=== PATIENT | male | born 1930 | race Caucasian/White ===

== ENCOUNTER 2016-09-22 12:51 | Observation (INO) | payer OTHER, BC ==
[~2016-09-22] VITALS: Ht 165.1 cm; Wt 66.8 kg
[~2016-09-22 12:51] MED LIST: ALBUAER19 INH; ASMIN/60 INH; BRVIN INH; CLC6 PO; DILT120C99 PO; EPP3/2 INJ; GABA1CAP4 PO; LISI-791 PO; MONT1TAB3 PO; PANT40TA PO; POTA10CA28 PO
[2016-09-22] MEDS ORDERED: SODIUM CHLORIDE 0.9% 500ML 500 ML IV STA (13:40)
[2016-09-22] MEDS ORDERED: LORAZEPAM 2 MG/ML 1 ML VIAL IV STA (13:40)
[2016-09-22] MEDS ORDERED: ALL100 PO (14:23)
[2016-09-22 14:27] LABS: BASO % 0.7 %; BASO ABS # 0.05 K/uL (0-0.2); COMPLETE YES; EOS % 2.7 %; HEMATOCRIT 43.4 % (42-52); IG% 0.3 %; LYMPH % 16.1 %; LYMPH ABS # 1.12 K/uL (1.2-3.4); MEAN CELL VOLUME 88.2 fL (80-100); MEAN CORPUSCULAR HEMOGLOBIN 30.9 pg (25-34); MEAN PLATELET VOLUME 9.1 fL (7.4-10.4); MONO % 7.9 %; NEUT % 72.3 %; PLATELET COUNT 171 K/uL (130-400); RED BLOOD COUNT 4.92 M/uL (4.7-6.1); WHITE BLOOD COUNT 6.94 K/uL (4.8-10.8)
[2016-09-22 14:39] LABS: BUN/CREATININE RATIO 13.3 (10-20); CREATININE 1.1 mg/dl (0.60-1.40); POTASSIUM 3.8 mmol/L (3.5-5.1)
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
[2016-09-22] MEDS ORDERED: ALBUTEROL 0.083% NEBU SOLN 3 ML VIAL INH PRN (17:00)
[2016-09-22] MEDS ORDERED: MoRPHine SULFATE 4 MG/ML 1 ML CARP\\VIAL IV PRN (17:15)
[2016-09-22] MEDS ORDERED: HYDROCODONE/ACETAMOPHEN 5/325MG TAB PO PRN (17:15)
[2016-09-22] MEDS ORDERED: ACETAMINOPHEN 325 MG TAB PO PRN (17:15)
[2016-09-22 17:38] VITALS: O2SAT 97; Ht 165.1 cm; Wt 66.8 kg
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
[2016-09-22 18:41] VITALS: BP 187/88; PULSE 67; TEMP 36.3; O2SAT 94
[2016-09-22 19:18] LABS: HEMATOCRIT 42.1 % (42-52); MEAN CELL VOLUME 88.3 fL (80-100); MEAN CORPUSCULAR HEMOGLOBIN 30.2 pg (25-34); MEAN CORPUSCULAR HGB CONC 34.2 g/dl (32-36); MEAN PLATELET VOLUME 9.1 fL (7.4-10.4); PLATELET COUNT 173 K/uL (130-400); RED BLOOD COUNT 4.77 M/uL (4.7-6.1); WHITE BLOOD COUNT 7.42 K/uL (4.8-10.8)
[2016-09-22 19:32] LABS: PROTHROMBIN TIME (PATIENT) 11.1 SECONDS (9.0-12.0)
[2016-09-22] MEDS: GABAPENTIN 300 MG CAP PO SCH (20:28)
[2016-09-22] MEDS: MOMETASONE FUROATE 14 PUFF/1 INHALER INH SCH (20:28)
[2016-09-22] MEDS: HEPARIN SOD 5000 UNIT/0.5 ML CARP SQ SCH (20:33)
[2016-09-22] MEDS: ARFORMOTEROL TART 15MCG/2ML VIAL INH SCH (20:42)
[2016-09-22 20:43] VITALS: PULSE 76; O2SAT 95
[2016-09-22] MEDS ORDERED: MONTELUKAST SOD 10 MG TAB PO SCH (21:00)
[2016-09-22] MEDS ORDERED: IV FLUIDS COMPLETED PRN (21:00)
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
[2016-09-22 23:57] VITALS: BP 146/86; PULSE 59; TEMP 36.7; O2SAT 96
[2016-09-23] VITALS (7 sets, daily range): BP systolic 157–172; BP diastolic 68–86; PULSE 59–76; TEMP 36.6–37.1; O2SAT 92–95
[2016-09-23] MEDS: ARFORMOTEROL TART 15MCG/2ML VIAL INH SCH (07:12)
[2016-09-23 07:17] LABS: BASO % 0.6 %; BASO ABS # 0.04 K/uL (0-0.2); COMPLETE YES; HEMATOCRIT 39.6 % (42-52); LYMPH % 21.6 %; LYMPH ABS # 1.35 K/uL (1.2-3.4); MEAN CELL VOLUME 87.6 fL (80-100); MEAN CORPUSCULAR HEMOGLOBIN 29.2 pg (25-34); MEAN CORPUSCULAR HGB CONC 33.3 g/dl (32-36); MEAN PLATELET VOLUME 9.4 fL (7.4-10.4); MONO % 9.9 %; NEUT % 63.9 %; PLATELET COUNT 167 K/uL (130-400); RED BLOOD COUNT 4.52 M/uL (4.7-6.1); WHITE BLOOD COUNT 6.26 K/uL (4.8-10.8)
[2016-09-23 07:48] LABS: BUN/CREATININE RATIO 15.1 (10-20); CALCIUM 8.6 mg/dl (8.5-10.1); CREATININE 1.1 mg/dl (0.60-1.40); POTASSIUM 3.6 mmol/L (3.5-5.1)
[2016-09-23] MEDS: GABAPENTIN 300 MG CAP PO SCH (08:30)
[2016-09-23] MEDS: HEPARIN SOD 5000 UNIT/0.5 ML CARP SQ SCH (08:31)
[2016-09-23] MEDS: MOMETASONE FUROATE 14 PUFF/1 INHALER INH SCH (08:32)
[2016-09-23] MEDS ORDERED: PANTOprazole SOD 40 MG TAB PO SCH (09:00)
[2016-09-23] MEDS ORDERED: DILTIAZEM HCL 120 MG CAPCR PO SCH (09:00)
[2016-09-23] MEDS ORDERED: ALLOPURINOL 100 MG TAB PO SCH ×2 (09:00→21:00)
[2016-09-23] MEDS ORDERED: LISINOPRIL 10 MG TAB PO SCH ×2 (09:00→21:00)
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
== END 2016-09-23 13:00 | disposition home or self-care (01) ==
LOC: ENRESERVTM → ENRESERVDT → C.EDB 12:51 → EDBD 12:51 → EDSEX 12:51 → C.MED 17:03
PROVIDERS: ADMIT Hospitalist; ATTEND Hospitalist
DX: R42 Dizziness and giddiness (principal); R07.81 Pleurodynia; V89.2XXA Person injured in unspecified motor-vehicle accident, traffic, initial encounter; I10 Essential (primary) hypertension; J44.9 Chronic obstructive pulmonary disease, unspecified; K21.9 Gastro-esophageal reflux disease without esophagitis; M10.00 Idiopathic gout, unspecified site; M47.812 Spondylosis without myelopathy or radiculopathy, cervical region; M85.80 Other specified disorders of bone density and structure, unspecified site; Z85.46 Personal history of malignant neoplasm of prostate

== ENCOUNTER → 2016-09-26 | Outpatient (CLI) | payer OTHER, BC ==
[~2016-09-26] MED LIST changes: +ALL100 PO; -CLC6 PO; -POTA10CA28 PO
--- NOTE | 2016-09-26 11:02 | DIAGNOSTIC IMAGING REPORT ---
RIBS UNILATERAL WITH PA CHEST CLINICAL HISTORY: RIB PAIN ON RIGHT SIDE pain COMPARISON STUDY: 04/08/2014 FINDINGS: Chronic bibasilar platelike atelectasis. Lungs appear clear. Chronic apical pleural thickening in the right. Negative ribs. IMPRESSION: No acute process. Electronically signed by: Daniel Aragon M.D. 09/26/2016 11:00 AM
== END | disposition home or self-care (01) ==
LOC: C.RADPV 10:37
PROVIDERS: ATTEND Family Medicine
DX: R07.81 Pleurodynia (principal)

== ENCOUNTER → 2016-12-12 | Outpatient (CLI) | payer OTHER, BC ==
[2016-12-12 12:21] LABS: ALT/SGPT 25 U/L (12-78); BLOOD UREA NITROGEN 23 mg/dl (7-18); BUN/CREATININE RATIO 20.6 (10-20); CALCIUM 9.3 mg/dl (8.5-10.1); CARBON DIOXIDE 29 mmol/L (21-32); CHLORIDE 108 mmol/L (98-107); GLUCOSE 124 mg/dl (70-99); MAGNESIUM 2.2 mg/dl (1.8-2.4); POTASSIUM 4.2 mmol/L (3.5-5.1); SODIUM 143 mmol/L (136-145)
[2016-12-12 12:24] LABS: ALKALINE PHOSPHATASE 63 U/L (45-117); AST/SGOT 15 U/L (15-37)
== END | disposition home or self-care (01) ==
LOC: C.LABPVFM 10:01
PROVIDERS: ATTEND Family Medicine
DX: M10.9 Gout, unspecified (principal); J44.9 Chronic obstructive pulmonary disease, unspecified; K21.9 Gastro-esophageal reflux disease without esophagitis

== ENCOUNTER → 2017-03-31 | Outpatient (CLI) | payer OTHER, BC | END | disposition home or self-care (01) | LOC: C.LABPVFM 10:11 | PROVIDERS: ATTEND Urology | DX: C61 Malignant neoplasm of prostate (principal) ==

== ENCOUNTER → 2017-04-17 | Outpatient (CLI) | payer OTHER, BC | END | disposition home or self-care (01) | LOC: C.LABSPEC 10:53 | PROVIDERS: ATTEND Plastic Surgery | DX: L02.01 Cutaneous abscess of face (principal) ==

== ENCOUNTER → 2017-04-17 | Outpatient (CLI) | payer OTHER, BC | END | disposition home or self-care (01) | LOC: C.PATHSPEC 10:20 | PROVIDERS: ATTEND Plastic Surgery | DX: L98.9 Disorder of the skin and subcutaneous tissue, unspecified (principal) ==

== ENCOUNTER → 2017-06-16 | Outpatient (CLI) | payer OTHER, BC ==
[2017-06-16 13:04] LABS: ESTIMATED AVERAGE GLUCOSE 134 mg/dl; HA1C FLAG Normal (Normal)
[2017-06-16 13:12] LABS: ALT/SGPT 21 U/L (12-78); AST/SGOT 18 U/L (15-37); BLOOD UREA NITROGEN 20 mg/dl (7-18); BUN/CREATININE RATIO 16.8 (10-20); CALCIUM 9.4 mg/dl (8.5-10.1); CARBON DIOXIDE 26 mmol/L (21-32); CHLORIDE 109 mmol/L (98-107); GLUCOSE 126 mg/dl (70-99); POTASSIUM 4.2 mmol/L (3.5-5.1); SODIUM 144 mmol/L (136-145)
[2017-06-16 13:18] LABS: ALB/GLOB RATIO 1.1 (0.9-2); ALKALINE PHOSPHATASE 51 U/L (45-117)
== END | disposition home or self-care (01) ==
LOC: C.LABPVFM 09:38
PROVIDERS: ATTEND Family Medicine
DX: I10 Essential (primary) hypertension (principal); R42 Dizziness and giddiness; R73.01 Impaired fasting glucose; M10.9 Gout, unspecified; K21.9 Gastro-esophageal reflux disease without esophagitis

== ENCOUNTER → 2017-12-04 | Outpatient (CLI) | payer OTHER, BC ==
[~2017-12-04] MED LIST changes: +GABA-1219 PO; -GABA1CAP4 PO
[2017-12-04 13:15] LABS: HEMOGLOBIN A1C 6.2 % (4.5-5.6)
[2017-12-04 13:18] LABS: ALBUMIN 4.2 gm/dl (3.4-5.0); ALT/SGPT 18 U/L (12-78); BLOOD UREA NITROGEN 16 mg/dl (7-18); CALCIUM 9.1 mg/dl (8.5-10.1); CARBON DIOXIDE 28 mmol/L (21-32); CREATININE 1.09 mg/dl (0.60-1.40); GLUCOSE 134 mg/dl (70-99); POTASSIUM 3.5 mmol/L (3.5-5.1); SODIUM 142 mmol/L (136-145); URIC ACID 4.9 mg/dl (2.6-7.2)
[2017-12-04 13:21] LABS: ALKALINE PHOSPHATASE 61 U/L (45-117); AST/SGOT 13 U/L (15-37); TOTAL PROTEIN 7.7 gm/dl (6.4-8.2)
== END | disposition home or self-care (01) ==
LOC: C.LABPVFM 09:19
PROVIDERS: ATTEND Family Medicine
DX: J44.9 Chronic obstructive pulmonary disease, unspecified (principal); I10 Essential (primary) hypertension; R73.01 Impaired fasting glucose; K21.9 Gastro-esophageal reflux disease without esophagitis

== ENCOUNTER → 2018-01-06 | Outpatient (CLI) | payer OTHER, BC | END | disposition home or self-care (01) | LOC: C.LABSALHI 09:57 | PROVIDERS: ATTEND Family Medicine | DX: R19.7 Diarrhea, unspecified (principal) ==

== ENCOUNTER → 2018-04-23 | Outpatient (CLI) | payer OTHER, BC | END | disposition home or self-care (01) | LOC: C.LABPVFM 10:12 | PROVIDERS: ATTEND Urology | DX: C61 Malignant neoplasm of prostate (principal) ==

== ENCOUNTER 2018-10-15 08:46 | Inpatient (IN) ==
[2018-10-15] MEDS ORDERED: SODIUM CHLORIDE 0.9% 1000ML 250 ML IV ONE (09:28)
[2018-10-15 09:41] LABS: Basophils # (auto) 0.02 K/uL (0-0.2); Basophils % (auto) 0.1 %; Eosinophils # (auto) 0.01 K/uL (0-0.5); Eosinophils % (auto) 0.1 %; Hematocrit (blood only) 41.1 % (42-52); Hemoglobin 14.4 g/dL (14.0-18.0); Immature Granulocytes # (auto) 0.08 K/uL (0.00-0.02); Immature Granulocytes % (auto) 0.4 %; Lymphocytes # (auto) 0.91 K/uL (1.2-3.4); Lymphocytes % (auto) 4.8 %; Mean Corpuscular Volume 88.4 fL (80-100); Mean Platelet Volume 9.7 fL (7.4-10.4); Monocytes # (auto) 1.94 K/uL (0.11-0.59); Monocytes % (auto) 10.3 %; Neutrophils # (auto) 15.96 K/uL (1.4-6.5); Neutrophils % (auto) 84.3 %; Platelet Count 187 K/uL (130-400); RDW Standard Deviation 45.3 fL (36.4-46.3); Red Blood Count 4.65 M/uL (4.7-6.1); White Blood Count 18.92 K/uL (4.8-10.8)
--- NOTE | 2018-10-15 09:53 | XRay Report ---
XR chest 1V portable CLINICAL HISTORY: Dyspnea COMPARISON STUDY: 09/26/2016 FINDINGS: The heart is borderline enlarged. There are low lung volumes. There is elevation of the rig ht hemidiaphragm. There is no overt failure. There are persistent basilar atelectatic changes.[ IMPRESSION: Mild elevation right hemidiaphragm. Low lung volumes with persistent basilar atelectatic change. No acute findings. Electronically signed by: Vin Saunders M.D. 10/15/2018 9:51 AM
[2018-10-15 09:58] LABS: Alanine Aminotransferase 20 U/L (12-78); Albumin Level 3.4 gm/dl (3.4-5.0); Aspartate Aminotransferase 17 U/L (15-37); BUN Creatinine Ratio 15.5 (10-20); Blood Urea Nitrogen 30 mg/dl (7-18); Calcium 8.9 mg/dl (8.5-10.1); Carbon Dioxide 21 mmol/L (21-32); Chloride 102 mmol/L (98-107); Creatinine Clr Calc Pharmacy 23.1 ml/min; Est GFR (African American) 35.7; Est GFR (Non-African American) 30.8; Glucose 187 mg/dl (70-99); Magnesium 1.8 mg/dl (1.8-2.4); Potassium 3.6 mmol/L (3.5-5.1); Sodium 135 mmol/L (136-145)
[2018-10-15 10:03] LABS: Albumin Globulin Ratio 0.7 (0.9-2); Alkaline Phosphatase 51 U/L (45-117); Bilirubin,Total 1.9 mg/dl (0.2-1); Globulin 4.6 gm/dl (2.5-4.0); Troponin I < 0.015 ng/ml (0-0.045)
[2018-10-15] MEDS: SODIUM CHLORIDE 0.9% 1000ML 1,000 ML IV SCH ×3 (10:18→21:04)
[2018-10-15 10:24] LABS: INR 1.2 (0.9-1.1); Partial Thromboplastin Ratio 1.3; Partial Thromboplastin Time 33.9 Seconds (21.0-31.0); Prothrombin Time 11.8 Seconds (9.0-12.0)
--- NOTE | 2018-10-15 10:55 | CT Scan Report ---
CT OF THE HEAD WITHOUT CONTRAST CLINICAL HISTORY: Altered mental status. COMPARISON STUDY: Head CT September 22, 2016. CT DOSE: 614.27 mGy.cm TECHNIQUE: Helical axial images of the head were obtained without IV contrast. Automated exposure con trol was utilized for the study. A dose lowering technique was utilized adhering to the principles o f ALARA. FINDINGS: No acute intracranial hemorrhage, midline shift or mass effect is present. Ventricular syst em is normal for age. Basilar cisterns are patent. There are no extra-axial collections. Bui-white d ifferentiation is maintained. There are no findings to suggest acute dural sinus thrombosis or acute territorial infarct. Mild white matter hypodensity suggests small vessel disease. There are no signif icant calvarial abnormalities. There is trace fluid within the right mastoid air cells. IMPRESSION: No acute intracranial findings. Electronically signed by: Branden Nova M.D. 10/15/2018 10:54 AM
[2018-10-15 11:57] LABS: Influenza A virus by PCR Neg for Influ A (Neg); Influenza B virus by PCR Neg for Influ B (Neg)
[2018-10-15 12:19] LABS: Appearance Urine Cloudy (Clear); Bacteria Urine Automated Negative (Negative); Bilirubin Urine Negative (Negative); Color Urine Yellow; Epithelial Cell Urine Auto 20-30 /lpf (0-5); Glucose Urine UA Negative (Negative); Ketones Urine Trace (Negative); Leukocyte Esterase Urine Negative (Negative); Nitrite Urine Negative (Negative); Protein Urine 1+ (Negative); Specific Gravity Urine 1.022 (1.000-1.030); Urobilinogen Urine Negative (Negative)
[2018-10-15] MEDS ORDERED: NYSTATIN CR 15 GM TUBE EXT STA (13:17)
[2018-10-15] MEDS ORDERED: cefTRIAXone SODIUM 1,000 MG/50 ML BAG IV STA (13:29)
--- NOTE | 2018-10-15 14:45 | Ultrasound Report ---
US gallbladder CLINICAL HISTORY: 88 years-old Male presenting with poor appetite, dehydration, elevated bili. TECHNIQUE: Real-time grayscale and limited color Doppler ultrasound imaging of the abdomen limited to the right upper quadrant was performed. COMPARISON: 05/08/2016. FINDINGS: Pancreas: Largely obscured due to overlying bowel gas. Pancreatic duct not pathologically dilated. Liver: Hyperechogenic parenchyma with heterogeneous echotexture, likely indicating fibrosis or steato sis. The liver measures 16.4 cm in maximal sagittal dimension. No sonographic evidence of hepatic mas s. Main portal vein patent with normal directional flow. Biliary: No intrahepatic biliary ductal dilatation. Common bile duct measures up to 5 mm in diameter. Gallbladder: Gallbladder wall measures 4 mm in thickness. Echogenic internal contents with posterior shadowing consistent with cholelithiasis. No pathologic distention of the gallbladder. Sonographic Mu rphy's sign negative. Right kidney: Upper pole largely anechoic multilobular cyst measuring 6.5 x 2.9 x 3.5 cm. Foci of hyp erechogenicity at the upper pole with possible septation suggest complexity. The appearance is unchan ged from prior. Ascites: Trace perihepatic ascites.. Other: None. IMPRESSION: 1. Cholelithiasis with nonspecific gallbladder wall thickening. If there is clinical concern for cho lecystitis, HIDA scan could be obtained, although the gallbladder wall thickening may be secondary to hepatic pathology. 2. Heterogeneous hepatic parenchyma likely indicates underlying fibrosis or steatosis. 3. Trace ascites. 4. Complex right renal cyst unchanged since 2016. Electronically signed by: Ronal Travis M.D. 10/15/2018 2:44 PM
--- NOTE | 2018-10-15 15:46 | Emergency Department Note ---
Entered by Radha Bravo acting as a scribe for History of Present Illness General Chief complaint: Weakness Stated complaint: weakness Time Seen by Provider: 10/15/18 08:51 Source: patient Mode of arrival: EMS History of Present Illness Provider complaint: weakness Onset (ago): day(s) (recently) Location: head Pain Consistency: + other (persistent) Quality: + other (weakness) Associated symptoms: + other (Associated symptoms: dehydration, nausea, shortness of breath, lack of appetite, recent falls. Denies: vomiting, fevers, chest pain, other heart symptoms, blood in stool.) The patient is an 88 year old male who presents to the Emergency Room with complaints of persistent weakness beginning recently. He reports he believes he is dehydrated. The patient notes nausea and shortness of breath. He denies vomiting, fevers, chest pain, other heart symptoms, or blood in stool. The patient states he is not eating or drinking due to lack of appetite. He reports he has been urinating. The patient states he has fallen a few times this week, and does not believes he hit his head. He notes he lives alone, and someone comes to check on him and help him up when he falls. Home Medications Home Medications Medication Instructions Recorded Confirmed Type allopurinol 100 mg PO QAM 10/15/18 10/15/18 History arformoterol [Brovana] 2 ml INHALATION BID 10/15/18 10/15/18 History calcium carbonate-vitamin D3 1 tab PO QAM 10/15/18 10/15/18 History [Caltrate 600 + D] diltiazem HCl 120 mg PO HS 10/15/18 10/15/18 History gabapentin 300 mg PO TID 10/15/18 10/15/18 History lisinopril 10 mg PO QAM 10/15/18 10/15/18 History loperamide [Imodium A-D] 1 mg PO QAM 10/15/18 10/15/18 History mometasone [Asmanex Twisthaler] 1 puff INHALATION BID 10/15/18 10/15/18 History montelukast 10 mg PO QAM 10/15/18 10/15/18 History pantoprazole 20 mg PO QAM 10/15/18 10/15/18 History potassium chloride 20 meq PO QAM 10/15/18 10/15/18 History Allergies Allergy/AdvReac Type Severity Reaction Status Date / Time No Known Allergies Allergy Verified 10/15/18 10:53 Past Med/Surg History Medical History HTN (hypertension) Gout (Chronic) Cholelithiasis (Resolved) Surgical History H/O prostatectomy (Resolved) Social History Current Living Situation: Personal Care Facility Other Information That Helps Us Care for You: No Feels Safe at Home: Yes Smoking Status: Never smoker Do You Dip or Chew Tobacco: No Hx Alcohol Use: No Hx Substance Use: No Beliefs That Will Affect Care: None Preferred Language: Irish Communication Ability: Effective Roadway Engineer Required: No Review of Systems See HPI for pertinent positives & negatives. and A total of 10 systems reviewed and were otherwise negative Physical Exam Vital Signs Vital Signs - 24 hr 10/17/18 07:27 10/17/18 08:03 10/17/18 12:03 Temperature 36.6 C 36.6 C Temperature Source Oral Oral Pulse Rate Pulse Rate [Right Finger] 78 71 74 Respiratory Rate 16 18 18 Respiratory Effort / Characteristics Non-Labored Spontaneous Blood Pressure [Left Arm] Blood Pressure [Right Arm] 138/86 130/84 Blood Pressure Mean [Left Arm] Blood Pressure Mean [Right Arm] 103 99 Blood Pressure Position [Left Arm] Pulse Oximetry 93 93 93 Oxygen Delivery Method Room Air 10/17/18 14:49 10/17/18 16:03 10/17/18 19:00 Temperature 36.6 C 37 C Temperature Source Oral Oral Pulse Rate 71 Pulse Rate [Right Finger] 78 65 Respiratory Rate 18 18 Respiratory Effort / Characteristics Blood Pressure [Left Arm] 163/82 H Blood Pressure [Right Arm] 128/68 Blood Pressure Mean [Left Arm] 109 Blood Pressure Mean [Right Arm] 88 Blood Pressure Position [Left Arm] Lying Pulse Oximetry 93 94 Oxygen Delivery Method Room Air 10/17/18 19:17 10/17/18 23:00 10/18/18 01:32 Temperature 37 C Temperature Source Oral Pulse Rate 79 Pulse Rate [Right Finger] 65 82 Respiratory Rate 16 18 Respiratory Effort / Characteristics Non-Labored Spontaneous Blood Pressure [Left Arm] 173/82 H Blood Pressure [Right Arm] Blood Pressure Mean [Left Arm] 112 Blood Pressure Mean [Right Arm] Blood Pressure Position [Left Arm] Lying Pulse Oximetry 92 92 Oxygen Delivery Method Room Air Room Air 10/18/18 04:00 Temperature 36.3 C L Temperature Source Oral Pulse Rate Pulse Rate [Right Finger] 69 Respiratory Rate 20 Respiratory Effort / Characteristics Blood Pressure [Left Arm] 174/78 H Blood Pressure [Right Arm] Blood Pressure Mean [Left Arm] 110 Blood Pressure Mean [Right Arm] Blood Pressure Position [Left Arm] Lying Pulse Oximetry 93 Oxygen Delivery Method Room Air Vital signs reviewed. General: Chronically ill-appearing elderly man, in no significant distress, somewhat disheveled. HEENT: No scleral icterus, PERRLA, neck supple. Atraumatic. Cardiovascular: Tachycardic with occasional irregularity, no extra sounds. Pulmonary: Clear to auscultation bilaterally, normal work of breathing. Abdomen: Soft, nontender, nondistended, positive bowel sounds. Musculoskeletal: Atraumatic, no peripheral edema. Neurologic: Patient awake alert and oriented x 3, equal strength in all 4 extremities. Cranial nerves 2 through 12 grossly intact. Skin: Warm, dry, no rash. : Excoriated perineum through inguinal folds. Circumcised. Erythema with milky appearing discharge involves the scrotum. Course 0924: Past medical records reviewed. The patient was evaluated in room B3B, and a complete history and physical examination were performed. 1104: I reevaluated and updated the patient. 1307: I reevaluated the patient and performed a exam. I discussed test results. He verbalized agreement with the treatment plan. The patient will be admitted for further evaluation. 1332: I reviewed the patient's case with Dr. Hartley, [facility] hospitalist. She will evaluate the patient for further management. Consultations Consultation #1: I reviewed the patient's case with Dr. Hartley, [facility] hospitalist. She will evaluate the patient for further management. Time: 13:32 Administered Medications Allopurinol (Zyloprim) 100 mg PO QAM [facility] Stop: 11/15/18 08:59 Last Admin: 10/17/18 07:32 Dose: 100 mg Admin: 10/16/18 09:13 Dose: 100 mg Arformoterol Tartrate (Brovana Neb) 15 mcg INH BIDR [facility] Stop: 11/14/18 19:59 Last Admin: 10/17/18 19:15 Dose: 15 mcg Admin: 10/17/18 07:27 Dose: 15 mcg Admin: 10/16/18 19:40 Dose: 15 mcg Admin: 10/16/18 07:19 Dose: 15 mcg Admin: 10/15/18 19:47 Dose: 15 mcg Diltiazem HCl (Cardizem Cd) 120 mg PO HS [facility] Stop: 11/14/18 20:59 Last Admin: 10/17/18 20:24 Dose: 120 mg Admin: 10/16/18 20:35 Dose: 120 mg Admin: 10/15/18 21:06 Dose: 120 mg Gabapentin (Neurontin) 300 mg PO TID [facility] Stop: 11/14/18 20:59 Last Admin: 10/17/18 20:25 Dose: 300 mg Admin: 10/17/18 15:12 Dose: 300 mg Admin: 10/17/18 07:32 Dose: 300 mg Admin: 10/16/18 20:35 Dose: 300 mg Admin: 10/16/18 14:20 Dose: 300 mg Admin: 10/16/18 09:13 Dose: 300 mg Admin: 10/15/18 21:05 Dose: 300 mg Heparin Sodium (Porcine) (Heparin Sodium (Porcine)) 5,000 units SQ Q12 [facility] Stop: 11/14/18 20:59 Last Admin: 10/17/18 20:21 Dose: 5,000 units Admin: 10/16/18 09:14 Dose: 5,000 units Admin: 10/15/18 21:05 Dose: 5,000 units Sodium Chloride (Nss 1000ml) 1,000 mls @ 80 mls/hr IV .[id number] [facility] Stop: 11/14/18 18:18 Last Admin: 10/18/18 00:20 Dose: 80 mls/hr Infusion: 10/18/18 00:20 Dose: 80 mls/hr Admin: 10/17/18 17:19 Dose: 80 mls/hr Infusion: 10/17/18 17:19 Dose: 80 mls/hr Infusion: 10/17/18 14:12 Dose: 80 mls/hr Admin: 10/17/18 07:29 Dose: 100 mls/hr Infusion: 10/17/18 07:29 Dose: 100 mls/hr Admin: 10/16/18 23:06 Dose: 100 mls/hr Infusion: 10/16/18 19:22 Dose: 125 mls/hr Admin: 10/16/18 11:22 Dose: 125 mls/hr Infusion: 10/16/18 11:22 Dose: 125 mls/hr Admin: 10/16/18 03:33 Dose: 125 mls/hr Infusion: 10/16/18 03:33 Dose: 125 mls/hr Admin: 10/15/18 21:04 Dose: 125 mls/hr Piperacillin Sod/Tazobactam (Sod 3.375 gm/ Dextrose) 115 mls @ 28.75 mls/hr IV Q8H [facility]; Protocol Stop: 10/26/18 00:00 Last Infusion: 10/18/18 04:25 Dose: 0 mls/hr Admin: 10/18/18 00:19 Dose: 28.8 mls/hr Infusion: 10/17/18 20:26 Dose: 0 mls/hr Admin: 10/17/18 16:26 Dose: 28.8 mls/hr Infusion: 10/17/18 12:02 Dose: 0 mls/hr Admin: 10/17/18 07:39 Dose: 28.8 mls/hr Infusion: 10/17/18 07:19 Dose: 0 mls/hr Admin: 10/17/18 00:24 Dose: 28.8 mls/hr Infusion: 10/16/18 23:09 Dose: 0 mls/hr Admin: 10/16/18 18:12 Dose: 28.8 mls/hr Infusion: 10/16/18 13:45 Dose: 0 mls/hr Admin: 10/16/18 09:21 Dose: 28.8 mls/hr Infusion: 10/16/18 03:33 Dose: 0 mls/hr Admin: 10/15/18 23:33 Dose: 28.8 mls/hr Lisinopril (Zestril) 10 mg PO QAM [facility] Stop: 11/15/18 08:59 Last Admin: 10/16/18 09:11 Dose: 10 mg Loperamide HCl (Imodium A-D Liquid) 1 mg PO QAM [facility] Stop: 11/15/18 08:59 Last Admin: 10/17/18 07:43 Dose: Not Given Admin: 10/16/18 09:14 Dose: 1 mg Mometasone Furoate (Asmanex 220mcg) 1 puffs INH BID [facility] Stop: 11/14/18 20:59 Last Admin: 10/17/18 20:23 Dose: 1 puffs Admin: 10/17/18 07:33 Dose: 1 puffs Admin: 10/16/18 20:34 Dose: 1 puffs Admin: 10/16/18 09:11 Dose: 1 puffs Admin: 10/15/18 21:05 Dose: 1 puffs Montelukast Sodium (Singulair) 10 mg PO [facility] Stop: 11/15/18 08:59 Last Admin: 10/17/18 07:42 Dose: 10 mg Admin: 10/16/18 09:11 Dose: 10 mg Multivitamins/Minerals (Caltrate Plus) 1 tab PO [facility] Stop: 11/15/18 08:59 Last Admin: 10/17/18 07:32 Dose: 1 tab Admin: 10/16/18 09:13 Dose: 1 tab Pantoprazole Sodium (Protonix) 40 mg PO [facility] Stop: 11/15/18 08:59 Last Admin: 10/17/18 07:32 Dose: 40 mg Admin: 10/16/18 09:13 Dose: 40 mg Potassium Chloride (Klor-Con M20) 20 meq PO [facility] Stop: 11/15/18 08:59 Last Admin: 10/17/18 07:30 Dose: 20 meq Admin: 10/16/18 09:13 Dose: 20 meq Discontinued Medications Sodium Chloride (Nss 1000ml) 250 mls @ 999 mls/hr IV .Q16M ONE Stop: 10/15/18 09:43 Last Infusion: 10/15/18 10:34 Dose: 0 mls/hr Admin: 10/15/18 10:18 Dose: 999 mls/hr Sodium Chloride (Nss 1000ml) 1,000 mls @ 125 mls/hr IV .Q8H [facility] Stop: 11/14/18 09:29 Last Admin: 10/15/18 21:04 Dose: Not Given Infusion: 10/15/18 18:35 Dose: 0 mls/hr Admin: 10/15/18 10:18 Dose: 125 mls/hr Ceftriaxone Sodium (Rocephin) 1,000 mg in 50 mls @ 100 mls/hr IV NOW STA Stop: 10/15/18 13:58 Last Infusion: 10/15/18 15:55 Dose: 0 mls/hr Admin: 10/15/18 15:26 Dose: 100 mls/hr Piperacillin Sod/Tazobactam (Sod 3.375 gm/ Dextrose) 115 mls @ 230 mls/hr IV 1930 ONE; Protocol Stop: 10/15/18 19:59 Last Infusion: 10/15/18 21:53 Dose: 0 mls/hr Admin: 10/15/18 21:04 Dose: 230 mls/hr Morphine Sulfate (Morphine Sulfate) Confirm Administered Dose 4 mg .ROUTE .STK- MED ONE Stop: 10/16/18 17:00 Last Admin: 10/16/18 16:40 Dose: 2 mg Nystatin (Nystatin) 1 appln EXT NOW STA Stop: 10/15/18 13:18 Last Admin: 10/15/18 13:53 Dose: 1 appln Potassium Chloride (Klor-Con M20) 40 meq PO NOW ONE Stop: 10/16/18 08:31 Last Admin: 10/16/18 09:11 Dose: 40 meq Medical Decision Making Differential Diagnosis Differential includes acute coronary syndrome, myocardial infarction, CVA, TIA , anemia, infection, pneumonia, UTI, pyelonephritis, poor nutrition, dehydration , electrolyte disturbance,hypoglycemia. Medical Records Attestation: I reviewed the patient's medical records. Home Medications Current Medication List: was personally reviewed by me Laboratory Data Attestation: I reviewed the patient's lab results. Result diagrams: 10/18/18 05:39 10/17/18 08:18 Lab Results 10/15/18 10/15/18 10/15/18 Range/Units 09:53 09:55 09:55 WBC 18.92 H (4.8-10.8) K/uL RBC 4.65 L (4.7-6.1) M/uL Hgb 14.4 (14.0-18.0) g/dL Hct 41.1 L (42-52) % MCV 88.4 (80-100) fL MCH 31.0 (25-34) pg MCHC 35.0 (32-36) g/dL RDW Std Deviation 45.3 (36.4-46.3) fL RDW Coeff of Svetlana 14.0 (11.5-14.5) % Plt Count 187 (130-400) K/uL MPV 9.7 (7.4-10.4) fL Immature Gran % (Auto) 0.4 % Neut % (Auto) 84.3 % Lymph % (Auto) 4.8 % [place] % (Auto) 10.3 % Eos % (Auto) 0.1 % Baso % (Auto) 0.1 % Immature Gran # (Auto) 0.08 H (0.00-0.02) K/uL Neut # (Auto) 15.96 H (1.4-6.5) K/uL Lymph # (Auto) 0.91 L (1.2-3.4) K/uL [place] # (Auto) 1.94 H (0.11-0.59) K/uL Eos # (Auto) 0.01 (0-0.5) K/uL Baso # (Auto) 0.02 (0-0.2) K/uL PT 11.8 Cancelled (9.0-12.0) Seconds INR 1.2 H Cancelled (0.9-1.1) APTT 33.9 H Cancelled (21.0-31.0) Seconds PTT Ratio 1.3 Cancelled Sodium (136-145) mmol/L Potassium (3.5-5.1) mmol/L Chloride (98-107) mmol/L Carbon Dioxide (21-32) mmol/L Anion Gap (3-11) BUN (7-18) mg/dl Creatinine (0.6-1.4) mg/dl Est Cr Clr Drug Dosing ml/min Est GFR ( Amer) Est GFR (Non-Af Amer) BUN/Creatinine Ratio (10-20) Glucose (70-99) mg/dl Lactate (0.4-2.0) mmol/L Calcium (8.5-10.1) mg/dl Magnesium (1.8-2.4) mg/dl Total Bilirubin (0.2-1) mg/dl AST (15-37) U/L ALT (12-78) U/L Alkaline Phosphatase (45-117) U/L Troponin I (0-0.045) ng/ml Total Protein (6.4-8.2) gm/dl Albumin (3.4-5.0) gm/dl Globulin (2.5-4.0) gm/dl Albumin/Globulin Ratio (0.9-2) Urine Color Urine Appearance (Clear) Urine pH (4.5-7.5) Ur Specific [place] (1.000-1.030) Urine Protein (Negative) Urine Glucose (UA) (Negative) Urine Ketones (Negative) Urine Blood (Negative) Urine Nitrite (Negative) Urine Bilirubin (Negative) Urine Urobilinogen (Negative) Ur Leukocyte Esterase (Negative) Urine WBC (Auto) (0-5) /hpf Urine RBC (Auto) (0-4) /hpf U Hyaline Cast (Auto) (0-5) /lpf U Epithel Cells (Auto) (0-5) /lpf Urine Bacteria (Auto) (Negative) Urine Yeast Influenza Type A (PCR) (Neg) Influenza Type B (PCR) (Neg) 10/15/18 10/15/18 10/15/18 Range/Units 09:55 11:09 12:00 WBC (4.8-10.8) K/uL RBC (4.7-6.1) M/uL Hgb (14.0-18.0) g/dL Hct (42-52) % MCV (80-100) fL MCH (25-34) pg MCHC (32-36) g/dL RDW Std Deviation (36.4-46.3) fL RDW Coeff of Svetlana (11.5-14.5) % Plt Count (130-400) K/uL MPV (7.4-10.4) fL Immature Gran % (Auto) % Neut % (Auto) % Lymph % (Auto) % [place] % (Auto) % Eos % (Auto) % Baso % (Auto) % Immature Gran # (Auto) (0.00-0.02) K/uL Neut # (Auto) (1.4-6.5) K/uL Lymph # (Auto) (1.2-3.4) K/uL [place] # (Auto) (0.11-0.59) K/uL Eos # (Auto) (0-0.5) K/uL Baso # (Auto) (0-0.2) K/uL PT (9.0-12.0) Seconds INR (0.9-1.1) APTT (21.0-31.0) Seconds PTT Ratio Sodium 135 L (136-145) mmol/L Potassium 3.6 (3.5-5.1) mmol/L Chloride 102 (98-107) mmol/L Carbon Dioxide 21 (21-32) mmol/L Anion Gap 13.0 H (3-11) BUN 30 H (7-18) mg/dl Creatinine 1.92 H (0.6-1.4) mg/dl Est Cr Clr Drug Dosing 23.1 ml/min Est GFR ( Amer) 35.7 Est GFR (Non-Af Amer) 30.8 BUN/Creatinine Ratio 15.5 (10-20) Glucose 187 H (70-99) mg/dl Lactate (0.4-2.0) mmol/L Calcium 8.9 (8.5-10.1) mg/dl Magnesium 1.8 (1.8-2.4) mg/dl Total Bilirubin 1.9 H (0.2-1) mg/dl AST 17 (15-37) U/L ALT 20 (12-78) U/L Alkaline Phosphatase 51 (45-117) U/L Troponin I < 0.015 (0-0.045) ng/ml Total Protein 8.0 (6.4-8.2) gm/dl Albumin 3.4 (3.4-5.0) gm/dl Globulin 4.6 H (2.5-4.0) gm/dl Albumin/Globulin Ratio 0.7 L (0.9-2) Urine Color Yellow Urine Appearance Cloudy H (Clear) Urine pH 5.0 (4.5-7.5) Ur Specific [place] 1.022 (1.000-1.030) Urine Protein 1+ H (Negative) Urine Glucose (UA) Negative (Negative) Urine Ketones Trace H (Negative) Urine Blood 1+ H (Negative) Urine Nitrite Negative (Negative) Urine Bilirubin Negative (Negative) Urine Urobilinogen Negative (Negative) Ur Leukocyte Esterase Negative (Negative) Urine WBC (Auto) 1-5 (0-5) /hpf Urine RBC (Auto) 0-4 (0-4) /hpf U Hyaline Cast (Auto) 10-30 H (0-5) /lpf U Epithel Cells (Auto) 20-30 H (0-5) /lpf Urine Bacteria (Auto) Negative (Negative) Urine Yeast Not Reportable Influenza Type A (PCR) Neg for Influ A (Neg) Influenza Type B (PCR) Neg for Influ B (Neg) 10/15/18 10/15/1819 Range/Units 16:38 18:54 06:06 WBC 14.20 H (4.8-10.8) K/uL RBC 4.39 L (4.7-6.1) M/uL Hgb 13.0 L (14.0-18.0) g/dL Hct 39.4 L (42-52) % MCV 89.7 (80-100) fL MCH 29.6 (25-34) pg MCHC 33.0 (32-36) g/dL RDW Std Deviation 46.2 (36.4-46.3) fL RDW Coeff of Svetlana 14.0 (11.5-14.5) % Plt Count 174 (130-400) K/uL MPV 9.9 (7.4-10.4) fL Immature Gran % (Auto) 0.4 % Neut % (Auto) 78.5 % Lymph % (Auto) 9.9 % [place] % (Auto) 11.0 % Eos % (Auto) 0.1 % Baso % (Auto) 0.1 % Immature Gran # (Auto) 0.05 H (0.00-0.02) K/uL Neut # (Auto) 11.17 H (1.4-6.5) K/uL Lymph # (Auto) 1.40 (1.2-3.4) K/uL [place] # (Auto) 1.56 H (0.11-0.59) K/uL Eos # (Auto) 0.01 (0-0.5) K/uL Baso # (Auto) 0.01 (0-0.2) K/uL PT (9.0-12.0) Seconds INR (0.9-1.1) APTT (21.0-31.0) Seconds PTT Ratio Sodium (136-145) mmol/L Potassium (3.5-5.1) mmol/L Chloride (98-107) mmol/L Carbon Dioxide (21-32) mmol/L Anion Gap (3-11) BUN (7-18) mg/dl Creatinine (0.6-1.4) mg/dl Est Cr Clr Drug Dosing ml/min Est GFR ( Amer) Est GFR (Non-Af Amer) BUN/Creatinine Ratio (10-20) Glucose (70-99) mg/dl Lactate 2.6 H* (0.4-2.0) mmol/L Calcium (8.5-10.1) mg/dl Magnesium (1.8-2.4) mg/dl Total Bilirubin (0.2-1) mg/dl AST (15-37) U/L ALT (12-78) U/L Alkaline Phosphatase (45-117) U/L Troponin I < 0.015 (0-0.045) ng/ml Total Protein (6.4-8.2) gm/dl Albumin (3.4-5.0) gm/dl Globulin (2.5-4.0) gm/dl Albumin/Globulin Ratio (0.9-2) Urine Color Urine Appearance (Clear) Urine pH (4.5-7.5) Ur Specific [place] (1.000-1.030) Urine Protein (Negative) Urine Glucose (UA) (Negative) Urine Ketones (Negative) Urine Blood (Negative) Urine Nitrite (Negative) Urine Bilirubin (Negative) Urine Urobilinogen (Negative) Ur Leukocyte Esterase (Negative) Urine WBC (Auto) (0-5) /hpf Urine RBC (Auto) (0-4) /hpf U Hyaline Cast (Auto) (0-5) /lpf U Epithel Cells (Auto) (0-5) /lpf Urine Bacteria (Auto) (Negative) Urine Yeast Influenza Type A (PCR) (Neg) Influenza Type B (PCR) (Neg) 10/16/18 10/17/18 10/17/18 Range/Units 06:06 08:18 08:18 WBC 9.27 (4.8-10.8) K/uL RBC 4.04 L (4.7-6.1) M/uL Hgb 11.9 L (14.0-18.0) g/dL Hct 36.7 L (42-52) % MCV 90.8 (80-100) fL MCH 29.5 (25-34) pg MCHC 32.4 (32-36) g/dL RDW Std Deviation 46.7 H (36.4-46.3) fL RDW Coeff of Svetlana 14.0 (11.5-14.5) % Plt Count 161 (130-400) K/uL MPV 9.8 (7.4-10.4) fL Immature Gran % (Auto) 0.3 % Neut % (Auto) 80.9 % Lymph % (Auto) 9.2 % [place] % (Auto) 8.4 % Eos % (Auto) 1.0 % Baso % (Auto) 0.2 % Immature Gran # (Auto) 0.03 H (0.00-0.02) K/uL Neut # (Auto) 7.50 H (1.4-6.5) K/uL Lymph # (Auto) 0.85 L (1.2-3.4) K/uL [place] # (Auto) 0.78 H (0.11-0.59) K/uL Eos # (Auto) 0.09 (0-0.5) K/uL Baso # (Auto) 0.02 (0-0.2) K/uL PT (9.0-12.0) Seconds INR (0.9-1.1) APTT (21.0-31.0) Seconds PTT Ratio Sodium 138 141 (136-145) mmol/L Potassium 3.4 L 3.5 (3.5-5.1) mmol/L Chloride 109 H 111 H (98-107) mmol/L Carbon Dioxide 24 20 L (21-32) mmol/L Anion Gap 5.0 11.0 (3-11) BUN 23 H 19 H (7-18) mg/dl Creatinine 1.49 H D 1.21 (0.6-1.4) mg/dl Est Cr Clr Drug Dosing 29.8 36.7 ml/min Est GFR ( Amer) 48.6 62.5 Est GFR (Non-Af Amer) 41.9 53.9 BUN/Creatinine Ratio 15.5 15.7 (10-20) Glucose 148 H 128 H (70-99) mg/dl Lactate (0.4-2.0) mmol/L Calcium 8.1 L 8.0 L (8.5-10.1) mg/dl Magnesium (1.8-2.4) mg/dl Total Bilirubin 1.1 H (0.2-1) mg/dl AST 26 (15-37) U/L ALT 21 (12-78) U/L Alkaline Phosphatase 51 (45-117) U/L Troponin I (0-0.045) ng/ml Total Protein 6.5 (6.4-8.2) gm/dl Albumin 2.3 L (3.4-5.0) gm/dl Globulin 4.2 H (2.5-4.0) gm/dl Albumin/Globulin Ratio 0.6 L (0.9-2) Urine Color Urine Appearance (Clear) Urine pH (4.5-7.5) Ur Specific [place] (1.000-1.030) Urine Protein (Negative) Urine Glucose (UA) (Negative) Urine Ketones (Negative) Urine Blood (Negative) Urine Nitrite (Negative) Urine Bilirubin (Negative) Urine Urobilinogen (Negative) Ur Leukocyte Esterase (Negative) Urine WBC (Auto) (0-5) /hpf Urine RBC (Auto) (0-4) /hpf U Hyaline Cast (Auto) (0-5) /lpf U Epithel Cells (Auto) (0-5) /lpf Urine Bacteria (Auto) (Negative) Urine Yeast Influenza Type A (PCR) (Neg) Influenza Type B (PCR) (Neg) 10/18/18 Range/Units 05:39 WBC 7.38 (4.8-10.8) K/uL RBC 3.94 L (4.7-6.1) M/uL Hgb 12.2 L (14.0-18.0) g/dL Hct 35.4 L (42-52) % MCV 89.8 (80-100) fL MCH 31.0 (25-34) pg MCHC 34.5 (32-36) g/dL RDW Std Deviation 46.4 H (36.4-46.3) fL RDW Coeff of Svetlana 14.0 (11.5-14.5) % Plt Count 177 (130-400) K/uL MPV 9.5 (7.4-10.4) fL Immature Gran % (Auto) 0.3 % Neut % (Auto) 73.9 % Lymph % (Auto) 12.5 % [place] % (Auto) 10.3 % Eos % (Auto) 2.7 % Baso % (Auto) 0.3 % Immature Gran # (Auto) 0.02 (0.00-0.02) K/uL Neut # (Auto) 5.46 (1.4-6.5) K/uL Lymph # (Auto) 0.92 L (1.2-3.4) K/uL [place] # (Auto) 0.76 H (0.11-0.59) K/uL Eos # (Auto) 0.20 (0-0.5) K/uL Baso # (Auto) 0.02 (0-0.2) K/uL PT (9.0-12.0) Seconds INR (0.9-1.1) APTT (21.0-31.0) Seconds PTT Ratio Sodium (136-145) mmol/L Potassium (3.5-5.1) mmol/L Chloride (98-107) mmol/L Carbon Dioxide (21-32) mmol/L Anion Gap (3-11) BUN (7-18) mg/dl Creatinine (0.6-1.4) mg/dl Est Cr Clr Drug Dosing ml/min Est GFR ( Amer) Est GFR (Non-Af Amer) BUN/Creatinine Ratio (10-20) Glucose (70-99) mg/dl Lactate (0.4-2.0) mmol/L Calcium (8.5-10.1) mg/dl Magnesium (1.8-2.4) mg/dl Total Bilirubin (0.2-1) mg/dl AST (15-37) U/L ALT (12-78) U/L Alkaline Phosphatase (45-117) U/L Troponin I (0-0.045) ng/ml Total Protein (6.4-8.2) gm/dl Albumin (3.4-5.0) gm/dl Globulin (2.5-4.0) gm/dl Albumin/Globulin Ratio (0.9-2) Urine Color Urine Appearance (Clear) Urine pH (4.5-7.5) Ur Specific [place] (1.000-1.030) Urine Protein (Negative) Urine Glucose (UA) (Negative) Urine Ketones (Negative) Urine Blood (Negative) Urine Nitrite (Negative) Urine Bilirubin (Negative) Urine Urobilinogen (Negative) Ur Leukocyte Esterase (Negative) Urine WBC (Auto) (0-5) /hpf Urine RBC (Auto) (0-4) /hpf U Hyaline Cast (Auto) (0-5) /lpf U Epithel Cells (Auto) (0-5) /lpf Urine Bacteria (Auto) (Negative) Urine Yeast Influenza Type A (PCR) (Neg) Influenza Type B (PCR) (Neg) Imaging Data Radiologist's Impression: Radiology results as stated below per my review and the radiologist's interpretation: CT OF THE HEAD WITHOUT CONTRAST CLINICAL HISTORY: Altered mental status. COMPARISON STUDY: Head CT September 22, 2016. CT DOSE: 614.27 mGy.cm TECHNIQUE: Helical axial images of the head were obtained without IV contrast. Automated exposure control was utilized for the study. A dose lowering technique was utilized adhering to the principles of ALARA. FINDINGS: No acute intracranial hemorrhage, midline shift or mass effect is present. Ventricular system is normal for age. Basilar cisterns are patent. There are no extra-axial collections. Bui-white differentiation is maintained. There are no findings to suggest acute dural sinus thrombosis or acute territorial infarct. Mild white matter hypodensity suggests small vessel disease. There are no significant calvarial abnormalities. There is trace fluid within the right mastoid air cells. IMPRESSION: No acute intracranial findings. Electronically signed by: Branden Nova M.D. 10/15/2018 10:54 AM XR chest 1V portable CLINICAL HISTORY: Dyspnea COMPARISON STUDY: 09/26/2016 FINDINGS: The heart is borderline enlarged. There are low lung volumes. There is elevation of the right hemidiaphragm. There is no overt failure. There are persistent basilar atelectatic changes.[ IMPRESSION: Mild elevation right hemidiaphragm. Low lung volumes with persistent basilar atelectatic change. No acute findings. Electronically signed by: Vin Saunders M.D. 10/15/2018 9:51 AM US gallbladder CLINICAL HISTORY: 88 years-old Male presenting with poor appetite, dehydration, elevated bili. TECHNIQUE: Real-time grayscale and limited color Doppler ultrasound imaging of the abdomen limited to the right upper quadrant was performed. COMPARISON: 05/08/2016. FINDINGS: Pancreas: Largely obscured due to overlying bowel gas. Pancreatic duct not pathologically dilated. Liver: Hyperechogenic parenchyma with heterogeneous echotexture, likely indicating fibrosis or steatosis. The liver measures 16.4 cm in maximal sagittal dimension. No sonographic evidence of hepatic mass. Main portal vein patent with normal directional flow. Biliary: No intrahepatic biliary ductal dilatation. Common bile duct measures up to 5 mm in diameter. Gallbladder: Gallbladder wall measures 4 mm in thickness. Echogenic internal contents with posterior shadowing consistent with cholelithiasis. No pathologic distention of the gallbladder. Sonographic Garcia's sign negative. Right kidney: Upper pole largely anechoic multilobular cyst measuring 6.5 x 2.9 x 3.5 cm. Foci of hyperechogenicity at the upper pole with possible septation suggest complexity. The appearance is unchanged from prior. Ascites: Trace perihepatic ascites.. Other: None. IMPRESSION: 1. Cholelithiasis with nonspecific gallbladder wall thickening. If there is clinical concern for cholecystitis, HIDA scan could be obtained, although the gallbladder wall thickening may be secondary to hepatic pathology. 2. Heterogeneous hepatic parenchyma likely indicates underlying fibrosis or steatosis. 3. Trace ascites. 4. Complex right renal cyst unchanged since 2016. Electronically signed by: Ronal Travis M.D. 10/15/2018 2:44 PM ECG Data Attestation: I personally reviewed and interpreted this ECG as follows: Indication: weakness Rate (beats per minute): 115 Rhythm: sinus tachycardia Findings: + nonspecific-ST abn, + Q waves (inferior lead) and + RBBB (incomplete ); no PAC and no PVC Blood Pressure Blood Pressure Findings: Elevated blood pressure Blood Pressure Disposition: further management by hospitalist MDM Narrative This pt was evaluated and appears to be in no distress. IV access was obtained and lab work was drawn. PT was placed on the horse shoer. IVF were initiated. EKG is significant for RBBB with nonspecific ST changes. PT was Found to have a WBC of 18.9, far above his baseline with mildly elevated lactate. Bilirubin is 1.9. No source is identified on UA, CXR. Nursing expressed concerns over excoriated groin, he was evaluated and appears to have yeast dermatitis. Discussed case with Dr Hartley as pt is not safe for d/c, she has recommended US RUQ. This study is significant for cholelithiasis and wall thickening, furhter workup indicated. Pt had no abd tenderness on exam. PT was given IV ceftriaxone for empiric coverage, unclear source. He will be evaluated by medicine for further management. Impression & Plan Dehydration, Weakness, Frequent falls, Acute renal insufficiency, Cholelithiasis Discharge Plan Visit Data *Final* Discharge Date/Time: 10/15/18 17:33 Chief Complaint: Weakness Stated Complaint: weakness ED Provider: Vicki Beard Discharge Problem: Dehydration, Weakness, Frequent falls, Acute renal insufficiency, Cholelithiasis Patient Disposition: Admitted As Inpatient Discharge Instructions Interventions: ED Discharge Assessment Last Done: 10/15/18 17:33 The scribe's documentation has been prepared under my direction and personally reviewed by me in its entirety. I confirm that the note above accurately reflects all work, treatment, procedures, and medical decision making performed by me.
--- NOTE | 2018-10-15 17:00 | History & Physical Report ---
Date of Service October 15, 2018 Assessment & Plan (1) Sepsis: admit med tele Unclear if patient is truly bacteremic or if his symptoms are secondary to dehydration. Lactic acid was 2.6. BC drawn in ED pending. Will start Zosyn for cellulitis of perineum and consult wound care nurse. He does complain of some mild abdominal tenderness with palpation. Will hydrate tonight with NSS @ 125. If he does not have improvement of his symptoms with hydration and continues to have abdominal tenderness, will consider imaging of his abdomen. (2) Dehydration: NSS @ 125 (3) Weakness: PT/OT evals (4) Frequent falls: PT/OT Denied hitting his head CT head was negative (5) Acute renal insufficiency: Creat was 1.92 - secondary to dehydration - NSS @ 125 (6) HTN (hypertension): continue diltiazem, lisinopril (7) Cholelithiasis: Bili was 1.9, other LFTs normal US galbladder revealed: 1. Cholelithiasis with nonspecific gallbladder wall thickening. If there is clinical concern for cholecystitis, HIDA scan could be obtained, although the gallbladder wall thickening may be secondary to hepatic pathology. 2. Heterogeneous hepatic parenchyma likely indicates underlying fibrosis or steatosis. 3. Trace ascites. 4. Complex right renal cyst unchanged since 2016. (8) Abscess or cellulitis of perineum: Zosyn, wound care nurse consult (9) COPD (chronic obstructive pulmonary disease): continue mometasone, arformoterol, montelukast, titrate O2 prn, will order prn duonebs (10) Acute electrocardiogram changes: Prolonged QT, t wave inversions in the inferior leads. Initial trop negative. No chest pain. Will trend trops. Repeat EKG in am. Avoid QT prolonging agents where possible (11) Hyperglycemia: Bsg 187 on admission, A1c 5.9 in July. Will continue to monitor, may need ss while acutely ill (12) DVT prophylaxis: SCDs, heparin subq History of Present Illness Chief Complaint: Falls, sepsis Primary Care Provider: Hamilton Santos MD Mr. Stanley presented to the ED after having a number of falls today. He denies hitting his head. He has no pain. He is from [facility]. He has not been eating or drinking well. He has had nausea but no emesis. He denies cough, sore throat, runny nose but has been sob. 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 Allergies Allergy/AdvReac Type Severity Reaction Status Date / Time No Known Allergies Allergy Verified 10/15/18 10:53 Home Medications Home Medications Medication Instructions Recorded Confirmed Type allopurinol 100 mg PO QAM 10/15/18 10/15/18 History arformoterol [Brovana] 2 ml INHALATION BID 10/15/18 10/15/18 History calcium carbonate-vitamin D3 1 tab PO QAM 10/15/18 10/15/18 History [Caltrate 600 + D] diltiazem HCl 120 mg PO HS 10/15/18 10/15/18 History gabapentin 300 mg PO TID 10/15/18 10/15/18 History lisinopril 10 mg PO QAM 10/15/18 10/15/18 History loperamide [Imodium A-D] 1 mg PO QAM 10/15/18 10/15/18 History mometasone [Asmanex Twisthaler] 1 puff INHALATION BID 10/15/18 10/15/18 History montelukast 10 mg PO QAM 10/15/18 10/15/18 History pantoprazole 20 mg PO QAM 10/15/18 10/15/18 History potassium chloride 20 meq PO QAM 10/15/18 10/15/18 History Past Med/Surg History Medical History HTN (hypertension) Gout (Chronic) Cholelithiasis (Resolved) Surgical History H/O prostatectomy (Resolved) Social History Current Living Situation: Personal Care Facility Other Information That Helps Us Care for You: No Feels Safe at Home: Yes Smoking Status: Never smoker Do You Dip or Chew Tobacco: No Hx Alcohol Use: No Hx Substance Use: No Beliefs That Will Affect Care: None Preferred Language: Jamaican Communication Ability: Effective Transportation Security Officer Required: No Review of Systems All systems reviewed & are unremarkable except as noted in HPI & below Physical Exam 2 Vital Signs (Past 24 Hours): Last Vital Signs Temp 36.9 C 10/15/18 08:50 Pulse 105 H 10/15/18 15:28 Resp 30 H 10/15/18 15:28 BP 152/94 H 10/15/18 15:28 Pulse Ox 94 10/15/18 15:28 Physical Exam: General: no distress Eyes: normal inspection, PERLL Respiratory: chest non tender, clear to auscultation, normal breath sounds, no respiratory distress, no accessory muscle use Cardiac: regular rate and rhythm, no rub or gallop, no murmur, no edema, no jvd GI/: active bowel sounds, mild abdominal tenderness, soft, non distended Extremities: normal range of motion, normal strength, non tender Neuro:oriented x 3, moves all extremities Psych: alert, normal mood and affect Skin: normal color, dry, perineal area erythematous bilaterally, reddened sacrum Results & Data Laboratory Results Abnormal lab results 10/15/18 10/15/18 10/15/18 Range/Units 09:53 09:55 09:55 WBC 18.92 H (4.8-10.8) K/uL RBC 4.65 L (4.7-6.1) M/uL Hct 41.1 L (42-52) % Immature Gran # (Auto) 0.08 H (0.00-0.02) K/uL Neut # (Auto) 15.96 H (1.4-6.5) K/uL Lymph # (Auto) 0.91 L (1.2-3.4) K/uL [place] # (Auto) 1.94 H (0.11-0.59) K/uL INR 1.2 H (0.9-1.1) APTT 33.9 H (21.0-31.0) Seconds Sodium 135 L (136-145) mmol/L Anion Gap 13.0 H (3-11) BUN 30 H (7-18) mg/dl Creatinine 1.92 H (0.6-1.4) mg/dl Glucose 187 H (70-99) mg/dl Total Bilirubin 1.9 H (0.2-1) mg/dl Globulin 4.6 H (2.5-4.0) gm/dl Albumin/Globulin Ratio 0.7 L (0.9-2) Urine Appearance (Clear) Urine Protein (Negative) Urine Ketones (Negative) Urine Blood (Negative) U Hyaline Cast (Auto) (0-5) /lpf U Epithel Cells (Auto) (0-5) /lpf 10/15/18 Range/Units 12:00 WBC (4.8-10.8) K/uL RBC (4.7-6.1) M/uL Hct (42-52) % Immature Gran # (Auto) (0.00-0.02) K/uL Neut # (Auto) (1.4-6.5) K/uL Lymph # (Auto) (1.2-3.4) K/uL [place] # (Auto) (0.11-0.59) K/uL INR (0.9-1.1) APTT (21.0-31.0) Seconds Sodium (136-145) mmol/L Anion Gap (3-11) BUN (7-18) mg/dl Creatinine (0.6-1.4) mg/dl Glucose (70-99) mg/dl Total Bilirubin (0.2-1) mg/dl Globulin (2.5-4.0) gm/dl Albumin/Globulin Ratio (0.9-2) Urine Appearance Cloudy H (Clear) Urine Protein 1+ H (Negative) Urine Ketones Trace H (Negative) Urine Blood 1+ H (Negative) U Hyaline Cast (Auto) 10-30 H (0-5) /lpf U Epithel Cells (Auto) 20-30 H (0-5) /lpf Code Status & VTE Plan Code Status DNR VTE Prophylaxis Plan VTE Prophylaxis will be ordered: Yes Supervising Physician Co-Signing Physician Notes [employer] Physician Supervision Note: I discussed with Jaymie Cisneros [employer] and agree with findings and plan as documented in the note. Any exceptions or clarifications are listed here: None Did in the [facility] seen and examined the patient the ER a personal discussion with him confirming he is a DNR. Patient has vague symptoms he does have a very bad intertrigo to his groin area and only some mild abdominal discomfort near his umbilicus. He has a mild leukocytosis generally is in mild distress looks to be clinically dehydrated Patient will have cultures obtained to be placed on intravenous Zosyn and intravenous hydration will be provided topical skin care will be provided will look for secondary sources of infection. If he does not significantly improve in the morning we may consider doing a CT scan of the abdomen pelvis Documented By: Brian Kramer
[2018-10-15] MEDS ORDERED: POLYETHYLENE (MIRALAX) 17 GM PACK PO PRN (18:19)
[2018-10-15] MEDS ORDERED: ACETAMINOPHEN 325 MG TAB PO PRN (18:19)
[2018-10-15] MEDS ORDERED: ALBUT/IPRATROP 3MG/0.5MG NEB 3 ML VIAL NEB PRN (18:19)
[2018-10-15] MEDS ORDERED: PIPERACILL/TAZOBAC CONSULT ACTIVE PRN (18:19)
[2018-10-15] MEDS ORDERED: PIPERACILLIN/TAZOBACTAM 3.375 GM/115 ML BAG IV STA (18:19)
[2018-10-15] MEDS ORDERED: ONDANSETRON INJ 2 MG/ML 2 ML VIAL IV PRN (18:19)
[2018-10-15] MEDS ORDERED: PIPERACILLIN/TAZOBACTAM 3.375 GM in DEXTROSE 5% 100 ML IV ONE (19:30)
[2018-10-15] MEDS: ARFORMOTEROL TART 15MCG/2ML VIAL INH SCH (19:47)
[2018-10-15] MEDS: MOMETASONE FUROATE 14 PUFF/1 INHALER INH SCH (21:05)
[2018-10-15] MEDS: HEPARIN SOD 5,000 UNIT/0.5 ML VIAL SQ SCH (21:05)
[2018-10-15] MEDS: GABAPENTIN 300 MG CAP PO SCH (21:05)
[2018-10-15] MEDS: dilTIAZem HCL 120 MG CAPCR PO SCH (21:06)
[2018-10-15] MEDS: PIPERACILLIN/TAZOBACTAM 3.375 GM in DEXTROSE 5% 100 ML IV SCH (23:33)
[2018-10-16] MEDS: SODIUM CHLORIDE 0.9% 1000ML 1,000 ML IV SCH ×3 (03:33→23:06)
[2018-10-16 06:26] LABS: Basophils # (auto) 0.01 K/uL (0-0.2); Basophils % (auto) 0.1 %; Eosinophils # (auto) 0.01 K/uL (0-0.5); Eosinophils % (auto) 0.1 %; Hematocrit (blood only) 39.4 % (42-52); Immature Granulocytes # (auto) 0.05 K/uL (0.00-0.02); Immature Granulocytes % (auto) 0.4 %; Lymphocytes % (auto) 9.9 %; Mean Corpuscular Volume 89.7 fL (80-100); Mean Platelet Volume 9.9 fL (7.4-10.4); Monocytes # (auto) 1.56 K/uL (0.11-0.59); Neutrophils # (auto) 11.17 K/uL (1.4-6.5); Neutrophils % (auto) 78.5 %; Platelet Count 174 K/uL (130-400); RDW Standard Deviation 46.2 fL (36.4-46.3); Red Blood Count 4.39 M/uL (4.7-6.1)
[2018-10-16 06:47] LABS: BUN Creatinine Ratio 15.5 (10-20); Calcium 8.1 mg/dl (8.5-10.1); Creatinine Clr Calc Pharmacy 29.8 ml/min; Est GFR (African American) 48.6; Est GFR (Non-African American) 41.9; Potassium 3.4 mmol/L (3.5-5.1)
[2018-10-16] MEDS: ARFORMOTEROL TART 15MCG/2ML VIAL INH SCH ×2 (07:19→19:40)
[2018-10-16] MEDS ORDERED: POTASSIUM CHLORIDE 20 MEQ TABCR PO ONE (08:30)
[2018-10-16] MEDS: MOMETASONE FUROATE 14 PUFF/1 INHALER INH SCH ×2 (09:11→20:34)
[2018-10-16] MEDS: LISINOPRIL 10 MG TAB PO SCH (09:11)
[2018-10-16] MEDS: MONTELUKAST SODIUM 10 MG TABLET PO SCH (09:11)
[2018-10-16] MEDS: GABAPENTIN 300 MG CAP PO SCH ×3 (09:13→20:35)
[2018-10-16] MEDS: POTASSIUM CHLORIDE 20 MEQ TABCR PO SCH (09:13)
[2018-10-16] MEDS: CALCIUM 600MG + VIT D 400 IU TAB PO SCH (09:13)
[2018-10-16] MEDS: ALLOPURINOL 100 MG TAB PO SCH (09:13)
[2018-10-16] MEDS: PANTOprazole 40 MG TAB PO SCH (09:13)
[2018-10-16] MEDS: HEPARIN SOD 5,000 UNIT/0.5 ML VIAL SQ SCH (09:14)
[2018-10-16] MEDS: LOPERAMIDE LIQUID 120 ML BOTTLE PO SCH (09:14)
[2018-10-16] MEDS: PIPERACILLIN/TAZOBACTAM 3.375 GM in DEXTROSE 5% 100 ML IV SCH ×2 (09:21→18:12)
--- NOTE | 2018-10-16 10:19 | Hospitalist Progress Note ---
Date of Service October 16, 2018 Assessment & Plan (1) Sepsis: admit med tele Unclear if patient is truly bacteremic or if his symptoms are secondary to dehydration. - Lactic acid was 2.6. - BC pending. - continue Zosyn for cellulitis of perineum and consult wound care nurse. - Continues to have mild abdominal tenderness - will send for CT abd/pelvis. No contrast d/t renal function - Continue IVF (2) Dehydration: Improving -continue NSS @ 125 (3) Weakness: PT/OT evals (4) Frequent falls: PT/OT Denied hitting his head CT head was negative (5) Acute renal insufficiency: Creat was 1.92 on admission secondary to dehydration and is now improving with IVF - continue NSS @ 125 (6) HTN (hypertension): continue diltiazem, lisinopril (7) Cholelithiasis: Bili was 1.9, other LFTs normal US galbladder revealed: 1. Cholelithiasis with nonspecific gallbladder wall thickening. If there is clinical concern for cholecystitis, HIDA scan could be obtained, although the gallbladder wall thickening may be secondary to hepatic pathology. 2. Heterogeneous hepatic parenchyma likely indicates underlying fibrosis or steatosis. 3. Trace ascites. 4. Complex right renal cyst unchanged since 2016. (8) Abscess or cellulitis of perineum: [place], wound care nurse consult (9) COPD (chronic obstructive pulmonary disease): continue mometasone, arformoterol, montelukast, titrate O2 prn, will order prn duonebs (10) Acute electrocardiogram changes: QTc prolong, t wave inversions in the inferior leads on admission QT improved, troponins negative x2, no chest pain (11) Hyperglycemia: Bsg 187 on admission, A1c 5.9 in July. Will continue to monitor, may need ss while acutely ill (12) DVT prophylaxis: SCDs, heparin subq Subjective Mr. Stanley continues to feel unwell. He is not nauseas but has no appetite. He is sob but reports this has been ongoing for years. Review of Systems All systems reviewed & are unremarkable except as noted in HPI & below Physical Exam 2 Vital Signs (Past 24 Hours): Last Vital Signs Temp 36.8 C 10/16/18 07:17 Pulse 82 10/16/18 07:20 Resp 16 10/16/18 07:20 BP 132/75 10/16/18 07:17 Pulse Ox 98 10/16/18 07:20 Physical Exam: General: no distress Eyes: normal inspection, PERLL Respiratory: chest non tender, clear to auscultation, normal breath sounds, no respiratory distress, no accessory muscle use Cardiac: regular rate and rhythm, no rub or gallop, no murmur, no edema, no jvd GI/: active bowel sounds, no abd pain or tenderness, soft, non distended Extremities: normal range of motion, normal strength, non tender Neuro/Psych: alert and oriented x 3, normal mood and affect Skin: normal color, dry Results & Data Laboratory Results Abnormal lab results 10/15/18 10/15/18 10/15/18 Range/Units 09:53 12:00 16:38 WBC (4.8-10.8) K/uL RBC (4.7-6.1) M/uL Hgb (14.0-18.0) g/dL Hct (42-52) % Immature Gran # (Auto) (0.00-0.02) K/uL Neut # (Auto) (1.4-6.5) K/uL [place] # (Auto) (0.11-0.59) K/uL INR 1.2 H (0.9-1.1) APTT 33.9 H (21.0-31.0) Seconds Potassium (3.5-5.1) mmol/L Chloride (98-107) mmol/L BUN (7-18) mg/dl Creatinine (0.6-1.4) mg/dl Glucose (70-99) mg/dl Lactate 2.6 H* (0.4-2.0) mmol/L Calcium (8.5-10.1) mg/dl Urine Appearance Cloudy H (Clear) Urine Protein 1+ H (Negative) Urine Ketones Trace H (Negative) Urine Blood 1+ H (Negative) U Hyaline Cast (Auto) 10-30 H (0-5) /lpf U Epithel Cells (Auto) 20-30 H (0-5) /lpf 10/16/18 10/16/18 Range/Units 06:06 06:06 WBC 14.20 H (4.8-10.8) K/uL RBC 4.39 L (4.7-6.1) M/uL Hgb 13.0 L (14.0-18.0) g/dL Hct 39.4 L (42-52) % Immature Gran # (Auto) 0.05 H (0.00-0.02) K/uL Neut # (Auto) 11.17 H (1.4-6.5) K/uL [place] # (Auto) 1.56 H (0.11-0.59) K/uL INR (0.9-1.1) APTT (21.0-31.0) Seconds Potassium 3.4 L (3.5-5.1) mmol/L Chloride 109 H (98-107) mmol/L BUN 23 H (7-18) mg/dl Creatinine 1.49 H D (0.6-1.4) mg/dl Glucose 148 H (70-99) mg/dl Lactate (0.4-2.0) mmol/L Calcium 8.1 L (8.5-10.1) mg/dl Urine Appearance (Clear) Urine Protein (Negative) Urine Ketones (Negative) Urine Blood (Negative) U Hyaline Cast (Auto) (0-5) /lpf U Epithel Cells (Auto) (0-5) /lpf
--- NOTE | 2018-10-16 10:58 | CT Scan Report ---
CT SCAN OF THE ABDOMEN AND PELVIS WITHOUT CONTRAST CLINICAL HISTORY: Generalized abdominal pain COMPARISON STUDY: Biliary ultrasound dated 10/15/2018 TECHNIQUE: CT scan of the abdomen and pelvis was performed from the lung bases to the proximal femurs . Images are reviewed in the axial, sagittal, and coronal planes. IV contrast was not administered fo r this examination. A dose lowering technique was utilized adhering to the principles of ALARA. CT DOSE: 350.60 mGy.cm FINDINGS: Lower chest: There is pulmonary emphysema. There are areas of atelectasis/scarring most pronounced wi thin the lingula. Liver: The liver has a nodular serosal surface suspicious for cirrhosis. No focal masses are visualiz ed this noncontrast study Gallbladder: There is gallbladder wall thickening. No calculi are visualized. There is infiltration o f the fat within the right upper quadrant. This may be secondary to acute cholecystitis. Clinical cor relation this regard is advocated. Spleen: Normal in size and attenuation. Pancreas: Unremarkable. Adrenal glands: Unremarkable. Kidneys: No renal calculi are visualized. There are no ureteral or bladder calculi. There are bilater al renal cysts including a septated 38 mm upper pole right renal cyst. Bowel: There are no transition zones indicate bowel obstruction. There is colonic diverticulosis. The re is infiltration of the fat adjacent to the ascending colon at the hepatic margin. This is likely a secondary process. Peritoneum: There is no intraperitoneal free air or abdominal ascites. There is a small fat-containin g umbilical hernia. There are postsurgical changes of a right inguinal hernia repair. Vasculature: There is a 39 mm infrarenal abdominal aortic aneurysm. 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 Adenopathy: None. Pelvic viscera: The patient is status post a prior prostatectomy. Skeletal structures: No destructive osseous lesions are seen. IMPRESSION: 1. Cirrhotic morphology of the liver 2. Right upper quadrant inflammatory process with infiltration the fat surrounding the liver and gall bladder and ascending colon. On a statistical basis this is secondary to acute cholecystitis given th e gallbladder wall thickening. Clinical correlation in this regard is advocated. A nuclear medicine h epatobiliary study could be obtained in follow-up to assess cystic duct patency as deemed clinically appropriate. 3. No evidence of bowel obstruction. No evidence of free air 4. Diverticulosis. No evidence of acute diverticulitis 5. 39 mm fusiform infrarenal abdominal aortic aneurysm. 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 Bilateral renal cysts including a complex septated 3.9 cm upper pole right renal cyst Electronically signed by: Vin Saunders M.D. 10/16/2018 10:56 AM
[2018-10-16] MEDS ORDERED: MoRPHine SULFATE 2 MG/ML CARP IV STA (16:57)
[2018-10-16] MEDS ORDERED: MoRPHine SULFATE 4 MG/ML 1 ML CARP\\VIAL ONE (16:59)
--- NOTE | 2018-10-16 17:47 | Nuclear Medicine Report ---
NM hepatobiliary wo pharm CLINICAL HISTORY: 88 years-old Male presenting with cholecystitis, cholelithiasis, sepsis, ascites. TECHNIQUE: Immediately following the intravenous administration of 5.4 mCi Tc-99m Choletec, dynamic a nterior abdominal imaging was performed. 2 mg of IV morphine was administered at 60 minutes due to no ndistention of the gallbladder with a patent common duct. COMPARISON: Ultrasound from 10/15/[address] from 10/16/2018. FINDINGS: Uniform hepatic tracer accumulation is shown. Prompt intrahepatic biliary excretion is seen. The comm on bile duct and small bowel are all visualized by 6-10 minutes. Expected radiotracer activity within small bowel indicates an unobstructed common duct. However, the gallbladder is not visualized even a fter administration of morphine. IMPRESSION: 1. Findings consistent with acute cholecystitis. Surgical consultation recommended. Unobstructed com mon duct. The report will be called/faxed according to standard departmental protocol. Electronically signed by: Ronal Travis M.D. 10/16/2018 5:46 PM
[2018-10-16] MEDS: dilTIAZem HCL 120 MG CAPCR PO SCH (20:35)
[2018-10-17] MEDS: PIPERACILLIN/TAZOBACTAM 3.375 GM in DEXTROSE 5% 100 ML IV SCH ×3 (00:24→16:26)
[2018-10-17] MEDS: ARFORMOTEROL TART 15MCG/2ML VIAL INH SCH ×2 (07:27→19:15)
[2018-10-17] MEDS: SODIUM CHLORIDE 0.9% 1000ML 1,000 ML IV SCH ×2 (07:29→17:19)
[2018-10-17] MEDS: POTASSIUM CHLORIDE 20 MEQ TABCR PO SCH (07:30)
[2018-10-17] MEDS: ALLOPURINOL 100 MG TAB PO SCH (07:32)
[2018-10-17] MEDS: GABAPENTIN 300 MG CAP PO SCH ×3 (07:32→20:25)
[2018-10-17] MEDS: PANTOprazole 40 MG TAB PO SCH (07:32)
[2018-10-17] MEDS: CALCIUM 600MG + VIT D 400 IU TAB PO SCH (07:32)
[2018-10-17] MEDS: MOMETASONE FUROATE 14 PUFF/1 INHALER INH SCH ×2 (07:33→20:23)
[2018-10-17] MEDS: MONTELUKAST SODIUM 10 MG TABLET PO SCH (07:42)
[2018-10-17] MEDS: LOPERAMIDE LIQUID 120 ML BOTTLE PO SCH (07:43)
[2018-10-17 08:49] LABS: Basophils # (auto) 0.02 K/uL (0-0.2); Basophils % (auto) 0.2 %; Eosinophils # (auto) 0.09 K/uL (0-0.5); Hematocrit (blood only) 36.7 % (42-52); Hemoglobin 11.9 g/dL (14.0-18.0); Immature Granulocytes # (auto) 0.03 K/uL (0.00-0.02); Immature Granulocytes % (auto) 0.3 %; Lymphocytes # (auto) 0.85 K/uL (1.2-3.4); Lymphocytes % (auto) 9.2 %; Mean Corpuscular Hgb Conc 32.4 g/dL (32-36); Mean Corpuscular Volume 90.8 fL (80-100); Mean Platelet Volume 9.8 fL (7.4-10.4); Monocytes # (auto) 0.78 K/uL (0.11-0.59); Monocytes % (auto) 8.4 %; Neutrophils % (auto) 80.9 %; Platelet Count 161 K/uL (130-400); RDW Standard Deviation 46.7 fL (36.4-46.3); Red Blood Count 4.04 M/uL (4.7-6.1); White Blood Count 9.27 K/uL (4.8-10.8)
[2018-10-17 09:14] LABS: Albumin Level 2.3 gm/dl (3.4-5.0); BUN Creatinine Ratio 15.7 (10-20); Creatinine Clr Calc Pharmacy 36.7 ml/min; Est GFR (African American) 62.5; Est GFR (Non-African American) 53.9; Potassium 3.5 mmol/L (3.5-5.1)
[2018-10-17 09:16] LABS: Albumin Globulin Ratio 0.6 (0.9-2); Bilirubin,Total 1.1 mg/dl (0.2-1); Globulin 4.2 gm/dl (2.5-4.0); Total Protein 6.5 gm/dl (6.4-8.2)
--- NOTE | 2018-10-17 12:09 | Surgery Consultation ---
Date of Consultation October 17, 2018 Assessment & Plan (1) Acute cholecystitis due to biliary calculus: agree with IV abx IVF responding with decreasing WBC, sepsis resolving monitor progress; if doesn't resolve likely percutaneous drainage with cirrhotic liver in acute setting will follow Present on Admission?: Yes History of Present Illness Attending Physician: Brian Kramer MD History of Present Illness The patient is an 88 year old male was admitted through ED with complaints of persistent weakness and repeated falls. He had a poor appetite and shortness of breath. He complains of some abdominal pain. He denies vomiting, fevers, chest pain, other heart symptoms, or blood in stool. A workup shows a CT scan suggestive of acute cholecystitis and gallstones. A HIDA demonstrated non- filling of his gallbladder but his sepsis has responded to IVF and IV abx. His CT scan also demonstrates cirrhosis of his liver. Allergies Allergy/AdvReac Type Severity Reaction Status Date / Time No Known Allergies Allergy Verified 10/15/18 10:53 Home Medications Home Medications Medication Instructions Recorded Confirmed Type allopurinol 100 mg PO QAM 10/15/18 10/15/18 History arformoterol [Brovana] 2 ml INHALATION BID 10/15/18 10/15/18 History calcium carbonate-vitamin D3 1 tab PO QAM 10/15/18 10/15/18 History [Caltrate 600 + D] diltiazem HCl 120 mg PO HS 10/15/18 10/15/18 History gabapentin 300 mg PO TID 10/15/18 10/15/18 History lisinopril 10 mg PO QAM 10/15/18 10/15/18 History loperamide [Imodium A-D] 1 mg PO QAM 10/15/18 10/15/18 History mometasone [Asmanex Twisthaler] 1 puff INHALATION BID 10/15/18 10/15/18 History montelukast 10 mg PO QAM 10/15/18 10/15/18 History pantoprazole 20 mg PO QAM 10/15/18 10/15/18 History potassium chloride 20 meq PO QAM 10/15/18 10/15/18 History Patient History Medical History HTN (hypertension) Gout (Chronic) Cholelithiasis (Resolved) Surgical History H/O prostatectomy (Resolved) Social History Current Living Situation: Personal Care Facility Other Information That Helps Us Care for You: No Feels Safe at Home: Yes Smoking Status: Never smoker Do You Dip or Chew Tobacco: No Hx Alcohol Use: No Hx Substance Use: No Beliefs That Will Affect Care: None Preferred Language: Romanian Communication Ability: Effective Signal Engineer Required: No Review of Systems Constitutional: + weakness and + anorexia; no fever and no chills Respiratory: no cough, no chest congestion and no dyspnea Cardiovascular: no chest pain and no dyspnea Gastrointestinal: + abdominal pain and + nausea; no vomiting and no change in bowel habits Genitourinary (Male): no dysuria, no difficulty urinating, no urinary frequency and no urinary hesitancy Musculoskeletal: no back pain, no neck pain and no joint pain Integumentary: + erythema (groin); no rash Neurologic: + unsteadiness, + falls and + generalized weakness Psychiatric: no problem reported Endocrine: no problem reported Hematologic / Lymphatic: no problem reported Allergy / Immunological: no problem reported Physical Exam 2 Vital Signs (Past 24 Hours): Last Vital Signs Temp 36.6 C 10/17/18 12:03 Pulse 74 10/17/18 12:03 Resp 18 10/17/18 12:03 BP 130/84 10/17/18 12:03 Pulse Ox 93 10/17/18 12:03 Constitutional: well developed and well nourished; no acute distress Neck: trachea midline Respiratory: normal respiratory effort, lungs clear to auscultation Cardiovascular: RRR, no murmur, no edema Gastrointestinal (Abdomen): Inspection/Auscultation: abdomen normal to inspection and normal bowel sounds Percussion/Palpation: + abdomen tender and abdomen soft; no hernia and no abdominal mass Musculoskeletal: Head/Neck/Chest: normocephalic and head atraumatic Skin: no rashes, warm and dry Neurologic: moves all extremities Psychiatric: A+Ox3, euthymic affect Results & Data Diagnostic Findings US gallbladder CLINICAL HISTORY: 88 years-old Male presenting with poor appetite, dehydration, elevated bili. TECHNIQUE: Real-time grayscale and limited color Doppler ultrasound imaging of the abdomen limited to the right upper quadrant was performed. COMPARISON: 05/08/2016. FINDINGS: Pancreas: Largely obscured due to overlying bowel gas. Pancreatic duct not pathologically dilated. Liver: Hyperechogenic parenchyma with heterogeneous echotexture, likely indicating fibrosis or steatosis. The liver measures 16.4 cm in maximal sagittal dimension. No sonographic evidence of hepatic mass. Main portal vein patent with normal directional flow. Biliary: No intrahepatic biliary ductal dilatation. Common bile duct measures up to 5 mm in diameter. Gallbladder: Gallbladder wall measures 4 mm in thickness. Echogenic internal contents with posterior shadowing consistent with cholelithiasis. No pathologic distention of the gallbladder. Sonographic Garcia's sign negative. Right kidney: Upper pole largely anechoic multilobular cyst measuring 6.5 x 2.9 x 3.5 cm. Foci of hyperechogenicity at the upper pole with possible septation suggest complexity. The appearance is unchanged from prior. Ascites: Trace perihepatic ascites.. Other: None. IMPRESSION: 1. Cholelithiasis with nonspecific gallbladder wall thickening. If there is clinical concern for cholecystitis, HIDA scan could be obtained, although the gallbladder wall thickening may be secondary to hepatic pathology. 2. Heterogeneous hepatic parenchyma likely indicates underlying fibrosis or steatosis. 3. Trace ascites. 4. Complex right renal cyst unchanged since 2016. T SCAN OF THE ABDOMEN AND PELVIS WITHOUT CONTRAST CLINICAL HISTORY: Generalized abdominal pain COMPARISON STUDY: Biliary ultrasound dated 10/15/2018 TECHNIQUE: CT scan of the abdomen and pelvis was performed from the lung bases to the proximal femurs. Images are reviewed in the axial, sagittal, and coronal planes. IV contrast was not administered for this examination. A dose lowering technique was utilized adhering to the principles of ALARA. CT DOSE: 350.60 mGy.cm FINDINGS: Lower chest: There is pulmonary emphysema. There are areas of atelectasis/ scarring most pronounced within the lingula. Liver: The liver has a nodular serosal surface suspicious for cirrhosis. No focal masses are visualized this noncontrast study Gallbladder: There is gallbladder wall thickening. No calculi are visualized. There is infiltration of the fat within the right upper quadrant. This may be secondary to acute cholecystitis. Clinical correlation this regard is advocated. Spleen: Normal in size and attenuation. Pancreas: Unremarkable. Adrenal glands: Unremarkable. Kidneys: No renal calculi are visualized. There are no ureteral or bladder calculi. There are bilateral renal cysts including a septated 38 mm upper pole right renal cyst. Bowel: There are no transition zones indicate bowel obstruction. There is colonic diverticulosis. There is infiltration of the fat adjacent to the ascending colon at the hepatic margin. This is likely a secondary process. Peritoneum: There is no intraperitoneal free air or abdominal ascites. There is a small fat-containing umbilical hernia. There are postsurgical changes of a right inguinal hernia repair. Vasculature: There is a 39 mm infrarenal abdominal aortic aneurysm. 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 Adenopathy: None. Pelvic viscera: The patient is status post a prior prostatectomy. Skeletal structures: No destructive osseous lesions are seen. IMPRESSION: 1. Cirrhotic morphology of the liver 2. Right upper quadrant inflammatory process with infiltration the fat surrounding the liver and gallbladder and ascending colon. On a statistical basis this is secondary to acute cholecystitis given the gallbladder wall thickening. Clinical correlation in this regard is advocated. A nuclear medicine hepatobiliary study could be obtained in follow-up to assess cystic duct patency as deemed clinically appropriate. 3. No evidence of bowel obstruction. No evidence of free air 4. Diverticulosis. No evidence of acute diverticulitis 5. 39 mm fusiform infrarenal abdominal aortic aneurysm. 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 Bilateral renal cysts including a complex septated 3.9 cm upper pole right renal cyst NM hepatobiliary wo pharm CLINICAL HISTORY: 88 years-old Male presenting with cholecystitis, cholelithiasis, sepsis, ascites. TECHNIQUE: Immediately following the intravenous administration of 5.4 mCi Tc- 99m Choletec, dynamic anterior abdominal imaging was performed. 2 mg of IV morphine was administered at 60 minutes due to nondistention of the gallbladder with a patent common duct. COMPARISON: Ultrasound from 10/15/[address] from 10/16/2018. FINDINGS: Uniform hepatic tracer accumulation is shown. Prompt intrahepatic biliary excretion is seen. The common bile duct and small bowel are all visualized by 6- 10 minutes. Expected radiotracer activity within small bowel indicates an unobstructed common duct. However, the gallbladder is not visualized even after administration of morphine. IMPRESSION: 1. Findings consistent with acute cholecystitis. Surgical consultation recommended. Unobstructed common duct. The report will be called/faxed according to standard departmental protocol.
--- NOTE | 2018-10-17 13:33 | Hospitalist Progress Note ---
Date of Service October 17, 2018 Assessment & Plan (1) Cholecystitis: As seen on CT and HIDA bili was 1.9 on admission, trended down to 1.1 - now wnl CT abd/pelvis showing probably cholecystitis confirmed by HIDA scan. Surgical consult - surgery felt he is improving with abx and so will hold off on surgery for now. (2) Sepsis: admit med tele d/t Cholecystitis, dehydration - Lactic acid was 2.6 on admission - BC pending. - continue Zosyn - Continue IVF - NSS @ 80 (3) Dehydration: Improving -continue NSS @ 80 (4) Weakness: PT/OT evals (5) Frequent falls: PT/OT Denied hitting his head CT head was negative (6) Acute renal insufficiency: ALLA in the setting of dehydration vs sepsis - Creat was 1.92 on admission and is now wnl with IVF - continue NSS @ 80 (7) HTN (hypertension): continue diltiazem, lisinopril (8) COPD (chronic obstructive pulmonary disease): continue mometasone, arformoterol, montelukast, titrate O2 prn, will order prn duonebs (9) Acute electrocardiogram changes: QTc prolonged initially, t wave inversions in the inferior leads on admission QT improved, troponins negative x2, no chest pain (10) Hyperglycemia: Bsg 187 on admission, A1c 5.9 in July. Will continue to monitor (11) Rash of perineum: Wound consult (12) DVT prophylaxis: SCDs, heparin subq Subjective Mr. Stanley continues to feel poorly. No nausea and has some appetite today. Review of Systems All systems reviewed & are unremarkable except as noted in HPI & below Physical Exam 2 Vital Signs (Past 24 Hours): Last Vital Signs Temp 36.6 C 10/17/18 12:03 Pulse 74 10/17/18 12:03 Resp 18 10/17/18 12:03 BP 130/84 10/17/18 12:03 Pulse Ox 93 10/17/18 12:03 Physical Exam: General: no distress Eyes: normal inspection, PERLL Respiratory: chest non tender, clear to auscultation, normal breath sounds, no respiratory distress, no accessory muscle use Cardiac: regular rate and rhythm, no rub or gallop, no murmur, no edema, no jvd GI/: active bowel sounds, no abd pain or tenderness, soft, non distended Extremities: normal range of motion, normal strength, non tender Neuro/Psych: alert and oriented x 3, normal mood and affect Skin: normal color, dry, erythema over groin Results & Data Laboratory Results Abnormal lab results 10/17/18 10/17/18 Range/Units 08:18 08:18 RBC 4.04 L (4.7-6.1) M/uL Hgb 11.9 L (14.0-18.0) g/dL Hct 36.7 L (42-52) % RDW Std Deviation 46.7 H (36.4-46.3) fL Immature Gran # (Auto) 0.03 H (0.00-0.02) K/uL Neut # (Auto) 7.50 H (1.4-6.5) K/uL Lymph # (Auto) 0.85 L (1.2-3.4) K/uL [place] # (Auto) 0.78 H (0.11-0.59) K/uL Chloride 111 H (98-107) mmol/L Carbon Dioxide 20 L (21-32) mmol/L BUN 19 H (7-18) mg/dl Glucose 128 H (70-99) mg/dl Calcium 8.0 L (8.5-10.1) mg/dl Total Bilirubin 1.1 H (0.2-1) mg/dl Albumin 2.3 L (3.4-5.0) gm/dl Globulin 4.2 H (2.5-4.0) gm/dl Albumin/Globulin Ratio 0.6 L (0.9-2)
[2018-10-17] MEDS: HEPARIN SOD 5,000 UNIT/0.5 ML VIAL SQ SCH (20:21)
[2018-10-17] MEDS: dilTIAZem HCL 120 MG CAPCR PO SCH (20:24)
[2018-10-18] MEDS: PIPERACILLIN/TAZOBACTAM 3.375 GM in DEXTROSE 5% 100 ML IV SCH ×4 (00:19→23:46)
[2018-10-18] MEDS: SODIUM CHLORIDE 0.9% 1000ML 1,000 ML IV SCH (00:20)
[2018-10-18 06:03] LABS: Basophils # (auto) 0.02 K/uL (0-0.2); Basophils % (auto) 0.3 %; Eosinophils % (auto) 2.7 %; Hematocrit (blood only) 35.4 % (42-52); Hemoglobin 12.2 g/dL (14.0-18.0); Immature Granulocytes # (auto) 0.02 K/uL (0.00-0.02); Immature Granulocytes % (auto) 0.3 %; Lymphocytes # (auto) 0.92 K/uL (1.2-3.4); Lymphocytes % (auto) 12.5 %; Mean Corpuscular Hgb Conc 34.5 g/dL (32-36); Mean Corpuscular Volume 89.8 fL (80-100); Mean Platelet Volume 9.5 fL (7.4-10.4); Monocytes # (auto) 0.76 K/uL (0.11-0.59); Monocytes % (auto) 10.3 %; Neutrophils # (auto) 5.46 K/uL (1.4-6.5); Neutrophils % (auto) 73.9 %; Platelet Count 177 K/uL (130-400); RDW Standard Deviation 46.4 fL (36.4-46.3); Red Blood Count 3.94 M/uL (4.7-6.1); White Blood Count 7.38 K/uL (4.8-10.8)
[2018-10-18 06:41] LABS: BUN Creatinine Ratio 12.5 (10-20); Calcium 8.4 mg/dl (8.5-10.1); Creatinine Clr Calc Pharmacy 38.6 ml/min; Est GFR (African American) 66.4; Est GFR (Non-African American) 57.3; Potassium 3.5 mmol/L (3.5-5.1)
[2018-10-18] MEDS: POTASSIUM CHLORIDE 20 MEQ TABCR PO SCH (07:42)
[2018-10-18] MEDS: GABAPENTIN 300 MG CAP PO SCH ×3 (07:42→22:13)
[2018-10-18] MEDS: CALCIUM 600MG + VIT D 400 IU TAB PO SCH (07:42)
[2018-10-18] MEDS: MONTELUKAST SODIUM 10 MG TABLET PO SCH (07:43)
[2018-10-18] MEDS: PANTOprazole 40 MG TAB PO SCH (07:43)
[2018-10-18] MEDS: ALLOPURINOL 100 MG TAB PO SCH (07:43)
[2018-10-18] MEDS: MOMETASONE FUROATE 14 PUFF/1 INHALER INH SCH ×2 (07:43→22:10)
[2018-10-18] MEDS: LOPERAMIDE LIQUID 120 ML BOTTLE PO SCH (07:44)
[2018-10-18] MEDS: HEPARIN SOD 5,000 UNIT/0.5 ML VIAL SQ SCH ×2 (07:44→22:11)
[2018-10-18] MEDS: ARFORMOTEROL TART 15MCG/2ML VIAL INH SCH ×2 (08:31→19:39)
--- NOTE | 2018-10-18 10:31 | Surgery Progress Note ---
Date of Service October 18, 2018 Assessment & Plan (1) Cholelithiasis: Cholelithiasis with radiologic evidence of cholecystitis His white blood cell count is normal His abdomen is less tender He is improving with conservative measures and hopefully that will continue. If it does not think consideration for percutaneous cholecystostomy in setting of cirrhosis may be more appropriate. Subjective Has minimal abdominal pain today. Denies nausea and vomiting. Physical Exam 2 Vital Signs (Past 24 Hours): Last Vital Signs Temp 36.6 C 10/18/18 06:57 Pulse 69 10/18/18 10:18 Resp 18 10/18/18 06:57 BP 169/76 H 10/18/18 06:57 Pulse Ox 94 10/18/18 06:57 Gastrointestinal (Abdomen): Inspection/Auscultation: normal bowel sounds; abdomen not distended Percussion/Palpation: + abdomen tender (Minimal right upper quadrant) and abdomen soft; no guarding Results & Data Laboratory Results 10/18/18 10/18/18 Range/Units 05:39 05:39 WBC 7.38 (4.8-10.8) K/uL RBC 3.94 L (4.7-6.1) M/uL Hgb 12.2 L (14.0-18.0) g/dL Hct 35.4 L (42-52) % MCV 89.8 (80-100) fL MCH 31.0 (25-34) pg MCHC 34.5 (32-36) g/dL RDW Std Deviation 46.4 H (36.4-46.3) fL RDW Coeff of Svetlana 14.0 (11.5-14.5) % Plt Count 177 (130-400) K/uL MPV 9.5 (7.4-10.4) fL Immature Gran % (Auto) 0.3 % Neut % (Auto) 73.9 % Lymph % (Auto) 12.5 % [place] % (Auto) 10.3 % Eos % (Auto) 2.7 % Baso % (Auto) 0.3 % Immature Gran # (Auto) 0.02 (0.00-0.02) K/uL Neut # (Auto) 5.46 (1.4-6.5) K/uL Lymph # (Auto) 0.92 L (1.2-3.4) K/uL [place] # (Auto) 0.76 H (0.11-0.59) K/uL Eos # (Auto) 0.20 (0-0.5) K/uL Baso # (Auto) 0.02 (0-0.2) K/uL Sodium 141 (136-145) mmol/L Potassium 3.5 (3.5-5.1) mmol/L Chloride 112 H (98-107) mmol/L Carbon Dioxide 24 (21-32) mmol/L Anion Gap 5.0 (3-11) BUN 14 (7-18) mg/dl Creatinine 1.15 (0.6-1.4) mg/dl Est Cr Clr Drug Dosing 38.6 ml/min Est GFR ( Amer) 66.4 Est GFR (Non-Af Amer) 57.3 BUN/Creatinine Ratio 12.5 (10-20) Glucose 126 H (70-99) mg/dl Calcium 8.4 L (8.5-10.1) mg/dl _ (1) Cholelithiasis Biliary obstruction: Cholangitis acuity: Cholangitis presence: Cholecystitis acuity: chronic Cholecystitis presence: Cholelithiasis location : gallbladder
--- NOTE | 2018-10-18 10:51 | Hospitalist Progress Note ---
Date of Service October 18, 2018 Assessment & Plan (1) Cholecystitis: As seen on CT and HIDA bili was 1.9 on admission and trended down CT abd/pelvis showing probable cholecystitis confirmed by HIDA scan. Surgical consult - surgery felt he is improving with abx and so will hold off on surgery for now especially given his cirrhosis (2) Sepsis: d/t Cholecystitis, dehydration - Lactic acid was 2.6 on admission - continue Zosyn - IVF dc'd d/t elevated BP (3) Dehydration: Resolved (4) Weakness: PT/OT evals (5) Frequent falls: PT/OT Denied hitting his head CT head was negative (6) Acute renal insufficiency: ALLA in the setting of dehydration vs sepsis - Creat was 1.92 on admission and is now wnl with IVF - fluids d/c'd (7) HTN (hypertension): continue diltiazem, lisinopril resumed (8) COPD (chronic obstructive pulmonary disease): continue mometasone, arformoterol, montelukast, titrate O2 prn, will order prn duonebs (9) Acute electrocardiogram changes: QTc prolonged initially, t wave inversions in the inferior leads on admission QT improved, troponins negative x2, no chest pain (10) Hyperglycemia: Bsg 187 on admission, A1c 5.9 in July. Will continue to monitor (11) Rash of perineum: Wound consult - improving (12) DVT prophylaxis: SCDs, heparin subq Subjective Mr. Stanley feels sob and unwell today. He did eat a little yesterday but continues to not have much of an appetite. Review of Systems All systems reviewed & are unremarkable except as noted in HPI & below Physical Exam 2 Vital Signs (Past 24 Hours): Last Vital Signs Temp 36.6 C 10/18/18 06:57 Pulse 69 10/18/18 10:18 Resp 18 10/18/18 06:57 BP 169/76 H 10/18/18 06:57 Pulse Ox 94 10/18/18 06:57 Physical Exam: General: no distress Eyes: normal inspection, PERLL Respiratory: chest non tender, clear to auscultation, normal breath sounds, no respiratory distress, no accessory muscle use Cardiac: regular rate and rhythm, no rub or gallop, no murmur, no edema, no jvd GI/: active bowel sounds, mild right upper quadrant tenderness to palpation, soft, non distended Extremities: normal range of motion, normal strength, non tender Neuro/Psych: alert and oriented x 3, normal mood and affect Skin: normal color, dry Results & Data Laboratory Results Abnormal lab results 10/18/18 10/18/18 Range/Units 05:39 05:39 RBC 3.94 L (4.7-6.1) M/uL Hgb 12.2 L (14.0-18.0) g/dL Hct 35.4 L (42-52) % RDW Std Deviation 46.4 H (36.4-46.3) fL Lymph # (Auto) 0.92 L (1.2-3.4) K/uL [place] # (Auto) 0.76 H (0.11-0.59) K/uL Chloride 112 H (98-107) mmol/L Glucose 126 H (70-99) mg/dl Calcium 8.4 L (8.5-10.1) mg/dl
[2018-10-18] MEDS ORDERED: HydrALAZINE HCL 20 MG/ML VIAL IV PRN (15:40)
[2018-10-18] MEDS: dilTIAZem HCL 120 MG CAPCR PO SCH (22:13)
[2018-10-19] MEDS: ARFORMOTEROL TART 15MCG/2ML VIAL INH SCH ×2 (07:17→19:12)
[2018-10-19] MEDS: PIPERACILLIN/TAZOBACTAM 3.375 GM in DEXTROSE 5% 100 ML IV SCH ×2 (07:39→17:10)
[2018-10-19] MEDS: POTASSIUM CHLORIDE 20 MEQ TABCR PO SCH (07:40)
[2018-10-19] MEDS: GABAPENTIN 300 MG CAP PO SCH ×3 (07:40→21:23)
[2018-10-19] MEDS: CALCIUM 600MG + VIT D 400 IU TAB PO SCH (07:40)
[2018-10-19] MEDS: ALLOPURINOL 100 MG TAB PO SCH (07:40)
[2018-10-19] MEDS: PANTOprazole 40 MG TAB PO SCH (07:40)
[2018-10-19] MEDS: MONTELUKAST SODIUM 10 MG TABLET PO SCH (07:40)
[2018-10-19] MEDS: MOMETASONE FUROATE 14 PUFF/1 INHALER INH SCH ×2 (07:41→21:27)
[2018-10-19] MEDS: HEPARIN SOD 5,000 UNIT/0.5 ML VIAL SQ SCH ×2 (07:41→21:22)
[2018-10-19] MEDS: LOPERAMIDE LIQUID 120 ML BOTTLE PO SCH (07:41)
[2018-10-19] MEDS: LISINOPRIL 10 MG TAB PO SCH (07:41)
[2018-10-19 07:43] LABS: Basophils # (auto) 0.03 K/uL (0-0.2); Basophils % (auto) 0.3 %; Eosinophils # (auto) 0.13 K/uL (0-0.5); Eosinophils % (auto) 1.2 %; Hematocrit (blood only) 36.9 % (42-52); Hemoglobin 12.5 g/dL (14.0-18.0); Immature Granulocytes # (auto) 0.05 K/uL (0.00-0.02); Immature Granulocytes % (auto) 0.5 %; Lymphocytes # (auto) 0.93 K/uL (1.2-3.4); Lymphocytes % (auto) 8.4 %; Mean Corpuscular Hgb Conc 33.9 g/dL (32-36); Mean Corpuscular Volume 89.1 fL (80-100); Mean Platelet Volume 9.4 fL (7.4-10.4); Monocytes # (auto) 0.93 K/uL (0.11-0.59); Monocytes % (auto) 8.4 %; Neutrophils # (auto) 9.04 K/uL (1.4-6.5); Neutrophils % (auto) 81.2 %; Platelet Count 198 K/uL (130-400); RDW Standard Deviation 45.8 fL (36.4-46.3); Red Blood Count 4.14 M/uL (4.7-6.1); White Blood Count 11.11 K/uL (4.8-10.8)
[2018-10-19 08:20] LABS: Creatinine Clr Calc Pharmacy 37.9 ml/min; Est GFR (Non-African American) 56.1
[2018-10-19 09:06] LABS: Albumin Level 2.4 gm/dl (3.4-5.0); BUN Creatinine Ratio 9.6 (10-20); Calcium 8.7 mg/dl (8.5-10.1); Creatinine Clr Calc Pharmacy 35.5 ml/min; Est GFR (Non-African American) 51.8; Potassium 3.4 mmol/L (3.5-5.1)
[2018-10-19 09:09] LABS: Albumin Globulin Ratio 0.5 (0.9-2); Bilirubin,Total 1.5 mg/dl (0.2-1); Globulin 4.5 gm/dl (2.5-4.0); Total Protein 6.9 gm/dl (6.4-8.2)
[2018-10-19] MEDS ORDERED: POTASSIUM CHLORIDE 20 MEQ TABCR PO ONE (16:25)
--- NOTE | 2018-10-19 16:57 | Hospitalist Progress Note ---
Date of Service October 19, 2018 Assessment & Plan (1) Cholecystitis: - CT A/P and HIDA scan +acute cholecystitis. - Surgery consulted, do not recommend intervention. Will need perc javy drain if symptoms worsen. - Continue Zosyn IV for empiric coverage. - WBC and T. bili were improved, now trending back up. - Tolerating diet; IV fluids at 80 cc/hr. (2) Sepsis: - Due to cholecystitis. - Lactic acid was 2.6. - Continue IV abx as noted above. (3) Cirrhosis: - CT A/P showed liver cirrhosis. (4) Dehydration: - Continue IV fluids at 80 cc/hr. (5) Weakness: - PT/OT ordered -- will be discharged back to [facility]. (6) Frequent falls: - CT head was negative. - PT/OT ordered. (7) Acute renal insufficiency: - Creatinine was 1.92 on admission, now resolved. - IVFs at 80 cc/hr. (8) CKD (chronic kidney disease), stage III: - Renally dose all meds. (9) HTN (hypertension): - Continue Diltiazem and Lisinopril as prescribed. (10) COPD (chronic obstructive pulmonary disease): - Continue Mometasone, Arformoterol, Montelukast as prescribed. - Duonebs q4hr prn. (11) Acute electrocardiogram changes: - T wave inversion in inferior leads on EKG at admission. - Trop neg x 2; was asymptomatic. (12) Hyperglycemia: - A1C 5.9 in July. - Encourage weight loss and exercise. (13) Rash of perineum: - Wound care following. (14) Abdominal aortic aneurysm: - CT showed 39 mm infrarenal AAA; also has aneuryism of right common iliac. - Will need monitoring in future. (15) Electrolyte abnormality: - K level 3.4 - ordered KCl 20 mEq PO. (16) DVT prophylaxis: - Heparin subQ. Supervising Physician Co-Signing Physician Notes PA Supervision Note: I did not personally see or examine the patient today, but I verified all teixeira points of AMIRA Bello's assessment and plan with the following exceptions/ additions: None Subjective Pt. is doing well overall. He denies severe abd pain. Had a BM this morning. Denies nausea/vomiting. Review of Systems All systems reviewed & are unremarkable except as noted in HPI & below Constitutional: no fever, no chills and no weakness Respiratory: no cough and no dyspnea Cardiovascular: no chest pain, no palpitations and no edema Gastrointestinal: no abdominal pain, no nausea, no vomiting, no constipation and no diarrhea/loose stools Genitourinary (Male): no difficulty urinating Allergy / Immunological: no rash Physical Exam 2 Vital Signs (Past 24 Hours): Last Vital Signs Temp 36.3 C L 10/19/18 15:30 Pulse 77 10/19/18 15:56 Resp 18 10/19/18 15:30 BP 121/79 10/19/18 15:30 Pulse Ox 84 L 10/19/18 15:42 Physical Exam: General: Resting comfortably in no apparent distress HEENT: NC/AT; PERRLA with EOMI; [place] conjunctiva, MMM. Neck: Supple and nontender Cardiac: RRR Lungs: CTA bilaterally; No rhonchi, wheezing, or rales Abdomen: Bowel normoactive X 4; Nontender to light palpation Extremities: Warm. No edema present Neuro: No focal weakness Skin: No rash Results & Data Laboratory Results 10/19/18 10/19/18 10/19/18 Range/Units 07:34 07:31 07:31 WBC 11.11 H (4.8-10.8) K/uL RBC 4.14 L (4.7-6.1) M/uL Hgb 12.5 L (14.0-18.0) g/dL Hct 36.9 L (42-52) % MCV 89.1 (80-100) fL MCH 30.2 (25-34) pg MCHC 33.9 (32-36) g/dL RDW Std Deviation 45.8 (36.4-46.3) fL RDW Coeff of Svetlana 14.0 (11.5-14.5) % Plt Count 198 (130-400) K/uL MPV 9.4 (7.4-10.4) fL Immature Gran % (Auto) 0.5 % Neut % (Auto) 81.2 % Lymph % (Auto) 8.4 % [place] % (Auto) 8.4 % Eos % (Auto) 1.2 % Baso % (Auto) 0.3 % Immature Gran # (Auto) 0.05 H (0.00-0.02) K/uL Neut # (Auto) 9.04 H (1.4-6.5) K/uL Lymph # (Auto) 0.93 L (1.2-3.4) K/uL [place] # (Auto) 0.93 H (0.11-0.59) K/uL Eos # (Auto) 0.13 (0-0.5) K/uL Baso # (Auto) 0.03 (0-0.2) K/uL Sodium 140 (136-145) mmol/L Potassium 3.4 L (3.5-5.1) mmol/L Chloride 108 H (98-107) mmol/L Carbon Dioxide 23 (21-32) mmol/L Anion Gap 9.0 (3-11) BUN 12 (7-18) mg/dl Creatinine 1.25 1.17 (0.6-1.4) mg/dl Est Cr Clr Drug Dosing 35.5 37.9 ml/min Est GFR ( Amer) 60.0 65.0 Est GFR (Non-Af Amer) 51.8 56.1 BUN/Creatinine Ratio 9.6 L (10-20) Glucose 141 H (70-99) mg/dl Calcium 8.7 (8.5-10.1) mg/dl Total Bilirubin 1.5 H (0.2-1) mg/dl AST 33 (15-37) U/L ALT 29 (12-78) U/L Alkaline Phosphatase 59 (45-117) U/L Total Protein 6.9 (6.4-8.2) gm/dl Albumin 2.4 L (3.4-5.0) gm/dl Globulin 4.5 H (2.5-4.0) gm/dl Albumin/Globulin Ratio 0.5 L (0.9-2)
--- NOTE | 2018-10-19 17:38 | Surgery Progress Note ---
Date of Service October 19, 2018 Assessment & Plan (1) Cholelithiasis: Cholelithiasis with radiologic evidence of cholecystitis -His white blood cell count slightly increased today to 11.11K - afebrile -His abdomen is nontender on exam - Increase in T. bili at 1.5 (1.1), AST/ALT/ALK wnl Plan: Continue IV Abx and conservative measures Repeat am labs to monitor wbc and t. bili If clinically gets worse (any fevers, increasing leukcytosis, or increasing pain ) would consider percutaneous cholecystostomy in setting of cirrhosis rather than cholecystectomy. Discussed with Dr. Smith who is to evaluate patient later today Subjective "feeling run down today compared to yesterday" mild abdominal pain around belly button but none in right upper side tolerating diet slowly with no n/v/or abdominal pain no fevers or chills +small bowel movement this morning Physical Exam 2 Vital Signs (Past 24 Hours): Last Vital Signs Temp 36.3 C L 10/19/18 15:30 Pulse 77 10/19/18 15:56 Resp 18 10/19/18 15:30 BP 121/79 10/19/18 15:30 Pulse Ox 84 L 10/19/18 15:42 Constitutional: WD/WN, vitals as above no acute distress Respiratory: normal respiratory effort; no respiratory distress Cardiovascular: RRR, no murmur, no edema Gastrointestinal (Abdomen): Inspection/Auscultation: abdomen normal to inspection; abdomen not distended Percussion/Palpation: abdomen soft; abdomen nontender, no guarding and abdomen not rigid Skin: no rashes, warm and dry Psychiatric: A+Ox3, euthymic affect Results & Data Laboratory Results 10/19/18 10/19/18 10/19/18 Range/Units 07:34 07:31 07:31 WBC 11.11 H (4.8-10.8) K/uL RBC 4.14 L (4.7-6.1) M/uL Hgb 12.5 L (14.0-18.0) g/dL Hct 36.9 L (42-52) % MCV 89.1 (80-100) fL MCH 30.2 (25-34) pg MCHC 33.9 (32-36) g/dL RDW Std Deviation 45.8 (36.4-46.3) fL RDW Coeff of Svetlana 14.0 (11.5-14.5) % Plt Count 198 (130-400) K/uL MPV 9.4 (7.4-10.4) fL Immature Gran % (Auto) 0.5 % Neut % (Auto) 81.2 % Lymph % (Auto) 8.4 % [place] % (Auto) 8.4 % Eos % (Auto) 1.2 % Baso % (Auto) 0.3 % Immature Gran # (Auto) 0.05 H (0.00-0.02) K/uL Neut # (Auto) 9.04 H (1.4-6.5) K/uL Lymph # (Auto) 0.93 L (1.2-3.4) K/uL [place] # (Auto) 0.93 H (0.11-0.59) K/uL Eos # (Auto) 0.13 (0-0.5) K/uL Baso # (Auto) 0.03 (0-0.2) K/uL Sodium 140 (136-145) mmol/L Potassium 3.4 L (3.5-5.1) mmol/L Chloride 108 H (98-107) mmol/L Carbon Dioxide 23 (21-32) mmol/L Anion Gap 9.0 (3-11) BUN 12 (7-18) mg/dl Creatinine 1.25 1.17 (0.6-1.4) mg/dl Est Cr Clr Drug Dosing 35.5 37.9 ml/min Est GFR ( Amer) 60.0 65.0 Est GFR (Non-Af Amer) 51.8 56.1 BUN/Creatinine Ratio 9.6 L (10-20) Glucose 141 H (70-99) mg/dl Calcium 8.7 (8.5-10.1) mg/dl Total Bilirubin 1.5 H (0.2-1) mg/dl AST 33 (15-37) U/L ALT 29 (12-78) U/L Alkaline Phosphatase 59 (45-117) U/L Total Protein 6.9 (6.4-8.2) gm/dl Albumin 2.4 L (3.4-5.0) gm/dl Globulin 4.5 H (2.5-4.0) gm/dl Albumin/Globulin Ratio 0.5 L (0.9-2) _ (1) Cholelithiasis Biliary obstruction: Cholangitis acuity: Cholangitis presence: Cholecystitis acuity: chronic Cholecystitis presence: Cholelithiasis location : gallbladder
[2018-10-19] MEDS: dilTIAZem HCL 120 MG CAPCR PO SCH (21:25)
[2018-10-20] MEDS: PIPERACILLIN/TAZOBACTAM 3.375 GM in DEXTROSE 5% 100 ML IV SCH ×3 (00:22→16:15)
[2018-10-20] MEDS: ARFORMOTEROL TART 15MCG/2ML VIAL INH SCH (07:16)
[2018-10-20] MEDS: ALLOPURINOL 100 MG TAB PO SCH (08:22)
[2018-10-20] MEDS: MONTELUKAST SODIUM 10 MG TABLET PO SCH (08:22)
[2018-10-20] MEDS: MOMETASONE FUROATE 14 PUFF/1 INHALER INH SCH (08:22)
[2018-10-20] MEDS: PANTOprazole 40 MG TAB PO SCH (08:23)
[2018-10-20] MEDS: HEPARIN SOD 5,000 UNIT/0.5 ML VIAL SQ SCH (08:23)
[2018-10-20] MEDS: LISINOPRIL 10 MG TAB PO SCH (08:23)
[2018-10-20] MEDS: GABAPENTIN 300 MG CAP PO SCH ×2 (08:23→13:41)
[2018-10-20] MEDS: POTASSIUM CHLORIDE 20 MEQ TABCR PO SCH (08:23)
[2018-10-20] MEDS: CALCIUM 600MG + VIT D 400 IU TAB PO SCH (08:23)
[2018-10-20] MEDS: LOPERAMIDE LIQUID 120 ML BOTTLE PO SCH (08:24)
[2018-10-20 08:42] LABS: Hematocrit (blood only) 38.2 % (42-52); Hemoglobin 12.6 g/dL (14.0-18.0); Mean Corpuscular Volume 90.3 fL (80-100); Mean Platelet Volume 9.1 fL (7.4-10.4); Platelet Count 218 K/uL (130-400); RDW Coefficient of Variation 14.1 % (11.5-14.5); RDW Standard Deviation 46.6 fL (36.4-46.3); Red Blood Count 4.23 M/uL (4.7-6.1); White Blood Count 9.14 K/uL (4.8-10.8)
[2018-10-20 09:31] LABS: Albumin Level 2.4 gm/dl (3.4-5.0); BUN Creatinine Ratio 11.3 (10-20); Calcium 8.8 mg/dl (8.5-10.1); Creatinine Clr Calc Pharmacy 35.5 ml/min; Est GFR (Non-African American) 51.8; Magnesium 2.1 mg/dl (1.8-2.4); Potassium 3.4 mmol/L (3.5-5.1)
[2018-10-20 09:34] LABS: Albumin Globulin Ratio 0.5 (0.9-2); Bilirubin,Total 1.1 mg/dl (0.2-1); Globulin 4.5 gm/dl (2.5-4.0); Total Protein 6.9 gm/dl (6.4-8.2)
[2018-10-20] MEDS ORDERED: POTASSIUM CHLORIDE 20 MEQ TABCR PO ONE (10:45)
--- NOTE | 2018-10-20 12:38 | Surgery Progress Note ---
Date of Service October 20, 2018 Assessment & Plan (1) Cholelithiasis: Cholelithiasis with radiologic evidence of cholecystitis - Leukocytosis resolved today - afebrile - His abdomen is nondistended, mildly tender in RUQ on deep palpation - improvement of T. bili 1.1 (1.5), AST/ALT/ALK wnl Plan: Continue IV Abx and conservative measures consider transition to oral antibiotics for total of 14 days now on day 5 of IV abx Continue low fat diet Continue current medical treatment Dr. Smith has seen and examined pt agrees with above Subjective feeling tired today no abdominal pain no nausea or vomiting tolerating diet + bowel movement this morning Physical Exam 2 Vital Signs (Past 24 Hours): Last Vital Signs Temp 36.5 C 10/20/18 08:33 Pulse 74 10/20/18 08:33 Resp 18 10/20/18 08:33 BP 137/69 10/20/18 08:33 Pulse Ox 93 10/20/18 08:33 Constitutional: WD/WN, vitals as above not ill appearing Respiratory: normal respiratory effort; no respiratory distress and no labored breathing Gastrointestinal (Abdomen): Inspection/Auscultation: abdomen not distended Percussion/Palpation: + abdomen tender (RUQ on deep palpation, negative Garcia's ) and abdomen soft; no guarding and abdomen not rigid Skin: no rashes, warm and dry Psychiatric: A+Ox3, euthymic affect Results & Data Laboratory Results 10/20/18 10/20/18 Range/Units 08:23 08:23 WBC 9.14 (4.8-10.8) K/uL RBC 4.23 L (4.7-6.1) M/uL Hgb 12.6 L (14.0-18.0) g/dL Hct 38.2 L (42-52) % MCV 90.3 (80-100) fL MCH 29.8 (25-34) pg MCHC 33.0 (32-36) g/dL RDW Std Deviation 46.6 H (36.4-46.3) fL RDW Coeff of Svetlana 14.1 (11.5-14.5) % Plt Count 218 (130-400) K/uL MPV 9.1 (7.4-10.4) fL Sodium 140 (136-145) mmol/L Potassium 3.4 L (3.5-5.1) mmol/L Chloride 108 H (98-107) mmol/L Carbon Dioxide 23 (21-32) mmol/L Anion Gap 9.0 (3-11) BUN 14 (7-18) mg/dl Creatinine 1.25 (0.6-1.4) mg/dl Est Cr Clr Drug Dosing 35.5 ml/min Est GFR ( Amer) 60.0 Est GFR (Non-Af Amer) 51.8 BUN/Creatinine Ratio 11.3 (10-20) Glucose 153 H (70-99) mg/dl Calcium 8.8 (8.5-10.1) mg/dl Magnesium 2.1 (1.8-2.4) mg/dl Total Bilirubin 1.1 H (0.2-1) mg/dl AST 32 (15-37) U/L ALT 32 (12-78) U/L Alkaline Phosphatase 59 (45-117) U/L Total Protein 6.9 (6.4-8.2) gm/dl Albumin 2.4 L (3.4-5.0) gm/dl Globulin 4.5 H (2.5-4.0) gm/dl Albumin/Globulin Ratio 0.5 L (0.9-2) _ (1) Cholelithiasis Biliary obstruction: Cholangitis acuity: Cholangitis presence: Cholecystitis acuity: chronic Cholecystitis presence: Cholelithiasis location : gallbladder
--- NOTE | 2018-10-20 16:46 | Discharge Summary ---
Date of Service October 20, 2018 Admission HPI Per Admitting Provider Mr. Stanley presented to the ED after having a number of falls today. He denies hitting his head. He has no pain. He is from [facility]. He has not been eating or drinking well. He has had nausea but no emesis. He denies cough, sore throat, runny nose but has been sob. 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 Admission Exam Per Admitting Provider General: no distress Eyes: normal inspection, PERLL Respiratory: chest non tender, clear to auscultation, normal breath sounds, no respiratory distress, no accessory muscle use Cardiac: regular rate and rhythm, no rub or gallop, no murmur, no edema, no jvd GI/: active bowel sounds, mild abdominal tenderness, soft, non distended Extremities: normal range of motion, normal strength, non tender Neuro:oriented x 3, moves all extremities Psych: alert, normal mood and affect Skin: normal color, dry, perineal area erythematous bilaterally, reddened sacrum Principal Diagnosis Acute Cholecystitis Discharge Exam General: Resting comfortably in no apparent distress; A&OX3 HEENT: NC/AT; PERRLA with EOMI; Conroy conjunctiva, MMM. Neck: Supple and nontender; No JVD Cardiac: RRR w/o murmurs, gallops or rubs; S1 and S2 Lungs: CTA bilaterally; No rhonchi, wheezing, or rales Abdomen: Bowel normoactive X 4; Nontender to palpation Extremities: Warm. No edema present Neuro: No focal weakness Skin: No rash Discharge Data Allergies Allergy/AdvReac Type Severity Reaction Status Date / Time No Known Allergies Allergy Verified 10/15/18 10:53 Consultations 10/15/18 13:36 ED Decision to Admit Stat 10/15/18 18:19 Consult Case Management - Discharge Planning Routine 10/16/18 14:47 Consult General Surgery Routine 10/20/18 16:28 Burn CD for patient Stat Ordered Studies 10/15/18 09:29 CT head/brain wo con Stat 10/15/18 13:36 US gallbladder Stat 10/16/18 10:14 CT abd pelvis wo con Routine Hospital Course (1) Cholecystitis: Pt. was admitted for acute cholecystitis. CT A/P and HIDA scan +acute cholecystitis. Surgery was consulted and did not recommend surgical intervention due to cirrhosis. Zosyn IV was ordered. Hyperbilirubinemia and leukocytosis improved. He will be transferred to [facility] for acute cholecystectomy. (2) Sepsis: Due to cholecystitis. Lactic acid was 2.6. (3) Cirrhosis: CT A/P showed liver cirrhosis. (4) Dehydration: IV fluids were ordered at 100 cc/hr. (5) Weakness: Pt. resided at a personal alf prior to admission. (6) Frequent falls: CT head was negative. (7) Acute renal insufficiency: Creatinine was elevated on admission, likely pre-renal related to dehydration. Renal function improved prior to transfer. (8) CKD (chronic kidney disease), stage III: Renally dosed all meds. (9) HTN (hypertension): Continued Diltiazem and Lisinopril as prescribed. (10) COPD (chronic obstructive pulmonary disease): Continued Mometasone, Arformoterol, Montelukast as prescribed. (11) Acute electrocardiogram changes: T wave inversion in inferior leads on EKG at admission. Trop neg x 2; was asymptomatic. (12) Hyperglycemia: A1C 5.9 in July. Encourage weight loss and exercise. (13) Rash of perineum: Wound care following. (14) Abdominal aortic aneurysm: CT showed 39 mm infrarenal AAA; also has aneuryism of right common iliac. Will need monitoring in future. (15) Electrolyte abnormality: Electrolytes were monitored and replaced as needed. (16) DVT prophylaxis: Heparin. Pt. was stable for discharge to [facility] on 10/20/18. Total Time Total Time Spent Total Time Spent (In Minutes): >30 minutes Total Time Includes: Examination of the Patient, Discharge Planning, Medication Reconciliation, Communication With Other Providers and Other Discharge Plan Discharge Items Patient Disposition: Transfer Acute Care Hospital Reason For Visit: SEPSIS Discharge Diagnosis: Acute Cholecystitis Condition: Fair Discharge Goals: Improve function, Increase independence and Therapeutic intervention Activity: Resume your previous activity Non-emergency contact: Primary Care Provider Call non-emergency contact if: you have any medication questions, your symptoms worsen, your pain is unusual for you and you have a fever Diet: Low Fat Addtl Provider Instructions: 1. You will be transferred to [facility] for surgery. Prescriptions: New piperacillin-tazobactam [Zosyn] 3.375 gram recon soln 3.375 gm IV Q8H 7 Days RF: 0 Continue loperamide [Imodium A-D] 2 mg Tablet 1 mg PO QAM RF: 0 allopurinol 100 mg tablet 100 mg PO QAM RF: 0 pantoprazole 20 mg tablet,delayed release (DR/EC) 20 mg PO QAM RF: 0 potassium chloride 20 mEq tablet,ER particles/crystals 20 meq PO QAM RF: 0 lisinopril 10 mg tablet 10 mg PO QAM RF: 0 montelukast 10 mg tablet 10 mg PO QAM RF: 0 mometasone 220 mcg (60 doses) aerosol powdr breath activated 1 puff Inhalation BID RF: 0 calcium carbonate-vitamin D3 [Caltrate 600 + D] 600 mg (1,500 mg)-800 unit Tablet,Chewable 1 tab PO QAM RF: 0 gabapentin 300 mg capsule 300 mg PO TID RF: 0 diltiazem HCl 120 mg Capsule,Extended Release 24hr 120 mg PO HS RF: 0 arformoterol [Brovana] 15 mcg/2 mL Solution For Nebulization 2 ml INHALATION BID RF: 0 Stand-Alone Forms: [facility] Discharge Orders: Discharge Order (Routine); Ordered 10/20/18 Ordered By: Aure Kim Admission Data Admit Date/Time: 10/15/18 16:10 Attending Provider: Natan Mahmood Admit Provider: Brian Kramer Primary Care Provider: Hamilton Santos Other Providers: Jaymie Cisneros ; Garfield Ragland ; Daniel Smith ; Aure Kim ; Minnie Hennessy Service: Telemetry Other Interventions: Discharge Summary Assessment (RN) Last Done: 10/20/18 18:00 Pending Studies at Discharge: No DC Date/Time DO NOT enter until pt leaves facility: 10/20/18 18:15 Supervising Physician Co-Signing Physician Notes Attending Discharge Note & Attestation - Pt seen/examined, chart reviewed, discharge care plan d/w PA Aure Kim. I agree w/ the teixeira components of her discharge summary. 88yo male who presented with sepsis 2nd to acute cholecystitis. He was treated with IV antibiotic therapy. He never had evidence of complicating cholangitis. LFTs were elevated at presentation and improved during his stay. Imaging incidentally noted a liver contour suggestive of cirrhosis. However, INR remained stable, and he had no signs of advanced cirrhosis or decompensated liver disease during his stay. It was felt that the patient was too high risk for surgical intervention at [facility] and thus [facility] was contacted for possible transfer. [facility] [place] in [place] for possible surgical intervention. Discharge exam- Gen - nad skin - no jaundice eyes - anicteric mouth - MMM heart - RRR, s1, s2 lungs - CTA b/l abd - soft, NT, ND, BS+, no HSM, no ascites ext - no edema psych - a/o x 3 Natan Mahmood MD
== END 2018-10-20 18:15 | disposition short-term general hospital (02) | DRG 872 ==
LOC: ED 08:46 → 2W 16:10 → SUATTDRO 16:10 → 2W 17:33
DX: I12.9 Hypertensive chronic kidney disease with stage 1 through stage 4 chronic kidney disease, or unspecified chronic kidney disease; M10.9 Gout, unspecified; R94.31 Abnormal electrocardiogram [ECG] [EKG]; I45.81 Long QT syndrome; E87.8 Other disorders of electrolyte and fluid balance, not elsewhere classified; R29.6 Repeated falls; E86.0 Dehydration; N28.9 Disorder of kidney and ureter, unspecified; I72.3 Aneurysm of iliac artery; B02.29 Other postherpetic nervous system involvement; R21 Rash and other nonspecific skin eruption; Z79.51 Long term (current) use of inhaled steroids; K74.60 Unspecified cirrhosis of liver; Z79.899 Other long term (current) drug therapy; R73.9 Hyperglycemia, unspecified; K21.9 Gastro-esophageal reflux disease without esophagitis; I71.4 Abdominal aortic aneurysm, without rupture; N18.3 Chronic kidney disease, stage 3 (moderate); K80.00 Calculus of gallbladder with acute cholecystitis without obstruction; Z66 Do not resuscitate; R53.1 Weakness; A41.9 Sepsis, unspecified organism; J44.9 Chronic obstructive pulmonary disease, unspecified

== ENCOUNTER 2019-03-12 07:35 | Inpatient (IN) ==
[2019-03-12] MEDS ORDERED: LEVALBUTEROL HCL 1.25 MG/3 ML NEB NEB STA (07:43)
[2019-03-12] MEDS ORDERED: SODIUM CHLORIDE 0.9% 1000ML 1,000 ML IV ONE (07:43)
[2019-03-12] MEDS ORDERED: ACETAMINOPHEN 500 MG TAB PO STA (07:43)
[2019-03-12 08:18] LABS: Appearance Urine Clear (Clear); Bacteria Urine Automated Negative (Negative); Bilirubin Urine Negative (Negative); Blood Urine Negative (Negative); Color Urine Yellow; Glucose Urine UA Negative (Negative); Ketones Urine Negative (Negative); Leukocyte Esterase Urine Negative (Negative); Nitrite Urine Negative (Negative); Protein Urine Trace (Negative); RBC Urine Automated 0-4 /hpf (0-4); Urobilinogen Urine Negative (Negative)
[2019-03-12] MEDS ORDERED: PIPERACILL/TAZOBAC CONSULT ACTIVE PRN (08:30)
[2019-03-12] MEDS ORDERED: LEVOFLOXACIN/D5W 750 MG/150 ML BAG IV STA (08:30)
[2019-03-12] MEDS ORDERED: VANCOMYCIN CONSULT ACTIVE PRN (08:30)
[2019-03-12] MEDS ORDERED: VANCOMYCIN HCL 1,250 MG in SODIUM CHLORIDE 0.9% 500 ML IV ONE (08:30)
[2019-03-12] MEDS ORDERED: PIPERACILLIN/TAZOBACTAM 4.5 GM/120 ML BAG IV ONE (08:30)
[2019-03-12 08:34] LABS: Basophils # (auto) 0.02 K/uL (0-0.2); Basophils % (auto) 0.1 %; Eosinophils # (auto) 0.01 K/uL (0-0.5); Eosinophils % (auto) 0.1 %; Hematocrit (blood only) 41.4 % (42-52); Hemoglobin 14.1 g/dL (14.0-18.0); Immature Granulocytes # (auto) 0.06 K/uL (0.00-0.02); Immature Granulocytes % (auto) 0.3 %; Lymphocytes # (auto) 0.28 K/uL (1.2-3.4); Lymphocytes % (auto) 1.6 %; Mean Corpuscular Hgb Conc 34.1 g/dL (32-36); Mean Corpuscular Volume 88.3 fL (80-100); Mean Platelet Volume 9.5 fL (7.4-10.4); Monocytes # (auto) 0.97 K/uL (0.11-0.59); Monocytes % (auto) 5.6 %; Neutrophils # (auto) 16.08 K/uL (1.4-6.5); Neutrophils % (auto) 92.3 %; Platelet Count 163 K/uL (130-400); RDW Standard Deviation 44.6 fL (36.4-46.3); Red Blood Count 4.69 M/uL (4.7-6.1); White Blood Count 17.42 K/uL (4.8-10.8)
--- NOTE | 2019-03-12 08:45 | XRay Report ---
XR chest 1V portable CLINICAL HISTORY: 88 years-old Male presenting with Sepsis. TECHNIQUE: Portable upright AP view of the chest was obtained. COMPARISON: 10/15/2018. FINDINGS: Atherosclerosis of the aortic arch. Cardiac silhouette normal in size. Elevation of the right hemidia phragm. Patchy left lung opacities new from prior no large effusion or pneumothorax. Degenerative armen nges of the thoracic spine. Cholecystectomy clips noted. IMPRESSION: 1. Patchy left lung infiltrates consistent with pneumonia. Electronically signed by: Ronal Travis M.D. 03/12/2019 8:43 AM
[2019-03-12 08:46] LABS: INR 1.1 (0.9-1.1); Partial Thromboplastin Ratio 0.9; Partial Thromboplastin Time 25.6 Seconds (21.0-31.0); Prothrombin Time 10.9 Seconds (9.0-12.0)
[2019-03-12 08:53] LABS: Alanine Aminotransferase 20 U/L (12-78); Albumin Level 3.6 gm/dl (3.4-5.0); Aspartate Aminotransferase 17 U/L (15-37); BUN Creatinine Ratio 11.3 (10-20); Blood Urea Nitrogen 17 mg/dl (7-18); Carbon Dioxide 24 mmol/L (21-32); Chloride 110 mmol/L (98-107); Creatinine Clr Calc Pharmacy 30.3 ml/min; Est GFR (African American) 47.4; Est GFR (Non-African American) 40.9; Glucose 164 mg/dl (70-99); Potassium 3.8 mmol/L (3.5-5.1); Sodium 144 mmol/L (136-145)
[2019-03-12 08:58] LABS: Albumin Globulin Ratio 0.9 (0.9-2); Alkaline Phosphatase 54 U/L (45-117); Bilirubin,Total 1.1 mg/dl (0.2-1); Creatine Kinase 38 U/L (39-308); Creatine Kinase MB 1.1 ng/ml (0.5-3.6); Globulin 3.9 gm/dl (2.5-4.0); Total Protein 7.5 gm/dl (6.4-8.2); Troponin I < 0.015 ng/ml (0-0.045)
--- NOTE | 2019-03-12 09:25 | History & Physical Report ---
Date of Service March 12, 2019 Assessment & Plan (1) Sepsis: (2) Pneumonia: -Admit to [facility] with telemetry -Meet sepsis criteria with Tmax= 39.1, leukocytosis, tachycardic, source being pneumonia -CXR reviewed showing left lung infiltrate consistent with pneumonia -Lactic acidosis of 3.64, will order repeat now -NSS x 1 L in the ER, continue at 125 ml/hr -WBC=17 K, follow with a.m. labs -Administered Zosyn IV, Levaquin IV, vancomycin IV in the ER. Will transition to ceftriaxone and doxycycline now as personal usp is not considered healthcare associated pneumonia and he does not have severe sepsis or recent hospitalization -Levalbuterol nebs, flutter therapy, Mucinex, Tessalon Perles, incentive spirometry, O2 as needed -Patient has COPD at baseline so titrate O2 sats from 88 to 92%, currently on 2 L appears comfortable sitting at rest (3) COPD (chronic obstructive pulmonary disease): -Continue Brovana, mometasone inhalers -Titrate sats for 88 to 92% -Does not appear to be a COPD exacerbation, will not order any steroids (4) Abdominal aortic aneurysm: -Infrarenal, 3.[address] recent [address] scan in September 2018 (5) Cirrhosis: -Does not appear decompensated at this time (6) CKD (chronic kidney disease), stage III: -Creatinine 1.52, stage III at baseline -NSS 125 mL/hr (7) HTN (hypertension): -Continue antihypertensives including diltiazem 120 mg at bedtime, But will hold lisinopril as unsure if creatinine is acutely elevated or not-patient reports he took his medications this morning (8) Frequent falls: -PT/OT -Uses a walker at baseline -Resides at [facility] to assist with discharge planning PT/OT consults placed (9) Gout: -Continue allopurinol 100 mg every morning (10) Hyperglycemia: -Monitor with a.m. PRP -164 upon presentation to the ER - will order morning A1c, last was done in July 2018 and was 5.9 (11) DVT prophylaxis: -Heparin subcu, teds Disposition-admit to medical floor with telemetry History of Present Illness Primary Care Provider: Hamilton Santos MD This is an 88-year-old male with past medical history of CKD stage III, cirrhosis, AAA, hyperglycemia, COPD, HTN, gout, frequent falls who presents from [facility] for acute onset of cough, shortness of breath, fever and tachycardia. Patient was found to have elevated white count of 17,000, lactic acid of 3.46 and T-max of 37.8 on initial presentation. Patient reports that he has had a cold for approximately a week and has been feeling fatigued with minimal exertion, coughing up clear to white sputum, however denies feeling acutely short of breath. He has been eating and drinking well. He does share a room with a roommate however denies any known sick contacts. Patient uses a walker at baseline to help ambulate. Patient reports that he took all his morning medications prior to coming to the ER. Allergies Allergy/AdvReac Type Severity Reaction Status Date / Time cefuroxime [From Ceftin] Allergy Mild Verified 03/12/19 09:46 bee venom protein (honey bee) Allergy Unknown Unknown Unverified 03/12/19 09:46 Home Medications Home Medications Medication Instructions Recorded Confirmed Type Brovana 2 ml INHALATION BID 10/15/18 03/12/19 History Caltrate 600 + D 1 tab PO QAM 10/15/18 03/12/19 History allopurinol 100 mg PO QAM 10/15/18 03/12/19 History diltiazem HCl 120 mg PO HS 10/15/18 03/12/19 History gabapentin 300 mg PO TID 10/15/18 03/12/19 History lisinopril 10 mg PO QAM 10/15/18 03/12/19 History mometasone 1 puff INHALATION BID 10/15/18 03/12/19 History montelukast 10 mg PO QAM 10/15/18 03/12/19 History pantoprazole 20 mg PO HS 10/15/18 03/12/19 History potassium chloride 20 meq PO QAM 10/15/18 03/12/19 History dextromethorphan-guaifenesin 10 ml PO Q4H PRN 03/12/19 03/12/19 History [Tussin DM] gfszsdlpt-YW-xfhymeql-guaifen 20 ml PO BID 03/12/19 03/12/19 History [Mucinex Fast-Max Eodz-Zju-Mnlq] psyllium husk [Metamucil] 2 tsp PO QAM 03/12/19 03/12/19 History Past Med/Surg History Medical History Abdominal aortic aneurysm Electrolyte abnormality CKD (chronic kidney disease), stage III Cirrhosis Cholelithiasis (Resolved) Rash of perineum Cholecystitis (Resolved) Hyperglycemia Acute electrocardiogram changes COPD (chronic obstructive pulmonary disease) Sepsis Frequent falls (Acute) Acute renal insufficiency (Acute) HTN (hypertension) Gout (Chronic) Surgical History H/O prostatectomy (Resolved) History of cholecystectomy Family History Other Hypertension Social History Preferred Language: Nigerien Communication Ability: Effective Sql Architect Required: No Beliefs That Will Affect Care: None marital status: Single Current Living Situation: [facility] Current Living Situation Comment: [facility]. Other Information That Helps Us Care for You: No Feels Safe at Home: Yes Safety Concerns: Feels Safe At This Time Smoking Status: Never smoker Hx Alcohol Use: No Hx Substance Use: No Review of Systems Review of Systems: Constitutional: + fever, sweats, no chills Eyes: No diplopia, no worsening or blurred vision ENT: normal hearing, no trouble swallowing Respiratory: + cough,+ clear to white sputum, + dyspnea on exertion Cardiovascular: No chest pain, tightness or palpitations Abdomen: No pain, nausea, vomiting, diarrhea or constipation Musculoskeletal: No joint pain, calf pain, swelling Neurologic: No weakness, numbness/tingling, or balance problems Psychiatric: No anxiety or depression Skin: No rash or itch Physical Exam Physical Exam: General: awake, alert, no apparent distress Head: Normocephalic, atraumatic ENT: PERRL, EOMI, no pharyngeal exudate, mucous membranes moist Chest: Diminished breath sounds in the left lower field, on 2 L via NC, no adventitious breath sounds Cardiac:+ Tachycardic, no murmur, no JVD, normal peripheral pulses, good capillary refill Abdominal: NABS x 4 quadrants, soft, nontender to palpation, no rebound, guarding or tenderness Extremities: Normal inspection, no peripheral edema or erythema, calfs nontender to palpation Psych: Normal mood and affect Neuro: AAO x 3, strength intact bilaterally and related 5/5, no motor deficits, speech is clear, no peripheral sensory deficits Results & Data Vital Signs (Past 12 Hours) Vital Signs Temp Pulse Pulse Resp BP Pulse Ox 03/12/19 08:01 117 H 24 94 03/12/19 07:49 39.1 C H 121 H 20 168/95 H 91 03/12/19 07:43 121 H 94 Laboratory Results 03/12/19 03/12/19 03/12/19 Range/Units 18:25 10:33 08:23 WBC (4.8-10.8) K/uL RBC (4.7-6.1) M/uL Hgb (14.0-18.0) g/dL Hct (42-52) % MCV (80-100) fL MCH (25-34) pg MCHC (32-36) g/dL RDW Std Deviation (36.4-46.3) fL RDW Coeff of Svetlana (11.5-14.5) % Plt Count (130-400) K/uL MPV (7.4-10.4) fL Immature Gran % (Auto) % Neut % (Auto) % Lymph % (Auto) % Lamb % (Auto) % Eos % (Auto) % Baso % (Auto) % Immature Gran # (Auto) (0.00-0.02) K/uL Neut # (Auto) (1.4-6.5) K/uL Lymph # (Auto) (1.2-3.4) K/uL Lamb # (Auto) (0.11-0.59) K/uL Eos # (Auto) (0-0.5) K/uL Baso # (Auto) (0-0.2) K/uL PT (9.0-12.0) Seconds INR (0.9-1.1) APTT (21.0-31.0) Seconds PTT Ratio Sodium (136-145) mmol/L Potassium (3.5-5.1) mmol/L Chloride (98-107) mmol/L Carbon Dioxide (21-32) mmol/L Anion Gap (3-11) BUN (7-18) mg/dl Creatinine (0.6-1.4) mg/dl Est Cr Clr Drug Dosing ml/min Est GFR ( Amer) Est GFR (Non-Af Amer) BUN/Creatinine Ratio (10-20) Glucose (70-99) mg/dl POC Lactic Acid Frank 3.64 H (0.90-1.70) mmol/L Lactate 3.9 H* 4.3 H* (0.4-2.0) mmol/L Calcium (8.5-10.1) mg/dl Total Bilirubin (0.2-1) mg/dl AST (15-37) U/L ALT (12-78) U/L Alkaline Phosphatase (45-117) U/L Total Creatine Kinase (39-308) U/L CK-MB (CK-2) (0.5-3.6) ng/ml CK/CKMB % Calc (0-3.0) Troponin I (0-0.045) ng/ml Total Protein (6.4-8.2) gm/dl Albumin (3.4-5.0) gm/dl Globulin (2.5-4.0) gm/dl Albumin/Globulin Ratio (0.9-2) Urine Color Urine Appearance (Clear) Urine pH (4.5-7.5) Ur Specific [place] (1.000-1.030) Urine Protein (Negative) Urine Glucose (UA) (Negative) Urine Ketones (Negative) Urine Blood (Negative) Urine Nitrite (Negative) Urine Bilirubin (Negative) Urine Urobilinogen (Negative) Ur Leukocyte Esterase (Negative) Urine WBC (Auto) (0-5) /hpf Urine RBC (Auto) (0-4) /hpf U Hyaline Cast (Auto) (0-5) /lpf U Epithel Cells (Auto) (0-5) /lpf Urine Bacteria (Auto) (Negative) 03/12/19 03/12/19 03/12/19 Range/Units 08:15 08:15 08:15 WBC (4.8-10.8) K/uL RBC (4.7-6.1) M/uL Hgb (14.0-18.0) g/dL Hct (42-52) % MCV (80-100) fL MCH (25-34) pg MCHC (32-36) g/dL RDW Std Deviation (36.4-46.3) fL RDW Coeff of Svetlana (11.5-14.5) % Plt Count (130-400) K/uL MPV (7.4-10.4) fL Immature Gran % (Auto) % Neut % (Auto) % Lymph % (Auto) % Lamb % (Auto) % Eos % (Auto) % Baso % (Auto) % Immature Gran # (Auto) (0.00-0.02) K/uL Neut # (Auto) (1.4-6.5) K/uL Lymph # (Auto) (1.2-3.4) K/uL Lamb # (Auto) (0.11-0.59) K/uL Eos # (Auto) (0-0.5) K/uL Baso # (Auto) (0-0.2) K/uL PT 10.9 (9.0-12.0) Seconds INR 1.1 (0.9-1.1) APTT 25.6 (21.0-31.0) Seconds PTT Ratio 0.9 Sodium 144 (136-145) mmol/L Potassium 3.8 (3.5-5.1) mmol/L Chloride 110 H (98-107) mmol/L Carbon Dioxide 24 (21-32) mmol/L Anion Gap 10.0 (3-11) BUN 17 (7-18) mg/dl Creatinine 1.52 H (0.6-1.4) mg/dl Est Cr Clr Drug Dosing 30.3 ml/min Est GFR ( Amer) 47.4 Est GFR (Non-Af Amer) 40.9 BUN/Creatinine Ratio 11.3 (10-20) Glucose 164 H (70-99) mg/dl POC Lactic Acid Frank (0.90-1.70) mmol/L Lactate (0.4-2.0) mmol/L Calcium 9.0 (8.5-10.1) mg/dl Total Bilirubin 1.1 H (0.2-1) mg/dl AST 17 (15-37) U/L ALT 20 (12-78) U/L Alkaline Phosphatase 54 (45-117) U/L Total Creatine Kinase Cancelled 38 L (39-308) U/L CK-MB (CK-2) Cancelled 1.1 (0.5-3.6) ng/ml CK/CKMB % Calc Cancelled 2.9 (0-3.0) Troponin I Cancelled < 0.015 (0-0.045) ng/ml Total Protein 7.5 (6.4-8.2) gm/dl Albumin 3.6 (3.4-5.0) gm/dl Globulin 3.9 (2.5-4.0) gm/dl Albumin/Globulin Ratio 0.9 (0.9-2) Urine Color Urine Appearance (Clear) Urine pH (4.5-7.5) Ur Specific [place] (1.000-1.030) Urine Protein (Negative) Urine Glucose (UA) (Negative) Urine Ketones (Negative) Urine Blood (Negative) Urine Nitrite (Negative) Urine Bilirubin (Negative) Urine Urobilinogen (Negative) Ur Leukocyte Esterase (Negative) Urine WBC (Auto) (0-5) /hpf Urine RBC (Auto) (0-4) /hpf U Hyaline Cast (Auto) (0-5) /lpf U Epithel Cells (Auto) (0-5) /lpf Urine Bacteria (Auto) (Negative) 03/12/19 03/12/19 Range/Units 08:15 08:00 WBC 17.42 H (4.8-10.8) K/uL RBC 4.69 L (4.7-6.1) M/uL Hgb 14.1 (14.0-18.0) g/dL Hct 41.4 L (42-52) % MCV 88.3 (80-100) fL MCH 30.1 (25-34) pg MCHC 34.1 (32-36) g/dL RDW Std Deviation 44.6 (36.4-46.3) fL RDW Coeff of Svetlana 14.0 (11.5-14.5) % Plt Count 163 (130-400) K/uL MPV 9.5 (7.4-10.4) fL Immature Gran % (Auto) 0.3 % Neut % (Auto) 92.3 % Lymph % (Auto) 1.6 % Lamb % (Auto) 5.6 % Eos % (Auto) 0.1 % Baso % (Auto) 0.1 % Immature Gran # (Auto) 0.06 H (0.00-0.02) K/uL Neut # (Auto) 16.08 H (1.4-6.5) K/uL Lymph # (Auto) 0.28 L (1.2-3.4) K/uL Lamb # (Auto) 0.97 H (0.11-0.59) K/uL Eos # (Auto) 0.01 (0-0.5) K/uL Baso # (Auto) 0.02 (0-0.2) K/uL PT (9.0-12.0) Seconds INR (0.9-1.1) APTT (21.0-31.0) Seconds PTT Ratio Sodium (136-145) mmol/L Potassium (3.5-5.1) mmol/L Chloride (98-107) mmol/L Carbon Dioxide (21-32) mmol/L Anion Gap (3-11) BUN (7-18) mg/dl Creatinine (0.6-1.4) mg/dl Est Cr Clr Drug Dosing ml/min Est GFR ( Amer) Est GFR (Non-Af Amer) BUN/Creatinine Ratio (10-20) Glucose (70-99) mg/dl POC Lactic Acid Frank (0.90-1.70) mmol/L Lactate (0.4-2.0) mmol/L Calcium (8.5-10.1) mg/dl Total Bilirubin (0.2-1) mg/dl AST (15-37) U/L ALT (12-78) U/L Alkaline Phosphatase (45-117) U/L Total Creatine Kinase (39-308) U/L CK-MB (CK-2) (0.5-3.6) ng/ml CK/CKMB % Calc (0-3.0) Troponin I (0-0.045) ng/ml Total Protein (6.4-8.2) gm/dl Albumin (3.4-5.0) gm/dl Globulin (2.5-4.0) gm/dl Albumin/Globulin Ratio (0.9-2) Urine Color Yellow Urine Appearance Clear (Clear) Urine pH 5.0 (4.5-7.5) Ur Specific [place] 1.020 (1.000-1.030) Urine Protein Trace H (Negative) Urine Glucose (UA) Negative (Negative) Urine Ketones Negative (Negative) Urine Blood Negative (Negative) Urine Nitrite Negative (Negative) Urine Bilirubin Negative (Negative) Urine Urobilinogen Negative (Negative) Ur Leukocyte Esterase Negative (Negative) Urine WBC (Auto) 1-5 (0-5) /hpf Urine RBC (Auto) 0-4 (0-4) /hpf U Hyaline Cast (Auto) 1-5 (0-5) /lpf U Epithel Cells (Auto) 10-20 H (0-5) /lpf Urine Bacteria (Auto) Negative (Negative) Diagnostic Findings XR chest 1V portable CLINICAL HISTORY: 88 years-old Male presenting with Sepsis. TECHNIQUE: Portable upright AP view of the chest was obtained. COMPARISON: 10/15/2018. FINDINGS: Atherosclerosis of the aortic arch. Cardiac silhouette normal in size. Elevation of the right hemidiaphragm. Patchy left lung opacities new from prior no large effusion or pneumothorax. Degenerative changes of the thoracic spine. Cholecystectomy clips noted. IMPRESSION: 1. Patchy left lung infiltrates consistent with pneumonia. ECG Additional Comments: 12-MAR-2019 07:44:24 [facility]-EDSTAT ROUTINE RETRIEVAL Sinus tachycardia Incomplete right bundle branch block Nonspecific ST and T wave abnormality Prolonged QT Abnormal ECG When compared with ECG of 16-OCT-2018 07:13, Premature ventricular complexes are no longer Present Incomplete right bundle branch block is now Present 25mm/s 10mm/mV 150Hz 9.0.8 12SL 241 CHARLES: 15 Unconfirmed Vent. rate 117 BPM SC interval 194 ms QRS duration 98 ms QT/QTc 376/524 ms P-R-T axes 37 12 56 Code Status & VTE Plan Code Status Full code VTE Prophylaxis Plan VTE Prophylaxis will be ordered: Yes Supervising Physician Co-Signing Physician Notes PA Supervision Note: I personally saw and examined the patient. I verified all teixeira points and agree with AMIRA Loya with the following exceptions and/or additions: Patient presents with fever, productive cough with white sputum, no hemoptysis, and shortness of breath with acute hypoxic respiratory failure. Found to have sepsis and left lower lobe pneumonia History reviewed as above Vitals reviewed Gen: AAOx3, NAD, appears ill but is sitting on the side of the bed HEENT: Anicteric sclerae, EOMI CV: RRR no mgr nl S1S2 Pulm: Positive crackles at the left base, otherwise diminished lung sounds throughout, no wheezes Abd: +BS soft NT ND no masses or hernias Ext: Trace pitting edema legs bilaterally, 2+ DP pulses Skin: No rashes, warm/dry Neuro: Full strength throughout 88-year-old male here with left lower lobe pneumonia and sepsis, perhaps acute kidney injury, and acute hypoxic respiratory failure. Lactate remains elevated despite IV fluid hydration and may be elevated in the setting of known cirrhosis -Add thiamine to help metabolize lactate -Repeat lactate in the morning -Start Florastor given history of C. difficile colitis and being on antibiotics -Repeat ECG in the morning given prolonged QT and nonspecific ST changes PG Care Time/CCT Total # of Minutes Spent Total Time Spent with Patient: Total time spent is greater than 50% in coordination of care (as documented) at patient's floor/unit and/or counseling patient:
[2019-03-12] MEDS ORDERED: ONDANSETRON INJ 2 MG/ML 2 ML VIAL IV PRN (11:39)
[2019-03-12] MEDS ORDERED: ACETAMINOPHEN 325 MG TAB PO PRN (11:39)
[2019-03-12] MEDS: SODIUM CHLORIDE 0.9% 1000ML 1,000 ML IV SCH ×2 (12:18→23:12)
[2019-03-12] MEDS: cefTRIAXone SODIUM 1,000 MG in DEXTROSE 5% 50 ML IV SCH (12:41)
[2019-03-12] MEDS: LEVALBUTEROL 1.25MG/0.5ML NEB NEB SCH ×3 (13:47→19:34)
[2019-03-12] MEDS: HEPARIN SOD 5,000 UNIT/0.5 ML VIAL SQ SCH ×2 (14:33→20:45)
[2019-03-12] MEDS: GABAPENTIN 300 MG CAP PO SCH ×2 (14:34→20:44)
[2019-03-12] MEDS: BENZONATATE 100 MG CAPSULE PO SCH ×2 (14:34→20:44)
--- NOTE | 2019-03-12 16:22 | Emergency Department Note ---
Entered by Stephanie Ferro acting as a scribe for Samuel Lara MD History of Present Illness General Chief complaint: Cough Stated complaint: diff. breathing Time Seen by Provider: 03/12/19 07:39 Source: patient Mode of arrival: EMS Limitations: no limitations History of Present Illness Provider complaint: SOB Onset (ago): day(s) (a few) Location: chest Pain Consistency: + other (worsening) Quality: + other (SOB) Relieved By: + none Associated symptoms: + cough and + fever/chills Treatments prior to arrival: none The patient is an 88 year old male who presents to the Emergency Room via EMS from [facility] with complaints of a worsening shortness of breath that began a few days ago. The patient reports that he has had a cough as well as a fever for the same time. He denies anything making his symptoms better and explains that he has not been giving any treatments. He denies any other symptoms. Home Medications Home Medications Medication Instructions Recorded Confirmed Type Brovana 2 ml INHALATION BID 10/15/18 03/12/19 History Caltrate 600 + D 1 tab PO QAM 10/15/18 03/12/19 History allopurinol 100 mg PO QAM 10/15/18 03/12/19 History diltiazem HCl 120 mg PO HS 10/15/18 03/12/19 History gabapentin 300 mg PO TID 10/15/18 03/12/19 History lisinopril 10 mg PO QAM 10/15/18 03/12/19 History mometasone 1 puff INHALATION BID 10/15/18 03/12/19 History montelukast 10 mg PO QAM 10/15/18 03/12/19 History pantoprazole 20 mg PO HS 10/15/18 03/12/19 History potassium chloride 20 meq PO QAM 10/15/18 03/12/19 History dextromethorphan-guaifenesin 10 ml PO Q4H PRN 03/12/19 03/12/19 History [Tussin DM] osumkhxuv-CA-ubzcvakf-guaifen 20 ml PO BID 03/12/19 03/12/19 History [Mucinex Fast-Max Izzn-Mka-Slqb] psyllium husk [Metamucil] 2 tsp PO QAM 03/12/19 03/12/19 History Allergies Allergy/AdvReac Type Severity Reaction Status Date / Time bee venom protein (honey bee) Allergy Unknown Unknown Unverified 03/12/19 09:46 cefuroxime [From Ceftin] Allergy Unknown Unknown Verified 03/13/19 09:01 Past Med/Surg History Medical History Abdominal aortic aneurysm Electrolyte abnormality CKD (chronic kidney disease), stage III Cirrhosis Cholelithiasis (Resolved) Rash of perineum Cholecystitis (Resolved) Hyperglycemia Acute electrocardiogram changes COPD (chronic obstructive pulmonary disease) Sepsis Frequent falls (Acute) Acute renal insufficiency (Acute) HTN (hypertension) Gout (Chronic) Surgical History H/O prostatectomy (Resolved) History of cholecystectomy Family History Other Hypertension Social History Preferred Language: Yakut Communication Ability: Effective Clerical Manager Required: No Beliefs That Will Affect Care: None marital status: Single Current Living Situation: Assisted and Personal Care Facility Current Living Situation Comment: [facility]. Other Information That Helps Us Care for You: No Feels Safe at Home: Yes Safety Concerns: Feels Safe At This Time Smoking Status: Never smoker Hx Alcohol Use: No Hx Substance Use: No Review of Systems See HPI for pertinent positives & negatives. and A total of 10 systems reviewed and were otherwise negative Physical Exam Vital Signs Vital Signs - 24 hr 03/12/19 09:46 03/12/19 09:50 Pulse Rate 99 H 101 H Respiratory Rate 27 H 28 H Blood Pressure 130/79 Blood Pressure Mean 96 GENERAL: Awake, alert, well-appearing, in no acute distress HENT: Normocephalic, atraumatic. Oropharynx unremarkable. EYES: Normal conjunctiva. Sclera non-icteric. NECK: Supple. No nuchal rigidity. FROM. No JVD. RESPIRATORY: Wheezing throughout all lung whlaen. CARDIAC: Regular rate, normal rhythm. Extremities warm and well perfused. Pulses equal. ABDOMEN: Soft, non-distended. No tenderness to palpation. No rebound or guarding. No masses. RECTAL: Deferred. MUSCULOSKELETAL: Chest examination reveals no tenderness. The back is symmet rical on inspection without obvious abnormality. There is no CVA tenderness to palpation. No joint edema. LOWER EXTREMITIES: Calves are equal size bilaterally and non-tender. No edema. No discoloration. NEURO: Normal sensorium. No sensory or motor deficits noted. SKIN: No rash or jaundice noted. Course 0740: Past medical records reviewed. The patient was evaluated in room A10. A complete history and physical examination was performed. 0858: I reviewed the patient's case with Dr. Hartley - [facility] Hospitalist. She will evaluate the patient for further management. Administered Medications Allopurinol (Zyloprim) 100 mg PO QAM [facility] Stop: 04/12/19 08:59 Last Admin: 03/13/19 09:02 Dose: 100 mg Documented by: [id number] Arformoterol Tartrate (Brovana Neb) 15 mcg INH BIDR [facility] Stop: 04/11/19 19:59 Last Admin: 03/13/19 07:35 Dose: 15 mcg Documented by: [id number] Admin: 03/13/19 07:10 Dose: 15 mcg Documented by: [id number] Admin: 03/12/19 19:34 Dose: 15 mcg Documented by: [id number] Benzonatate (Tessalon Perle) 100 mg PO TID [facility] Stop: 04/11/19 13:59 Last Admin: 03/13/19 09:01 Dose: 100 mg Documented by: [id number] Admin: 03/12/19 20:44 Dose: 100 mg Documented by: [id number] Admin: 03/12/19 14:34 Dose: 100 mg Documented by: [id number] Diltiazem HCl (Cardizem Cd) 120 mg PO HS [facility] Stop: 04/11/19 20:59 Last Admin: 03/12/19 20:47 Dose: 120 mg Documented by: [id number] Doxycycline Hyclate (Vibramycin) 100 mg PO BID [facility]; Protocol Stop: 03/19/19 20:59 Last Admin: 03/13/19 09:01 Dose: 100 mg Documented by: [id number] Admin: 03/12/19 20:45 Dose: 100 mg Documented by: [id number] Gabapentin (Neurontin) 300 mg PO TID [facility] Stop: 04/11/19 13:59 Last Admin: 03/13/19 09:00 Dose: 300 mg Documented by: [id number] Admin: 03/12/19 20:44 Dose: 300 mg Documented by: [id number] Admin: 03/12/19 14:34 Dose: 300 mg Documented by: [id number] Guaifenesin (Mucinex) 1,200 mg PO Q12 [facility] Stop: 04/11/19 20:59 Last Admin: 03/13/19 08:59 Dose: 1,200 mg Documented by: [id number] Admin: 03/12/19 20:43 Dose: 1,200 mg Documented by: [id number] Heparin Sodium (Porcine) (Heparin Sodium (Porcine)) 5,000 units SQ Q8 [facility] Stop: 04/11/19 13:59 Last Admin: 03/13/19 05:58 Dose: 5,000 units Documented by: [id number] Cosigned by: [id number] Admin: 03/12/19 20:45 Dose: 5,000 units Documented by: [id number] Cosigned by: [id number] Admin: 03/12/19 14:33 Dose: 5,000 units Documented by: [id number] Cosigned by: [id number] Ceftriaxone Sodium 1,000 mg/ (Dextrose) 50 mls @ 100 mls/hr IV Q24H [facility]; Protocol Stop: 03/19/19 12:59 Last Infusion: 03/12/19 13:11 Dose: 0 mls/hr Documented by: [id number] Admin: 03/12/19 12:41 Dose: 100 mls/hr Documented by: [id number] Thiamine HCl 200 mg/ Sodium (Chloride) 52 mls @ 208 mls/hr IV QAM [facility] Stop: 04/12/19 08:59 Last Admin: 03/13/19 09:51 Dose: 208 mls/hr Documented by: [id number] Magnesium Sulfate/Dextrose (Magnesium Sulfate / D5w) 1 gm in 100 mls @ 100 mls/hr IV Q1H [facility] Stop: 03/13/19 12:29 Last Admin: 03/13/19 09:36 Dose: 100 mls/hr Documented by: [id number] Levalbuterol HCl (Xopenex 1.25mg/0.5ml Neb) 1.25 mg NEB Q6R [facility] Stop: 04/11/19 11:38 Last Admin: 03/13/19 07:10 Dose: Not Given Documented by: [id number] Admin: 03/13/19 02:15 Dose: 1.25 mg Documented by: [id number] Admin: 03/12/19 19:34 Dose: Not Given Documented by: [id number] Admin: 03/12/19 14:08 Dose: Not Given Documented by: [id number] Admin: 03/12/19 13:47 Dose: 1.25 mg Documented by: [id number] Mometasone Furoate (Asmanex 220mcg) 1 puffs INH BID [facility] Stop: 04/11/19 20:59 Last Admin: 03/13/19 08:57 Dose: 1 puffs Documented by: [id number] Admin: 03/12/19 20:43 Dose: 1 puffs Documented by: [id number] Montelukast Sodium (Singulair) 10 mg PO QAM [facility] Stop: 04/12/19 08:59 Last Admin: 03/13/19 09:00 Dose: 10 mg Documented by: [id number] Pantoprazole Sodium (Protonix) 40 mg PO QAM [facility]; Protocol Stop: 04/12/19 08:59 Last Admin: 03/13/19 09:00 Dose: 40 mg Documented by: [id number] Saccharomyces Boulardii (Florastor) 250 mg PO DAILY [facility] Stop: 04/11/19 18:29 Last Admin: 03/13/19 08:59 Dose: 250 mg Documented by: [id number] Admin: 03/12/19 19:39 Dose: 250 mg Documented by: [id number] Discontinued Medications Acetaminophen (Tylenol) 1,000 mg PO NOW STA Stop: 03/12/19 07:44 Last Admin: 03/12/19 08:06 Dose: 1,000 mg Documented by: [id number] Sodium Chloride (Nss 1000ml) 1,000 mls @ 999 mls/hr IV .Q1H1M ONE Stop: 03/12/19 08:43 Last Infusion: 03/12/19 09:47 Dose: 0 mls/hr Documented by: [id number] Admin: 03/12/19 08:24 Dose: 999 mls/hr Documented by: [id number] Piperacillin Sod/Tazobactam Sod (Zosyn) 4.5 gm in 120 mls @ 240 mls/hr IV NOW ONE Stop: 03/12/19 08:59 Last Infusion: 03/12/19 09:47 Dose: 0 mls/hr Documented by: [id number] Admin: 03/12/19 08:36 Dose: 240 mls/hr Documented by: [id number] Levofloxacin/Dextrose (Levaquin/D5w) 750 mg in 150 mls @ 100 mls/hr IV NOW STA Stop: 03/12/19 09:59 Last Infusion: 03/12/19 11:07 Dose: 0 mls/hr Documented by: [id number] Admin: 03/12/19 08:53 Dose: 100 mls/hr Documented by: [id number] Vancomycin HCl 1,250 mg/ (Sodium Chloride) 525 mls @ 200 mls/hr IV NOW ONE; Protocol Stop: 03/12/19 11:07 Last Infusion: 03/12/19 12:13 Dose: 0 mls/hr Documented by: [id number] Admin: 03/12/19 09:35 Dose: 200 mls/hr Documented by: [id number] Sodium Chloride (Nss 1000ml) 1,000 mls @ 125 mls/hr IV .Q8H [facility] Stop: 03/13/19 03:38 Last Infusion: 03/13/19 08:53 Dose: 0 mls/hr Documented by: [id number] Admin: 03/12/19 23:12 Dose: 125 mls/hr Documented by: [id number] Infusion: 03/12/19 20:18 Dose: 125 mls/hr Documented by: [id number] Admin: 03/12/19 12:18 Dose: 125 mls/hr Documented by: [id number] Thiamine HCl 200 mg/ Sodium (Chloride) 52 mls @ 208 mls/hr IV NOW STA Stop: 03/12/19 18:35 Last Infusion: 03/12/19 20:55 Dose: 0 mls/hr Documented by: [id number] Admin: 03/12/19 19:16 Dose: 208 mls/hr Documented by: [id number] Levalbuterol HCl (Xopenex 1.25mg/3ml Neb) 1.25 mg NEB NOW STA Stop: 03/12/19 07:44 Last Admin: 03/12/19 08:01 Dose: 1.25 mg Documented by: [id number] Potassium Chloride (Klor-Con M20) 40 meq PO 0930 ONE Stop: 03/13/19 09:31 Last Admin: 03/13/19 09:37 Dose: 40 meq Documented by: [id number] Medical Decision Making Differential Diagnosis Differential diagnoses includes: pneumonia, bronchitis, COPD/Asthma exacerbation, pneumothorax, pulmonary embolism, congestive heart failure, and acute coronary syndrome amongst others. Medical Records Attestation: I reviewed the patient's medical records. Home Medications Current Medication List: was personally reviewed by me Laboratory Data Attestation: I reviewed the patient's lab results. Result diagrams: 03/13/19 05:47 03/13/19 05:47 Lab Results 03/12/19 03/12/19 03/12/19 Range/Units 08:00 08:15 08:15 WBC 17.42 H (4.8-10.8) K/uL RBC 4.69 L (4.7-6.1) M/uL Hgb 14.1 (14.0-18.0) g/dL Hct 41.4 L (42-52) % MCV 88.3 (80-100) fL MCH 30.1 (25-34) pg MCHC 34.1 (32-36) g/dL RDW Std Deviation 44.6 (36.4-46.3) fL RDW Coeff of Svetlana 14.0 (11.5-14.5) % Plt Count 163 (130-400) K/uL MPV 9.5 (7.4-10.4) fL Immature Gran % (Auto) 0.3 % Neut % (Auto) 92.3 % Lymph % (Auto) 1.6 % [place] % (Auto) 5.6 % Eos % (Auto) 0.1 % Baso % (Auto) 0.1 % Immature Gran # (Auto) 0.06 H (0.00-0.02) K/uL Neut # (Auto) 16.08 H (1.4-6.5) K/uL Lymph # (Auto) 0.28 L (1.2-3.4) K/uL [place] # (Auto) 0.97 H (0.11-0.59) K/uL Eos # (Auto) 0.01 (0-0.5) K/uL Baso # (Auto) 0.02 (0-0.2) K/uL PT 10.9 (9.0-12.0) Seconds INR 1.1 (0.9-1.1) APTT 25.6 (21.0-31.0) Seconds PTT Ratio 0.9 Sodium (136-145) mmol/L Potassium (3.5-5.1) mmol/L Chloride (98-107) mmol/L Carbon Dioxide (21-32) mmol/L Anion Gap (3-11) BUN (7-18) mg/dl Creatinine (0.6-1.4) mg/dl Est Cr Clr Drug Dosing ml/min Est GFR ( Amer) Est GFR (Non-Af Amer) BUN/Creatinine Ratio (10-20) Glucose (70-99) mg/dl POC Lactic Acid Frank (0.90-1.70) mmol/L Calcium (8.5-10.1) mg/dl Total Bilirubin (0.2-1) mg/dl AST (15-37) U/L ALT (12-78) U/L Alkaline Phosphatase (45-117) U/L Total Creatine Kinase (39-308) U/L CK-MB (CK-2) (0.5-3.6) ng/ml CK/CKMB % Calc (0-3.0) Troponin I (0-0.045) ng/ml Total Protein (6.4-8.2) gm/dl Albumin (3.4-5.0) gm/dl Globulin (2.5-4.0) gm/dl Albumin/Globulin Ratio (0.9-2) Urine Color Yellow Urine Appearance Clear (Clear) Urine pH 5.0 (4.5-7.5) Ur Specific [place] 1.020 (1.000-1.030) Urine Protein Trace H (Negative) Urine Glucose (UA) Negative (Negative) Urine Ketones Negative (Negative) Urine Blood Negative (Negative) Urine Nitrite Negative (Negative) Urine Bilirubin Negative (Negative) Urine Urobilinogen Negative (Negative) Ur Leukocyte Esterase Negative (Negative) Urine WBC (Auto) 1-5 (0-5) /hpf Urine RBC (Auto) 0-4 (0-4) /hpf U Hyaline Cast (Auto) 1-5 (0-5) /lpf U Epithel Cells (Auto) 10-20 H (0-5) /lpf Urine Bacteria (Auto) Negative (Negative) 03/12/19 03/12/19 03/12/19 Range/Units 08:15 08:15 08:23 WBC (4.8-10.8) K/uL RBC (4.7-6.1) M/uL Hgb (14.0-18.0) g/dL Hct (42-52) % MCV (80-100) fL MCH (25-34) pg MCHC (32-36) g/dL RDW Std Deviation (36.4-46.3) fL RDW Coeff of Svetlana (11.5-14.5) % Plt Count (130-400) K/uL MPV (7.4-10.4) fL Immature Gran % (Auto) % Neut % (Auto) % Lymph % (Auto) % [place] % (Auto) % Eos % (Auto) % Baso % (Auto) % Immature Gran # (Auto) (0.00-0.02) K/uL Neut # (Auto) (1.4-6.5) K/uL Lymph # (Auto) (1.2-3.4) K/uL [place] # (Auto) (0.11-0.59) K/uL Eos # (Auto) (0-0.5) K/uL Baso # (Auto) (0-0.2) K/uL PT (9.0-12.0) Seconds INR (0.9-1.1) APTT (21.0-31.0) Seconds PTT Ratio Sodium 144 (136-145) mmol/L Potassium 3.8 (3.5-5.1) mmol/L Chloride 110 H (98-107) mmol/L Carbon Dioxide 24 (21-32) mmol/L Anion Gap 10.0 (3-11) BUN 17 (7-18) mg/dl Creatinine 1.52 H (0.6-1.4) mg/dl Est Cr Clr Drug Dosing 30.3 ml/min Est GFR ( Amer) 47.4 Est GFR (Non-Af Amer) 40.9 BUN/Creatinine Ratio 11.3 (10-20) Glucose 164 H (70-99) mg/dl POC Lactic Acid Frank 3.64 H (0.90-1.70) mmol/L Calcium 9.0 (8.5-10.1) mg/dl Total Bilirubin 1.1 H (0.2-1) mg/dl AST 17 (15-37) U/L ALT 20 (12-78) U/L Alkaline Phosphatase 54 (45-117) U/L Total Creatine Kinase 38 L Cancelled (39-308) U/L CK-MB (CK-2) 1.1 Cancelled (0.5-3.6) ng/ml CK/CKMB % Calc 2.9 Cancelled (0-3.0) Troponin I < 0.015 Cancelled (0-0.045) ng/ml Total Protein 7.5 (6.4-8.2) gm/dl Albumin 3.6 (3.4-5.0) gm/dl Globulin 3.9 (2.5-4.0) gm/dl Albumin/Globulin Ratio 0.9 (0.9-2) Urine Color Urine Appearance (Clear) Urine pH (4.5-7.5) Ur Specific [place] (1.000-1.030) Urine Protein (Negative) Urine Glucose (UA) (Negative) Urine Ketones (Negative) Urine Blood (Negative) Urine Nitrite (Negative) Urine Bilirubin (Negative) Urine Urobilinogen (Negative) Ur Leukocyte Esterase (Negative) Urine WBC (Auto) (0-5) /hpf Urine RBC (Auto) (0-4) /hpf U Hyaline Cast (Auto) (0-5) /lpf U Epithel Cells (Auto) (0-5) /lpf Urine Bacteria (Auto) (Negative) Imaging Data Radiologist's Impression: Radiology results as stated below per my review and the radiologist's interpretation: XR chest 1V portable CLINICAL HISTORY: 88 years-old Male presenting with Sepsis. TECHNIQUE: Portable upright AP view of the chest was obtained. COMPARISON: 10/15/2018. FINDINGS: Atherosclerosis of the aortic arch. Cardiac silhouette normal in size. Elevation of the right hemidiaphragm. Patchy left lung opacities new from prior no large effusion or pneumothorax. Degenerative changes of the thoracic spine. Cholecystectomy clips noted. IMPRESSION: 1. Patchy left lung infiltrates consistent with pneumonia. Electronically signed by: Ronal Travis M.D. 03/12/2019 8:43 AM ECG Data Attestation: I personally reviewed and interpreted this ECG as follows: Indication: chest pain Rate (beats per minute): 117 Rhythm: sinus tachycardia Findings: + prolonged QT; no ST depression and no ST elevation Blood Pressure Blood Pressure Findings: Elevated blood pressure Blood Pressure Disposition: further management by hospitalist [facility] Narrative This is an 88-year-old male who presents emergency department complaining of fever as well as tachycardia. Patient also has an elevation in his white blood cell count. His chest x-ray is consistent with pneumonia. Due to the tachycardia and the patient's age His CURB 65 is moderately elevated. Based on this I feel the patient should be admitted to the hospital. I did discuss the case with the hospitalist service who agreed to admit the patient. In the meantime the patient was started on Zosyn Levaquin and vancomycin. Impression & Plan Pneumonia Discharge Plan Visit Data *Final* Discharge Date/Time: 03/12/19 10:35 Chief Complaint: Cough Stated Complaint: diff. breathing ED Provider: Samuel Lara Discharge Problem: Pneumonia Patient Disposition: Admitted As Inpatient Discharge Instructions Interventions: ED Discharge Assessment Last Done: 03/12/19 10:35 The scribe's documentation has been prepared under my direction and personally reviewed by me in its entirety. I confirm that the note above accurately reflects all work, treatment, procedures, and medical decision making performed by me.
[2019-03-12] MEDS ORDERED: THIAMINE HCL 200 MG in SODIUM CHLORIDE 0.9% 50 ML IV STA (18:21)
[2019-03-12] MEDS: ARFORMOTEROL TART 15MCG/2ML VIAL INH SCH (19:34)
[2019-03-12] MEDS: SACCHAROMYCES BOULARDII 250 MG CAP PO SCH (19:39)
[2019-03-12] MEDS: guaiFENesin 600 MG TABCR PO SCH (20:43)
[2019-03-12] MEDS: MOMETASONE FUROATE 14 PUFF/1 INHALER INH SCH (20:43)
[2019-03-12] MEDS: DOXYCYCLINE HYCLATE 100 MG CAP PO SCH (20:45)
[2019-03-12] MEDS: dilTIAZem HCL 120 MG CAPCR PO SCH (20:47)
[2019-03-13] MEDS: LEVALBUTEROL 1.25MG/0.5ML NEB NEB SCH ×4 (02:15→19:25)
[2019-03-13 05:55] LABS: Hematocrit (blood only) 34.5 % (42-52); Hemoglobin 11.7 g/dL (14.0-18.0); Mean Corpuscular Hgb Conc 33.9 g/dL (32-36); Mean Corpuscular Volume 88.9 fL (80-100); Mean Platelet Volume 9.6 fL (7.4-10.4); Platelet Count 123 K/uL (130-400); RDW Coefficient of Variation 14.2 % (11.5-14.5); RDW Standard Deviation 46.3 fL (36.4-46.3); Red Blood Count 3.88 M/uL (4.7-6.1); White Blood Count 14.87 K/uL (4.8-10.8)
[2019-03-13] MEDS: HEPARIN SOD 5,000 UNIT/0.5 ML VIAL SQ SCH ×3 (05:58→20:05)
[2019-03-13 06:16] LABS: Estimated Average Glucose 140 mg/dl; Hemoglobin A1C 6.5 % (4.5-5.6)
[2019-03-13 06:35] LABS: Albumin Level 2.4 gm/dl (3.4-5.0); BUN Creatinine Ratio 11.8 (10-20); Calcium 7.8 mg/dl (8.5-10.1); Creatinine Clr Calc Pharmacy 38.8 ml/min; Est GFR (African American) 63.7; Magnesium 1.2 mg/dl (1.8-2.4); Potassium 3.4 mmol/L (3.5-5.1)
[2019-03-13 06:39] LABS: Albumin Globulin Ratio 0.7 (0.9-2); Bilirubin,Total 1.1 mg/dl (0.2-1); Globulin 3.3 gm/dl (2.5-4.0); Total Protein 5.7 gm/dl (6.4-8.2)
[2019-03-13] MEDS: ARFORMOTEROL TART 15MCG/2ML VIAL INH SCH ×3 (07:10→19:30)
[2019-03-13] MEDS: MOMETASONE FUROATE 14 PUFF/1 INHALER INH SCH ×2 (08:57→20:04)
[2019-03-13] MEDS: guaiFENesin 600 MG TABCR PO SCH ×2 (08:59→20:04)
[2019-03-13] MEDS: SACCHAROMYCES BOULARDII 250 MG CAP PO SCH (08:59)
[2019-03-13] MEDS: PANTOprazole 40 MG TAB PO SCH (09:00)
[2019-03-13] MEDS: GABAPENTIN 300 MG CAP PO SCH ×3 (09:00→20:04)
[2019-03-13] MEDS ORDERED: LISINOPRIL 10 MG TAB PO SCH (09:00)
[2019-03-13] MEDS: MONTELUKAST SODIUM 10 MG TABLET PO SCH (09:00)
[2019-03-13] MEDS: DOXYCYCLINE HYCLATE 100 MG CAP PO SCH ×2 (09:01→20:03)
[2019-03-13] MEDS: BENZONATATE 100 MG CAPSULE PO SCH ×3 (09:01→20:03)
[2019-03-13] MEDS: ALLOPURINOL 100 MG TAB PO SCH (09:02)
[2019-03-13] MEDS ORDERED: POTASSIUM CHLORIDE 20 MEQ TABCR PO ONE (09:30)
[2019-03-13] MEDS: MAGNESIUM SULFATE / D5W 1 GM/100 ML BAG IV SCH ×3 (09:36→11:36)
[2019-03-13] MEDS: THIAMINE HCL 200 MG in SODIUM CHLORIDE 0.9% 50 ML IV SCH (09:51)
[2019-03-13] MEDS: cefTRIAXone SODIUM 1,000 MG in DEXTROSE 5% 50 ML IV SCH (13:46)
--- NOTE | 2019-03-13 15:14 | Hospitalist Progress Note ---
Date of Service March 13, 2019 Assessment & Plan (1) Pneumonia: Patient presented with fever, tachycardia, leukocytosis and found to have a left lower lobe infiltrate on examination with crackles on auscultation Also with lactic acidosis on admission with lactate peaking at 4 and now resolved Blood pressure has remained stable throughout -He was initially administered Zosyn IV, Levaquin IV, and vancomycin IV in the ER but then was transitioned to ceftriaxone and doxycycline as personal assisted is not considered healthcare associated pneumonia and he does not have severe sepsis or recent hospitalization Leukocytosis is improving today, remains on oxygen, is afebrile today, tachycardia resolved -Continue levalbuterol nebs, flutter therapy, Mucinex, Tessalon Perles, incentive spirometry, O2 as needed -Patient has COPD at baseline so titrate O2 sats from 88 to 92%, currently on 2 L appears comfortable sitting at rest -May need a two-step prior to discharge to evaluate oxygen needs -Would follow chest x-ray to resolution in 4 to 6 weeks -Continue Rocephin and doxycycline x7-day course-today's day #2 -Continue Florastor given history of C. difficile (2) Sepsis: As above Lactic acidosis improved with IV fluids, treatment of pneumonia, and IV thiamine was given to help with lactic acid metabolism in the setting of cirrhosis -IV fluids have been discontinued as sepsis is resolving (3) COPD (chronic obstructive pulmonary disease): No acute exacerbation Is mildly hypoxic and has diminished breath sounds -Continue Brovana, mometasone inhalers -Titrate sats for 88 to 92% -No steroids needed at this time (4) Abdominal aortic aneurysm: -Infrarenal, 3.[address] scan in September 2018 (5) Cirrhosis: -Does not appear decompensated at this time (6) CKD (chronic kidney disease), stage III: Baseline creatinine around 1.2-1.5, had acute kidney injury on admission and creatinine is now down to baseline after IV fluids for volume resuscitation -Follow BMP -Avoid nephrotoxins -Renally dose medications -Held lisinopril initially but can restart tomorrow for blood pressures becoming elevated (7) HTN (hypertension): -Continue antihypertensives including diltiazem 120 mg at bedtime -Blood pressures now elevated with holding lisinopril and giving IV fluids Renal function is returned to baseline -Okay to restart lisinopril 10 mg daily in the morning (8) Frequent falls: -PT/OT -Uses a walker at baseline -Resides at [facility] to assist with discharge planning PT/OT consults placed and appreciated-OT recommends SNF for rehab placement, PT recommends back to personal assisted with therapy -We will continue to evaluate (9) Gout: -Continue allopurinol 100 mg every morning for prophylaxis (10) Acute respiratory failure with hypoxia: Requiring 2 L nasal cannula keep pulse ox greater than 90% here as above -May need to step prior to discharge (11) ALLA (acute kidney injury): With creatinine increased on admission as above Now resolved with IV fluids -Follow BMP (12) Diarrhea: With multiple loose bowel movements today and history of C. difficile colitis -Check C. difficile with next stool sample -Continue Florastor (13) Diabetes mellitus: With hyperglycemia here, hemoglobin A1c checked and found to be 6.5% which gives him a diagnosis of diabetes -A.m. fasting glucose here only minimally elevated at 106 -No need for Accu-Cheks or insulin -Consider starting oral medication versus just diet control after discharge (14) Hypomagnesemia: Severely low today at 1.2, likely secondary to very poor p.o. intake -Encourage p.o. intake -Replaced with IV magnesium 3 g today -Follow magnesium in the morning (15) GERD (gastroesophageal reflux disease): Continue Protonix (16) DVT prophylaxis: -Heparin subcu, teds Disposition-continued stay on medical telemetry PT/OT consults recommend SNF versus returning personal assisted with home health-Case management is consulted-spoke with personal assisted who said that they cannot accept him back until Friday which is fine as he likely needs 2 more days at least in the hospital Subjective Patient reports not much improvement since yesterday, still feels short of breath with minimal exertion. Is coughing with mild production of sputum. He reports 4 or 5 loose bowel movements today, nonbloody. No abdominal pain. He still feels generally weak and has a poor appetite. Telemetry with normal sinus rhythm, first-degree AV block, PVCs, PACs, couplets, bigeminy and trigeminy, rates in the 70s to 90s Review of Systems Review of Systems: All systems reviewed & are unremarkable except as noted in HPI & below (No urinary retention) Physical Exam Constitutional: + ill appearing, average body habitus and cooperative; no acute distress Eyes: PERRL, conjunctivae normal, anicteric sclerae Neck: trachea midline, no thyromegaly Respiratory: normal respiratory effort; no labored breathing Auscultation: + diminished lung sounds (Throughout) and + crackles (At the left base, otherwise clear); no wheezes Cardiovascular: RRR, no murmur, no edema Gastrointestinal (Abdomen): normal bowel sounds, soft, nontender, no hepatosplenomegaly Musculoskeletal: Extremities: extremities normal to inspection; no cyanosis and no clubbing Skin: no rashes, warm and dry Neurologic: moves all extremities and awake; no focal motor deficits Psychiatric: A+Ox3, euthymic affect Results & Data Vital Signs (Past 12 Hours) Vital Signs Temp Pulse Resp BP Pulse Ox 03/13/19 14:14 78 18 95 03/13/19 11:00 37.1 C 80 20 168/85 H 95 03/13/19 07:38 86 18 94 03/13/19 07:07 92 H 18 96 03/13/19 07:00 36.9 C 84 18 136/70 96 Laboratory Results 03/13/19 03/13/19 03/13/19 Range/Units 18:19 05:47 05:47 WBC (4.8-10.8) K/uL RBC (4.7-6.1) M/uL Hgb (14.0-18.0) g/dL Hct (42-52) % MCV (80-100) fL MCH (25-34) pg MCHC (32-36) g/dL RDW Std Deviation (36.4-46.3) fL RDW Coeff of Svetlana (11.5-14.5) % Plt Count (130-400) K/uL MPV (7.4-10.4) fL Sodium (136-145) mmol/L Potassium (3.5-5.1) mmol/L Chloride (98-107) mmol/L Carbon Dioxide (21-32) mmol/L Anion Gap (3-11) BUN (7-18) mg/dl Creatinine (0.6-1.4) mg/dl Est Cr Clr Drug Dosing ml/min Est GFR ( Amer) Est GFR (Non-Af Amer) BUN/Creatinine Ratio (10-20) Glucose (70-99) mg/dl Estimat Average Glucose 140 mg/dl Hemoglobin A1c 6.5 H (4.5-5.6) % Lactate 1.7 (0.4-2.0) mmol/L Calcium (8.5-10.1) mg/dl Magnesium (1.8-2.4) mg/dl Total Bilirubin (0.2-1) mg/dl AST (15-37) U/L ALT (12-78) U/L Alkaline Phosphatase (45-117) U/L Total Protein (6.4-8.2) gm/dl Albumin (3.4-5.0) gm/dl Globulin (2.5-4.0) gm/dl Albumin/Globulin Ratio (0.9-2) Stl C. diff Tox B Gene Pending 03/13/19 03/13/19 Range/Units 05:47 05:47 WBC 14.87 H (4.8-10.8) K/uL RBC 3.88 L (4.7-6.1) M/uL Hgb 11.7 L (14.0-18.0) g/dL Hct 34.5 L (42-52) % MCV 88.9 (80-100) fL MCH 30.2 (25-34) pg MCHC 33.9 (32-36) g/dL RDW Std Deviation 46.3 (36.4-46.3) fL RDW Coeff of Svetlana 14.2 (11.5-14.5) % Plt Count 123 L (130-400) K/uL MPV 9.6 (7.4-10.4) fL Sodium 147 H (136-145) mmol/L Potassium 3.4 L (3.5-5.1) mmol/L Chloride 113 H (98-107) mmol/L Carbon Dioxide 26 (21-32) mmol/L Anion Gap 8.0 (3-11) BUN 14 (7-18) mg/dl Creatinine 1.19 D (0.6-1.4) mg/dl Est Cr Clr Drug Dosing 38.8 ml/min Est GFR ( Amer) 63.7 Est GFR (Non-Af Amer) 55.0 BUN/Creatinine Ratio 11.8 (10-20) Glucose 106 H (70-99) mg/dl Estimat Average Glucose mg/dl Hemoglobin A1c (4.5-5.6) % Lactate (0.4-2.0) mmol/L Calcium 7.8 L (8.5-10.1) mg/dl Magnesium 1.2 L (1.8-2.4) mg/dl Total Bilirubin 1.1 H (0.2-1) mg/dl AST 12 L (15-37) U/L ALT 15 (12-78) U/L Alkaline Phosphatase 36 L (45-117) U/L Total Protein 5.7 L D (6.4-8.2) gm/dl Albumin 2.4 L (3.4-5.0) gm/dl Globulin 3.3 (2.5-4.0) gm/dl Albumin/Globulin Ratio 0.7 L (0.9-2) Stl C. diff Tox B Gene ECG Additional Comments: ECG on 03/13 with sinus rhythm with first-degree AV node block, QT improved to 418 PG Care Time/CCT Total # of Minutes Spent Total Time Spent with Patient: Total time spent is greater than 50% in coordination of care (as documented) at patient's floor/unit and/or counseling patient: (1) Pneumonia Laterality: left Lung location: upper lobe of lung Pneumonia type: due to unspecified organism Qualified Code(s): J18.1 - Lobar pneumonia, unspecified organism
[2019-03-13] MEDS: dilTIAZem HCL 120 MG CAPCR PO SCH (20:04)
[2019-03-13 20:50] LABS: Cdiff Antigen Negative; Cdiff Toxin A+B Negative Cdiff Toxin (Negative)
[2019-03-13] MEDS ORDERED: HydrALAZINE 10 MG TAB PO STA (23:25)
[2019-03-14] MEDS: LEVALBUTEROL 1.25MG/0.5ML NEB NEB SCH ×4 (01:46→18:46)
[2019-03-14 05:52] LABS: Hematocrit (blood only) 34.8 % (42-52); Hemoglobin 11.5 g/dL (14.0-18.0); Mean Corpuscular Volume 88.8 fL (80-100); Mean Platelet Volume 9.8 fL (7.4-10.4); Platelet Count 126 K/uL (130-400); RDW Coefficient of Variation 14.3 % (11.5-14.5); RDW Standard Deviation 46.4 fL (36.4-46.3); Red Blood Count 3.92 M/uL (4.7-6.1); White Blood Count 9.49 K/uL (4.8-10.8)
[2019-03-14 06:18] LABS: Albumin Level 2.5 gm/dl (3.4-5.0); BUN Creatinine Ratio 12.6 (10-20); Calcium 7.8 mg/dl (8.5-10.1); Creatinine Clr Calc Pharmacy 42.7 ml/min; Est GFR (African American) 71.6; Est GFR (Non-African American) 61.8; Potassium 3.5 mmol/L (3.5-5.1)
[2019-03-14] MEDS: HEPARIN SOD 5,000 UNIT/0.5 ML VIAL SQ SCH ×3 (06:19→20:42)
[2019-03-14 06:20] LABS: Albumin Globulin Ratio 0.7 (0.9-2); Bilirubin,Total 0.8 mg/dl (0.2-1); Globulin 3.6 gm/dl (2.5-4.0); Total Protein 6.1 gm/dl (6.4-8.2)
[2019-03-14] MEDS: ARFORMOTEROL TART 15MCG/2ML VIAL INH SCH ×2 (07:01→18:46)
[2019-03-14] MEDS: MOMETASONE FUROATE 14 PUFF/1 INHALER INH SCH ×2 (08:59→20:42)
[2019-03-14] MEDS: guaiFENesin 600 MG TABCR PO SCH ×2 (09:00→20:41)
[2019-03-14] MEDS: SACCHAROMYCES BOULARDII 250 MG CAP PO SCH (09:00)
[2019-03-14] MEDS: GABAPENTIN 300 MG CAP PO SCH ×3 (09:01→20:42)
[2019-03-14] MEDS: PANTOprazole 40 MG TAB PO SCH (09:01)
[2019-03-14] MEDS: MONTELUKAST SODIUM 10 MG TABLET PO SCH (09:02)
[2019-03-14] MEDS: DOXYCYCLINE HYCLATE 100 MG CAP PO SCH ×2 (09:02→20:40)
[2019-03-14] MEDS: BENZONATATE 100 MG CAPSULE PO SCH ×2 (09:02→14:47)
[2019-03-14] MEDS: ALLOPURINOL 100 MG TAB PO SCH (09:03)
[2019-03-14] MEDS: LISINOPRIL 10 MG TAB PO SCH (09:03)
[2019-03-14] MEDS: THIAMINE HCL 200 MG in SODIUM CHLORIDE 0.9% 50 ML IV SCH (09:20)
[2019-03-14] MEDS: CHOLESTYRAMINE LIGHT 4 GM PKT PO SCH ×2 (12:25→23:15)
--- NOTE | 2019-03-14 14:42 | Hospitalist Progress Note ---
Date of Service March 14, 2019 Assessment & Plan (1) Pneumonia: Patient presented with fever, tachycardia, leukocytosis and found to have a left lower lobe infiltrate on examination with crackles on auscultation Also with lactic acidosis on admission with lactate peaking at 4 and now resolved Blood pressure has remained stable to elevated throughout -He was initially administered Zosyn IV, Levaquin IV, and vancomycin IV in the ER but then was transitioned to ceftriaxone and doxycycline as personal senior living is not considered healthcare associated pneumonia and he does not have severe sepsis or recent hospitalization Leukocytosis is now resolved, he is weaned off of oxygen at rest, now afebrile x2 days, and tachycardia resolved-overall much improved With a history of COPD -Continue levalbuterol nebs, Mucinex, change Tessalon Perles from scheduled to as needed, continue incentive spirometry, O2 as needed to keep pulse ox greater than 88% -May need a two-step prior to discharge to evaluate oxygen needs -Would follow chest x-ray to resolution in 4 to 6 weeks -Continue Rocephin and doxycycline x7-day course-today's day #3 -Continue Florastor given history of C. difficile (2) Sepsis: As above Lactic acidosis improved with IV fluids, treatment of pneumonia, and IV thiamine was given to help with lactic acid metabolism in the setting of cirrhosis -IV fluids have been discontinued as sepsis is resolving -Switch IV thiamine to p.o. (3) COPD (chronic obstructive pulmonary disease): No acute exacerbation Hypoxia is now improved He has diminished breath sounds -Continue Brovana twice daily, mometasone inhaler -Titrate sats for 88 to 92% -No steroids needed at this time (4) Abdominal aortic aneurysm: -Infrarenal, 3.[address] recent [address] scan in September 2018 (5) Cirrhosis: -Does not appear decompensated at this time (6) CKD (chronic kidney disease), stage III: Baseline creatinine around 1.2-1.5, had acute kidney injury on admission and creatinine is now down to baseline after IV fluids for volume resuscitation -Follow BMP periodically -Avoid nephrotoxins -Renally dose medications -Held lisinopril initially for ALLA, but was now restarted for elevated blood pressures (7) HTN (hypertension): Blood pressures remain elevated -Continue antihypertensives including diltiazem 120 mg at bedtime and lisinopril 10 mg daily If blood pressures do not continue to improve now that lisinopril is restarted, would increase the dose of 1 or the other of his existing medications (8) Frequent falls: -PT/OT -Uses a walker at baseline -Resides at [facility] to assist with discharge planning PT/OT consults placed and appreciated-OT recommends SNF for rehab placement, PT recommends back to personal senior living with therapy -We will continue to evaluate (9) Gout: -Continue allopurinol 100 mg every morning for prophylaxis (10) Acute respiratory failure with hypoxia: Required 2 L nasal cannula upon admission and is now weaned to room air at rest -May need two step prior to discharge to determine if is hypoxic with ambulation (11) ALLA (acute kidney injury): With creatinine increased on admission as above Now resolved with IV fluids -Follow BMP (12) Diarrhea: With multiple loose bowel movements after starting antibiotics and has a history of C. difficile colitis -C. difficile gene is positive and toxin is negative here -Continue Florastor -added on cholestyramine which is helping (13) Diabetes mellitus: With hyperglycemia here, hemoglobin A1c checked and found to be 6.5% which gives him a diagnosis of diabetes -A.m. fasting glucose here only minimally elevated at 106 -No need for Accu-Cheks or insulin -Consider starting oral medication versus just diet control after discharge (14) Hypomagnesemia: Severely low at 1.2, likely secondary to very poor p.o. intake -Encourage p.o. intake -Replaced with IV magnesium -Follow magnesium today (15) GERD (gastroesophageal reflux disease): Continue Protonix (16) DVT prophylaxis: -Heparin subcu, teds Disposition-continued stay on medical telemetry PT/OT consults recommend SNF versus returning personal senior living with home health-Case management is consulted-spoke with [facility] who said that they cannot accept him back until Friday He may be ready for discharge in the next 1-2 days Subjective Patient feeling perhaps a little bit better today. His appetite is improved. He is less short of breath with exertion. He denies chest pain. He has minimal cough. He remains afebrile and has been weaned off of oxygen. He reports his loose stools have slowed down and his C. difficile toxin was negative. He feels a little bit stronger all over today. Telemetry with normal sinus rhythm, PVCs with rates in the 70s, occasional 1-4 beat runs of PVCs Review of Systems Review of Systems: All systems reviewed & are unremarkable except as noted in HPI & below (He denies headache or lightheadedness, no changes in his vision) Physical Exam Constitutional: average body habitus and cooperative; no acute distress Eyes: + anicteric sclerae Neck: trachea midline, no thyromegaly Respiratory: normal respiratory effort; no labored breathing Auscultation: + diminished lung sounds (Throughout) and + crackles (At the left base, otherwise clear); no wheezes Cardiovascular: RRR, no murmur, no edema Gastrointestinal (Abdomen): normal bowel sounds, soft, nontender, no hepatosplenomegaly Musculoskeletal: Extremities: extremities normal to inspection; no cyanosis and no clubbing Skin: no rashes, warm and dry Neurologic: moves all extremities and awake; no focal motor deficits Psychiatric: A+Ox3, euthymic affect Results & Data Vital Signs (Past 12 Hours) Vital Signs Temp Pulse Resp BP BP Pulse Ox 03/14/19 14:09 68 18 90 03/14/19 11:24 37.0 C 82 20 182/72 H 94 03/14/19 07:21 37.1 C 66 20 150/72 H 93 03/14/19 07:01 67 18 97 03/14/19 03:58 37.2 C 68 18 159/56 H 96 Laboratory Results 03/14/19 03/14/19 03/13/19 Range/Units 05:40 05:40 18:19 WBC 9.49 (4.8-10.8) K/uL RBC 3.92 L (4.7-6.1) M/uL Hgb 11.5 L (14.0-18.0) g/dL Hct 34.8 L (42-52) % MCV 88.8 (80-100) fL MCH 29.3 (25-34) pg MCHC 33.0 (32-36) g/dL RDW Std Deviation 46.4 H (36.4-46.3) fL RDW Coeff of Svetlana 14.3 (11.5-14.5) % Plt Count 126 L (130-400) K/uL MPV 9.8 (7.4-10.4) fL Sodium 143 (136-145) mmol/L Potassium 3.5 (3.5-5.1) mmol/L Chloride 113 H (98-107) mmol/L Carbon Dioxide 26 (21-32) mmol/L Anion Gap 4.0 (3-11) BUN 14 (7-18) mg/dl Creatinine 1.08 (0.6-1.4) mg/dl Est Cr Clr Drug Dosing 42.7 ml/min Est GFR ( Amer) 71.6 Est GFR (Non-Af Amer) 61.8 BUN/Creatinine Ratio 12.6 (10-20) Glucose 118 H (70-99) mg/dl Calcium 7.8 L (8.5-10.1) mg/dl Total Bilirubin 0.8 (0.2-1) mg/dl AST 11 L (15-37) U/L ALT 14 (12-78) U/L Alkaline Phosphatase 39 L (45-117) U/L Total Protein 6.1 L (6.4-8.2) gm/dl Albumin 2.5 L (3.4-5.0) gm/dl Globulin 3.6 (2.5-4.0) gm/dl Albumin/Globulin Ratio 0.7 L (0.9-2) Stl C. diff Tox B Gene Positive Cdiff Gene H (Neg) Stl C.difficile Tox A&B Negative Cdiff Toxin (Negative) PG Care Time/CCT Total # of Minutes Spent Total Time Spent with Patient: Total time spent is greater than 50% in coordination of care (as documented) at patient's floor/unit and/or counseling patient: (1) Pneumonia Laterality: left Lung location: upper lobe of lung Pneumonia type: due to unspecified organism Qualified Code(s): J18.1 - Lobar pneumonia, unspecified organism
[2019-03-14] MEDS: cefTRIAXone SODIUM 1,000 MG in DEXTROSE 5% 50 ML IV SCH (14:45)
[2019-03-14] MEDS ORDERED: BENZONATATE 100 MG CAPSULE PO PRN (15:40)
[2019-03-14] MEDS: dilTIAZem HCL 120 MG CAPCR PO SCH (20:42)
[2019-03-15] MEDS: LEVALBUTEROL 1.25MG/0.5ML NEB NEB SCH ×3 (01:41→14:14)
[2019-03-15] MEDS: HEPARIN SOD 5,000 UNIT/0.5 ML VIAL SQ SCH ×2 (05:54→13:06)
[2019-03-15] MEDS: ARFORMOTEROL TART 15MCG/2ML VIAL INH SCH (07:30)
[2019-03-15] MEDS ORDERED: THIAMINE HCL 100 MG TAB PO SCH (09:00)
[2019-03-15] MEDS: MOMETASONE FUROATE 14 PUFF/1 INHALER INH SCH (09:26)
[2019-03-15] MEDS: SACCHAROMYCES BOULARDII 250 MG CAP PO SCH (09:26)
[2019-03-15] MEDS: PANTOprazole 40 MG TAB PO SCH (09:27)
[2019-03-15] MEDS: GABAPENTIN 300 MG CAP PO SCH ×2 (09:27→13:04)
[2019-03-15] MEDS: guaiFENesin 600 MG TABCR PO SCH (09:27)
[2019-03-15] MEDS: DOXYCYCLINE HYCLATE 100 MG CAP PO SCH (09:28)
[2019-03-15] MEDS: MONTELUKAST SODIUM 10 MG TABLET PO SCH (09:28)
[2019-03-15] MEDS: LISINOPRIL 10 MG TAB PO SCH (09:28)
[2019-03-15] MEDS: ALLOPURINOL 100 MG TAB PO SCH (09:29)
[2019-03-15] MEDS ORDERED: SODIUM CHLORIDE 0.65% NA SOLN 45 ML (OCEAN) ONE (10:18)
[2019-03-15] MEDS ORDERED: MECLIZINE HCL 25 MG TAB PO STA (10:20)
[2019-03-15] MEDS: CHOLESTYRAMINE LIGHT 4 GM PKT PO SCH (10:46)
[2019-03-15] MEDS ORDERED: LISINOPRIL 10 MG TAB PO STA (12:32)
[2019-03-15] MEDS: cefTRIAXone SODIUM 1,000 MG in DEXTROSE 5% 50 ML IV SCH (13:30)
--- NOTE | 2019-03-15 17:37 | Discharge Summary ---
Date of Service March 15, 2019 Admission HPI Per Admitting Provider This is an 88-year-old male with past medical history of CKD stage III, cirrhosis, AAA, hyperglycemia, COPD, HTN, gout, frequent falls who presents from [facility] for acute onset of cough, shortness of breath, fever and tachycardia. Patient was found to have elevated white count of 17,000, lactic acid of 3.46 and T-max of 37.8 on initial presentation. Patient reports that he has had a cold for approximately a week and has been feeling fatigued with minimal exertion, coughing up clear to white sputum, however denies feeling acutely short of breath. He has been eating and drinking well. He does share a room with a roommate however denies any known sick contacts. Patient uses a walker at baseline to help ambulate. Patient reports that he took all his morning medications prior to coming to the ER. Principal Diagnosis Pneumonia Discharge Exam Constitutional average body habitus and cooperative; no acute distress Eyes PERRL, conjunctivae normal, anicteric sclerae + anicteric sclerae Neck trachea midline, no thyromegaly Respiratory normal respiratory effort; no labored breathing Auscultation: + diminished lung sounds (Throughout) and + crackles (At the left base, otherwise clear); no wheezes Cardiovascular RRR, no murmur, no edema Gastrointestinal (Abdomen) normal bowel sounds, soft, nontender, no hepatosplenomegaly Musculoskeletal Extremities: extremities normal to inspection; no cyanosis and no clubbing Skin no rashes, warm and dry Neurologic moves all extremities and awake; no focal motor deficits Psychiatric A+Ox3, euthymic affect Discharge Data Allergies Allergy/AdvReac Type Severity Reaction Status Date / Time bee venom protein (honey bee) Allergy Unknown Unknown Unverified 03/12/19 09:46 cefuroxime [From Ceftin] Allergy Unknown Unknown Verified 03/13/19 09:01 Consultations 03/12/19 09:02 ED Decision to Admit Stat 03/12/19 11:39 Consult Case Management - Discharge Planning Routine Hospital Course (1) Pneumonia: Patient presented with fever, tachycardia, leukocytosis and found to have a left lower lobe infiltrate on examination with crackles on auscultation. - Treated with antibiotics x 5 days; on discharge, needed 2 more days of levofloxacin - Was on O2, but weaned prior to discharge. (2) Sepsis: As above Lactic acidosis improved with IV fluids, treatment of pneumonia, and IV thiamine was given to help with lactic acid metabolism in the setting of cirrhosis -IV fluids have been discontinued as sepsis is resolving -Switch IV thiamine to p.o. (3) COPD (chronic obstructive pulmonary disease): No acute exacerbation. Hypoxia is now improved. - Continue Brovana twice daily, mometasone inhaler - No steroids needed (4) Abdominal aortic aneurysm: -Infrarenal, 3.[address] scan in September 2018 (5) Cirrhosis: -Does not appear decompensated at this time (6) CKD (chronic kidney disease), stage III: Baseline creatinine around 1.2-1.5, had acute kidney injury on admission and creatinine is now down to baseline after IV fluids for volume resuscitation. - Held lisinopril initially for ALLA, but was now restarted for elevated blood pressures - Discharged on 20mg for continued HTN. (7) HTN (hypertension): Blood pressures was elevated. - Continued antihypertensives including diltiazem 120 mg at bedtime and lisinopril 10 mg daily - Increased lisinopril to 20mg PO daily for continued high BPs in the hospital. (8) Frequent falls: -PT/OT -Uses a walker at baseline - On discharge, patient was at baseline and discharged back to [facility]. (9) Gout: -Continue allopurinol 100 mg every morning for prophylaxis (10) Acute respiratory failure with hypoxia: Required 2 L nasal cannula upon admission and is now weaned to room air at rest. (11) ALLA (acute kidney injury): With creatinine increased on admission as above Now resolved with IV fluids -Follow BMP (12) Diarrhea: With multiple loose bowel movements after starting antibiotics and has a history of C. difficile colitis - C. difficile gene is positive and toxin is negative here. - Continued Florastor (13) Diabetes mellitus: With hyperglycemia here, hemoglobin A1c checked and found to be 6.5% which gives him a diagnosis of diabetes -A.m. fasting glucose here only minimally elevated at 106 -No need for Accu-Cheks or insulin -Consider starting oral medication versus just diet control after discharge (14) Hypomagnesemia: Severely low at 1.2, likely secondary to very poor p.o. intake -Encourage p.o. intake -Replaced with IV magnesium -Follow magnesium today (15) GERD (gastroesophageal reflux disease): Continue Protonix (16) DVT prophylaxis: -Heparin subcu, teds Disposition-continued stay on medical telemetry PT/OT consults recommend SNF versus returning personal usp with home health-Case management is consulted-spoke with personal [facility]p who said that they cannot accept him back until Friday He may be ready for discharge in the next 1-2 days Total Time Total Time Spent Total Time Spent (In Minutes): 35 Total Time Includes: Examination of the Patient, Discharge Planning, Medication Reconciliation and Communication With Other Providers Discharge Plan Discharge Items Patient Disposition: Personal Residential Reason For Visit: PNEUMONIA, ELEVATED LACTIC ACID, TACHYCARDIA Discharge Diagnosis: Pneumonia Discharge Goals: Diagnostic testing and Improve function Activity: Resume your previous activity Non-emergency contact: Primary Care Provider Call non-emergency contact if: you have any medication questions and your symptoms worsen Follow-up/Referrals: Hamilton Santos MD [Primary Care Provider] - Diet: Regular Addtl Provider Instructions: Mr. Reece, please continue the antibiotics for your pneumonia. You may have cough, stuffy nose, and runny nose for another week after the pneumonia treatment is complete. This will gradually get better. If you continue to have periods of dizziness, please see your PCP and discuss further treatment or testing. Finally, please take lisinopril 20 mg instead of 10 mg every day. Your blood pressure was high while in the hospital. You have a new script for 20mg tablets at the pharmacy, but you can also take 2, 10 mg tablets until you run out of the current pills. Just be careful to not mix up your medications. Prescriptions: New benzonatate [Tessalon Perles] 100 mg Capsule 100 mg PO TID PRN (Reason: cough) Qty: 30 RF: 0 levofloxacin 750 mg tablet 750 mg PO DAILY Qty: 2 RF: 0 meclizine 25 mg tablet 25 mg PO BID PRN (Reason: dizziness) Qty: 10 RF: 0 lisinopril 20 mg tablet 20 mg PO DAILY Qty: 30 RF: 0 Continued Tussin DM 10-100 mg/5 mL Liquid 10 ml PO Q4H PRN (Reason: Congestion) RF: 0 Mucinex Fast-Max Qfnr-Djl-Azpz 10-20-650 mg/20 mL Liquid 20 ml PO BID RF: 0 Metamucil 3.4 gram/5.4 gram Powder 2 tsp PO QAM RF: 0 allopurinol 100 mg tablet 100 mg PO QAM RF: 0 pantoprazole 20 mg tablet,delayed release (DR/EC) 20 mg PO HS RF: 0 potassium chloride 20 mEq tablet,ER particles/crystals 20 meq PO QAM RF: 0 montelukast 10 mg tablet 10 mg PO QAM RF: 0 mometasone 220 mcg (60 doses) aerosol powdr breath activated 1 puff Inhalation BID RF: 0 Caltrate 600 + D 600 mg (1,500 mg)-800 unit Tablet,Chewable 1 tab PO QAM RF: 0 gabapentin 300 mg capsule 300 mg PO TID RF: 0 diltiazem HCl 120 mg Capsule,Extended Release 24hr 120 mg PO HS RF: 0 Brovana 15 mcg/2 mL Solution For Nebulization 2 ml INHALATION BID RF: 0 Stand-Alone Forms: [facility]charge Orders: Discharge Order (Routine); Ordered 03/15/19 Ordered By: Junior Adamson Admission Data Admit Date/Time: 03/12/19 09:55 Attending Provider: Junior Adamson Admit Provider: Sandra Hartley Primary Care Provider: Hamilton Santos Other Providers: Junior Adamson Service: Telemetry Medical Other Interventions: Discharge Summary Assessment (RN) Last Done: 03/15/19 14:50 DC Date/Time DO NOT enter until pt leaves facility: 03/15/19 15:32
== END 2019-03-15 15:32 | disposition home or self-care (01) | DRG 871 ==
LOC: ED 07:35 → 2N 09:55 → SUATTDRO 09:55 → 2N 10:35

== ENCOUNTER 2021-10-01 13:52 | Inpatient (IN) ==
[2021-10-01] MEDS ORDERED: SODIUM CHLORIDE 0.9% 500 ML IV SCH (14:15)
--- NOTE | 2021-10-01 14:19 | Emergency Department Note ---
History of Present Illness General Chief complaint: Weakness Time Seen by Provider: 10/01/21 14:06 Source: patient Mode of arrival: ambulatory Limitations: no limitations History of Present Illness This patient 89-year-old male who is a resident of [facility], comes in after not eating for 2 weeks he has no complaints at present denies chest pain he says he has some chronic shortness of breath which is unchanged no emesis or diarrhea occasionally says his stomach does hurt but not at present no focal numbness or weakness he has not had COVID that he knows of and has had the vaccine and booster. No blood in stool no urinary symptoms no headache neck pain or stiffness. No falls or trauma. No blood thinners. His blood sugar was checked and it was 166 Home Medications Medication Instructions Recorded Confirmed Type calcium carbonate 600 mg-vitamin 1 tab PO QAM 10/15/18 10/01/21 History D3 20 mcg (800 unit) chewable tablet (Caltrate 600 plus D) pantoprazole 20 mg tablet,delayed 20 mg PO HS 10/15/18 10/01/21 History release psyllium husk 3.4 gram/5.4 gram 2 tsp PO QAM 03/12/19 10/01/21 History oral powder (Metamucil) diltiazem HCl 120 mg capsule,24 120 mg PO DAILY #90 cap 07/18/20 10/01/21 Rx hr,extended release metformin 500 mg tablet 500 mg PO BID #60 tab 08/20/21 10/01/21 Rx arformoterol 15 mcg/2 mL solution 2 ml INHALATION BID #120 ml 09/06/21 10/01/21 Rx for nebulization (Brovana) gabapentin 300 mg capsule 300 mg PO TID #90 cap 09/24/21 10/01/21 Rx montelukast 10 mg tablet 10 mg PO QAM #30 tab 09/24/21 10/01/21 Rx ondansetron HCl 4 mg tablet 4 mg PO Q8H PRN #10 tab 09/27/21 10/01/21 Rx allopurinol 100 mg tablet 100 mg PO DAILY 10/01/21 10/01/21 History lisinopril 20 mg tablet 20 mg PO DAILY 10/01/21 10/01/21 History mometasone (Asmanex Twisthaler) 1 inh INHALATION BID 10/01/21 10/01/21 History potassium chloride 20 mEq 20 meq PO DAILY 10/01/21 10/01/21 History tablet,extended release(part/cryst) Allergies Allergy/AdvReac Type Severity Reaction Status Date / Time bee venom protein (honey bee) Allergy Unknown Unknown Unverified 10/01/21 16:37 cefuroxime [From Ceftin] Allergy Unknown Unknown Verified 10/01/21 16:37 Past Med/Surg History Medical History (Updated 10/01/21 @ 19:42 by Shan Mosley MD) Abdominal aortic aneurysm Acute electrocardiogram changes Acute renal insufficiency C. difficile diarrhea Cholecystitis Cholelithiasis CKD (chronic kidney disease), stage III Frequent falls Sepsis Surgical History H/O prostatectomy History of cholecystectomy History of hernia repair History of hip surgery Hx of adenoidectomy Hx of tonsillectomy Family History Mother Coronary heart disease Myocardial infarction Father Stroke Other Hypertension Denies family history of Ovarian cancer Prostate cancer Breast cancer Lung cancer Colorectal cancer Social History Smoking Status: Never smoker Second Hand Exposure: No; Hx Alcohol Use: No Hx Substance Use: No Preferred Language: Chinese Communication Ability: Effective Director Of Financial Planning Required: No Beliefs That Will Affect Care: None marital status: Single Current Living Situation: Skilled Nursing and Personal Care Facility Current Living Situation Comment: [facility]. current occupational status: retired How many Children do You have: 0 Feels Safe at Home: Yes caffeine: Yes Dental Care, Regularly: No Physical Activity Frequency: 1-2 Times per Week Seatbelt Use: always Sunscreen Use: No Assistive Devices: Glasses and Walker Review of Systems A total of 10 systems reviewed and were otherwise negative Physical Exam Vital Signs Vital Signs - 24 hr 10/01/21 14:25 10/01/21 15:32 10/01/21 17:00 Temperature 37.1 C Temperature Source Oral Pulse Rate 105 H Pulse Rate [Apical] 102 H 102 H Pulse Rhythm [Apical] Regular Pulse Strength [Apical] Normal Respiratory Rate 20 23 26 H Blood Pressure 168/95 H Blood Pressure [Right Arm] 161/93 H 170/101 H Blood Pressure Mean 119 Blood Pressure Mean [Right Arm] 115 124 Blood Pressure Position [Right Arm] Sitting Pulse Oximetry 95 98 99 Oxygen Delivery Method Room Air Nasal Cannula Nasal Cannula Oxygen Flow Rate 2 2 Sepsis Recent Fever Within 48 Hours No Sepsis New/Unexplained Change in Mental Status Yes Sepsis Action Taken by Nursing No Action Required 10/01/21 18:51 10/01/21 19:34 Temperature Temperature Source Pulse Rate Pulse Rate [Apical] 108 H 107 H Pulse Rhythm [Apical] Pulse Strength [Apical] Respiratory Rate 19 23 Blood Pressure Blood Pressure [Right Arm] 155/95 H 172/105 H Blood Pressure Mean Blood Pressure Mean [Right Arm] 115 127 Blood Pressure Position [Right Arm] Pulse Oximetry 94 94 Oxygen Delivery Method Oxygen Flow Rate Sepsis Recent Fever Within 48 Hours Sepsis New/Unexplained Change in Mental Status Sepsis Action Taken by Nursing General: Well developed well nourished older male who appears in no acute distress, breathing comfortably on room air. Normal speech. Aerrt and oriented x3, answers questions appropriately with normal speech HEENT: Normal cephalic atraumatic. Pupils are equal round and reactive to light. Extraocular movements are intact. Oropharynx is pink with moist mucous membranes. No swelling of the mouth lips or tongue. Neck: Supple with a midline trachea. No meningeal signs or stiffness, no JVD or bruits. No Stridor. Chest: Clear to auscultation bilaterally. No wheezes or rhonchi. No increased work of breathing. Heart: Regular rate and rhythm without murmurs or gallops. Abdomen: Soft nontender, nondistended without rebound guarding or rigidity. Extremities: No cyanosis clubbing or edema. No calf tenderness or assymetry Spine/Back. Non tender to palpation. No CVA tenderness Skin: Good turgor without rashes. Neurologic exam: Cranial nerves two through 12 are intact. Motor and sensation are intact and symmetrical throughout. Course Administered Medications Discontinued Medications Sodium Chloride (Nss) 500 mls @ 999 mls/hr IV .Q31M HODA Stop: 10/01/21 14:45 Last Infusion: 10/01/21 15:21 Dose: 0 mls/hr Documented by: [id number] Admin: 10/01/21 14:33 Dose: 999 mls/hr Documented by: [id number] Sodium Chloride (Nss 1000ml) 500 mls @ 999 mls/hr IV .Q31M ONE Stop: 10/01/21 17:07 Last Infusion: 10/01/21 17:47 Dose: 0 mls/hr Documented by: [id number] Admin: 10/01/21 16:53 Dose: 999 mls/hr Documented by: [id number] Piperacillin Sod/Tazobactam Sod (Zosyn) 4.5 gm in 120 mls @ 240 mls/hr IV NOW ONE Stop: 10/01/21 17:08 Last Infusion: 10/01/21 17:47 Dose: 0 mls/hr Documented by: [id number] Admin: 10/01/21 16:52 Dose: 240 mls/hr Documented by: [id number] Medical Decision Making Differential Diagnosis Cardiac disease, COVID, electrolyte or metabolic abnormalities, infection, intra-abdominal process, UTI Medical Records Attestation: I reviewed the patient's medical records. Home Medications Current Medication List: was personally reviewed by me Laboratory Data Attestation: I reviewed the patient's lab results. Result diagrams: 10/01/21 14:42 10/01/21 14:42 Lab Results 10/01/21 10/01/21 10/01/21 Range/Units 14:24 14:42 14:42 WBC 8.26 (4.8-10.8) K/uL RBC 4.26 L (4.7-6.1) M/uL Hgb 12.8 L (14.0-18.0) g/dL Hct 39.3 L (42-52) % MCV 92.3 (80-100) fL MCH 30.0 (25-34) pg MCHC 32.6 (32-36) g/dL RDW Std Deviation 51.0 H (36.4-46.3) fL RDW Coeff of Svetlana 15.1 H (11.5-14.5) % Plt Count 260 (130-400) K/uL MPV 9.4 (7.4-10.4) fL Immature Gran % (Auto) 0.5 % Neut % (Auto) 73.8 % Lymph % (Auto) 13.2 % [place] % (Auto) 9.8 % Eos % (Auto) 2.1 % Baso % (Auto) 0.6 % Neut # (Auto) 6.10 (1.4-6.5) K/uL Lymph # (Auto) 1.09 L (1.2-3.4) K/uL [place] # (Auto) 0.81 H (0.11-0.59) K/uL Eos # (Auto) 0.17 (0-0.5) K/uL Baso # (Auto) 0.05 (0-0.2) K/uL Immature Gran # (Auto) 0.04 H (0.00-0.02) K/uL PT 10.7 (9.0-12.0) Seconds INR 1.1 (0.9-1.1) Sodium (136-145) mmol/L Potassium (3.5-5.1) mmol/L Chloride (98-107) mmol/L Carbon Dioxide (21-32) mmol/L Anion Gap (3-11) BUN (7-18) mg/dl Creatinine (0.6-1.4) mg/dl Est Cr Clr Drug Dosing ml/min Est GFR ( Amer) ml/min Est GFR (Non-Af Amer) ml/min BUN/Creatinine Ratio (10-20) Glucose (70-99) mg/dl Lactate (0.4-2.0) mmol/L Calcium (8.5-10.1) mg/dl Magnesium (1.8-2.4) mg/dl Total Bilirubin (0.2-1) mg/dl AST (15-37) U/L ALT (12-78) Alkaline Phosphatase (45-117) U/L Troponin I (0-0.045) ng/ml Total Protein (6.4-8.2) gm/dl Albumin (3.4-5.0) gm/dl Globulin (2.5-4.0) gm/dl Albumin/Globulin Ratio (0.9-2) TSH (0.300-4.500) uIu/ml Influ A Molecular Assay (Negative) Influ B Molecular Assay (Negative) SARS-CoV-2, RNA, NAAT NEGATIVE (NEGATIVE) 10/01/21 10/01/21 10/01/21 Range/Units 14:42 16:52 17:58 WBC (4.8-10.8) K/uL RBC (4.7-6.1) M/uL Hgb (14.0-18.0) g/dL Hct (42-52) % MCV (80-100) fL MCH (25-34) pg MCHC (32-36) g/dL RDW Std Deviation (36.4-46.3) fL RDW Coeff of Svetlana (11.5-14.5) % Plt Count (130-400) K/uL MPV (7.4-10.4) fL Immature Gran % (Auto) % Neut % (Auto) % Lymph % (Auto) % [place] % (Auto) % Eos % (Auto) % Baso % (Auto) % Neut # (Auto) (1.4-6.5) K/uL Lymph # (Auto) (1.2-3.4) K/uL [place] # (Auto) (0.11-0.59) K/uL Eos # (Auto) (0-0.5) K/uL Baso # (Auto) (0-0.2) K/uL Immature Gran # (Auto) (0.00-0.02) K/uL PT (9.0-12.0) Seconds INR (0.9-1.1) Sodium 141 (136-145) mmol/L Potassium 4.4 (3.5-5.1) mmol/L Chloride 114 H (98-107) mmol/L Carbon Dioxide 21 (21-32) mmol/L Anion Gap 6.0 (3-11) BUN 23 H (7-18) mg/dl Creatinine 1.88 H (0.6-1.4) mg/dl Est Cr Clr Drug Dosing 19.7 ml/min Est GFR ( Amer) 35.9 ml/min Est GFR (Non-Af Amer) 31.0 ml/min BUN/Creatinine Ratio 12.2 (10-20) Glucose 170 H (70-99) mg/dl Lactate 1.4 (0.4-2.0) mmol/L Calcium 7.4 L (8.5-10.1) mg/dl Magnesium 1.5 L (1.8-2.4) mg/dl Total Bilirubin 0.3 (0.2-1) mg/dl AST 14 L (15-37) U/L ALT 15 (12-78) Alkaline Phosphatase 54 (45-117) U/L Troponin I < 0.015 (0-0.045) ng/ml Total Protein 8.1 (6.4-8.2) gm/dl Albumin 2.9 L (3.4-5.0) gm/dl Globulin 5.2 H (2.5-4.0) gm/dl Albumin/Globulin Ratio 0.6 L (0.9-2) TSH 3.500 (0.300-4.500) uIu/ml Influ A Molecular Assay Negative (Negative) Influ B Molecular Assay Negative (Negative) SARS-CoV-2, RNA, NAAT (NEGATIVE) Imaging Data Attestation: I personally reviewed and interpreted this imaging study as follows: My Impression: Chest x-rayincreased opacities in left lung base which may represent pneumonia or aspiration or atelectasis Radiologist's Impression: Chest X-Ray 10/01/21 14:13 XR chest 1V portable CLINICAL HISTORY: weakness TECHNIQUE: Single frontal radiograph of the chest was obtained. Comparison: Comparison is made to chest one view 03/12/2019 FINDINGS: No lines and tubes are seen. The cardiomediastinal silhouette is stable. Left lower lung airspace opacities are seen. Lungs are underinflated. No evidence of pleural effusion or pneumothorax. IMPRESSION: Left lower lung airspace opacities may represent atelectasis, pneumonia, and/or aspiration. ACT 112: Negative or not required by law. Electronically signed by: Shan Moore M.D. 10/01/2021 2:56 PM ECG Data Attestation: I personally reviewed and interpreted this ECG as follows: Indication: + weakness Rate (beats per minute): 105 Rhythm: + sinus tachycardia ECG Intervals/blocks: + Normal QRS, + Normal QT and + Normal CT ECG [place]: + Normal ECG ST segments: + ST depression (Laterally) ECG Findings: no PACs or no PVCs Comparison ECG Date: from (03/13/19) Change: the following changes noted (ST segments are now depressed laterally) MDM Narrative This patient comes in as described above. He was placed on a cardiac care nurse in room B2. his only complaint is decreased appetit.e he has no chest pain or acute shortness of breath. The nurses came and brought his EKG because the computer read as acute STEMI. He has no acute ST segment elevation to suggest STEMI. He does have some lateral ST depressions which look worse compared to previous. Again he has no chest pain or any other symptoms at present. Multiple blood testing was obtained he was reassessed frequently. Tr Was not elevated. COVID testing was negative as was influenza. Chest x-ray shows some infiltrates or atelectasis in the base on the left. The patient does have some dementia and does complain of being short of breath at times so we did put him on oxygen. He also has increasing weakness diffusely and his BUN and creatinine are elevated I do think he is dehydrated. He was given IV hydration as well as IV Zosyn. I do think he needs to be admitted/observed in the hospital and have consulted the medical team to see him for these reasons. Continuous cardiac monitoring: Orders placed in EMR for continuous cardiac monitoring. Upon my interpretation the patient was noted to be sinus tachycardia with a rate of 105 Impression & Plan Pneumonia, Weakness, SOB (shortness of breath), Lab test negative for COVID-19 virus, Acute dehydration Discharge Plan Visit Data Chief Complaint: Weakness ED Provider: Torres Stephens Discharge Problem: Pneumonia, Weakness, SOB (shortness of breath), Lab test negative for COVID-19 virus, Acute dehydration Forms Stand Alone Forms: My [facility] Prescriptions Prescriptions: No Action diltiazem HCl 120 mg capsule,extended release 24 hr 120 mg PO DAILY Qty: 90 RF: 1 metformin 500 mg tablet 500 mg PO BID Qty: 60 RF: 6 Brovana 15 mcg/2 mL solution for nebulization 2 ml INHALATION BID Qty: 120 RF: 1 montelukast 10 mg tablet 10 mg PO QAM Qty: 30 RF: 2 gabapentin 300 mg capsule 300 mg PO TID Qty: 90 RF: 1 ondansetron HCl 4 mg tablet 4 mg PO Q8H PRN (Reason: nausea and vomiting) Qty: 10 RF: 0 Metamucil 3.4 gram/5.4 gram Powder 2 tsp PO QAM RF: 0 pantoprazole 20 mg tablet,delayed release (DR/EC) 20 mg PO HS RF: 0 Caltrate 600 plus D 600 mg (1,500 mg)-800 unit Tablet,Chewable 1 tab PO QAM RF: 0 allopurinol 100 mg tablet 100 mg PO DAILY RF: 0 Asmanex Twisthaler 220 mcg/ actuation (60) aerosol powdr breath activated 1 inh INHALATION BID RF: 0 lisinopril 20 mg tablet 20 mg PO DAILY RF: 0 potassium chloride 20 mEq tablet,ER particles/crystals 20 meq PO DAILY RF: 0 Referrals Referrals: Eufemia Yi MD [Primary Care Provider] -
--- NOTE | 2021-10-01 14:57 | XRay Report ---
XR chest 1V portable CLINICAL HISTORY: weakness TECHNIQUE: Single frontal radiograph of the chest was obtained. Comparison: Comparison is made to chest one view 03/12/2019 FINDINGS: No lines and tubes are seen. The cardiomediastinal silhouette is stable. Left lower lung airspace opa cities are seen. Lungs are underinflated. No evidence of pleural effusion or pneumothorax. IMPRESSION: Left lower lung airspace opacities may represent atelectasis, pneumonia, and/or aspiration. ACT 112: Negative or not required by law. Electronically signed by: Shan Moore M.D. 10/01/2021 2:56 PM
[2021-10-01 15:00] LABS: Basophils # (auto) 0.05 K/uL (0-0.2); Basophils % (auto) 0.6 %; Eosinophils # (auto) 0.17 K/uL (0-0.5); Eosinophils % (auto) 2.1 %; Hematocrit (blood only) 39.3 % (42-52); Hemoglobin 12.8 g/dL (14.0-18.0); Immature Granulocytes # (auto) 0.04 K/uL (0.00-0.02); Immature Granulocytes % (auto) 0.5 %; Lymphocytes # (auto) 1.09 K/uL (1.2-3.4); Lymphocytes % (auto) 13.2 %; Mean Corpuscular Hgb Conc 32.6 g/dL (32-36); Mean Corpuscular Volume 92.3 fL (80-100); Mean Platelet Volume 9.4 fL (7.4-10.4); Monocytes # (auto) 0.81 K/uL (0.11-0.59); Monocytes % (auto) 9.8 %; Neutrophils % (auto) 73.8 %; Platelet Count 260 K/uL (130-400); RDW Coefficient of Variation 15.1 % (11.5-14.5); Red Blood Count 4.26 M/uL (4.7-6.1); White Blood Count 8.26 K/uL (4.8-10.8)
[2021-10-01 15:09] LABS: INR 1.1 (0.9-1.1); Prothrombin Time 10.7 Seconds (9.0-12.0)
[2021-10-01 15:21] LABS: Alanine Aminotransferase 15 (12-78); Albumin Level 2.9 gm/dl (3.4-5.0); Aspartate Aminotransferase 14 U/L (15-37); BUN Creatinine Ratio 12.2 (10-20); Blood Urea Nitrogen 23 mg/dl (7-18); Calcium 7.4 mg/dl (8.5-10.1); Carbon Dioxide 21 mmol/L (21-32); Chloride 114 mmol/L (98-107); Creatinine Clr Calc Pharmacy 19.7 ml/min; Est GFR (African American) 35.9 ml/min; Glucose 170 mg/dl (70-99); Magnesium 1.5 mg/dl (1.8-2.4); Potassium 4.4 mmol/L (3.5-5.1); Sodium 141 mmol/L (136-145)
[2021-10-01 15:32] LABS: Albumin Globulin Ratio 0.6 (0.9-2); Alkaline Phosphatase 54 U/L (45-117); Bilirubin,Total 0.3 mg/dl (0.2-1); Globulin 5.2 gm/dl (2.5-4.0); Total Protein 8.1 gm/dl (6.4-8.2); Troponin I < 0.015 ng/ml (0-0.045)
--- NOTE | 2021-10-01 15:35 | Electrocardiogram Report ---
Test Reason : Blood Pressure : / mmHG Vent. Rate : 105 BPM Atrial Rate : 105 BPM P-R Int : 256 ms QRS Dur : 102 ms QT Int : 322 ms P-R-T Axes : 000 -06 066 degrees QTc Int : 425 ms Poor data quality, interpretation may be adversely affected Sinus tachycardia with 1st degree A-V block with Premature atrial complexes ST depression in Anterolateral leads , consider ischemia Abnormal ECG When compared with ECG of 13-MAR-2019 06:55, Premature atrial complexes are now Present ST more depressed Anterolateral leads Confirmed by Carmine De La Rosa ([id number]) on 10/01/2021 3:35:08 PM Referred By: Confirmed By:Carmine De La Rosa
[2021-10-01] MEDS ORDERED: SODIUM CHLORIDE 0.9% 1000ML 500 ML IV ONE (16:37)
[2021-10-01] MEDS ORDERED: PIPERACILL/TAZOBAC CONSULT ACTIVE PRN (16:39)
[2021-10-01] MEDS ORDERED: PIPERACILLIN/TAZOBACTAM 4.5 GM/120 ML BAG IV ONE (16:39)
--- NOTE | 2021-10-01 18:10 | History & Physical Report ---
Date of Service October 01, 2021 Assessment & Plan (1) Community acquired pneumonia: Plan: 89 y/o M w/ PMHx of COPD, HTN, mild cognitive impairment, DM, who presents from [facility] w/ generalized weakness/malaise from community acquired pneumonia. pneumonia, left lower lobe airspace opacity on cxr - Lower suspicion for aspiration per HPI - Covid neg - Slight tachycardia low 100s - Mild transient dyspnea but not hypoxia - Changing IV zosyn to IV ceftriaxone and IV azithro because psuedomonas coverage not indicated - CURB-65 2 points; moderate risk group; 6.8% 30 day mortality - Trend CBC. not checking procalc (2) General weakness: Plan: - likely 2/2 pneumonia vs chronic deconditioning (3) Diarrhea: Plan: - may be 2/2 acute viral illness; mild at this time; defer stool testing (4) HTN (hypertension): Plan: - continue home regimen (5) Diabetes: Plan: - hold home metformin in setting of renal drug clearance <20 - sliding scale ordered, goal 140-180 - check A1c in AM (6) COPD (chronic obstructive pulmonary disease): Plan: - continue home regimen. lower suspicion for COPD exac per clear but diminished lung exam (7) Acute kidney injury superimposed on CKD: Plan: - 1.88 Cr 1.38 baseline. monitor bmp. considered prerenal injury in setting of acute illness (pneumonia). encourage PO intake (8) Dependent edema: Plan: - mostly likely 2/2 venous insufficiency. No echo in [facility] system. No prior hx of CHF. Low Na diet. Avoid fluids, but may use during resuscitation if needed. (9) ST segment depression: Plan: - likely in setting of demand ischemia in context of pneumonia - neg trop x1. trend trop q6h x3. monitor on telemetry (10) Hypomagnesemia: Plan: - 1.5. repleting. check level in AM. replete in caution of ALLA (11) Acid reflux disease: Plan: - continue home regimen (12) Gout: Plan: - continue home regimen (13) Unspecified cirrhosis of liver: Plan: - cirrhotic type morphology per prior CT abd. avoid PRN tylenol (14) Ambulatory dysfunction: Plan: PT/OT evals Plan: FEN/GI: low Na ppx: Lovenox 40mg SQ daily code: full dispo: med/surg tele Admission and Anticipated Discharge Date Admission Date: I personally saw and examined the patient. I verified all teixeira points and agree with resident physician Dr Mosley with the following exceptions and/or additions: 89 year old male admission for shortness of breath and reduced appetite for 2 weeks. Patient unable to give me much of a history independent to what was provided by his long-term. He denies any chest pain. O/E no respiratory distress, HS 1+2, no murmurs, Chest CTAB, Abdo SNT A/P Community acquired pneumonia - agree with switching antibiotics to ceftriaxone and azithromycin, relatively convincing left lower lobe CXR findings. WBC howeve r normal. Follow up blood cultures. UA pending. Possible ACS/NSTEMI - second troponin elevated with unreliable history from patient but no current chest pain. ASA 324mg PO advised. Agree with starting heparin if troponin continues to significantly up trend. Otherwise plan as above. History of Present Illness Chief Complaint: generalized weakness Primary Care Provider: Eufemia Yi MD 89 y/o M w/ PMHx of AAA, COPD, HTN, mild cognitive impairment, freq falls (attribs to unsteady), gout, DM, cirrhotic liver morphology who presents from [facility] w ~1wk of generalized wkness and malaise. He has had 2 wks of poor appetite and intermittent mild abd pain and mild diarrhea. No home O2 requirement. Currently, feeling ok. No dyspnea currently. States had brief dyspnea earlier in the ED stay and was transiently placed on nasal cannula, sinc e removed. Denies aspiration concerns. States had covid vaccine x2 + booster. Had flu shot. Took AM meds. Not on blood thinners. Patient was originally brought from the personal custodial for ecg concerns. Per ecg at [facility], there are new PACs and slightly deeper ST depression in the anterolateral leads. Patient has not complained of chest pain or palpitations. ED course: 500mL bolus x2. IV Zosyn; left lower lobe airspace opacity noted on cxr. ALLA. Had similar admission in 2019 w/ community acquired pneumonia. Allergies Allergy/AdvReac Type Severity Reaction Status Date / Time bee venom protein (honey bee) Allergy Unknown Unknown Unverified 10/01/21 16:37 cefuroxime [From Ceftin] Allergy Unknown Unknown Verified 10/01/21 16:37 Home Medications Medication Instructions Recorded Confirmed Type calcium carbonate 600 mg-vitamin 1 tab PO QAM 10/15/18 10/01/21 History D3 20 mcg (800 unit) chewable tablet (Caltrate 600 plus D) pantoprazole 20 mg tablet,delayed 20 mg PO HS 10/15/18 10/01/21 History release psyllium husk 3.4 gram/5.4 gram 2 tsp PO QAM 03/12/19 10/01/21 History oral powder (Metamucil) diltiazem HCl 120 mg capsule,24 120 mg PO DAILY #90 cap 07/18/20 10/01/21 Rx hr,extended release metformin 500 mg tablet 500 mg PO BID #60 tab 08/20/21 10/01/21 Rx arformoterol 15 mcg/2 mL solution 2 ml INHALATION BID #120 ml 09/06/21 10/01/21 Rx for nebulization (Brovana) gabapentin 300 mg capsule 300 mg PO TID #90 cap 09/24/21 10/01/21 Rx montelukast 10 mg tablet 10 mg PO QAM #30 tab 09/24/21 10/01/21 Rx ondansetron HCl 4 mg tablet 4 mg PO Q8H PRN #10 tab 09/27/21 10/01/21 Rx allopurinol 100 mg tablet 100 mg PO DAILY 10/01/21 10/01/21 History lisinopril 20 mg tablet 20 mg PO DAILY 10/01/21 10/01/21 History mometasone (Asmanex Twisthaler) 1 inh INHALATION BID 10/01/21 10/01/21 History potassium chloride 20 mEq 20 meq PO DAILY 10/01/21 10/01/21 History tablet,extended release(part/cryst) Past Med/Surg History Medical History (Updated 10/01/21 @ 19:44 by Shan Mosley MD) Abdominal aortic aneurysm Acute electrocardiogram changes Acute renal insufficiency C. difficile diarrhea Cholecystitis Cholelithiasis CKD (chronic kidney disease), stage III Frequent falls Sepsis Surgical History H/O prostatectomy History of cholecystectomy History of hernia repair History of hip surgery Hx of adenoidectomy Hx of tonsillectomy Family History Mother Coronary heart disease Myocardial infarction Father Stroke Other Hypertension Denies family history of Ovarian cancer Prostate cancer Breast cancer Lung cancer Colorectal cancer Social History Smoking Status: Never smoker Second Hand Exposure: No; Hx Alcohol Use: No Hx Substance Use: No Preferred Language: Uzbek Communication Ability: Effective Firer Watertender Required: No Beliefs That Will Affect Care: None marital status: Single Current Living Situation: [facility] Home and Personal Care Facility Current Living Situation Comment: [facility]. current occupational status: retired How many Children do You have: 0 Other Information That Helps Us Care for You: No Feels Safe at Home: Yes Safety Concerns: Feels Safe At This Time caffeine: Yes Dental Care, Regularly: No Physical Activity Frequency: 1-2 Times per Week Seatbelt Use: always Sunscreen Use: No Assistive Devices: Glasses and Walker Review of Systems Review of Systems: All systems reviewed & are unremarkable except as noted in HPI & below Constitutional: Denies fever, chills. + poor appetite Eyes: Denies blurry vision, vision changes ENT: Mild sore throat. Denies loss of taste/smell Cardiovascular: Denies chest pain, palpitations Respiratory: Denies current shortness of breath. Mild nonproductive cough earlier today. Gastrointestinal: Denies current abdominal pain, nausea, vomiting, constipation, diarrhea (had earlier in the week), bloody stool Genitourinary: Denies urinary symptoms including dysuria Musculoskeletal: Denies weakness, muscle aches/pain, joint aches/pain Neurological: Denies headache, numbness, tingling, focal weakness. Denies dizziness. Physical Exam Physical Exam: General: Grossly A&Ox3, not to context. NAD. Cooperative. HEENT: Atraumatic, normocephalic. EOMI. PERRL. Neg for JVD. Mild erythema of oropharynx. Dry mucous membranes. Normal TMs. No cervical LAD. Pulm: CTAB. Diminished diffuslely. -wheezes, -rales, -rhonchi. No respiratory distress. Cardiac: TRR, -mrg. Radial pulses intact and symmetrical.2+ pretibial edema. Abdominal: Nontender, nondistended, soft. Msk: Moving all extremities. Neuro: CN intact. Strength and sensation of extremities intact. Integ: Mild skin flaking near eyes and ears. Results & Data Results & Data ([facility]) Vital Signs (Past 12 Hours) Vital Signs afeb. BPs 160s-170s/90s-100s. HR low 100s. 99 on 2L NC. 94% on room air in room. HR 107. bp 159/97 Temp Pulse Pulse Resp BP BP Pulse Ox 10/01/21 17:00 102 H 26 H 170/101 H 99 10/01/21 15:32 102 H 23 161/93 H 98 10/01/21 14:25 37.1 C 105 H 20 168/95 H 95 Laboratory Results wbc 8.26. Hb 12.8L stable. BMP mostly wnl. ALLA 1.88 Cr 1.38 baseline. bsg 170. 9// a1c 6.5. Lactate 1.4. Mg 1.5L. Ca 7.4, corrected 8.3. TSH 3.5 ok. covid neg. Flu pending. Left lower lung airspace opacities may represent atelectasis, pneumonia, and/or aspiration. BC pending. ecg w/ PACs and slightly more depressed ST in anterolateral leads. 10/01/21 14:42 10/01/21 14:42 Cardiac Enzymes 10/01/21 Range/Units 14:42 AST 14 L (15-37) U/L Troponin I < 0.015 (0-0.045) ng/ml Coagulation 10/01/21 Range/Units 14:42 PT 10.7 (9.0-12.0) Seconds CBC 10/01/21 Range/Units 14:42 WBC 8.26 (4.8-10.8) K/uL RBC 4.26 L (4.7-6.1) M/uL Hgb 12.8 L (14.0-18.0) g/dL Hct 39.3 L (42-52) % Plt Count 260 (130-400) K/uL Neut # (Auto) 6.10 (1.4-6.5) K/uL Lymph # (Auto) 1.09 L (1.2-3.4) K/uL Hamilton # (Auto) 0.81 H (0.11-0.59) K/uL Eos # (Auto) 0.17 (0-0.5) K/uL Baso # (Auto) 0.05 (0-0.2) K/uL Comprehensive Metabolic Panel 10/01/21 Range/Units 14:42 Sodium 141 (136-145) mmol/L Potassium 4.4 (3.5-5.1) mmol/L Chloride 114 H (98-107) mmol/L Carbon Dioxide 21 (21-32) mmol/L BUN 23 H (7-18) mg/dl Creatinine 1.88 H (0.6-1.4) mg/dl Glucose 170 H (70-99) mg/dl Calcium 7.4 L (8.5-10.1) mg/dl AST 14 L (15-37) U/L ALT 15 (12-78) Alkaline Phosphatase 54 (45-117) U/L Total Protein 8.1 (6.4-8.2) gm/dl Albumin 2.9 L (3.4-5.0) gm/dl Intake and Output 10/01/21 10/01/21 10/01/21 06:59 14:59 22:59 Intake Total 1120 / 1120 Balance 1120 / 1120 Intake: IV 1120 / 1120 Piperacillin/Tazobactam 4.5 gm 120 / 120 In 120 ml @ 240 mls/hr IV NOW ONE Rx#:[id number] Sodium Chloride 0.9% 1000ML 500 500 / 500 ml @ 999 mls/hr IV .Q31M ONE Rx#:[id number] Sodium Chloride 0.9% 500 ml @ 500 / 500 999 mls/hr IV .Q31M [facility] Rx#: [id number] Other: Weight 52.3 kg Weight Measurement Method Estimated by Patient Patient Weight 10/02/21 06:59 Weight 52.3 kg Diagnostic Findings Chest X-Ray 10/01/21 14:13 XR chest 1V portable CLINICAL HISTORY: weakness TECHNIQUE: Single frontal radiograph of the chest was obtained. Comparison: Comparison is made to chest one view 03/12/2019 FINDINGS: No lines and tubes are seen. The cardiomediastinal silhouette is stable. Left lower lung airspace opacities are seen. Lungs are underinflated. No evidence of pleural effusion or pneumothorax. IMPRESSION: Left lower lung airspace opacities may represent atelectasis, pneumonia, and/or aspiration. ACT 112: Negative or not required by law. Electronically signed by: Shan Moore M.D. 10/01/2021 2:56 PM ECG Additional Comments: Vent. Rate : 105 BPM Atrial Rate : 105 BPM P-R Int : 256 ms QRS Dur : 102 ms QT Int : 322 ms P-R-T Axes : 000 -06 066 degrees QTc Int : 425 ms Poor data quality, interpretation may be adversely affected Sinus tachycardia with 1st degree A-V block with Premature atrial complexes ST depression in Anterolateral leads , consider ischemia Abnormal ECG When compared with ECG of 13-MAR-2019 06:55, Premature atrial complexes are now Present ST more depressed Anterolateral leads Confirmed by Carmine De La Rosa ([id number]) on 10/01/2021 3:35:08 PM Code Status & VTE Plan Code Status full VTE Prophylaxis Plan VTE Prophylaxis will be ordered: Yes Resident Activity Tracking Resident Involvement: Resident Care Provided Care Provided: Adult Hospital Medicine
[2021-10-01 18:23] LABS: Influenza A virus by PCR Negative (Negative); Influenza B virus by PCR Negative (Negative)
[2021-10-01] MEDS ORDERED: AZITHROMYCIN 500 MG in DEXTROSE 5% 250 ML IV STA (19:29)
[2021-10-01] MEDS ORDERED: ENOXAPARIN INJ 40 MG/0.4 ML SYR SQ STA (19:30)
[2021-10-01] MEDS: MAGNESIUM SULFATE / D5W 1 GM/100 ML BAG IV SCH ×2 (20:52→21:01)
[2021-10-01] MEDS ORDERED: CARBOHYDRATES FOR HYPOGLYCEMIA PO PRN (21:47)
[2021-10-01] MEDS ORDERED: DEXTROSE 50% 50 ML SYRINGE IV PRN (21:47)
[2021-10-01] MEDS ORDERED: GLUCOSE 10 TABS/TUBE PO PRN (21:47)
[2021-10-01] MEDS ORDERED: ENOXAPARIN INJ 30 MG/0.3 ML SYR SQ SCH ×2 (21:47→22:15)
[2021-10-01] MEDS ORDERED: GLUCAGON FOR INJ 1 MG VIAL SQ PRN (21:47)
[2021-10-01] MEDS ORDERED: ONDANSETRON INJ 2 MG/ML 2 ML VIAL IV PRN (21:47)
[2021-10-01] MEDS ORDERED: POLYETHYLENE (MIRALAX) 17 GM PACK PO PRN (21:47)
[2021-10-01] MEDS ORDERED: GLUCOSE 40% GEL 15 GM TUBE PO PRN (21:47)
[2021-10-01] MEDS ORDERED: FORMOTEROL 20 MCG/2 ML VIAL INH SCH (22:00)
[2021-10-01] MEDS ORDERED: ASPIRIN CHEW 324 MG PO STA (22:55)
[2021-10-01] MEDS ORDERED: cefTRIAXone SODIUM 1,000 MG in DEXTROSE 5% 50 ML IV SCH (23:00)
[2021-10-01] MEDS ORDERED: cefTRIAXone SODIUM 1,000 MG/50 ML BAG IV SCH (23:00)
--- NOTE | 2021-10-01 23:07 | Communication Note ---
Date of Service: October 01, 2021 elevated 2nd trop noted. <0.015->0.228. In setting of ecg changes (slightly worsened ST depression in anterolateral leads), providing dose of ASA 324 chew. Patient denies any chest pain. Repeat trop in 6 hours. If significant uptrending or new chest pain, will start heparin drip and consider cardiology consult.
[2021-10-01] MEDS: FLUTICASONE FUROATE 100MCG 14 PUFFS/INHALER INH SCH (23:18)
[2021-10-01] MEDS: INSULIN ASPART PER UNIT SC SCH (23:43)
[2021-10-01] MEDS ORDERED: NITROGLYCERIN SL 0.4 MG/TAB TAB SL PRN (23:58)
[2021-10-02 03:26] LABS: Basophils # (auto) 0.04 K/uL (0-0.2); Basophils % (auto) 0.4 %; Eosinophils # (auto) 0.14 K/uL (0-0.5); Eosinophils % (auto) 1.5 %; Hematocrit (blood only) 35.1 % (42-52); Hemoglobin 11.5 g/dL (14.0-18.0); Immature Granulocytes # (auto) 0.05 K/uL (0.00-0.02); Immature Granulocytes % (auto) 0.6 %; Lymphocytes # (auto) 0.97 K/uL (1.2-3.4); Lymphocytes % (auto) 10.7 %; Mean Corpuscular Hemoglobin 30.2 pg (25-34); Mean Corpuscular Hgb Conc 32.8 g/dL (32-36); Mean Corpuscular Volume 92.1 fL (80-100); Mean Platelet Volume 9.1 fL (7.4-10.4); Monocytes # (auto) 1.07 K/uL (0.11-0.59); Monocytes % (auto) 11.8 %; Neutrophils # (auto) 6.81 K/uL (1.4-6.5); Platelet Count 222 K/uL (130-400); RDW Coefficient of Variation 14.9 % (11.5-14.5); RDW Standard Deviation 50.7 fL (36.4-46.3); Red Blood Count 3.81 M/uL (4.7-6.1); White Blood Count 9.08 K/uL (4.8-10.8)
[2021-10-02 03:45] LABS: Albumin Level 2.3 gm/dl (3.4-5.0); Calcium 6.7 mg/dl (8.5-10.1); Est GFR (African American) 43.3 ml/min; Est GFR (Non-African American) 37.4 ml/min; Magnesium 1.6 mg/dl (1.8-2.4)
[2021-10-02 03:51] LABS: Albumin Globulin Ratio 0.6 (0.9-2); Bilirubin,Total 0.3 mg/dl (0.2-1); Globulin 4.1 gm/dl (2.5-4.0); Total Protein 6.4 gm/dl (6.4-8.2); Troponin I 1.14 ng/ml (0-0.045)
[2021-10-02] MEDS ORDERED: Heparin IV Adult Wt-Based Standard *NO* Bolus Protocol IV ONE (04:14)
[2021-10-02] MEDS ORDERED: HEPARIN 25000 UNIT/500 ML D5W IV ONE (05:11)
[2021-10-02] MEDS: HEPARIN SODIUM/DEXTROSE 25,000 UNITS/500 ML BAG IV SCH (05:22)
[2021-10-02 06:33] LABS: Appearance Urine Clear (Clear); Bacteria Urine Automated Negative (Negative); Bilirubin Urine Negative (Negative); Blood Urine Trace (Negative); Color Urine Yellow; Glucose Urine UA Negative (Negative); Ketones Urine Negative (Negative); Leukocyte Esterase Urine Negative (Negative); Nitrite Urine Negative (Negative); Protein Urine Trace (Negative); Specific Gravity Urine 1.011 (1.000-1.030); Urobilinogen Urine Negative (Negative)
[2021-10-02 06:45] LABS: Estimated Average Glucose 154 mg/dl
[2021-10-02 07:05] LABS: RBC Urine Automated 0-4 /hpf (0-4)
--- NOTE | 2021-10-02 07:48 | Hospitalist Progress Note ---
Date of Service October 02, 2021 Assessment & Plan (1) Community acquired pneumonia: Plan: 89 y/o M w/ PMHx of COPD, HTN, mild cognitive impairment, DM, who presents from [facility] w/ generalized weakness/malaise. Generalized weakness: - Gen. weakness for few days without specified pain. - Trop. 0.228 upon arrival, up to 1.140, downtrending to 0.71. - Most likely primary cardiac event. - Infectious etiology less likely given normal wbc, lactate, procal - Blood cultures, urine culture pending. - CXR: L lower lung opacities - nonspecific - COVID and Influenza negative. - D/C'd Abx. NSTEMI: - Trop as above, BNP 1034 - EKG on arrival: sinus tachycardia with ST depressions on anterolateral leads - EKG repeat: 1st degree AV block with T-wave inversions in anterior leads. - Echo: 45-50%, Mid to distal septal/anteroseptal akinesis, - Cardiology consulted: - Evolving ECG and trop pattern suggest current event. Possible past infarct but given evolving nature Tx as NSTEMI. - On heparin for 72 hours, started on dual antiplatelet therapy of Aspirin 81mg and clopidogrel loading dose 300mg and daily 75mg thereafter - Start on Metoprolol 25mg BID, atorvastatin 20mg daily, - Sublingual nitroglycerin PRN for chest pain. - Continue lisinopril 20mg daily, can consider adding hydralazine for acute episodes of HTN. - Mg 1.6, repleted. ALLA: - Baseline 1.1-1.4 - 1.88 on admission, 1.61 this AM. - Cont. to trend. Diarrhea - may be 2/2 acute viral illness; mild at this time; defer stool testing COPD: - Continue Fluticasone q24H, Formoterol Furoate BID. HTN: -Continue home diltiazem, lisinopril. Hydralazine as needed for acute hypertension. -Monitor vitals. Diabetes: -Hold metformin. -ISS, goal 140-180. -Monitor glucose, A1c ordered. Unspecified cirrhosis of liver Dependent edema - cirrhotic type morphology per prior CT abd. avoid PRN tylenol - follow Dispo: Med/Surg Tele DVT Prophylaxis: Heparin drip Code status: Full code (2) General weakness: (3) Diarrhea: (4) HTN (hypertension): Plan: - continue home regimen (5) Diabetes: (6) COPD (chronic obstructive pulmonary disease): (7) Acute kidney injury superimposed on CKD: (8) Dependent edema: (9) ST segment depression: (10) Hypomagnesemia: (11) Acid reflux disease: Plan: - continue home regimen (12) Gout: Plan: - continue home regimen (13) Unspecified cirrhosis of liver: (14) Ambulatory dysfunction: Plan: PT/OT evals Admission and Anticipated Discharge Date Admission Date: October 01, 2021 Supervising Physician Co-Signing Physician Notes Resident Physician Supervision Note: I independently interviewed and examined the patient and verified the teixeira history and physical, reviewed labs and image studies and agree with resident Dr. Oates findings and care plan. Subjective Patient seen at bedside this morning. Patient stated he feels generalized weakness at the current time and not feeling well. He said this has been going on for the past 2-3 days. He is short of breath but said he is at his baseline and not on oxygen at home. He denies any cough, sputum production, rhinitis, fevers, chills, chest pain, abdominal pain aside from feeling hungry. Physical Exam Constitutional: WD/WN, vitals as above Respiratory: normal respiratory effort, lungs clear to auscultation Cardiovascular: RRR, no murmur, no edema Gastrointestinal (Abdomen): normal bowel sounds, soft, nontender, no hep atosplenomegaly Results & Data Results & Data ([facility] [place]) Vital Signs (Past 12 Hours) Vital Signs Temp Pulse Pulse Resp BP BP Pulse Ox 10/02/21 01:55 36.7 C 98 H 21 160/92 H 94 10/02/21 01:29 94 H 16 135/86 93 10/02/21 00:20 99 H 16 141/80 H 94 10/01/21 22:29 36.9 C 94 H 16 157/96 H 94 10/01/21 21:48 100 H 16 149/91 H 94 10/01/21 20:46 98 H 16 166/100 H 96 Pulse Ox 10/02/21 01:55 10/02/21 01:29 10/02/21 00:20 10/01/21 22:29 94 10/01/21 21:48 10/01/21 20:46 Resident Activity Tracking Resident Involvement: Resident Care Provided Care Provided: Adult [facility]
--- NOTE | 2021-10-02 09:04 | Electrocardiogram Report ---
Test Reason : Blood Pressure : / mmHG Vent. Rate : 098 BPM Atrial Rate : 098 BPM P-R Int : 228 ms QRS Dur : 092 ms QT Int : 366 ms P-R-T Axes : 046 022 098 degrees QTc Int : 467 ms Sinus rhythm with 1st degree A-V block with Premature atrial complexes Abnormal ECG When compared with ECG of 01-OCT-2021 14:03, ST no longer depressed in Lateral leads T wave inversion now evident in Anterior leads Confirmed by Carmine De La Rosa ([id number]) on 10/02/2021 9:04:01 AM Referred By: REFERRED SELF Confirmed By:Carmine De La Rosa
--- NOTE | 2021-10-02 09:13 | Billing Data ---
Date of Service October 01, 2021 Coding Level of Care Code INT OBSERVATION CARE 70M LVL 3
[2021-10-02] MEDS: FORMOTEROL 20 MCG/2 ML VIAL INH SCH ×2 (09:18→18:32)
[2021-10-02] MEDS: INSULIN ASPART PER UNIT SC SCH ×4 (10:55→21:04)
[2021-10-02] MEDS: dilTIAZem ER 120 MG CAPCR PO SCH (10:58)
[2021-10-02] MEDS: allopurinoL 100 MG TAB PO SCH (10:58)
[2021-10-02] MEDS: MONTELUKAST SODIUM 10 MG TABLET PO SCH (10:59)
[2021-10-02] MEDS: lisinopril 20 MG TAB PO SCH (10:59)
[2021-10-02] MEDS: POTASSIUM CHLORIDE CRTAB 20 MEQ TABCR PO SCH (10:59)
[2021-10-02] MEDS: GABAPENTIN 300 MG CAP PO SCH ×3 (10:59→21:04)
[2021-10-02 11:44] LABS: Partial Thromboplastin Ratio 1.6; Partial Thromboplastin Time 41.9 Seconds (21.0-31.0)
--- NOTE | 2021-10-02 13:18 | XCELERA ---
[id number]
--- NOTE | 2021-10-02 14:00 | Electrocardiogram Report ---
Test Reason : Blood Pressure : / mmHG Vent. Rate : 091 BPM Atrial Rate : 091 BPM P-R Int : 210 ms QRS Dur : 094 ms QT Int : 408 ms P-R-T Axes : 016 026 104 degrees QTc Int : 501 ms Sinus rhythm with sinus arrhythmia with 1st degree A-V block T-wave inversion in Anterior leads , consider ischemia Prolonged QT Abnormal ECG When compared with ECG of 02-OCT-2021 05:50, Premature atrial complexes are no longer Present T-wave inversion in Anterior leads more pronounced Confirmed by Carmine De La Rosa ([id number]) on 10/02/2021 1:59:59 PM Referred By: REFERRED SELF Confirmed By:Carmine De La Rosa
--- NOTE | 2021-10-02 14:34 | Cardiology Consultation ---
Date of Consultation October 02, 2021 Assessment & Plan (1) Myocardial infarction, apical: (2) COPD (chronic obstructive pulmonary disease): (3) HTN (hypertension): 89-year-old man with generalized nonspecific symptoms without chest pain noted to have dynamic ECG changes with wall motion abnormality on echocardiogram (new compared with 2014 study). Although the wall motion abnormality could have occurred anytime since 2014, his evolving ECG suggests significant myocardial ischemia of recent onset. His elevated troponin also suggests a current event, although the rapidity of the peak and decay seems disproportionately low given the size of his wall motion abnormality. Possibly, he had a prior infarct with extension currently, but given the dynamic nature of his enzyme and ECG changes, would treat as a non-ST elevation myocardial infarction. Suspect he can be managed noninvasively given the absence of chest symptoms and his current comorbidities (possible pneumonia, etc.). Recommendations for non-STEMI management in this elderly patient are as follows: -IV heparin for 72 hours -Initiate dual antiplatelet therapy with aspirin (81 mg daily) and clopidogrel (300 mg loading dose followed by 75 mg twice daily) -Sublingual nitroglycerin available for PRN use (should he develop chest pain) -Initiate beta-todd therapy (Metroprolol tartrate 25 mg every 12 hours with hold orders for bradycardia or hypotension) -Initiate statin (atorvastatin 20 mg daily) -Continue lisinopril 20 mg daily for blood pressure control -Could use IV hydralazine for any acute blood pressure elevation, otherwise titrate metoprolol as needed -Agree with repletion of magnesium IV Cardiology will continue to follow. At the time of my evaluation, the patient was free of significant symptoms and hemodynamically stable. History of Present Illness Reason for Consultation: Elevated troponin Requesting Physician: Ashia Chaparro MD Attending Physician: Ashia Chaparro MD History of Present Illness 89-year-old man with history of vascular disease (AAA), COPD, hypertension, mild cognitive impairment, diabetes mellitus, and other medical problems who was admitted yesterday with nonspecific symptoms of weakness and malaise, ECG showed some potentially ischemic changes and his troponin samantha, echocardiogram today shows a new wall motion abnormality (mid to distal septal/anteroseptal and apical akinesis). He does not recall chest pain at any time. He has chronic dyspnea on minimal exertion which is not substantially increased. He denies orthopnea but does note occasional PND. No significant ankle edema. No subjective palpitations, presyncope or syncope. He does have frequent falls secondary to disequilibrium. At the time of my evaluation, he denied any symptoms at rest. He notes that he becomes winded easily. He specifically denied any chest discomfort. Allergies Allergy/AdvReac Type Severity Reaction Status Date / Time bee venom protein (honey bee) Allergy Unknown Unknown Unverified 10/01/21 16:37 cefuroxime [From Ceftin] Allergy Unknown Unknown Verified 10/01/21 16:37 Home Medications Medication Instructions Recorded Confirmed Type calcium carbonate 600 mg-vitamin 1 tab PO QAM 10/15/18 10/01/21 History D3 20 mcg (800 unit) chewable tablet (Caltrate 600 plus D) pantoprazole 20 mg tablet,delayed 20 mg PO HS 10/15/18 10/01/21 History release psyllium husk 3.4 gram/5.4 gram 2 tsp PO QAM 03/12/19 10/01/21 History oral powder (Metamucil) diltiazem HCl 120 mg capsule,24 120 mg PO DAILY #90 cap 07/18/20 10/01/21 Rx hr,extended release metformin 500 mg tablet 500 mg PO BID #60 tab 08/20/21 10/01/21 Rx arformoterol 15 mcg/2 mL solution 2 ml INHALATION BID #120 ml 09/06/21 10/01/21 Rx for nebulization (Brovana) gabapentin 300 mg capsule 300 mg PO TID #90 cap 09/24/21 10/01/21 Rx montelukast 10 mg tablet 10 mg PO QAM #30 tab 09/24/21 10/01/21 Rx ondansetron HCl 4 mg tablet 4 mg PO Q8H PRN #10 tab 09/27/21 10/01/21 Rx allopurinol 100 mg tablet 100 mg PO DAILY 10/01/21 10/01/21 History lisinopril 20 mg tablet 20 mg PO DAILY 10/01/21 10/01/21 History mometasone (Asmanex Twisthaler) 1 inh INHALATION BID 10/01/21 10/01/21 History potassium chloride 20 mEq 20 meq PO DAILY 10/01/21 10/01/21 History tablet,extended release(part/cryst) Patient History Medical History (Updated 10/02/21 @ 15:15 by Carmine De La Rosa MD) Abdominal aortic aneurysm Acute electrocardiogram changes Acute renal insufficiency C. difficile diarrhea Cholecystitis Cholelithiasis CKD (chronic kidney disease), stage III Frequent falls Sepsis Surgical History H/O prostatectomy History of cholecystectomy History of hernia repair History of hip surgery Hx of adenoidectomy Hx of tonsillectomy Family History Mother Coronary heart disease Myocardial infarction Father Stroke Other Hypertension Denies family history of Ovarian cancer Prostate cancer Breast cancer Lung cancer Colorectal cancer Social History Smoking Status: Never smoker Second Hand Exposure: No; Hx Alcohol Use: No Hx Substance Use: No Preferred Language: Bulgarian Communication Ability: Effective Christian Education Director Required: No Beliefs That Will Affect Care: None marital status: Single Current Living Situation: [facility] Current Living Situation Comment: [facility]. current occupational status: retired How many Children do You have: 0 Other Information That Helps Us Care for You: No Feels Safe at Home: Yes Safety Concerns: Feels Safe At This Time caffeine: Yes Dental Care, Regularly: No Physical Activity Frequency: 1-2 Times per Week Seatbelt Use: always Sunscreen Use: No Assistive Devices: Walker Physical Exam Physical Exam: Normal habitus elderly white male who appears somewhat chronically ill but not acutely distressed. Afebrile. BP normotensive to mildly hypertensive. Pulse 90-105 bpm range Skin: no ecchymoses or generalized lesions. HEENT: unremarkable. Neck: Jugular venous pulse minimally elevated but with increased venous respiratory variation, no obvious carotid bruits. Lungs: Somewhat tubular breath sounds but generally clear. No obvious crackles or wheezes. Cardiac: regular rhythm, 2/6 apical systolic murmur which is nonradiating. Abdomen: benign. Extremities: Trace pretibial edema, pulses intact. Neurologic: Limited insight, answers simple questions appropriately, grossly nonfocal. Results & Data ([facility]) Vital Signs (Past 12 Hours) Vital Signs Temp Pulse Resp BP Pulse Ox 10/02/21 12:00 98.4 F 92 H 18 147/93 H 96 10/02/21 08:00 98.4 F 78 18 176/100 H 96 Laboratory Results Hemoglobin 11.5, normal white count and platelet count. Normal electrolytes, BUN 18, creatinine 1.61 (down from 1.88). Sequential troponins 0.228, 1.140, 0.71 COVID test negative. Diagnostic Findings ECG yesterday showed sinus tachycardia at 105 bpm with first-degree AV block and PACs, up to 1.[address] depression in the anterolateral leads (increased when compared with 03/13/2019 ECG). Repeat ECG earlier this morning showed sinus rhythm with first-degree AV block and PACs, minor anterolateral T wave inversions with isoelectric ST segments (improved versus initial ECG). Another ECG around noon today showed sinus rhythm with more pronounced anterior T wave inversions but no further ST depression. Echocardiogram showed EF 45 to 50% with mid to distal septal/anteroseptal and apical akinesis, all otherwise move normally. Mild LVH with grade 1 diastolic dysfunction. Mild AI/moderate MR. Compared with 2014 study, wall motion abnormalities are new, mild decline in LV systolic function, mitral regurgitation has increased. Chest x-ray with left lower lung airspace opacity, otherwise unremarkable. PG Care Time/CCT Total # of Minutes Spent Total Time Spent with Patient: Total time spent is greater than 50% in coordination of care (as documented) at patient's floor/unit and/or counseling patient: Coding Level of Care Code 67879 Inpt Consult Level 4 Diagnoses Myocardial infarction, apical I21.29 COPD (chronic obstructive pulmonary disease) J44.9 HTN (hypertension) I10
[2021-10-02] MEDS ORDERED: CLOPIDOGREL BISULFATE 300 MG TAB PO ONE (17:00)
[2021-10-02 20:47] LABS: Partial Thromboplastin Ratio 1.5; Partial Thromboplastin Time 38.8 Seconds (21.0-31.0)
[2021-10-02] MEDS ORDERED: CLOPIDOGREL BISULFATE 75 MG TAB PO SCH (21:00)
[2021-10-02] MEDS ORDERED: ENOXAPARIN INJ 30 MG/0.3 ML SYR SQ SCH (21:00)
[2021-10-02] MEDS: METOPROLOL TARTRATE 25 MG TAB PO SCH (21:04)
[2021-10-02] MEDS ORDERED: AZITHROMYCIN 500 MG in DEXTROSE 5% 250 ML IV SCH (21:30)
[2021-10-02] MEDS: PANTOprazole 40 MG TAB PO SCH (22:13)
[2021-10-02] MEDS: FLUTICASONE FUROATE 100MCG 14 PUFFS/INHALER INH SCH (22:35)
[2021-10-03 03:40] LABS: Partial Thromboplastin Time 52.8 Seconds (21.0-31.0)
[2021-10-03] MEDS: HEPARIN SODIUM/DEXTROSE 25,000 UNITS/500 ML BAG IV SCH (06:29)
--- NOTE | 2021-10-03 06:58 | Hospitalist Progress Note ---
Date of Service October 03, 2021 Assessment & Plan (1) Community acquired pneumonia: Plan: 89 y/o M w/ PMHx of COPD, HTN, mild cognitive impairment, DM, who presents from [facility] w/ generalized weakness/malaise sec to acute coronary syndrome NSTEMI: - Trop as above, BNP 1034 - EKG on arrival: sinus tachycardia with ST depressions on anterolateral leads - EKG repeat: 1st degree AV block with T-wave inversions in anterior leads. - Echo: 45-50%, Mid to distal septal/anteroseptal akinesis, - Cardiology consulted: - Evolving ECG and trop pattern suggest current event. Possible past infarct but given evolving nature Tx as NSTEMI. - On heparin for 72 hours, started on dual antiplatelet therapy of Aspirin 81mg and clopidogrel loading dose 300mg and daily 75mg thereafter - Started on Metoprolol 25mg BID, atorvastatin 20mg daily, - Sublingual nitroglycerin PRN for chest pain. - Continue lisinopril 20mg daily, can consider adding hydralazine for acute episodes of HTN. - Mg 1.6, repleted, ordered MgCl PO daily. ALLA: - Baseline 1.1-1.4 - 1.88 on admission, 1.51 this AM. - Cont. to trend. Diarrhea - may be 2/2 acute viral illness; mild at this time; defer stool testing COPD: - Continue Fluticasone q24H, Formoterol Furoate BID. HTN: -Continue home diltiazem, lisinopril. Hydralazine as needed for acute hypertension. -Monitor vitals. Diabetes: -Hold metformin. -ISS, goal 140-180. A1c 7.0 -Monitor glucose. Unspecified cirrhosis of liver Dependent edema - cirrhotic type morphology per prior CT abd. avoid PRN tylenol - follow Dispo: Med/Surg Tele DVT Prophylaxis: Heparin drip Code status: Full code (2) General weakness: (3) Diarrhea: (4) HTN (hypertension): Plan: - continue home regimen (5) Diabetes: (6) COPD (chronic obstructive pulmonary disease): (7) Acute kidney injury superimposed on CKD: (8) Dependent edema: (9) ST segment depression: (10) Hypomagnesemia: (11) Acid reflux disease: Plan: - continue home regimen (12) Gout: Plan: - continue home regimen (13) Unspecified cirrhosis of liver: (14) Ambulatory dysfunction: Plan: PT/OT doroteo Admission and Anticipated Discharge Date Admission Date: October 02, 2021 Supervising Physician Co-Signing Physician Notes Resident Physician Supervision Note: I independently interviewed and examined the patient and verified the teixeira history and physical, reviewed labs and image studies and agree with resident Dr. Oates findings and care plan. Subjective Patient seen at the bedside this morning. Patient feeling well this morning and better than yesterday. Patient denies chest pain, shortness of breath above baseline, nausea, vomiting. Physical Exam Constitutional: WD/WN, vitals as above Respiratory: normal respiratory effort, lungs clear to auscultation Cardiovascular: RRR, no murmur, no edema Gastrointestinal (Abdomen): normal bowel sounds, soft, nontender, no hepatosplenomegaly Results & Data Results & Data ([facility]) Vital Signs (Past 12 Hours) Vital Signs Temp Pulse Pulse Resp BP Pulse Ox 10/03/21 04:00 36.4 C L 82 20 146/70 H 92 10/02/21 23:17 79 10/02/21 23:00 37 C 81 18 149/76 H 94 10/02/21 21:00 153/53 H Resident Activity Tracking Resident Involvement: Resident Care Provided Care Provided: Adult Hospital Medicine
[2021-10-03 07:31] LABS: Basophils # (auto) 0.04 K/uL (0-0.2); Basophils % (auto) 0.5 %; Eosinophils # (auto) 0.16 K/uL (0-0.5); Eosinophils % (auto) 1.9 %; Hematocrit (blood only) 34.7 % (42-52); Hemoglobin 11.2 g/dL (14.0-18.0); Immature Granulocytes # (auto) 0.05 K/uL (0.00-0.02); Immature Granulocytes % (auto) 0.6 %; Lymphocytes # (auto) 0.84 K/uL (1.2-3.4); Mean Corpuscular Hemoglobin 29.9 pg (25-34); Mean Corpuscular Hgb Conc 32.3 g/dL (32-36); Mean Corpuscular Volume 92.8 fL (80-100); Mean Platelet Volume 9.2 fL (7.4-10.4); Monocytes # (auto) 0.77 K/uL (0.11-0.59); Monocytes % (auto) 9.2 %; Neutrophils # (auto) 6.55 K/uL (1.4-6.5); Neutrophils % (auto) 77.8 %; Platelet Count 203 K/uL (130-400); RDW Coefficient of Variation 14.9 % (11.5-14.5); RDW Standard Deviation 50.6 fL (36.4-46.3); Red Blood Count 3.74 M/uL (4.7-6.1); White Blood Count 8.41 K/uL (4.8-10.8)
[2021-10-03] MEDS: FORMOTEROL 20 MCG/2 ML VIAL INH SCH ×2 (07:31→20:35)
[2021-10-03 07:55] LABS: BUN Creatinine Ratio 8.6 (10-20); Calcium 6.6 mg/dl (8.5-10.1); Creatinine Clr Calc Pharmacy 25.3 ml/min; Est GFR (African American) 46.8 ml/min; Est GFR (Non-African American) 40.4 ml/min; Potassium 4.1 mmol/L (3.5-5.1)
[2021-10-03] MEDS: INSULIN ASPART PER UNIT SC SCH ×4 (08:10→21:57)
[2021-10-03] MEDS: lisinopril 20 MG TAB PO SCH (08:11)
[2021-10-03] MEDS: dilTIAZem ER 120 MG CAPCR PO SCH (08:11)
[2021-10-03] MEDS: MONTELUKAST SODIUM 10 MG TABLET PO SCH (08:11)
[2021-10-03] MEDS: CLOPIDOGREL BISULFATE 75 MG TAB PO SCH (08:11)
[2021-10-03] MEDS: POTASSIUM CHLORIDE CRTAB 20 MEQ TABCR PO SCH (08:11)
[2021-10-03] MEDS: allopurinoL 100 MG TAB PO SCH (08:11)
[2021-10-03] MEDS: GABAPENTIN 300 MG CAP PO SCH ×3 (08:12→21:10)
[2021-10-03] MEDS: ATORVASTATIN 20 MG TAB PO SCH (08:12)
[2021-10-03] MEDS: ASPIRIN 81 MG ECTAB PO SCH (08:12)
[2021-10-03] MEDS: METOPROLOL TARTRATE 25 MG TAB PO SCH ×2 (08:12→21:10)
[2021-10-03 09:09] LABS: Lyme Ab IgG w/WB Rflx Negative (Negative); Lyme Ab IgM w/WB Rflx Negative (Negative)
--- NOTE | 2021-10-03 11:01 | Cardiology Progress Note ---
Date of Service October 03, 2021 Assessment & Plan (1) Myocardial infarction, apical: (2) COPD (chronic obstructive pulmonary disease): (3) HTN (hypertension): Plan: 89-year-old man with non-ST elevation myocardial infarction. At this point, plan for noninvasive management given the absence of evidence for ongoing myocardial ischemia. Recommendations for non-STEMI management: -IV heparin for 72 hours -Continue dual antiplatelet therapy with aspirin (81 mg daily) and clopidogrel (75 mg daily) -Sublingual nitroglycerin available for PRN use (should he develop chest pain) -Given periodic tachycardia would increase metoprolol to 50 mg every 12 hours (with hold orders for bradycardia or hypotension) -Continue statin (atorvastatin 20 mg daily) -Continue lisinopril 20 mg daily for blood pressure control -Could use IV hydralazine for any acute blood pressure elevation, otherwise titrate metoprolol as needed -Agree with repletion of magnesium (consider addition of oral magnesium chloride) Despite his elevated BNP he does not appear overtly to be in heart failure (lying flat comfortably), no immediate role for diuretic (particular given his recent hypomagnesemia). At the time of my evaluation, the patient was free of significant symptoms and hemodynamically stable. Admission and Anticipated Discharge Date Admission Date: October 02, 2021 Subjective Patient lying comfortably, denies any chest pain, dyspnea, palpitations, or any other complaint. Physical Exam Physical Exam: Appears comfortable. Afebrile. BP normotensive to mildly hypertensive. Pulse 70-105 bpm range Skin: no ecchymoses or generalized lesions. HEENT: unremarkable. Neck: Jugular venous pulse minimally elevated but with increased venous respiratory variation, no obvious carotid bruits. Lungs: Somewhat tubular breath sounds but generally clear. No obvious crackles or wheezes. Cardiac: regular rhythm, 2/6 apical systolic murmur which is nonradiating. Abdomen: benign. Extremities: Trace pretibial edema, pulses intact. Neurologic: Limited insight, answers simple questions appropriately, grossly nonfocal. Results & Data ([facility]) Vital Signs (Past 12 Hours) Vital Signs Temp Pulse Pulse Resp BP Pulse Ox 10/03/21 08:50 97.9 F 107 H 16 148/80 H 96 10/03/21 07:12 77 10/03/21 07:00 97.5 F L 89 20 126/77 94 10/03/21 04:00 97.5 F L 82 20 146/70 H 92 10/02/21 23:17 79 10/02/21 23:00 98.6 F 81 18 149/76 H 94 Laboratory Results Normal electrolytes, BUN 12, creatinine 1.51 (down from 1.61). BNP 1034. PG Care Time/CCT Total # of Minutes Spent Total Time Spent with Patient: Total time spent is greater than 50% in coordination of care (as documented) at patient's floor/unit and/or counseling patient: Coding Level of Care Code 44314 Subseq Hosp Care Lvl 3 Diagnoses Myocardial infarction, apical I21.29 COPD (chronic obstructive pulmonary disease) J44.9 HTN (hypertension) I10
[2021-10-03] MEDS: PANTOprazole 40 MG TAB PO SCH (21:10)
[2021-10-03] MEDS: FLUTICASONE FUROATE 100MCG 14 PUFFS/INHALER INH SCH (21:10)
[2021-10-04] MEDS: HEPARIN SODIUM/DEXTROSE 25,000 UNITS/500 ML BAG IV SCH (06:15)
[2021-10-04 06:19] LABS: Basophils # (auto) 0.03 K/uL (0-0.2); Basophils % (auto) 0.4 %; Eosinophils # (auto) 0.23 K/uL (0-0.5); Eosinophils % (auto) 2.8 %; Hematocrit (blood only) 33.3 % (42-52); Hemoglobin 10.8 g/dL (14.0-18.0); Immature Granulocytes # (auto) 0.06 K/uL (0.00-0.02); Immature Granulocytes % (auto) 0.7 %; Lymphocytes # (auto) 1.15 K/uL (1.2-3.4); Lymphocytes % (auto) 13.8 %; Mean Corpuscular Hemoglobin 30.3 pg (25-34); Mean Corpuscular Hgb Conc 32.4 g/dL (32-36); Mean Corpuscular Volume 93.5 fL (80-100); Mean Platelet Volume 9.1 fL (7.4-10.4); Monocytes # (auto) 0.77 K/uL (0.11-0.59); Monocytes % (auto) 9.2 %; Neutrophils # (auto) 6.11 K/uL (1.4-6.5); Neutrophils % (auto) 73.1 %; Platelet Count 219 K/uL (130-400); RDW Coefficient of Variation 14.7 % (11.5-14.5); RDW Standard Deviation 50.2 fL (36.4-46.3); Red Blood Count 3.56 M/uL (4.7-6.1); White Blood Count 8.35 K/uL (4.8-10.8)
[2021-10-04 06:42] LABS: Partial Thromboplastin Ratio 2.3
[2021-10-04 06:48] LABS: Partial Thromboplastin Time 59.5 Seconds (21.0-31.0)
[2021-10-04 06:52] LABS: BUN Creatinine Ratio 7.9 (10-20); Calcium 6.7 mg/dl (8.5-10.1); Creatinine Clr Calc Pharmacy 26.1 ml/min; Est GFR (African American) 46.4 ml/min; Potassium 3.9 mmol/L (3.5-5.1)
--- NOTE | 2021-10-04 06:52 | Hospitalist Progress Note ---
Date of Service October 04, 2021 Assessment & Plan (1) Community acquired pneumonia: Plan: 89 y/o M w/ PMHx of COPD, HTN, mild cognitive impairment, DM, who presents from [facility] w/ generalized weakness/malaise sec to acute coronary syndrome NSTEMI: - Trop elevated. BNP 1034 - EKG on arrival: sinus tachycardia with ST depressions on anterolateral leads - EKG repeat: 1st degree AV block with T-wave inversions in anterior leads. - Echo: 45-50%, Mid to distal septal/anteroseptal akinesis, - Cardiology consulted: - Evolving ECG and trop pattern suggest current event. Possible past infarct but given evolving nature Tx as NSTEMI. - On heparin for 72 hours, started on dual antiplatelet therapy of Aspirin 81mg and clopidogrel loading dose 300mg and daily 75mg thereafter - Started on Metoprolol 25mg BID, atorvastatin 20mg daily, - Sublingual nitroglycerin PRN for chest pain. - Continue lisinopril 20mg daily, can consider adding hydralazine for acute episodes of HTN. - Mg 1.6, repleted, ordered MgCl PO daily. COPD: - Dyspnea sec to it. - Continue Fluticasone q24H, Formoterol Furoate BID. - trace if he has had PFT done ALLA: - Baseline 1.1-1.4 - 1.88 on admission, 1.52 this AM. - Cont. to trend. Diarrhea - may be 2/2 acute viral illness; mild at this time; defer stool testing HTN: -Continue home diltiazem, lisinopril. Hydralazine as needed for acute hypertension. -Monitor vitals. Diabetes: -Hold metformin. -ISS, goal 140-180. A1c 7.0 -Monitor glucose. Unspecified cirrhosis of liver Dependent edema - cirrhotic type morphology per prior CT abd. avoid PRN tylenol - follow Dispo: Med/Surg Tele DVT Prophylaxis: Heparin drip Code status: Full code (2) General weakness: (3) Diarrhea: (4) HTN (hypertension): Plan: - continue home regimen (5) Diabetes: (6) COPD (chronic obstructive pulmonary disease): (7) Acute kidney injury superimposed on CKD: (8) Dependent edema: (9) ST segment depression: (10) Hypomagnesemia: (11) Acid reflux disease: Plan: - continue home regimen (12) Gout: Plan: - continue home regimen (13) Unspecified cirrhosis of liver: (14) Ambulatory dysfunction: Plan: PT/OT evals Admission and Anticipated Discharge Date Admission Date: October 02, 2021 Supervising Physician Co-Signing Physician Notes Resident Physician Supervision Note: I independently interviewed and examined the patient and verified the teixeira history and physical, reviewed labs and image studies and agree with resident Dr. Oates findings and care plan. Subjective Patient seen at the bedside this morning. Patient is feeling fine this morning, the same as when he came in. He denies any active chest pain, shortness of breath above baseline, nausea, vomiting, fevers, chills. Physical Exam Constitutional: WD/WN, vitals as above Respiratory: normal respiratory effort, lungs clear to auscultation Cardiovascular: RRR, no murmur, no edema Gastrointestinal (Abdomen): normal bowel sounds, soft, nontender, no hepatosplenomegaly Results & Data Results & Data ([facility]) Vital Signs (Past 12 Hours) Vital Signs Temp Pulse Pulse Resp BP Pulse Ox 10/04/21 03:00 37 C 67 18 148/71 H 91 10/03/21 23:14 64 10/03/21 23:00 36.6 C 69 20 137/63 93 10/03/21 20:36 74 16 96 Resident Activity Tracking Resident Involvement: Resident Care Provided Care Provided: Adult Hospital Medicine
[2021-10-04] MEDS: FORMOTEROL 20 MCG/2 ML VIAL INH SCH ×2 (07:49→19:44)
[2021-10-04] MEDS: GABAPENTIN 300 MG CAP PO SCH ×3 (08:21→20:36)
[2021-10-04] MEDS: allopurinoL 100 MG TAB PO SCH (08:21)
[2021-10-04] MEDS: METOPROLOL TARTRATE 25 MG TAB PO SCH ×2 (08:21→20:39)
[2021-10-04] MEDS: CLOPIDOGREL BISULFATE 75 MG TAB PO SCH (08:21)
[2021-10-04] MEDS: MAGNESIUM CHLORIDE 64MG DELAYED REL TAB PO SCH (08:21)
[2021-10-04] MEDS: ASPIRIN 81 MG ECTAB PO SCH (08:22)
[2021-10-04] MEDS: POTASSIUM CHLORIDE CRTAB 20 MEQ TABCR PO SCH (08:22)
[2021-10-04] MEDS: ATORVASTATIN 20 MG TAB PO SCH (08:22)
[2021-10-04] MEDS: MONTELUKAST SODIUM 10 MG TABLET PO SCH (08:22)
[2021-10-04] MEDS: dilTIAZem ER 120 MG CAPCR PO SCH (08:22)
[2021-10-04] MEDS: INSULIN ASPART PER UNIT SC SCH ×4 (08:24→20:37)
[2021-10-04] MEDS: lisinopril 20 MG TAB PO SCH (09:14)
--- NOTE | 2021-10-04 12:20 | Cardiology Progress Note ---
Date of Service October 04, 2021 Assessment & Plan (1) Myocardial infarction, apical: (2) COPD (chronic obstructive pulmonary disease): (3) HTN (hypertension): Plan: 89-year-old man with non-ST elevation myocardial infarction. Recommendations: -Discontinue IV heparin -Continue dual antiplatelet therapy with aspirin (81 mg daily) and clopidogrel (75 mg daily) upon discharge -Sublingual nitroglycerin available for PRN use (should he develop chest pain) -Could change metoprolol to tartrate 25 mg twice daily to metoprolol succinate 50 mg daily. -Continue atorvastatin 20 mg daily -Continue diltiazem 120 mg daily -Continue lisinopril 20 mg daily -Continue magnesium Chloride 64 mg daily Beta-todd preferable to calcium channel todd for post [place] patient, however reasonable to continue both metoprolol and diltiazem given his intermittent mild hypertension. He has not shown any evidence of bradycardia or hypotension on combined therapy. Assess functional status to determine appropriate placement. Depending upon functional status, consider cardiac rehab in the future. Patient is asymptomatic and hemodynamically stable, will sign off from a cardiology standpoint. If patient remains in hospital and further issues arise tomorrow (Friday), please contact Dr. Rangel (he will be covering the hospital). Thank you. Admission and Anticipated Discharge Date Admission Date: October 02, 2021 Subjective Patient was napping, easily awakened. He had no complaints, noting no chest pain, dyspnea at rest, palpitations, or lightheadedness. Hemodynamics favorable. Telemetry benign. Physical Exam Physical Exam: Appears comfortable. Afebrile. BP normotensive to mildly hypertensive. Pulse 60-85 bpm range Skin: no ecchymoses or generalized lesions. HEENT: unremarkable. Neck: Jugular venous pulse minimally elevated but with increased venous respiratory variation, no obvious carotid bruits. Lungs: Somewhat tubular breath sounds but generally clear. No obvious crackles or wheezes. Cardiac: regular rhythm, 2/6 apical systolic murmur which is nonradiating. Abdomen: benign. Extremities: Trace pretibial edema, pulses intact. Neurologic: Limited insight, answers simple questions appropriately, grossly nonfocal. Results & Data ([facility]) Vital Signs (Past 12 Hours) Vital Signs Temp Pulse Resp BP Pulse Ox 10/04/21 11:53 99.0 F 64 16 122/64 93 01/13/22 07:56 97.7 F 87 16 154/92 H 93 10/04/21 07:49 72 17 94 10/04/21 03:00 98.6 F 67 18 148/71 H 91 Laboratory Results Normal electrolytes, BUN 12, creatinine 1.52 (stable) PG Care Time/CCT Total # of Minutes Spent Total Time Spent with Patient: Total time spent is greater than 50% in coordination of care (as documented) at patient's floor/unit and/or counseling patient: Coding Level of Care Code 99061 Subseq Hosp Care Lvl 3 Diagnoses Myocardial infarction, apical I21.29 COPD (chronic obstructive pulmonary disease) J44.9 HTN (hypertension) I10
[2021-10-04] MEDS: PANTOprazole 40 MG TAB PO SCH (20:39)
[2021-10-04] MEDS: FLUTICASONE FUROATE 100MCG 14 PUFFS/INHALER INH SCH (20:43)
[2021-10-05] MEDS: HEPARIN SODIUM/DEXTROSE 25,000 UNITS/500 ML BAG IV SCH (05:06)
--- NOTE | 2021-10-05 07:06 | Hospitalist Progress Note ---
Date of Service October 05, 2021 Assessment & Plan (1) Community acquired pneumonia: Plan: 89 y/o M w/ PMHx of COPD, HTN, mild cognitive impairment, DM, who presents from [facility] w/ generalized weakness/malaise sec to acute coronary syndrome NSTEMI: - Trop elevated. BNP 1034 - EKG on arrival: sinus tachycardia with ST depressions on anterolateral leads - EKG repeat: 1st degree AV block with T-wave inversions in anterior leads. - Echo: 45-50%, Mid to distal septal/anteroseptal akinesis, - Cardiology consulted: - Evolving ECG and trop pattern suggest current event. Possible past infarct but given evolving nature Tx as NSTEMI. - On heparin for 72 hours, started on dual antiplatelet therapy of Aspirin 81mg and clopidogrel loading dose 300mg and daily 75mg thereafter - Started on Metoprolol 25mg BID, atorvastatin 20mg daily, - Sublingual nitroglycerin PRN for chest pain. - Continue lisinopril 20mg daily, can consider adding hydralazine for acute episodes of HTN. - Mg 1.6, repleted, ordered MgCl PO daily. COPD: - Dyspnea sec to it. - Continue Fluticasone q24H, Formoterol Furoate BID. - PFT from 08/2019 w/ evidence of very obstructive airway disease. ALLA: - Baseline 1.1-1.4 - 1.88 on admission, 1.52 this AM. - Cont. to trend. Diarrhea - may be 2/2 acute viral illness; mild at this time; defer stool testing HTN: -Continue home diltiazem, lisinopril. Hydralazine as needed for acute hypertension. -Monitor vitals. Diabetes: -Hold metformin. -ISS, goal 140-180. A1c 7.0 -Monitor glucose. Unspecified cirrhosis of liver Dependent edema - cirrhotic type morphology per prior CT abd. avoid PRN tylenol - follow Dispo: Med/Surg Tele DVT Prophylaxis: Heparin drip Code status: Full code (2) General weakness: (3) Diarrhea: (4) HTN (hypertension): Plan: - continue home regimen (5) Diabetes: (6) COPD (chronic obstructive pulmonary disease): (7) Acute kidney injury superimposed on CKD: (8) Dependent edema: (9) ST segment depression: (10) Hypomagnesemia: (11) Acid reflux disease: Plan: - continue home regimen (12) Gout: Plan: - continue home regimen (13) Unspecified cirrhosis of liver: (14) Ambulatory dysfunction: Plan: PT/OT evals Admission and Anticipated Discharge Date Admission Date: October 02, 2021 Subjective Patient seen at the bedside this morning. Results & Data Results & Data ([facility]) Vital Signs (Past 12 Hours) Vital Signs Temp Pulse Pulse Resp BP Pulse Ox 10/05/21 02:48 36.4 C L 71 18 147/68 H 90 10/04/21 22:47 37.6 C H 65 18 124/67 93 10/04/21 22:19 64 10/04/21 19:22 36.9 C 70 18 144/72 H 93
[2021-10-05 07:19] LABS: Basophils # (auto) 0.05 K/uL (0-0.2); Basophils % (auto) 0.7 %; Eosinophils # (auto) 0.21 K/uL (0-0.5); Eosinophils % (auto) 2.8 %; Hematocrit (blood only) 33.7 % (42-52); Hemoglobin 10.7 g/dL (14.0-18.0); Immature Granulocytes # (auto) 0.07 K/uL (0.00-0.02); Immature Granulocytes % (auto) 0.9 %; Lymphocytes # (auto) 1.25 K/uL (1.2-3.4); Lymphocytes % (auto) 16.6 %; Mean Corpuscular Hemoglobin 30.1 pg (25-34); Mean Corpuscular Hgb Conc 31.8 g/dL (32-36); Mean Corpuscular Volume 94.7 fL (80-100); Mean Platelet Volume 9.4 fL (7.4-10.4); Monocytes # (auto) 0.46 K/uL (0.11-0.59); Monocytes % (auto) 6.1 %; Neutrophils # (auto) 5.51 K/uL (1.4-6.5); Neutrophils % (auto) 72.9 %; Platelet Count 216 K/uL (130-400); RDW Coefficient of Variation 14.6 % (11.5-14.5); RDW Standard Deviation 50.3 fL (36.4-46.3); Red Blood Count 3.56 M/uL (4.7-6.1); White Blood Count 7.55 K/uL (4.8-10.8)
[2021-10-05] MEDS: FORMOTEROL 20 MCG/2 ML VIAL INH SCH (07:25)
[2021-10-05 07:42] LABS: BUN Creatinine Ratio 6.8 (10-20); Calcium 6.9 mg/dl (8.5-10.1); Est GFR (African American) 43.3 ml/min; Est GFR (Non-African American) 37.4 ml/min
[2021-10-05 07:44] LABS: Partial Thromboplastin Ratio 2.3
[2021-10-05 07:47] LABS: Partial Thromboplastin Time 60.4 Seconds (21.0-31.0)
[2021-10-05] MEDS: INSULIN ASPART PER UNIT SC SCH ×2 (08:47→12:54)
[2021-10-05] MEDS: GABAPENTIN 300 MG CAP PO SCH ×2 (08:49→14:56)
[2021-10-05] MEDS: METOPROLOL TARTRATE 25 MG TAB PO SCH (08:49)
[2021-10-05] MEDS: ATORVASTATIN 20 MG TAB PO SCH (08:50)
[2021-10-05] MEDS: MONTELUKAST SODIUM 10 MG TABLET PO SCH (08:50)
[2021-10-05] MEDS: POTASSIUM CHLORIDE CRTAB 20 MEQ TABCR PO SCH (08:50)
[2021-10-05] MEDS: ASPIRIN 81 MG ECTAB PO SCH (08:51)
[2021-10-05] MEDS: allopurinoL 100 MG TAB PO SCH (08:54)
[2021-10-05] MEDS: lisinopril 20 MG TAB PO SCH (08:55)
[2021-10-05] MEDS: dilTIAZem ER 120 MG CAPCR PO SCH (08:55)
[2021-10-05] MEDS: CLOPIDOGREL BISULFATE 75 MG TAB PO SCH (08:56)
[2021-10-05] MEDS: MAGNESIUM CHLORIDE 64MG DELAYED REL TAB PO SCH (08:56)
[2021-10-05] MEDS ORDERED: CALCIUM 600MG + VIT D 400 IU TAB PO SCH (13:00)
--- NOTE | 2021-10-05 15:31 | Discharge Summary ---
Date of Service October 05, 2021 Admission HPI Per Admitting Provider 89 y/o M w/ PMHx of AAA, COPD, HTN, mild cognitive impairment, freq falls (attribs to unsteady), gout, DM, cirrhotic liver morphology who presents from [facility] w ~1wk of generalized wkness and malaise. He has had 2 wks of poor appetite and intermittent mild abd pain and mild diarrhea. No home O2 requirement. Currently, feeling ok. No dyspnea currently. States had brief dyspnea earlier in the ED stay and was transiently placed on nasal cannula, since removed. Denies aspiration concerns. States had covid vaccine x2 + booster. Had flu shot. Took AM meds. Not on blood thinners. Patient was originally brought from the personal [facility] for ecg concerns. Per ecg at [facility], there are new PACs and slightly deeper ST depression in the anterolateral leads. Patient has not complained of chest pain or palpitations. ED course: 500mL bolus x2. IV Zosyn; left lower lobe airspace opacity noted on cxr. ALLA. Had similar admission in 2019 w/ community acquired pneumonia. Admission Exam Per Admitting Provider General: Grossly A&Ox3, not to context. NAD. Cooperative. HEENT: Atraumatic, normocephalic. EOMI. PERRL. Neg for JVD. Mild erythema of oropharynx. Dry mucous membranes. Normal TMs. No cervical LAD. Pulm: CTAB. Diminished diffuslely. -wheezes, -rales, -rhonchi. No respiratory distress. Cardiac: TRR, -mrg. Radial pulses intact and symmetrical.2+ pretibial edema. Abdominal: Nontender, nondistended, soft. Msk: Moving all extremities. Neuro: CN intact. Strength and sensation of extremities intact. Integ: Mild skin flaking near eyes and ears. Principal Diagnosis NSTEMI Discharge Exam Constitutional WD/WN, vitals as above Eyes PERRL, conjunctivae normal, anicteric sclerae Respiratory normal respiratory effort, lungs clear to auscultation Cardiovascular RRR, no murmur, no edema Gastrointestinal (Abdomen) normal bowel sounds, soft, nontender, no hepatosplenomegaly Discharge Data Allergies Allergy/AdvReac Type Severity Reaction Status Date / Time bee venom protein (honey bee) Allergy Unknown Unknown Unverified 10/01/21 16:37 cefuroxime [From Ceftin] Allergy Unknown Unknown Verified 10/01/21 16:37 Consultations 10/01/21 17:14 ED Decision to Admit Stat 10/02/21 09:43 Consult Cardiology Routine Hospital Course (1) Community acquired pneumonia: 89 y/o M w/ PMHx of COPD, HTN, mild cognitive impairment, DM, who presents from [facility] personal [facility] w/ generalized weakness/malaise sec to acute coronary syndrome NSTEMI: - Trop elevated. BNP 1034 - EKG on arrival: sinus tachycardia with ST depressions on anterolateral leads - EKG repeat: 1st degree AV block with T-wave inversions in anterior leads. - Echo: 45-50%, Mid to distal septal/anteroseptal akinesis, - Cardiology consulted: - Evolving ECG and trop pattern suggest current event. Possible past infarct but given evolving nature Tx as NSTEMI. - On heparin for 72 hours, started on dual antiplatelet therapy of Aspirin 81mg and clopidogrel loading dose 300mg and daily 75mg thereafter - Started on Metoprolol 25mg BID, atorvastatin 20mg daily, - Sublingual nitroglycerin PRN for chest pain. - Continue lisinopril 20mg daily. - Mg 1.6, repleted. - PT/OT recommended acute rehab. Patient transferred to [facility] for short rehab before returning to [facility]. - Follow up with Dr. De La Rosa in Cardiology outpatient in 2-4 weeks. ALLA: - Baseline 1.1-1.5 - 1.88 on admission, downtrend to 1.5-1.6. (2) General weakness: (3) Diarrhea: (4) HTN (hypertension): (5) Diabetes: (6) COPD (chronic obstructive pulmonary disease): (7) Acute kidney injury superimposed on CKD: (8) Dependent edema: (9) ST segment depression: (10) Hypomagnesemia: (11) Acid reflux disease: (12) Gout: (13) Unspecified cirrhosis of liver: (14) Ambulatory dysfunction: Total Time Total Time Spent Total Time Spent (In Minutes): Please see attending attestation. Discharge Plan Discharge Items Patient Disposition: Transfer Inpatient Rehab Fac Reason For Visit: COMMUNITY ACQUIRED PNEUMONIA Discharge Diagnosis: NSTEMI Activity: Per Instructions section Non-emergency contact: Primary Care Provider and Ceo Ziff Davis Call non-emergency contact if: your symptoms worsen, your pain is worsening and your temperature is above 101 Follow-up/Referrals: Eufemia Yi MD [Primary Care Provider] - 10/12/21 10:30 am Diet: Heart Healthy Addtl Attending Provider Instructions: A discharge summary will be sent to your primary care physician to ensure continuity of care. You came to the hospital for generalized weakness and poor appetite. You were found to have evidence of ischemia (or low oxygen delivery) to your heart on an EKG (an electrical reading of your heart). During your stay we added a few new medications onto your current daily medication regimen. These medications will be listed below and you should continue to keep taking them after discharge as described below. These medications are meant to help keep your heart from further oxygen deprivation and atherosclerotic buildup. You will be following up with the battery tester in 2-4 weeks for any adjustments to the medications. Follow-up: * You should be seen by your primary physician within the next few weeks. * You should be seen by the battery tester in the next 2-4 weeks. Medications: Your medication list has been reviewed and reconciled upon discharge to ensure accuracy and continuity of care. An updated list of all your medications is included with your hospital discharge paperwork. Please review this list closely, and make note of any changes. * You were started on aspirin 81mg in the hospital. You are to keep taking this medication once a day. * You were started on a medicine called Clopidogrel 75mg in the hospital. You are to keep taking this medication once a day. * You were started on a medication called atorvastatin 20mg in the hospital. You are to keep taking this medication once a day. * You were started on a medication called Metoprolol 25mg in the hospital. You are to keep taking this medication twice a day. * Please continue taking your diltiazem 120mg and your lisinopril 20mg as you were before. * You were given a medication prescription for nitroglycerin which you should use when you are having chest pain. When you are experiencing chest pain please put one of these under your tongue to dissolve. Take every 5 minutes if chest pain persists and call for help or be evaluated by a medical provider. Take your medications as instructed; do not skip a dose of your medicines. Make sure all of your doctors know every medicine you are taking (including piwu-cro-blqjddz medicines, vitamins, and supplements). let your primary care provider know before taking any new medicines because some of these may inte ract with your current medications, or may make your symptoms worse. CONTACT YOUR PRIMARY CARE PROVIDER if you experience any of the following: * Fevers or shaking chills * Shortness of breath not relieved by inhalers, fainting * Sudden abdominal distension not relieved by catheterization. * Difficulty following your treatment plan, or difficulty taking medications CALL 911 OR GO TO THE EMERGENCY DEPARTMENT if you experience any of the following: * Sudden, severe abdominal pain or nausea/vomiting * Severe chest pain, or chest pain that radiates (moves) to your jaw or arm * Sudden, severe shortness of breath or difficulty breathing It was was our pleasure taking care of you here at [facility] . Thank you for allowing us to participate in your care. Pending Studies at Discharge: No Stand-Alone Forms: My [facility] Skilled Items Patient informed of condition?: Yes DNR: No Discharge Level of Care: Acute rehab Communicable Disease: No Discharge Prognosis: Stable Lines: None Urinary Catheter: No Medications and DC Order Prescriptions: New clopidogrel 75 mg tablet 75 mg PO DAILY 30 Days Qty: 30 RF: 0 aspirin 81 mg tablet,chewable 81 mg PO DAILY 30 Days Qty: 30 RF: 0 metoprolol tartrate 25 mg tablet 25 mg PO BID 30 Days Qty: 60 RF: 0 atorvastatin 20 mg tablet 20 mg PO DAILY 30 Days Qty: 30 RF: 0 nitroglycerin 0.4 mg tablet, sublingual 0.4 mg sublingual .PRN Qty: 20 RF: 0 Continued diltiazem HCl 120 mg capsule,extended release 24 hr 120 mg PO DAILY Qty: 90 RF: 1 metformin 500 mg tablet 500 mg PO BID Qty: 60 RF: 6 Brovana 15 mcg/2 mL solution for nebulization 2 ml INHALATION BID Qty: 120 RF: 1 montelukast 10 mg tablet 10 mg PO QAM Qty: 30 RF: 2 gabapentin 300 mg capsule 300 mg PO TID Qty: 90 RF: 1 ondansetron HCl 4 mg tablet 4 mg PO Q8H PRN (Reason: nausea and vomiting) Qty: 10 RF: 0 Metamucil 3.4 gram/5.4 gram Powder 2 tsp PO QAM RF: 0 pantoprazole 20 mg tablet,delayed release (DR/EC) 20 mg PO HS RF: 0 Caltrate 600 plus D 600 mg (1,500 mg)-800 unit Tablet,Chewable 1 tab PO QAM RF: 0 allopurinol 100 mg tablet 100 mg PO DAILY RF: 0 Asmanex Twisthaler 220 mcg/ actuation (60) aerosol powdr breath activated 1 inh INHALATION BID RF: 0 lisinopril 20 mg tablet 20 mg PO DAILY RF: 0 potassium chloride 20 mEq tablet,ER particles/crystals 20 meq PO DAILY RF: 0 Discharge Orders: Discharge Order (Routine); Ordered 10/05/21 Ordered By: Des Quinn/Other Patient Handouts: Managing Type 2 Diabetes Admission Data Admit Date/Time: 10/02/21 18:29 Attending Provider: Ashia Chaparro Admit Provider: Shan Mosley Primary Care Provider: Eufemia Yi Other Providers: Natan Shukla ; Carmine De La Rosa ; [facility] Supervising Physician Co-Signing Physician Notes Resident Physician Supervision Note: I independently interviewed and examined the patient and verified the teixeira history and physical, reviewed labs and image studies and agree with resident Dr. Oates findings and care plan. Resident Activity Tracking Resident Involvement: Resident Care Provided Care Provided: Adult Hospital Medicine
[2021-10-05 19:01] LABS: Babesia microti DNA Not Detected (Not Detected)
--- NOTE | 2021-10-22 14:36 | Coding Query ---
CODING QUERY To promote full compliance with coding requirements relating to patient care, provider participation is requested in all cases of manufacturing scheduler uncertainty. Please assist us with the question(s) below: Coding Question(s): Pneumonia is documented and there is documentation on the 10/02 Progress Note of, "(1) Community acquired pneumonia: Plan: 89 y/o M w/ PMHx of COPD, HTN, mild cognitive impairment, DM, who presents from [facility] w/ generalized weakness/malaise. Generalized weakness: - Gen. weakness for few days without specified pain. - Trop. 0.228 upon arrival, up to 1.140, downtrending to 0.71. - Most likely primary cardiac event. - Infectious etiology less likely given normal wbc, lactate, procal - Blood cultures, urine culture pending. - CXR: L lower lung opacities - nonspecific - COVID and Influenza negative. - D/C'd Abx.", then the rest of the chart does document, "(1) Community acquired pneumonia", but it is not clear if this documentation was copy/pasted or if Community acquired pneumonia was still possible/treated. Please specify below, in your clinical opinion. ( ) Community acquired pneumonia was possible and treated initially (x ) Community acquired pneumonia was Ruled-Out ( ) Other, Please Specify Physician's Response(s): Thank you Kenya Barriga Principal Diagnosis: "that condition established after study, to be chiefly responsible for occasioning the admission of the patient to the hospital for care." Co-Existing Principal Diagnosis: "when two or more diagnoses equally meet the criteria for principal diagnosis as determined by the circumstances of admission, diagnostic work up, and/or therapy provided, and the Alphabetic Index, Tabular List, or another coding guideline does not provide sequencing direction, any one of the diagnoses may be sequenced first." "When the physician has documented what appears to be a current diagnosis in the body of the record, but has not included the diagnosis in the final diagnostic statement, the physician should be asked whether the diagnosis should be added." (Source Coding Clinic 2 QTR90. p3-4) ERICKA
== END 2021-10-05 16:52 | DRG 281 ==
LOC: ED 13:52 → EDINP 13:52 → SUATTDRO 19:18 → 2N 21:48
DX: K74.60 Unspecified cirrhosis of liver; N18.30 Chronic kidney disease, stage 3 unspecified; I87.2 Venous insufficiency (chronic) (peripheral); Z91.030 Bee allergy status; Z20.822 Contact with and (suspected) exposure to COVID-19; I12.9 Hypertensive chronic kidney disease with stage 1 through stage 4 chronic kidney disease, or unspecified chronic kidney disease; N17.9 Acute kidney failure, unspecified; E86.0 Dehydration; I21.4 Non-ST elevation (NSTEMI) myocardial infarction; I71.4 Abdominal aortic aneurysm, without rupture; R26.2 Difficulty in walking, not elsewhere classified; K21.9 Gastro-esophageal reflux disease without esophagitis; A08.4 Viral intestinal infection, unspecified; E11.22 Type 2 diabetes mellitus with diabetic chronic kidney disease; R29.6 Repeated falls; Z79.899 Other long term (current) drug therapy; Z79.84 Long term (current) use of oral hypoglycemic drugs; R63.0 Anorexia; J44.9 Chronic obstructive pulmonary disease, unspecified; Z88.1 Allergy status to other antibiotic agents; Z82.49 Family history of ischemic heart disease and other diseases of the circulatory system; E83.42 Hypomagnesemia; M10.9 Gout, unspecified

== ENCOUNTER 2021-11-22 18:41 | Inpatient (IN) ==
--- NOTE | 2021-11-22 18:53 | Emergency Department Note ---
History of Present Illness General Chief Complaint: Fall Stated Complaint: falls Time Seen by Provider: 11/22/21 18:43 Source: patient, EMS, RN notes reviewed and old records reviewed History of Present Illness This patient comes in by ambulance after having frequent falls has been falling over the last 2 weeks it got worse today is not sure why he is fallen he says he just falls he does not think he loses consciousness denies any headache or head trauma. No injuries he denies any focal numbness or weakness denies abdominal pain back pain chest pain shortness of breath. No cough he is up-to-date on the tetanus booster. He is on Plavix for A. fib according to his notes. He denies any pain at present denies dysuria hematuria. No blood or melena in his stool. Home Medications Medication Instructions Recorded Confirmed Type mometasone (Asmanex Twisthaler) 1 inh INHALATION BID 10/01/21 11/22/21 History aspirin 81 mg chewable tablet 81 mg PO DAILY #30 tab 10/19/21 11/22/21 Rx atorvastatin 20 mg tablet 20 mg PO DAILY #30 tab 10/19/21 11/22/21 Rx clopidogrel 75 mg tablet 75 mg PO DAILY #30 tab 10/19/21 11/22/21 Rx allopurinol 100 mg tablet 100 mg PO DAILY #90 tab 11/12/21 11/22/21 Rx arformoterol 15 mcg/2 mL solution 2 ml INHALATION BID #120 ml 11/12/21 11/22/21 Rx for nebulization (Brovana) diltiazem HCl 120 mg capsule,24 120 mg PO DAILY #90 cap 11/12/21 11/22/21 Rx hr,extended release food supplemt, lactose-reduced 24 ea PO BID #5688 ml 11/12/21 11/22/21 Rx (Ensure) gabapentin 300 mg capsule 300 mg PO TID #270 cap 11/12/21 11/22/21 Rx lisinopril 20 mg tablet 20 mg PO DAILY #90 tab 11/12/21 11/22/21 Rx metformin 500 mg tablet 500 mg PO BID #180 tab 11/12/21 11/22/21 Rx montelukast 10 mg tablet 10 mg PO QAM #90 tab 11/12/21 11/22/21 Rx pantoprazole 40 mg tablet,delayed 40 mg PO DAILY #90 tab 11/12/21 11/22/21 Rx release potassium chloride 20 mEq 20 meq PO DAILY #90 tab 11/12/21 11/22/21 Rx tablet,extended release(part/cryst) calcium carbonate 600 mg-vitamin 1 tab PO QAM #90 tab 11/14/21 11/22/21 Rx D3 20 mcg (800 unit) chewable tablet (Caltrate 600 plus D) nitroglycerin 0.4 mg sublingual 0.4 mg SUBLINGUAL UD PRN 11/22/21 11/22/21 History tablet psyllium 1 packet PO DAILY 11/22/21 11/22/21 History Allergies Allergy/AdvReac Type Severity Reaction Status Date / Time bee venom protein (honey bee) Allergy Unknown Unknown Unverified 11/22/21 19:19 cefuroxime [From Ceftin] Allergy Unknown Unknown Verified 11/22/21 19:19 Past Med/Surg History Medical History (Updated 11/22/21 @ 23:43 by Santino Singh MD) Abdominal aortic aneurysm Acute electrocardiogram changes Acute renal insufficiency C. difficile diarrhea Cholecystitis Cholelithiasis CKD (chronic kidney disease), stage III Frequent falls Gout Sepsis Surgical History H/O prostatectomy History of cholecystectomy History of hernia repair History of hip surgery Hx of adenoidectomy Hx of tonsillectomy Family History Mother Coronary heart disease Myocardial infarction Father Stroke Other Hypertension Denies family history of Ovarian cancer Prostate cancer Breast cancer Lung cancer Colorectal cancer Social History Smoking Status: Never smoker Second Hand Exposure: No; Hx Alcohol Use: No Hx Substance Use: No Preferred Language: Kenyan Communication Ability: Effective Level Vial Marker Required: No Beliefs That Will Affect Care: None marital status: Single Current Living Situation: [facility] Current Living Situation Comment: [facility]. current occupational status: retired How many Children do You have: 0 Feels Safe at Home: Yes caffeine: Yes Dental Care, Regularly: No Physical Activity Frequency: 1-2 Times per Week Seatbelt Use: always Sunscreen Use: No Assistive Devices: Walker Review of Systems A total of 10 systems reviewed and were otherwise negative Physical Exam Vital Signs Vital Signs - 24 hr 11/22/21 18:23 11/22/21 19:00 11/22/21 19:04 Temperature 36.6 C Temperature Source Oral Pulse Rate 72 100 H Respiratory Rate 20 20 Respiratory Depth Normal Blood Pressure 192/104 H 172/94 H Blood Pressure Mean 133 120 Pulse Oximetry 95 96 97 Oxygen Delivery Method Room Air Room Air Sepsis Recent Fever Within 48 Hours No Sepsis New/Unexplained Change in Mental Status No Sepsis Action Taken by Nursing No Action Required 11/22/21 20:02 11/22/21 21:39 Temperature Temperature Source Pulse Rate 98 H 101 H Respiratory Rate 20 22 Respiratory Depth Blood Pressure 185/106 H 165/83 H Blood Pressure Mean 132 110 Pulse Oximetry 94 95 Oxygen Delivery Method Room Air Sepsis Recent Fever Within 48 Hours Sepsis New/Unexplained Change in Mental Status Sepsis Action Taken by Nursing General: Well developed well nourished alert male who appears in no acute distress, breathing comfortably on room air. Normal speech, nonslurred HEENT: Normal cephalic atraumatic. Pupils are equal round and reactive to light. Extraocular movements are intact. Oropharynx is pink with moist mucous membranes. No swelling of the mouth lips or tongue. Neck: Supple with a midline trachea. No meningeal signs or stiffness, no JVD or bruits. No Stridor. Chest: Clear to auscultation bilaterally. No wheezes or rhonchi. No increased work of breathing. Heart: Regular rate and rhythm regularity and PVCs seen on the monitor without murmurs or gallops. Abdomen: Soft nontender, nondistended without rebound guarding or rigidity. Extremities: No cyanosis clubbing or edema. No calf tenderness or assymetry Spine/Back. Non tender to palpation. No CVA tenderness Skin: Good turgor without rashes. Neurologic exam: Cranial nerves two through 12 are intact. Motor and sensation are intact and symmetrical throughout. Course Administered Medications Magnesium Sulfate/Dextrose (Magnesium Sulfate / D5w) 1 gm in 100 mls @ 50 mls/hr IV Q2H HODA Stop: 11/23/21 07:44 Last Admin: 11/22/21 23:19 Dose: 50 mls/hr Documented by: [id number] Infusion: 11/22/21 23:19 Dose: 50 mls/hr Documented by: [id number] Admin: 11/22/21 21:39 Dose: 50 mls/hr Documented by: [id number] Lactated Ringer's (Lr) 1,000 mls @ 80 mls/hr IV .[id number] HODA Stop: 11/23/21 10:44 Last Admin: 11/22/21 23:18 Dose: 80 mls/hr Documented by: [id number] Discontinued Medications Sodium Chloride (Nss) 500 mls @ 999 mls/hr IV .Q31M HODA Stop: 11/22/21 19:30 Last Infusion: 11/22/21 20:25 Dose: 0 mls/hr Documented by: [id number] Admin: 11/22/21 19:11 Dose: 999 mls/hr Documented by: [id number] Medical Decision Making Differential Diagnosis Syncope, anemia, intracranial hemorrhage, stroke, TIA, electrolyte or metabolic abnormality, aneurysm, dehydration, sepsis, infection, UTI Medical Records Attestation: I reviewed the patient's medical records. Home Medications Current Medication List: was personally reviewed by me Laboratory Data Attestation: I reviewed the patient's lab results. Result diagrams: 11/22/21 19:11 11/22/21 19:11 Lab Results 11/22/21 11/22/21 11/22/21 Range/Units 19:05 19:11 19:11 WBC 4.97 (4.8-10.8) K/uL RBC 4.22 L (4.7-6.1) M/uL Hgb 12.7 L (14.0-18.0) g/dL Hct 40.3 L (42-52) % MCV 95.5 (80-100) fL MCH 30.1 (25-34) pg MCHC 31.5 L (32-36) g/dL RDW Std Deviation 50.8 H (36.4-46.3) fL RDW Coeff of Svetlana 14.6 H (11.5-14.5) % Plt Count 147 (130-400) K/uL MPV 10.0 (7.4-10.4) fL Immature Gran % (Auto) 0.2 % Neut % (Auto) 67.0 % Lymph % (Auto) 11.5 % [place]inn % (Auto) 17.1 % Eos % (Auto) 3.4 % Baso % (Auto) 0.8 % Neut # (Auto) 3.33 (1.4-6.5) K/uL Lymph # (Auto) 0.57 L (1.2-3.4) K/uL Linn # (Auto) 0.85 H (0.11-0.59) K/uL Eos # (Auto) 0.17 (0-0.5) K/uL Baso # (Auto) 0.04 (0-0.2) K/uL Immature Gran # (Auto) 0.01 (0.00-0.02) K/uL Sodium 138 (136-145) mmol/L Potassium 4.5 (3.5-5.1) mmol/L Chloride 104 (98-107) mmol/L Carbon Dioxide 27 (21-32) mmol/L Anion Gap 7 (3-11) BUN 20 (6-23) mg/dl Creatinine 1.48 H (0.6-1.4) mg/dl Est Cr Clr Drug Dosing Not Reportable Est GFR ( Amer) 47.9 ml/min Est GFR (Non-Af Amer) 41.4 ml/min BUN/Creatinine Ratio 13.5 (10-20) Glucose 168 H (70-99(Fasting)) mg/dl Calcium 8.6 (8.5-10.1) mg/dl Magnesium 1.3 L (1.7-2.4) mg/dl Total Bilirubin 0.7 (0.2-1.0) mg/dl AST 25 (13-39) U/L ALT 14 (7-52) U/L Alkaline Phosphatase 43 (34-104) U/L Troponin I < 0.03 (0-0.04) ng/ml Total Protein 7.3 (6.0-8.3) gm/dl Albumin 4.0 (3.4-5.0) gm/dl Globulin 3.3 (2.5-4.0) gm/dl Albumin/Globulin Ratio 1.2 (0.9-2) TSH (0.300-4.500) uIu/ml Free T4 (0.61-1.60) ng/dl Urine Color Urine Appearance (Clear) Urine pH (4.5-7.5) Ur Specific [place] (1.000-1.030) Urine Protein (Negative) Urine Glucose (UA) (Negative) Urine Ketones (Negative) Urine Blood (Negative) Urine Nitrite (Negative) Urine Bilirubin (Negative) Urine Urobilinogen (Negative) Ur Leukocyte Esterase (Negative) SARS-CoV-2, RNA, NAAT NEGATIVE (NEGATIVE) 11/22/21 11/22/21 Range/Units 19:11 20:23 WBC (4.8-10.8) K/uL RBC (4.7-6.1) M/uL Hgb (14.0-18.0) g/dL Hct (42-52) % MCV (80-100) fL MCH (25-34) pg MCHC (32-36) g/dL RDW Std Deviation (36.4-46.3) fL RDW Coeff of Svetlana (11.5-14.5) % Plt Count (130-400) K/uL MPV (7.4-10.4) fL Immature Gran % (Auto) % Neut % (Auto) % Lymph % (Auto) % [place] % (Auto) % Eos % (Auto) % Baso % (Auto) % Neut # (Auto) (1.4-6.5) K/uL Lymph # (Auto) (1.2-3.4) K/uL Linn # (Auto) (0.11-0.59) K/uL Eos # (Auto) (0-0.5) K/uL Baso # (Auto) (0-0.2) K/uL Immature Gran # (Auto) (0.00-0.02) K/uL Sodium (136-145) mmol/L Potassium (3.5-5.1) mmol/L Chloride (98-107) mmol/L Carbon Dioxide (21-32) mmol/L Anion Gap (3-11) BUN (6-23) mg/dl Creatinine (0.6-1.4) mg/dl Est Cr Clr Drug Dosing Est GFR ( Amer) ml/min Est GFR (Non-Af Amer) ml/min BUN/Creatinine Ratio (10-20) Glucose (70-99(Fasting)) mg/dl Calcium (8.5-10.1) mg/dl Magnesium (1.7-2.4) mg/dl Total Bilirubin (0.2-1.0) mg/dl AST (13-39) U/L ALT (7-52) U/L Alkaline Phosphatase (34-104) U/L Troponin I (0-0.04) ng/ml Total Protein (6.0-8.3) gm/dl Albumin (3.4-5.0) gm/dl Globulin (2.5-4.0) gm/dl Albumin/Globulin Ratio (0.9-2) TSH 5.005 H (0.300-4.500) uIu/ml Free T4 0.69 (0.61-1.60) ng/dl Urine Color Yellow Urine Appearance Clear (Clear) Urine pH 7.5 (4.5-7.5) Ur Specific [place] 1.008 (1.000-1.030) Urine Protein Negative (Negative) Urine Glucose (UA) Negative (Negative) Urine Ketones Negative (Negative) Urine Blood Negative (Negative) Urine Nitrite Negative (Negative) Urine Bilirubin Negative (Negative) Urine Urobilinogen Negative (Negative) Ur Leukocyte Esterase Negative (Negative) SARS-CoV-2, RNA, NAAT (NEGATIVE) Imaging Data Attestation: I personally reviewed and interpreted this imaging study as follows: My Impression: Chest x-rayno acute infiltrate, failure, pneumothorax seen Radiologist's Impression: Head CT 11/22/21 18:48 CT head/brain wo con CLINICAL HISTORY: weakness, freq falls Technique: Contiguous axial CT images of the head were acquired from the base of the skull to the vertex without intravenous contrast administration. Images were viewed in brain, subdural and bone windows. Automated dose lowering techniques and/or adjustment according to patient size were utilized for this exam. Comparison: Comparison is made to CT head 10/15/2018 Findings: The ventricles, basal cisterns, and cerebral sulci are normal. There is no acute intracranial hemorrhage or evidence of acute territorial infarction. Neither mass effect, shift of the midline structures, nor abnormal extra-axial fluid collections are shown. Imaged portions of the paranasal sinuses and mastoid air cells are clear. The orbits appear normal. There are no acute fractures of the calvaria or scalp swelling. Impression: No acute intracranial hemorrhage, no evidence of acute territorial infarction or other acute intracranial disease process. ACT 112: Negative or not required by law. Electronically signed by: Shan Moore M.D. 11/22/2021 7:56 PM Abdomen/Pelvis CT 11/22/21 18:54 CT abd pelvis wo con CLINICAL HISTORY: freq falls, hx of AAA TECHNIQUE: Helical axial images of the abdomen and pelvis were obtained. Automated dose lowering techniques and/or adjustment according to patient size were utilized for this exam. This exam was performed without intravenous contrast. COMPARISON: Comparison is made to renal CT 05/18/2019 FINDINGS: Lower chest: Emphysematous changes are seen in the lungs. Liver: Unremarkable. No focal lesions are seen. Gallbladder and biliary tree: Patient is status post cholecystectomy. No intra- or extrahepatic biliary ductal dilation. Pancreas: Unremarkable, no focal lesions. Spleen: Unremarkable. Adrenals: Unremarkable. Kidneys and ureters: The right kidney is atrophic in appearance. Multiple bilateral cysts are seen. Bladder: Unremarkable. Reproductive organs: Unremarkable. Bowel: Diverticulosis is seen without evidence of diverticulitis. Lymph nodes Retroperitoneal: Unremarkable. Mesenteric: Unremarkable. Pelvic: Unremarkable. Peritoneum: Normal. Vessels: Infrarenal aortic aneurysm is seen. It measures 37 mm. Abdominal wall: Surgical clips are seen in the right inguinal region which may represent hernia repair. Fat-containing umbilical hernia is seen. Bones: Degenerative changes in the visualized spine. IMPRESSION: 1. Redemonstration of infrarenal aortic aneurysm. No evidence of intramural hematoma, otherwise evaluation is limited in this noncontrast exam. 2. Additional findings as above. ACT 112: Negative or not required by law. Electronically signed by: Shan Moore M.D. 11/22/2021 8:10 PM ECG Data Attestation: I personally reviewed and interpreted this ECG as follows: Indication: weakness Rate (beats per minute): 100 Rhythm: sinus with SA Findings: + 1st degree AV block; no ST depression or no ST elevation Comparison ECG Date: from (10/02/21) Change: the following changes noted (t wave lateral inversions have improved ) Prescription Drug Monitoring Prescription Drug Findings: EKG#2: Normal sinus rhythm with first-degree AV block. Old inferior infarct. QTC is mildly prolonged. No ischemic changes compared to EKG #1. QTC is more prolonged compared to EKG #1 MDM Narrative This patient comes in as described above. He was placed on a hall monitor and room B 11. I saw him and talk to the ambulance crew upon arrival. He has been falling frequently he denies any complaints or injuries. He has stable vital signs in fact his hypertensive. He has no focal neurologic deficits no complaints. IV X established blood work was obtained I did a CAT scan of his head EKG chest x-ray multiple blood testing to further reviewed his history. His CAT scan of his head is unremarkable. CAT scan the abdomen is unremarkable and the known aneurysm is unchanged and at 3.7 cm infrarenal. He has no white count or fever to suggest infection he does have a mildly elevated creatinine but other than this no electrolyte or metabolic abnormality. Troponin is negative. He did have some vague chest discomfort/shortness of breath after coming back from CAT scan we repeated an 80 and it was unchanged. His chest pain did subside. Given his frequent falls, weakness, and chest pain, I do think he needs to be admitted/observed and have consulted Dr. Bailon to see him in the ER for these measures. Continuous cardiac monitoring: Orders placed in EMR for continuous hall monitor. Upon my interpretation it does look like he is in A. fib with a first- degree AV block and frequent PACs. Rate is 80. Impression & Plan Weakness, Frequent falls, Chest pain, assisted (current) use of antithrombotics/antiplatelets Discharge Plan Visit Data Chief Complaint: Fall Stated Complaint: falls ED Provider: Torres Stephens Discharge Problem: Weakness, Frequent falls, Chest pain, terminal gauger (current) use of anti thrombotics/antiplatelets Forms Stand Alone Forms: My [facility] [place] [facility] Prescriptions Prescriptions: No Action allopurinol 100 mg tablet 100 mg PO DAILY Qty: 90 RF: 1 Brovana 15 mcg/2 mL solution for nebulization 2 ml INHALATION BID Qty: 120 RF: 1 diltiazem HCl 120 mg capsule,extended release 24 hr 120 mg PO DAILY Qty: 90 RF: 1 Ensure Liquid 24 ea PO BID Qty: 5688 RF: 0 gabapentin 300 mg capsule 300 mg PO TID Qty: 270 RF: 1 lisinopril 20 mg tablet 20 mg PO DAILY Qty: 90 RF: 1 metformin 500 mg tablet 500 mg PO BID Qty: 180 RF: 3 montelukast 10 mg tablet 10 mg PO QAM Qty: 90 RF: 2 pantoprazole 40 mg tablet,delayed release (DR/EC) 40 mg PO DAILY Qty: 90 RF: 3 potassium chloride 20 mEq tablet,ER particles/crystals 20 meq PO DAILY Qty: 90 RF: 1 Caltrate 600 plus D 600 mg-20 mcg (800 unit) tablet,chewable 1 tab PO QAM Qty: 90 RF: 1 clopidogrel 75 mg tablet 75 mg PO DAILY Qty: 30 RF: 0 atorvastatin 20 mg tablet 20 mg PO DAILY Qty: 30 RF: 0 aspirin 81 mg tablet,chewable 81 mg PO DAILY Qty: 30 RF: 0 Metamucil Packet 1 packet PO DAILY RF: 0 nitroglycerin 0.4 mg tablet, sublingual 0.4 mg sublingual UD PRN (Reason: Chest Pain) RF: 0 Asmanex Twisthaler 220 mcg/ actuation (60) aerosol powdr breath activated 1 inh INHALATION BID RF: 0 Referrals Referrals: Eufemia Yi MD [Primary Care Provider] -
[2021-11-22] MEDS ORDERED: SODIUM CHLORIDE 0.9% 500 ML IV SCH (19:00)
[2021-11-22 19:22] LABS: Basophils # (auto) 0.04 K/uL (0-0.2); Basophils % (auto) 0.8 %; Eosinophils # (auto) 0.17 K/uL (0-0.5); Eosinophils % (auto) 3.4 %; Hematocrit (blood only) 40.3 % (42-52); Hemoglobin 12.7 g/dL (14.0-18.0); Immature Granulocytes # (auto) 0.01 K/uL (0.00-0.02); Immature Granulocytes % (auto) 0.2 %; Lymphocytes # (auto) 0.57 K/uL (1.2-3.4); Lymphocytes % (auto) 11.5 %; Mean Corpuscular Hemoglobin 30.1 pg (25-34); Mean Corpuscular Hgb Conc 31.5 g/dL (32-36); Mean Corpuscular Volume 95.5 fL (80-100); Monocytes # (auto) 0.85 K/uL (0.11-0.59); Monocytes % (auto) 17.1 %; Neutrophils # (auto) 3.33 K/uL (1.4-6.5); Platelet Count 147 K/uL (130-400); RDW Coefficient of Variation 14.6 % (11.5-14.5); RDW Standard Deviation 50.8 fL (36.4-46.3); Red Blood Count 4.22 M/uL (4.7-6.1); White Blood Count 4.97 K/uL (4.8-10.8)
[2021-11-22 19:44] LABS: Alanine Aminotransferase 14 U/L (7-52); Albumin Globulin Ratio 1.2 (0.9-2); Alkaline Phosphatase 43 U/L (34-104); Anion Gap 7 (3-11); Aspartate Aminotransferase 25 U/L (13-39); BUN Creatinine Ratio 13.5 (10-20); Bilirubin,Total 0.7 mg/dl (0.2-1.0); Blood Urea Nitrogen 20 mg/dl (6-23); Calcium 8.6 mg/dl (8.5-10.1); Carbon Dioxide 27 mmol/L (21-32); Chloride 104 mmol/L (98-107); Est GFR (African American) 47.9 ml/min; Est GFR (Non-African American) 41.4 ml/min; Globulin 3.3 gm/dl (2.5-4.0); Glucose 168 mg/dl (70-99(Fasting)); Magnesium 1.3 mg/dl (1.7-2.4); Potassium 4.5 mmol/L (3.5-5.1); Sodium 138 mmol/L (136-145); Total Protein 7.3 gm/dl (6.0-8.3)
[2021-11-22 19:46] LABS: Troponin I < 0.03 ng/ml (0-0.04)
--- NOTE | 2021-11-22 19:57 | CT Scan Report ---
CT head/brain wo con CLINICAL HISTORY: weakness, freq falls Technique: Contiguous axial CT images of the head were acquired from the base of the skull to the edna gabriella without intravenous contrast administration. Images were viewed in brain, subdural and bone [facility] ws. Automated dose lowering techniques and/or adjustment according to patient size were utilized for this exam. Comparison: Comparison is made to CT head 10/15/2018 Findings: The ventricles, basal cisterns, and cerebral sulci are normal. There is no acute intracranial hemorrh age or evidence of acute territorial infarction. Neither mass effect, shift of the midline structures , nor abnormal extra-axial fluid collections are shown. Imaged portions of the paranasal sinuses and mastoid air cells are clear. The orbits appear normal. There are no acute fractures of the calvaria or scalp swelling. Impression: No acute intracranial hemorrhage, no evidence of acute territorial infarction or other acute intracra nial disease process. ACT 112: Negative or not required by law. Electronically signed by: Shan Moore M.D. 11/22/2021 7:56 PM
[2021-11-22 20:00] LABS: Thyroid Stimulating Hormone 5.005 uIu/ml (0.300-4.500)
--- NOTE | 2021-11-22 20:11 | CT Scan Report ---
CT abd pelvis wo con CLINICAL HISTORY: freq falls, hx of AAA TECHNIQUE: Helical axial images of the abdomen and pelvis were obtained. Automated dose lowering tech niques and/or adjustment according to patient size were utilized for this exam. This exam was perfor med without intravenous contrast. COMPARISON: Comparison is made to renal CT 05/18/2019 FINDINGS: Lower chest: Emphysematous changes are seen in the lungs. Liver: Unremarkable. No focal lesions are seen. Gallbladder and biliary tree: Patient is status post cholecystectomy. No intra- or extrahepatic bilia ry ductal dilation. Pancreas: Unremarkable, no focal lesions. Spleen: Unremarkable. Adrenals: Unremarkable. Kidneys and ureters: The right kidney is atrophic in appearance. Multiple bilateral cysts are seen. Bladder: Unremarkable. Reproductive organs: Unremarkable. Bowel: Diverticulosis is seen without evidence of diverticulitis. Lymph nodes Retroperitoneal: Unremarkable. Mesenteric: Unremarkable. Pelvic: Unremarkable. Peritoneum: Normal. Vessels: Infrarenal aortic aneurysm is seen. It measures 37 mm. Abdominal wall: Surgical clips are seen in the right inguinal region which may represent hernia repai r. Fat-containing umbilical hernia is seen. Bones: Degenerative changes in the visualized spine. IMPRESSION: 1. Redemonstration of infrarenal aortic aneurysm. No evidence of intramural hematoma, otherwise eval uation is limited in this noncontrast exam. 2. Additional findings as above. ACT 112: Negative or not required by law. Electronically signed by: Shan Moore M.D. 11/22/2021 8:10 PM
--- NOTE | 2021-11-22 20:28 | XRay Report ---
XR chest 1V portable CLINICAL HISTORY: weakness TECHNIQUE: Single frontal radiograph of the chest was obtained. Comparison: Comparison is made to chest one view 10/01/2021 FINDINGS: No lines and tubes are seen. Cardiomegaly is noted. Lungs are underinflated but clear. No evidence of pleural effusion or pneumothorax. IMPRESSION: No acute chest disease. ACT 112: Negative or not required by law. Electronically signed by: Shan Moore M.D. 11/22/2021 8:27 PM
[2021-11-22 20:33] LABS: Appearance Urine Clear (Clear); Bilirubin Urine Negative (Negative); Blood Urine Negative (Negative); Color Urine Yellow; Glucose Urine UA Negative (Negative); Ketones Urine Negative (Negative); Leukocyte Esterase Urine Negative (Negative); Nitrite Urine Negative (Negative); Protein Urine Negative (Negative); Specific Gravity Urine 1.008 (1.000-1.030); Urobilinogen Urine Negative (Negative); pH Urine 7.5 (4.5-7.5)
[2021-11-22 20:33] LABS: T4 Free Thyroxine 0.69 ng/dl (0.61-1.60)
--- NOTE | 2021-11-22 21:12 | History & Physical Report ---
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 Ambulatory Dysfunction; Failure to Thrive; Protein Calorie Malnutrition; Weakness Patient has chronic generalized weakness that has been slowly progressive for at least several months, with associated falls, due to poor appetite and failure to thrive with minimal PO intake. No weight loss or focal symptoms of malignancy or infection. - Albumin 4.0 although was 2.3 in 09/2021 - suspect hemoconcentration 2/ dehydration - Prealbumin ordered - s/p 1L NSS in the ED; will continue with LR @80cc/hr x1L - ordered PT/OT to assess patient for rehab, which may be necessary given gradually progressive ambulatory dysfunction with falls - encourage PO intake - ordered MVI and nutritional boosts Hypomagnesemia Mg 1.3, suspect due to dehydration and overall malnutrition. - ordered Mag sulfate 5g - infusing - trend in AM Chest/Abdominal Pain Generalized pain that occurred immediately after CT A/P, without associated dizziness/lightheadedness of fevers. Resolved quickly without intervention. Alexsandra pect adverse effect of contrast. Do not suspect ACS at this time given quick resolution of pain and atypical presentation. - EKG showing sinus rhythm with 1st degree AV block and previous inferior in farct which are chronic findings, but does show mild ST depression in anterior leads - repeat EKG ordered - Troponin negative x1, will check serial Troponin Q6H x2 - PRN EKG for chest pain CKDIII Cr 1.48, at chronic baseline. - continue to trend - renal dosing of meds Chronic Medical Conditions COPD: continue home inhalers and Singulair CAD/HTN/HLD: continue Aspirin, Atorvastatin, Plavix, Diltiazem, Lisinopril T2DM: Last A1c 7.0 in 09/2021 - held Metformin, SSI while hospitalized GERD: continue home Protonix Gout: continue home Allopurinol FEN/GI: DM2/HH diet, LR @80cc/hr x1L DVT Prophylaxis: SCDs, Plavix Code Status: full code Disposition: med/surg with tele (2) Failure to thrive: (3) Decreased appetite: (4) HTN (hypertension): (5) Diabetes: (6) Hyperlipidemia: (7) Unspecified cirrhosis of liver: (8) Malignant neoplasm of bladder: (9) Acid reflux disease: (10) COPD (chronic obstructive pulmonary disease): (11) CHF (congestive heart failure): (12) CAD (coronary artery disease): History of Present Illness Chief Complaint: fall Primary Care Provider: Eufemia Yi MD Angel Tran is an 89yo male with PMHx significant for 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 Patient reports that he chronically has a small appetite with "not enough" solid or fluid consumption for >several months. Denies weight loss. Reports that he has had several events when he "almost fell" over the last several months, due to his legs feeling weak with ambulation and "giving out" from under him. He denies loss of balance or tripping over anything. He denies LOC before the falls or associated with the falls. Fell onto his knees on both occasions and was able to stand back up with help. Denies urine/stool incontinence. Denies headaches, N/V, diarrhea, shortness of breath, chest pain, abdominal pain, rash. Denies previous/current tobacco use or alcohol/drug use. Usually proficient in ADLs and able to ambulate around the longterm with a walker. In the ED the patient had BP 192/104 and HR 100. Afebrile and satting well on room air. Laboratory evaluation showed Mg 1.3 but otherwise largely unremarkable: Hgb 12.7 (chronic baseline), Cr 1.48 (chronic baseline). TSH 5.005 and FT4 0.69. UA without signs of infection and COVID negative. Imaging unremarkable: CXR without acute cardiopulmonary process. CT head without acute abnormality - in particular no sign of ventricular dilation. CT A/P with chronic infrarenal aortic aneurysm 3.7cm largely unchanged in size. Of note the patient reports that he had generalized pain in his chest/abdomen/groin immediately following the CT, which resolved within 20 minutes without intervention. No current pain. Feels to be at chronic baseline. Allergies Allergy/AdvReac Type Severity Reaction Status Date / Time bee venom protein (honey bee) Allergy Unknown Unknown Unverified 11/22/21 19:19 cefuroxime [From Ceftin] Allergy Unknown Unknown Verified 11/22/21 19:19 Home Medications Medication Instructions Recorded Confirmed Type mometasone (Asmanex Twisthaler) 1 inh INHALATION BID 10/01/21 11/22/21 History aspirin 81 mg chewable tablet 81 mg PO DAILY #30 tab 10/19/21 11/22/21 Rx atorvastatin 20 mg tablet 20 mg PO DAILY #30 tab 10/19/21 11/22/21 Rx clopidogrel 75 mg tablet 75 mg PO DAILY #30 tab 10/19/21 11/22/21 Rx allopurinol 100 mg tablet 100 mg PO DAILY #90 tab 11/12/21 11/22/21 Rx arformoterol 15 mcg/2 mL solution 2 ml INHALATION BID #120 ml 11/12/21 11/22/21 Rx for nebulization (Brovana) diltiazem HCl 120 mg capsule,24 120 mg PO DAILY #90 cap 11/12/21 11/22/21 Rx hr,extended release food supplemt, lactose-reduced 24 ea PO BID #5688 ml 11/12/21 11/22/21 Rx (Ensure) gabapentin 300 mg capsule 300 mg PO TID #270 cap 11/12/21 11/22/21 Rx lisinopril 20 mg tablet 20 mg PO DAILY #90 tab 11/12/21 11/22/21 Rx metformin 500 mg tablet 500 mg PO BID #180 tab 11/12/21 11/22/21 Rx montelukast 10 mg tablet 10 mg PO QAM #90 tab 11/12/21 11/22/21 Rx pantoprazole 40 mg tablet,delayed 40 mg PO DAILY #90 tab 11/12/21 11/22/21 Rx release potassium chloride 20 mEq 20 meq PO DAILY #90 tab 11/12/21 11/22/21 Rx tablet,extended release(part/cryst) calcium carbonate 600 mg-vitamin 1 tab PO QAM #90 tab 11/14/21 11/22/21 Rx D3 20 mcg (800 unit) chewable tablet (Caltrate 600 plus D) nitroglycerin 0.4 mg sublingual 0.4 mg SUBLINGUAL UD PRN 11/22/21 11/22/21 History tablet psyllium 1 packet PO DAILY 11/22/21 11/22/21 History Past Med/Surg History Medical History (Updated 11/24/21 @ 02:44 by Natan Mahmood) Abdominal aortic aneurysm Acute electrocardiogram changes Acute renal insufficiency C. difficile diarrhea Cholecystitis Cholelithiasis CKD (chronic kidney disease), stage III Frequent falls Gout Sepsis Surgical History H/O prostatectomy History of cholecystectomy History of hernia repair History of hip surgery Hx of adenoidectomy Hx of tonsillectomy Family History Mother Coronary heart disease Myocardial infarction Father Stroke Other Hypertension Denies family history of Ovarian cancer Prostate cancer Breast cancer Lung cancer Colorectal cancer Social History Smoking Status: Current every day smoker Second Hand Exposure: No; Do You Dip or Chew Tobacco: No; Tobacco Cessation Education Requested by Patient: No Hx Alcohol Use: No Hx Substance Use: No Preferred Language: Bhutanese Communication Ability: Effective Applications Architect Required: No Beliefs That Will Affect Care: None marital status: Single Current Living Situation: Penitentiary Current Living Situation Comment: [facility]. current occupational status: retired How many Children do You have: 0 Other Information That Helps Us Care for You: No Feels Safe at Home: Yes Safety Concerns: Feels Safe At This Time caffeine: Yes Dental Care, Regularly: No Physical Activity Frequency: 1-2 Times per Week Seatbelt Use: always Sunscreen Use: No Assistive Devices: Walker Review of Systems Review of Systems: All systems reviewed & are unremarkable except as noted in HPI & below Physical Exam Physical Exam: General: A&Ox3. NAD. Cooperative. HEENT: Atraumatic, normocephalic. EOMI. PERRLA. Pulm: CTAB A&P. -wheezes, -rales, -rhonchi. Symmetrical chest rise. No increase work of breathing. No respiratory distress. Cardiac: RRR, -mrg. Radial pulses intact and symmetrical. Abdominal: soft, non-tender, non-distended, BS x 4 Neuro: 5/5 strength in upper/lower extremities. Sensation intact and 2+ patellar DTRs. No cerebellar signs. Results & Data Results & Data ([facility]) Vital Signs (Past 12 Hours) Vital Signs Temp Pulse Resp BP Pulse Ox 11/22/21 20:02 98 H 20 185/106 H 94 11/22/21 19:04 97 11/22/21 19:00 100 H 20 172/94 H 96 11/22/21 18:23 36.6 C 72 20 192/104 H 95 Code Status & VTE Plan Code Status full code Supervising Physician Co-Signing Physician Notes Attending addendum: I have physically seen this patient, have supervised the medical residents activities, and agree with the H&P unless as otherwise noted. Assessment and Plan: Elevated troponin/abnormal EKG/ischemic cardiomyopathy/CAD/CHF/hypertension- The patient will be admitted to telemetry for serial cardiac enzymes, serial EKG's, cardiac rhythm monitoring and a 2-D echocardiogram with Dopplers. Continue aspirin, clopidogrel, diltiazem, lisinopril and nitroglycerin sublingual Heparin drip as noted Consult cardiology Hypomagnesemia- Magnesium 1.3 upon admission Give IV supplementation, and recheck laboratories in a.m. Remaining orders and notations as noted Resident Activity Tracking Resident Involvement: Resident Care Provided Care Provided: Adult Hospital Medicine
[2021-11-22] MEDS: MAGNESIUM SULFATE / D5W 1 GM/100 ML BAG IV SCH ×2 (21:39→23:19)
[2021-11-22] MEDS ORDERED: LACTATED RINGER'S 1,000 ML IV SCH (22:15)
[2021-11-23] MEDS ORDERED: DEXTROSE 50% 50 ML SYRINGE IV PRN (00:53)
[2021-11-23] MEDS ORDERED: POLYETHYLENE (MIRALAX) 17 GM PACK PO PRN (00:53)
[2021-11-23] MEDS ORDERED: CARBOHYDRATES FOR HYPOGLYCEMIA PO PRN (00:53)
[2021-11-23] MEDS ORDERED: GLUCOSE 10 TABS/TUBE PO PRN (00:53)
[2021-11-23] MEDS ORDERED: GLUCOSE 40% GEL 15 GM TUBE PO PRN (00:53)
[2021-11-23] MEDS ORDERED: GLUCAGON FOR INJ 1 MG VIAL SQ PRN (00:53)
[2021-11-23] MEDS: MAGNESIUM SULFATE / D5W 1 GM/100 ML BAG IV SCH ×2 (02:09→04:11)
[2021-11-23] MEDS ORDERED: ASPIRIN 81 MG CHEW PO STA (03:30)
[2021-11-23] MEDS ORDERED: HEPARIN SOD (PORCINE) 1000 UNIT/ML IV ONE (03:48)
[2021-11-23] MEDS ORDERED: HEPARIN SODIUM/DEXTROSE 25,000 UNITS/500 ML BAG IV SCH (04:00)
[2021-11-23] MEDS ORDERED: HEPARIN IV BOLUS 5,000 UNITS in SYRINGE 0 ML IV ONE (04:45)
[2021-11-23 04:54] LABS: Basophils # (auto) 0.03 K/uL (0-0.2); Basophils % (auto) 0.7 %; Eosinophils % (auto) 2.4 %; Hemoglobin 12.4 g/dL (14.0-18.0); Immature Granulocytes # (auto) 0.02 K/uL (0.00-0.02); Immature Granulocytes % (auto) 0.5 %; Lymphocytes % (auto) 18.8 %; Mean Corpuscular Hemoglobin 30.8 pg (25-34); Mean Corpuscular Volume 94.5 fL (80-100); Mean Platelet Volume 9.9 fL (7.4-10.4); Monocytes # (auto) 0.69 K/uL (0.11-0.59); Monocytes % (auto) 16.2 %; Neutrophils # (auto) 2.61 K/uL (1.4-6.5); Neutrophils % (auto) 61.4 %; Platelet Count 138 K/uL (130-400); RDW Coefficient of Variation 14.6 % (11.5-14.5); RDW Standard Deviation 50.5 fL (36.4-46.3); Red Blood Count 4.02 M/uL (4.7-6.1); White Blood Count 4.25 K/uL (4.8-10.8)
[2021-11-23 05:07] LABS: Partial Thromboplastin Time 27.6 Seconds (21.0-31.0); Prothrombin Time 10.9 Seconds (9.0-12.0)
[2021-11-23 05:10] LABS: Mean Corpuscular Hgb Conc 32.6 g/dL (32-36)
[2021-11-23 05:13] LABS: Calcium 9.2 mg/dl (8.5-10.1); Creatinine Clr Calc Pharmacy 30.3 ml/min; Est GFR (African American) 54.5 ml/min; Est GFR (Non-African American) 47.1 ml/min; Magnesium 2.7 mg/dl (1.7-2.4); Phosphorus 2.9 mg/dl (2.5-4.9); Potassium 4.3 mmol/L (3.5-5.1)
[2021-11-23 05:59] LABS: Prealbumin 22.3 mg/dl (20-40)
[2021-11-23 06:10] LABS: Troponin I 0.29 ng/ml (0-0.04)
[2021-11-23] MEDS: FORMOTEROL 20 MCG/2 ML VIAL INH SCH ×2 (08:02→20:05)
[2021-11-23] MEDS: INSULIN ASPART PER UNIT SC SCH ×4 (08:26→20:26)
[2021-11-23] MEDS: dilTIAZem ER 120 MG CAPCR PO SCH (08:27)
[2021-11-23] MEDS: allopurinoL 100 MG TAB PO SCH (08:28)
[2021-11-23] MEDS: CALCIUM 600MG + VIT D 400 IU TAB PO SCH (08:28)
[2021-11-23] MEDS: ASPIRIN 81 MG ECTAB PO SCH (08:28)
[2021-11-23] MEDS: PANTOprazole 40 MG TAB PO SCH (08:28)
[2021-11-23] MEDS: CLOPIDOGREL BISULFATE 75 MG TAB PO SCH (08:28)
[2021-11-23] MEDS: PSYLLIUM 58.6% POWDER PACKET PO SCH (08:28)
[2021-11-23] MEDS: ATORVASTATIN 20 MG TAB PO SCH (08:28)
[2021-11-23] MEDS: GABAPENTIN 300 MG CAP PO SCH ×3 (08:29→20:15)
[2021-11-23] MEDS: MULTIVITAMIN TAB PO SCH (08:30)
[2021-11-23] MEDS: lisinopril 20 MG TAB PO SCH (08:31)
[2021-11-23] MEDS: POTASSIUM CHLORIDE CRTAB 20 MEQ TABCR PO SCH (08:31)
[2021-11-23] MEDS: FLUTICASONE FUROATE 200MCG 14 PUFFS/INHALER INH SCH (08:31)
[2021-11-23] MEDS: LEVOTHYROXINE SODIUM 25 MCG TABLET PO SCH (11:03)
[2021-11-23 11:38] LABS: Partial Thromboplastin Ratio 3.2
--- NOTE | 2021-11-23 12:35 | Cardiology Consultation ---
Date of Consultation November 23, 2021 Assessment & Plan (1) HTN (hypertension): (2) NSTEMI (non-ST elevated myocardial infarction): (3) Frequent falls: (4) Valvular heart disease: (5) Abdominal aortic aneurysm: 1. Frequent falls: This history is somewhat contradictory. At the time of presentation he did not report any loss of consciousness. None of this has been reported by the providers at his facility. However, today he did suggest that he may have lost consciousness on 2 occasions. He seems to have little recollection of these events. He does not appear to recognize any other symptoms or reasons for falling. He certainly could be at risk for cardiac arrhythmia. Given his presumed recent infarct and mildly reduced LV systolic function he would be a risks of ventricular arrhythmias. Additionally, he does have evidence of 1st degree AV block on his EKG. This is somewhat worse since initiating beta-blockade at his last admission. No events on telemetry so far. I would recommend continuing telemetry while he is an inpatient. He likely deserves a period of outpatient monitoring as well unless he has some episodes while on telemetry in the hospital. Additionally, I think we could stop his diltiazem in favor of amlodipine for better blood pressure control. 2. Elevated troponin: This is unlikely to represent an acute coronary event. There was some concern that he had an acute coronary syndrome few weeks ago. The natural history of medical treatment for acute coronary syndromes his recurrent ischemia. He did have an event last night that involve some element of chest discomfort, but this was in the setting of diffuse other symptoms. It was transient and resolved without any specific treatment. I think his next biomarker is of similar magnitude to the 1st to he can have his heparin discontinued and continue medical therapy for presumed coronary disease. 3. Valvular heart disease: Known to have an element of mitral and aortic regurgitation. 4. Abdominal aortic aneurysm: Apparently stable. This can be monitored over time. Continue good blood pressure control and beta-blockade. 5. 1st degree AV block: Somewhat worse on EKG at the time of his current presentation. Likely related to the addition of beta-blockade at his last admission. Unclear this is playing any role in his symptoms. However, I think we can certainly discontinue his diltiazem in favor of amlodipine if it is needed for blood pressure control. Final recommendations Discontinue diltiazem in favor of amlodipine Continue beta-blockade Continue telemetry In the absence of any additional rise in biomarkers, discontinue heparin and continue beta-blockade and dual anti-platelet therapy In the absence of symptoms or arrhythmia on telemetry while an inpatient I would recommend outpatient rhythm monitoring History of Present Illness Reason for Consultation: Elevated troponin Requesting Physician: Samantha Attending Physician: Natan Mahmood History of Present Illness The patient is an 89-year-old gentleman recently admitted for weakness and gait instability. The time of his prior admission he was noted to have concerning EKG findings and elevations in his cardiac biomarkers. Echocardiogram performed at that time also revealed a previously undocumented wall motion abnormality mildly reduced LV systolic function. He was treated conservatively for a non ST elevation myocardial infarction. Yesterday the patient was returned to the hospital after sustaining several falls at his assisted living facility. The patient states that his the occasionally falls without any particular warning. He states that he has lost consciousness on 2 occasions resulting in a fall. However, these episodes are very brief in nature and is able to get up immediately afterwards. He does not seem to have any insight as to another mechanism for his falls. He was able to ambulate with a walker and physical therapy around his room earlier today without symptom. Apparently he had an episode subsequent to a CT scan last evening. He describes this as feeling short of breath and having a generalized ache in his chest for up to half an hour subsequent to this CT scan. It appeared to resolve without any specific intervention. It does not recurred. Otherwise he has not had symptoms of chest discomfort. He does have baseline breathing difficulty that is unchanged. He does describe occasional episodes at night where he awakened somewhat short of breath. These appear to be rare. They resolve without any particular intervention. He generally does not have dizziness or lightheadedness. He has not been aware of any palpitations. Allergies Allergy/AdvReac Type Severity Reaction Status Date / Time bee venom protein (honey bee) Allergy Unknown Unknown Unverified 11/22/21 19:19 cefuroxime [From Ceftin] Allergy Unknown Unknown Verified 11/22/21 19:19 Home Medications Medication Instructions Recorded Confirmed Type mometasone (Asmanex Twisthaler) 1 inh INHALATION BID 10/01/21 11/22/21 History aspirin 81 mg chewable tablet 81 mg PO DAILY #30 tab 10/19/21 11/22/21 Rx atorvastatin 20 mg tablet 20 mg PO DAILY #30 tab 10/19/21 11/22/21 Rx clopidogrel 75 mg tablet 75 mg PO DAILY #30 tab 10/19/21 11/22/21 Rx allopurinol 100 mg tablet 100 mg PO DAILY #90 tab 11/12/21 11/22/21 Rx arformoterol 15 mcg/2 mL solution 2 ml INHALATION BID #120 ml 11/12/21 11/22/21 Rx for nebulization (Brovana) diltiazem HCl 120 mg capsule,24 120 mg PO DAILY #90 cap 11/12/21 11/22/21 Rx hr,extended release food supplemt, lactose-reduced 24 ea PO BID #5688 ml 11/12/21 11/22/21 Rx (Ensure) gabapentin 300 mg capsule 300 mg PO TID #270 cap 11/12/21 11/22/21 Rx lisinopril 20 mg tablet 20 mg PO DAILY #90 tab 11/12/21 11/22/21 Rx metformin 500 mg tablet 500 mg PO BID #180 tab 11/12/21 11/22/21 Rx montelukast 10 mg tablet 10 mg PO QAM #90 tab 11/12/21 11/22/21 Rx pantoprazole 40 mg tablet,delayed 40 mg PO DAILY #90 tab 11/12/21 11/22/21 Rx release potassium chloride 20 mEq 20 meq PO DAILY #90 tab 11/12/21 11/22/21 Rx tablet,extended release(part/cryst) calcium carbonate 600 mg-vitamin 1 tab PO QAM #90 tab 11/14/21 11/22/21 Rx D3 20 mcg (800 unit) chewable tablet (Caltrate 600 plus D) nitroglycerin 0.4 mg sublingual 0.4 mg SUBLINGUAL UD PRN 11/22/21 11/22/21 History tablet psyllium 1 packet PO DAILY 11/22/21 11/22/21 History Patient History Medical History (Updated 11/23/21 @ 12:31 by Wil Genao MD) Abdominal aortic aneurysm Acute electrocardiogram changes Acute renal insufficiency C. difficile diarrhea Cholecystitis Cholelithiasis CKD (chronic kidney disease), stage III Frequent falls Gout Sepsis Surgical History H/O prostatectomy History of cholecystectomy History of hernia repair History of hip surgery Hx of adenoidectomy Hx of tonsillectomy Family History Mother Coronary heart disease Myocardial infarction Father Stroke Other Hypertension Denies family history of Ovarian cancer Prostate cancer Breast cancer Lung cancer Colorectal cancer Social History Smoking Status: Current every day smoker Second Hand Exposure: No; Do You Dip or Chew Tobacco: No; Tobacco Cessation Education Requested by Patient: No Hx Alcohol Use: No Hx Substance Use: No Preferred Language: Khmer Communication Ability: Effective Tongue Presser Required: No Beliefs That Will Affect Care: None marital status: Single Current Living Situation: Shelter Current Living Situation Comment: [facility]. current occupational status: retired How many Children do You have: 0 Other Information That Helps Us Care for You: No Feels Safe at Home: Yes Safety Concerns: Feels Safe At This Time caffeine: Yes Dental Care, Regularly: No Physical Activity Frequency: 1-2 Times per Week Seatbelt Use: always Sunscreen Use: No Assistive Devices: Walker Review of Systems Review of Systems: Per HPI Physical Exam Physical Exam: The patient is alert and oriented. Mood and affect appeared normal. He answered all questions appropriately. HEENT: Pupils are equal and reactive to light and accommodation. Extraocular movements are intact. The sclerae are anicteric. Neuro: Cranial nerves intact Lungs: Clear to auscultation bilaterally. He has good air movement without use of accessory muscles. No rales wheezes or rhonchi. Cardiac: Heart demonstrates a regular rate and rhythm with occasional ectopy Normal S1 and S2. No murmurs on examination. Pulses: The patient has palpable radial pulses bilaterally that are equal in intensity Extremities: There was no evidence of hypoperfusion. There is no cyanosis or clubbing. There is no edema. Skin: I did not appreciate any rashes on examination today. Results & Data ([facility]) Vital Signs (Past 12 Hours) Vital Signs Temp Pulse Pulse Resp BP BP Pulse Ox 11/23/21 10:57 36.5 C 89 20 155/95 H 93 11/23/21 07:47 37.2 C 76 19 143/76 H 93 11/23/21 07:06 81 11/23/21 03:57 36.7 C 83 16 173/82 H 92 11/23/21 00:53 36.9 C 85 90 18 130/98 98 Laboratory Results Abnormal Lab Results 11/22/21 11/22/21 11/22/21 19:05 19:11 19:11 WBC 4.97 RBC 4.22 L Hgb 12.7 L Hct 40.3 L MCV 95.5 MCH 30.1 MCHC 31.5 L RDW Std Deviation 50.8 H RDW Coeff of Svetlana 14.6 H Plt Count 147 MPV 10.0 Immature Gran % (Auto) 0.2 Neut % (Auto) 67.0 Lymph % (Auto) 11.5 Woods % (Auto) 17.1 Eos % (Auto) 3.4 Baso % (Auto) 0.8 Neut # (Auto) 3.33 Lymph # (Auto) 0.57 L Woods # (Auto) 0.85 H Eos # (Auto) 0.17 Baso # (Auto) 0.04 Immature Gran # (Auto) 0.01 PT INR APTT PTT Ratio Sodium 138 Potassium 4.5 Chloride 104 Carbon Dioxide 27 Anion Gap 7 BUN 20 Creatinine 1.48 H Est Cr Clr Drug Dosing Not Reportable Est GFR ( Amer) 47.9 Est GFR (Non-Af Amer) 41.4 BUN/Creatinine Ratio 13.5 Glucose 168 H POC Glucose Calcium 8.6 Phosphorus Magnesium 1.3 L Total Bilirubin 0.7 AST 25 ALT 14 Alkaline Phosphatase 43 Troponin I < 0.03 Total Protein 7.3 Albumin 4.0 Globulin 3.3 Albumin/Globulin Ratio 1.2 Prealbumin TSH Free T4 Urine Color Urine Appearance Urine pH Ur Specific Morrill Urine Protein Urine Glucose (UA) Urine Ketones Urine Blood Urine Nitrite Urine Bilirubin Urine Urobilinogen Ur Leukocyte Esterase SARS-CoV-2, RNA, NAAT NEGATIVE 11/22/21 11/22/21 11/23/21 19:11 20:23 01:56 WBC RBC Hgb Hct MCV MCH MCHC RDW Std Deviation RDW Coeff of Svetlana Plt Count MPV Immature Gran % (Auto) Neut % (Auto) Lymph % (Auto) Woods % (Auto) Eos % (Auto) Baso % (Auto) Neut # (Auto) Lymph # (Auto) Woods # (Auto) Eos # (Auto) Baso # (Auto) Immature Gran # (Auto) PT INR APTT PTT Ratio Sodium Potassium Chloride Carbon Dioxide Anion Gap BUN Creatinine Est Cr Clr Drug Dosing Est GFR ( Amer) Est GFR (Non-Af Amer) BUN/Creatinine Ratio Glucose POC Glucose Calcium Phosphorus Magnesium Total Bilirubin AST ALT Alkaline Phosphatase Troponin I 0.20 H* Total Protein Albumin Globulin Albumin/Globulin Ratio Prealbumin TSH 5.005 H Free T4 0.69 Urine Color Yellow Urine Appearance Clear Urine pH 7.5 Ur Specific Morrill 1.008 Urine Protein Negative Urine Glucose (UA) Negative Urine Ketones Negative Urine Blood Negative Urine Nitrite Negative Urine Bilirubin Negative Urine Urobilinogen Negative Ur Leukocyte Esterase Negative SARS-CoV-2, RNA, NAAT 11/23/21 11/23/21 11/23/21 04:26 04:26 04:26 WBC 4.25 L RBC 4.02 L Hgb 12.4 L Hct 38.0 L MCV 94.5 MCH 30.8 MCHC 32.6 RDW Std Deviation 50.5 H RDW Coeff of Svetlana 14.6 H Plt Count 138 MPV 9.9 Immature Gran % (Auto) 0.5 Neut % (Auto) 61.4 Lymph % (Auto) 18.8 Woods % (Auto) 16.2 Eos % (Auto) 2.4 Baso % (Auto) 0.7 Neut # (Auto) 2.61 Lymph # (Auto) 0.80 L Woods # (Auto) 0.69 H Eos # (Auto) 0.10 Baso # (Auto) 0.03 Immature Gran # (Auto) 0.02 PT 10.9 INR 1.0 APTT 27.6 PTT Ratio 1.0 Sodium 139 Potassium 4.3 Chloride 104 Carbon Dioxide 28 Anion Gap 7 BUN 16 Creatinine 1.33 Est Cr Clr Drug Dosing 30.3 Est GFR ( Amer) 54.5 Est GFR (Non-Af Amer) 47.1 BUN/Creatinine Ratio 12.0 Glucose 137 H POC Glucose Calcium 9.2 Phosphorus 2.9 Magnesium 2.7 H Total Bilirubin AST ALT Alkaline Phosphatase Troponin I 0.29 H* Total Protein Albumin Globulin Albumin/Globulin Ratio Prealbumin 22.3 TSH Free T4 Urine Color Urine Appearance Urine pH Ur Specific Morrill Urine Protein Urine Glucose (UA) Urine Ketones Urine Blood Urine Nitrite Urine Bilirubin Urine Urobilinogen Ur Leukocyte Esterase SARS-CoV-2, RNA, NAAT 11/23/21 11/23/21 11/23/21 09:16 10:46 11:36 WBC RBC Hgb Hct MCV MCH MCHC RDW Std Deviation RDW Coeff of Svetlana Plt Count MPV Immature Gran % (Auto) Neut % (Auto) Lymph % (Auto) Woods % (Auto) Eos % (Auto) Baso % (Auto) Neut # (Auto) Lymph # (Auto) Woods # (Auto) Eos # (Auto) Baso # (Auto) Immature Gran # (Auto) PT INR APTT 88.0 H* PTT Ratio 3.2 Sodium Potassium Chloride Carbon Dioxide Anion Gap BUN Creatinine Est Cr Clr Drug Dosing Est GFR ( Amer) Est GFR (Non-Af Amer) BUN/Creatinine Ratio Glucose POC Glucose 244 H 162 H Calcium Phosphorus Magnesium Total Bilirubin AST ALT Alkaline Phosphatase Troponin I Total Protein Albumin Globulin Albumin/Globulin Ratio Prealbumin TSH Free T4 Urine Color Urine Appearance Urine pH Ur Specific Morrill Urine Protein Urine Glucose (UA) Urine Ketones Urine Blood Urine Nitrite Urine Bilirubin Urine Urobilinogen Ur Leukocyte Esterase SARS-CoV-2, RNA, NAAT Diagnostic Findings Echocardiogram performed 10/02/2021: Mildly reduced LV systolic function with ejection fraction of 45-50%. Distal anteroseptal and apical akinesis. Mild LVH. Mild aortic regurgitation. Moderate mitral regurgitation. Mild left atrial enlargement Head CT was performed last evening which did not demonstrate any acute intracranial process Abdominal CT demonstrated stable infrarenal AAA measured at 3.7 cm Chest x-ray did not demonstrate any acute cardiopulmonary disease PG Care Time/CCT Total # of Minutes Spent Total Time Spent with Patient: Total time spent is greater than 50% in coordination of care (as documented) at patient's floor/unit and/or counseling patient: Coding Level of Care Code 62684 Initial Inpt Care Lvl 3 Diagnoses HTN (hypertension) I10 NSTEMI (non-ST elevated myocardial infarction) I21.4 Frequent falls R29.6 Valvular heart disease I38 Abdominal aortic aneurysm I71.4
--- NOTE | 2021-11-23 18:51 | Electrocardiogram Report ---
Test Reason : Blood Pressure : / mmHG Vent. Rate : 098 BPM Atrial Rate : 098 BPM P-R Int : 266 ms QRS Dur : 102 ms QT Int : 416 ms P-R-T Axes : 030 -09 084 degrees QTc Int : 531 ms Sinus rhythm with 1st degree A-V block Inferior infarct (cited on or before 22-NOV-2021) Nonspecific ST abnormality Abnormal ECG When compared with ECG of 22-NOV-2021 19:08, (unconfirmed) QT has lengthened Confirmed by Wil Genao ([id number]) on 11/23/2021 6:51:24 PM Referred By: REFERRED SELF Confirmed By:Ander Genao
--- NOTE | 2021-11-23 18:53 | Electrocardiogram Report ---
Test Reason : Blood Pressure : / mmHG Vent. Rate : 100 BPM Atrial Rate : 100 BPM P-R Int : 254 ms QRS Dur : 104 ms QT Int : 328 ms P-R-T Axes : 030 -01 085 degrees QTc Int : 423 ms Sinus rhythm with 1st degree A-V block possible Inferior infarct , age undetermined Nonspecific ST abnormality Abnormal ECG When compared with ECG of 02-OCT-2021 12:29, T wave inversion less evident in Anterolateral leads QT has shortened Confirmed by Wil Genao ([id number]) on 11/23/2021 6:52:59 PM Referred By: REFERRED SELF Confirmed By:Ander Genao
--- NOTE | 2021-11-23 18:55 | Electrocardiogram Report ---
Test Reason : Blood Pressure : / mmHG Vent. Rate : 105 BPM Atrial Rate : 105 BPM P-R Int : 288 ms QRS Dur : 108 ms QT Int : 322 ms P-R-T Axes : 033 -01 106 degrees QTc Int : 425 ms Sinus tachycardia with 1st degree A-V block with frequent Premature ventricular complexes possible Inferior infarct (cited on or before 22-NOV-2021) Abnormal ECG When compared with ECG of 22-NOV-2021 20:03, (unconfirmed) Premature ventricular complexes are now Present T wave inversion now evident in Anterolateral leads QT has shortened Confirmed by Wil Genao ([id number]) on 11/23/2021 6:55:08 PM Referred By: REFERRED SELF Confirmed By:Ander Genao
[2021-11-23] MEDS: MONTELUKAST SODIUM 10 MG TABLET PO SCH (20:16)
[2021-11-23 20:24] LABS: Partial Thromboplastin Ratio 1.1
[2021-11-23] MEDS: Heparin IV Adult Wt-Based Standard WITH Bolus Protocol IV SCH ×2 (20:30→20:52)
--- NOTE | 2021-11-23 20:52 | Hospitalist Progress Note ---
Date of Service November 23, 2021 Assessment & Plan (1) Frequent falls: Plan: etiology? CT head neg for acute or chronic CVA. Uncertain if he is having associated syncope/LOC. Check b12 level am. PT/OT consultations. (2) Dizziness: Plan: CT head negative. Does not appear volume contracted. Orthostatic BPs this afternoon negative. No vertigo; the dizziness is a lightheaded feeling. Exact etiology uncertain. Will obtain carotid duplex study. Echo 09/2021 without any or other severe valve disease that would cause this symptom. Continue telemetry. Dr Genao recommending outpatient monitoring as well to r/o dysrhythmia contributing to falls. (3) CAD (coronary artery disease): Plan: Presumed disease. Rx for NSTEMI 09/2021. No cath performed. Remains on asa, plavix, statin. During 09/2021 hospital stay metoprolol was added. This was discontinued, however, at his f/u cardiology visit with Dr De La Rosa in Late September. Remains on diltiazem CD. Dr Genao does not feel he has suffered another ACS. He advises to stop heparin drip - will do so. (4) Chronic renal failure, stage 3b: Plan: CrCl at baseline about 30 repeat BMP am (5) Elevated troponin I level: Plan: myocardial demand ischemia 2nd to markedly elevated BP at presentation? other? ACS not suspected. (6) Ischemic cardiomyopathy: Plan: EF 45-50% on echo in 09/2021. Wall motion abnormalities seen on that echo. During prior admission he was treated for NSTEMI. Cath not performed. Appears compensated on exam today. (7) Pancytopenia: Plan: etiology? check b12/folate in am. viral? other? serial cbc for stability. (8) COPD (chronic obstructive pulmonary disease): Plan: has cough but cxr is clear and free of infiltrates. no evidence of lower resp tract infection at this time. (9) Acid reflux disease: Plan: cont PPI (10) Hyperlipidemia: Plan: cont statin (11) Diabetes: Plan: a1c 7% in 09/2021 very acceptable given his advanced age loose sliding scale novolog (12) HTN (hypertension): Plan: very high at ER presentation yesterday, now improved monitor (13) Ambulatory dysfunction: Plan: with resulting falls PT, OT check b12 level (14) Abdominal aortic aneurysm: Plan: stable on CT a/p yesterday (15) Hypothyroidism: Plan: TSH mildly elevated, FT4 borderline low given his symptomatology will Rx with synthroid 25mcg daily repeat TSH 6 weeks (16) Malignant neoplasm of bladder: Plan: noted details uncertain; no urology notes in the record ua yesterday completely normal (17) Hypomagnesemia: Plan: replaced/resolved Plan: spoke with pt's contact as listed in chart (she identifies herself as a "Friend" of many years); patient has no children, was never PT, OT dispo - hopefully will be able to return to [facility] Admission and Anticipated Discharge Date Admission Date: November 22, 2021 Subjective patient lying comfortably in bed states he was feeling dizzy earlier in the day when he was walking no dizziness at rest denies vertigo I spoke with his friend who is listed as his floor person in the chart; she reports that he often talks about his dizziness even back at [facility] patient was coughing during the visit; he stated the cough started earlier in the day denied feeling ill, however flowsheets showed he ate fair during the day however he said he ate "poorly" no chest pain no orthopnea no abd pain tele overnight wnl Review of Systems Review of Systems: gen - feels cold but this is chronic cv - no orthopnea, no palpitations, no cp pulm - no dyspnea at rest GI - no pain, nausea or emesis Physical Exam Physical Exam: gen - thin, NAD mouth - MMM neck - no JVD heart - RRR, s1 s2, no murmur lungs - CTA b/l abd - soft NT ND BS+ ext - no edema, pulses 2+ b/l neuro - strength 5/5 x 4 exts; no obvious facial droop eyes - no nystagmus, EOMI Results & Data Results & Data ([facility]) Vital Signs (Past 12 Hours) Vital Signs Temp Pulse Pulse Resp BP BP Pulse Ox 11/23/21 19:46 36.3 C L 11/23/21 15:32 36.6 C 77 19 115/64 95 11/23/21 15:29 85 11/23/21 10:57 36.5 C 89 20 155/95 H 93 Laboratory Results Laboratory Results - last 24 hr 11/23/21 11/23/21 11/23/21 01:56 04:26 04:26 WBC 4.25 L RBC 4.02 L Hgb 12.4 L Hct 38.0 L MCV 94.5 MCH 30.8 MCHC 32.6 RDW Std Deviation 50.5 H RDW Coeff of Svetlana 14.6 H Plt Count 138 MPV 9.9 Immature Gran % (Auto) 0.5 Neut % (Auto) 61.4 Lymph % (Auto) 18.8 Hickman % (Auto) 16.2 Eos % (Auto) 2.4 Baso % (Auto) 0.7 Neut # (Auto) 2.61 Lymph # (Auto) 0.80 L Hickman # (Auto) 0.69 H Eos # (Auto) 0.10 Baso # (Auto) 0.03 Immature Gran # (Auto) 0.02 PT INR APTT PTT Ratio Sodium 139 Potassium 4.3 Chloride 104 Carbon Dioxide 28 Anion Gap 7 BUN 16 Creatinine 1.33 Est Cr Clr Drug Dosing 30.3 Est GFR ( Amer) 54.5 Est GFR (Non-Af Amer) 47.1 BUN/Creatinine Ratio 12.0 Glucose 137 H POC Glucose Calcium 9.2 Phosphorus 2.9 Magnesium 2.7 H Troponin I 0.20 H* 0.29 H* Prealbumin 22.3 11/23/21 11/23/21 11/23/21 04:26 09:16 10:46 WBC RBC Hgb Hct MCV MCH MCHC RDW Std Deviation RDW Coeff of Svetlana Plt Count MPV Immature Gran % (Auto) Neut % (Auto) Lymph % (Auto) Hickman % (Auto) Eos % (Auto) Baso % (Auto) Neut # (Auto) Lymph # (Auto) Hickman # (Auto) Eos # (Auto) Baso # (Auto) Immature Gran # (Auto) PT 10.9 INR 1.0 APTT 27.6 88.0 H* PTT Ratio 1.0 3.2 Sodium Potassium Chloride Carbon Dioxide Anion Gap BUN Creatinine Est Cr Clr Drug Dosing Est GFR ( Amer) Est GFR (Non-Af Amer) BUN/Creatinine Ratio Glucose POC Glucose 244 H Calcium Phosphorus Magnesium Troponin I Prealbumin 11/23/21 11/23/21 11/23/21 11:36 12:47 14:02 WBC RBC Hgb Hct MCV MCH MCHC RDW Std Deviation RDW Coeff of Svetlana Plt Count MPV Immature Gran % (Auto) Neut % (Auto) Lymph % (Auto) Hickman % (Auto) Eos % (Auto) Baso % (Auto) Neut # (Auto) Lymph # (Auto) Hickman # (Auto) Eos # (Auto) Baso # (Auto) Immature Gran # (Auto) PT INR APTT PTT Ratio Sodium Potassium Chloride Carbon Dioxide Anion Gap BUN Creatinine Est Cr Clr Drug Dosing Est GFR ( Amer) Est GFR (Non-Af Amer) BUN/Creatinine Ratio Glucose POC Glucose 162 H Calcium Phosphorus Magnesium Troponin I Cancelled 0.19 H* Prealbumin 11/23/21 11/23/21 11/23/21 16:37 20:00 20:20 WBC RBC Hgb Hct MCV MCH MCHC RDW Std Deviation RDW Coeff of Svetlana Plt Count MPV Immature Gran % (Auto) Neut % (Auto) Lymph % (Auto) Hickman % (Auto) Eos % (Auto) Baso % (Auto) Neut # (Auto) Lymph # (Auto) Hickman # (Auto) Eos # (Auto) Baso # (Auto) Immature Gran # (Auto) PT INR APTT 31.0 PTT Ratio 1.1 Sodium Potassium Chloride Carbon Dioxide Anion Gap BUN Creatinine Est Cr Clr Drug Dosing Est GFR ( Amer) Est GFR (Non-Af Amer) BUN/Creatinine Ratio Glucose POC Glucose 113 H 149 H Calcium Phosphorus Magnesium Troponin I Prealbumin PG Care Time/CCT Total # of Minutes Spent Total Time Spent with Patient: Total time spent is greater than 50% in coordination of care (as documented) at patient's floor/unit and/or counseling patient: Coding Level of Care Code 32670 Subseq Hosp Care Lvl 3 Diagnoses Frequent falls R29.6 CAD (coronary artery disease) I25.10 Chronic renal failure, stage 3b N18.32 Dizziness R42 Pancytopenia D61.818 COPD (chronic obstructive pulmonary disease) J44.9 Acid reflux disease K21.9 Hyperlipidemia E78.5 Diabetes E11.9 HTN (hypertension) I10 Ambulatory dysfunction R26.2 Abdominal aortic aneurysm I71.4 Hypothyroidism E03.9 Elevated troponin I level R77.8 Ischemic cardiomyopathy I25.5 Malignant neoplasm of bladder C67.9 Hypomagnesemia E83.42
--- NOTE | 2021-11-24 05:14 | Billing Data ---
Date of Service November 24, 2021 Coding Level of Care Code 09778 Initial Inpt Care Lvl 3
[2021-11-24] MEDS: LEVOTHYROXINE SODIUM 25 MCG TABLET PO SCH (06:04)
[2021-11-24] MEDS: FORMOTEROL 20 MCG/2 ML VIAL INH SCH ×2 (07:30→19:22)
[2021-11-24 07:52] LABS: Basophils # (auto) 0.02 K/uL (0-0.2); Basophils % (auto) 0.7 %; Eosinophils # (auto) 0.06 K/uL (0-0.5); Eosinophils % (auto) 2.1 %; Hematocrit (blood only) 37.9 % (42-52); Hemoglobin 12.2 g/dL (14.0-18.0); Immature Granulocytes # (auto) 0.01 K/uL (0.00-0.02); Immature Granulocytes % (auto) 0.4 %; Lymphocytes # (auto) 0.45 K/uL (1.2-3.4); Lymphocytes % (auto) 15.9 %; Mean Corpuscular Hemoglobin 30.5 pg (25-34); Mean Corpuscular Hgb Conc 32.2 g/dL (32-36); Mean Corpuscular Volume 94.8 fL (80-100); Mean Platelet Volume 9.7 fL (7.4-10.4); Monocytes # (auto) 0.86 K/uL (0.11-0.59); Monocytes % (auto) 30.4 %; Neutrophils # (auto) 1.43 K/uL (1.4-6.5); Neutrophils % (auto) 50.5 %; Platelet Count 126 K/uL (130-400); RDW Coefficient of Variation 14.8 % (11.5-14.5); White Blood Count 2.83 K/uL (4.8-10.8)
[2021-11-24] MEDS: FLUTICASONE FUROATE 200MCG 14 PUFFS/INHALER INH SCH (07:52)
[2021-11-24] MEDS: CLOPIDOGREL BISULFATE 75 MG TAB PO SCH (07:53)
[2021-11-24] MEDS: ATORVASTATIN 20 MG TAB PO SCH (07:53)
[2021-11-24] MEDS: dilTIAZem ER 120 MG CAPCR PO SCH (07:53)
[2021-11-24] MEDS: PSYLLIUM 58.6% POWDER PACKET PO SCH (07:53)
[2021-11-24] MEDS: POTASSIUM CHLORIDE CRTAB 20 MEQ TABCR PO SCH (07:53)
[2021-11-24] MEDS: lisinopril 20 MG TAB PO SCH (07:54)
[2021-11-24] MEDS: MULTIVITAMIN TAB PO SCH (07:54)
[2021-11-24] MEDS: GABAPENTIN 300 MG CAP PO SCH ×3 (07:54→19:56)
[2021-11-24] MEDS: allopurinoL 100 MG TAB PO SCH (07:54)
[2021-11-24] MEDS: PANTOprazole 40 MG TAB PO SCH (07:55)
[2021-11-24] MEDS: CALCIUM 600MG + VIT D 400 IU TAB PO SCH (07:55)
[2021-11-24] MEDS: ASPIRIN 81 MG ECTAB PO SCH (07:55)
[2021-11-24] MEDS: INSULIN ASPART PER UNIT SC SCH ×4 (08:02→21:24)
[2021-11-24 08:25] LABS: BUN Creatinine Ratio 12.6 (10-20); Calcium 7.9 mg/dl (8.5-10.1); Creatinine Clr Calc Pharmacy 29.9 ml/min; Est GFR (African American) 53.6 ml/min; Est GFR (Non-African American) 46.2 ml/min; Potassium 4.5 mmol/L (3.5-5.1)
[2021-11-24 08:46] LABS: Folate (Folic Acid) 18.05 ng/ml (>5.38)
--- NOTE | 2021-11-24 11:15 | Ultrasound Report ---
ULTRASOUND OF THE CAROTID ARTERIES CLINICAL HISTORY: dizziness, question of syncope COMPARISON: None available at the time of this dictation. TECHNIQUE: Real-time, grayscale, and color Doppler sonography of the carotid arteries is performed. I mages are reviewed in the transverse and longitudinal planes. FINDINGS: The carotid arteries are patent bilaterally and demonstrate antegrade flow. There is moderate atheros clerotic plaque on the right and mild atherosclerotic plaque on the left. Normal doppler arterial wav eforms are seen throughout. The left ICA is noted to be tortuous. Velocity measurements are listed be low. Common carotid peak systolic velocity (cm/sec): RIGHT: 46 LEFT: 56 ICA peak systolic velocity (cm/sec): RIGHT: 49 LEFT: 43 ICA/CC peak systolic ratio: RIGHT: 0.9 LEFT: 0.8 Antegrade flow was shown in the vertebral arteries. The external carotid arteries are patent. IMPRESSION: 1. There is no sonographic evidence of hemodynamically significant stenosis in the right or left fonseca tid arterial system. 2. Antegrade flow is shown in the vertebral arteries. Society of Radiologists in Ultrasound consensus guidelines: Normal: ICA PSV is <125 cm/sec and no plaque or intimal thickening is visible sonographically additional criteria include ICA/CCA PSV ratio <2.0 and ICA EDV <40 cm/sec <50% ICA stenosis: ICA PSV is <125 cm/sec and plaque or intimal thickening is visible sonographically additional criteria include ICA/CCA PSV ratio <2.0 and ICA EDV <40 cm/sec 50-69% ICA stenosis: ICA PSV is 125-230 cm/sec and plaque is visible sonographically additional criteria include ICA/CCA PSV ratio of 2.0-4.0 and ICA EDV of 40-100 cm/sec ?70% ICA stenosis but less than near occlusion: ICA PSV is >230 cm/sec and visible plaque and luminal narrowing are seen at lainez-scale and color Dopp ler ultrasound (the higher the Doppler parameters lie above the threshold of 230 cm/sec, the greater the likelihood of severe disease) additional criteria include ICA/CCA PSV ratio >4 and ICA EDV >100 cm/sec ACT 112: Negative or not required by law. Electronically signed by: Shan Moore M.D. 11/24/2021 11:14 AM
--- NOTE | 2021-11-24 14:54 | Hospitalist Progress Note ---
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 Hospice goals of care Patient anticipated to return to [facility] on hospice on Friday. He has had progressive generalized weakness, poor appetite, and failure to thrive over several months. This has been discussed with both the patient and his POA is as noted in case management note. Patient affirms the plan to go to hospice at bedside. Does remain full code until discharge on Friday. Would like to continue medications and treatment as below until then, defer inventions thereafter. Ambulatory Dysfunction; Failure to Thrive; Protein Calorie Malnutrition; Weakness Patient has chronic generalized weakness that has been slowly progressive for at least several months, with associated falls, due to poor appetite and failure to thrive with minimal PO intake. No weight loss or focal symptoms of malignancy or infection. - Albumin 4.0 although was 2.3 in 09/2021 - suspect hemoconcentration 2/2 dehydration - Prealbumin ordered - s/p 1L NSS in the ED; tolerating p.o. today, discontinue IVF - encourage PO intake -Continue multivitamin daily -Mg 1.3, suspect due to dehydration and overall malnutrition. Repleted with 5 g, slightly high today at 2.7. Defer additional repletion Patient with first-degree AV block, worsened compared to prior. Diltiazem discontinued and replaced with amlodipine at this time (2) Failure to thrive: Plan: - Hospice as above (3) CAD (coronary artery disease): Plan: Chest/Abdominal Pain Generalized pain that occurred immediately after CT A/P, without associated dizziness/lightheadedness of fevers. Resolved quickly without intervention. Suspect adverse effect of contrast. Do not suspect ACS at this time given quick resolution of pain and atypical presentation. - EKG showing sinus rhythm with 1st degree AV block and previous inferior infarct which are chronic findings, but does show mild ST depression in anterior leads - repeat EKG ordered -Troponins negative - PRN EKG for chest pain - continue Aspirin, Atorvastatin, Plavix, Diltiazem, Lisinopril. Patient will have medication weaned once arriving at hospice, continue meds for now per discussion with NABEEL (4) Decreased appetite: Plan: - as above (5) HTN (hypertension): Plan: - As above (6) Diabetes: Plan: - SSI - glucoes checks AC/HS while inpt (7) Hyperlipidemia: (8) Unspecified cirrhosis of liver: Plan: - No acute treatment at this time (9) Malignant neoplasm of bladder: (10) Acid reflux disease: Plan: Continue protonix (11) COPD (chronic obstructive pulmonary disease): Plan: Continue inhalers, singular. No wheezing on exam 11/24 (12) CHF (congestive heart failure): Plan: As above (13) Chronic renal failure, stage 3b: Plan: CKDIII Creatinine remains at baseline - continue to trend - renal dosing of meds Admission and Anticipated Discharge Date Admission Date: November 22, 2021 Subjective Patient seen at bedside today. Reports no distress. Is oriented to name and place only. He denies chest pain, chest pressure, lightheadedness, dizziness, nausea, vomiting, difficulty breathing at bedside assessment. Reports he is not sure where he is in the hospital. Pleasant, but offers little spontaneous speech. Reviewed his case and care, and that the plan is for him to return to [facility] with [facility] on Friday. Patient reports "sounds like a good plan". Discussed this care by phone with patient permission with Deb who patient confirms this is medical power of health care attorney along with Abi. She reports that she agrees, and anticipates him returning to [facility] with hospice on Friday. Discussed that he is full code at this time in the hospital and that DNR/DNI would be consistent with hospice. She expresses understanding that he should be DNR/DNI and is okay with this when he leaves the hospital, but would like to leave him as full code until Friday but will discuss this with Anuradha and call if they are okay with/plan to have this changed while in the hospital. No other questions or concerns at time of visit. Review of Systems Review of Systems: 10 point review systems negative except as noted above Physical Exam Physical Exam: General: A&Ox3. NAD. Cooperative. HEENT: Atraumatic, normocephalic. Pulm: CTAB A&P. -wheezes, -rales, -rhonchi. Symmetrical chest rise. No increase in work of breathing. No respiratory distress. Cardiac: RRR, -mrg. Radial pulses intact and symmetrical. Abdominal: Nontender, nondistended, soft. BS present. Results & Data Results & Data ([facility]) Vital Signs (Past 12 Hours) Vital Signs Temp Pulse Pulse Resp BP BP Pulse Ox 11/24/21 11:26 36.9 C 94 H 20 101/55 L 93 11/24/21 08:08 37.4 C 83 16 116/59 L 99 11/24/21 07:32 89 20 91 11/24/21 07:11 82 11/24/21 03:14 36.7 C 92 H 20 135/82 93 PG Care Time/CCT Total # of Minutes Spent Total Time Spent with Patient: Total time spent is greater than 50% in coordination of care (as documented) at patient's floor/unit and/or counseling patient: Coding Level of Care Code 19874 Subseq Hosp Care Lvl 2 Diagnoses Ambulatory dysfunction R26.2 Failure to thrive Decreased appetite R63.0 HTN (hypertension) I10 Diabetes E11.9 Hyperlipidemia E78.5 Unspecified cirrhosis of liver K74.60 Malignant neoplasm of bladder C67.9 Acid reflux disease K21.9 COPD (chronic obstructive pulmonary disease) J44.9 CHF (congestive heart failure) I50.9 CAD (coronary artery disease) I25.10 Chronic renal failure, stage 3b N18.32
[2021-11-24] MEDS: MONTELUKAST SODIUM 10 MG TABLET PO SCH (19:56)
[2021-11-24] MEDS: ACETAMINOPHEN 325 MG TAB PO PRN (19:56)
[2021-11-25] MEDS: LEVOTHYROXINE SODIUM 25 MCG TABLET PO SCH (05:46)
[2021-11-25 07:14] LABS: Basophils # (auto) 0.01 K/uL (0-0.2); Basophils % (auto) 0.4 %; Eosinophils # (auto) 0.01 K/uL (0-0.5); Eosinophils % (auto) 0.4 %; Hematocrit (blood only) 35.8 % (42-52); Hemoglobin 11.7 g/dL (14.0-18.0); Lymphocytes # (auto) 0.47 K/uL (1.2-3.4); Lymphocytes % (auto) 17.9 %; Mean Corpuscular Hemoglobin 30.8 pg (25-34); Mean Corpuscular Hgb Conc 32.7 g/dL (32-36); Mean Corpuscular Volume 94.2 fL (80-100); Mean Platelet Volume 9.5 fL (7.4-10.4); Monocytes % (auto) 30.5 %; Neutrophils # (auto) 1.33 K/uL (1.4-6.5); Neutrophils % (auto) 50.8 %; Platelet Count 114 K/uL (130-400); RDW Coefficient of Variation 14.8 % (11.5-14.5); RDW Standard Deviation 50.6 fL (36.4-46.3); White Blood Count 2.62 K/uL (4.8-10.8)
[2021-11-25] MEDS: FORMOTEROL 20 MCG/2 ML VIAL INH SCH ×2 (07:37→20:03)
[2021-11-25] MEDS: FLUTICASONE FUROATE 200MCG 14 PUFFS/INHALER INH SCH (08:07)
[2021-11-25] MEDS: PANTOprazole 40 MG TAB PO SCH (08:07)
[2021-11-25] MEDS: CLOPIDOGREL BISULFATE 75 MG TAB PO SCH (08:07)
[2021-11-25] MEDS: dilTIAZem ER 120 MG CAPCR PO SCH (08:07)
[2021-11-25] MEDS: GABAPENTIN 300 MG CAP PO SCH ×3 (08:07→21:15)
[2021-11-25] MEDS: ASPIRIN 81 MG ECTAB PO SCH (08:07)
[2021-11-25] MEDS: CALCIUM 600MG + VIT D 400 IU TAB PO SCH (08:08)
[2021-11-25] MEDS: ATORVASTATIN 20 MG TAB PO SCH (08:08)
[2021-11-25] MEDS: MULTIVITAMIN TAB PO SCH (08:08)
[2021-11-25] MEDS: POTASSIUM CHLORIDE CRTAB 20 MEQ TABCR PO SCH (08:08)
[2021-11-25] MEDS: PSYLLIUM 58.6% POWDER PACKET PO SCH (08:08)
[2021-11-25] MEDS: lisinopril 20 MG TAB PO SCH (08:08)
[2021-11-25] MEDS: allopurinoL 100 MG TAB PO SCH (08:09)
[2021-11-25] MEDS: INSULIN ASPART PER UNIT SC SCH ×4 (08:12→21:15)
[2021-11-25] MEDS: ONDANSETRON INJ 2 MG/ML 2 ML VIAL IV PRN ×2 (11:54→12:20)
--- NOTE | 2021-11-25 14:16 | XRay Report ---
XR chest 1V portable CLINICAL HISTORY: cough. COMPARISON STUDY: 11/22/2021 TECHNIQUE: 1 view of the chest FINDINGS: Single frontal view of the chest demonstrates the cardiomediastinal silhouette to be within normal li mits. There is a decreased inspiratory effort with elevation of the hemidiaphragms and crowding of th e bronchovascular markings at the lung bases and centrally. The lungs are clear of alveolar opacities . There is no evidence for pleural effusion. There is no evidence for vascular congestion. There is n o acute osseous pathology. IMPRESSION: 1. Compared to the previous study, there is now a decreased inspiratory effort with otherwise no acut e chest disease. ACT 112: Negative or not required by law. Electronically signed by: Nick Sheridan M.D. 11/25/2021 2:14 PM
[2021-11-25] MEDS: MONTELUKAST SODIUM 10 MG TABLET PO SCH (21:15)
--- NOTE | 2021-11-25 22:00 | Hospitalist Progress Note ---
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 Hospice goals of care Patient anticipated to return to [facility] on hospice on Friday. He has had progressive generalized weakness, poor appetite, and failure to thrive over several months. This has been discussed with both the patient and his POA is as noted in case management note. Patient affirms the plan to go to hospice at bedside. Does remain full code until discharge on Friday. Would like to continue medications and treatment as below until then, defer inventions thereafter. Ambulatory Dysfunction; Failure to Thrive; Protein Calorie Malnutrition; Weakness Patient has chronic generalized weakness that has been slowly progressive for at least several months, with associated falls, due to poor appetite and failure to thrive with minimal PO intake. No weight loss or focal symptoms of malignancy or infection. - Albumin 4.0 although was 2.3 in 09/2021 - suspect hemoconcentration 2/2 dehydration - Prealbumin ordered - s/p 1L NSS in the ED; tolerating p.o. today, discontinue IVF - encourage PO intake -Continue multivitamin daily -Mg 1.3, suspect due to dehydration and overall malnutrition. Repleted with 5 g, slightly high today at 2.7. Defer additional repletion Patient with first-degree AV block, worsened compared to prior. Diltiazem discontinued and replaced with amlodipine at this time Due to cough, checked chest x ray which did not show any acute changes in the chest. Ordered flutter valve. (2) Failure to thrive: Plan: - Hospice as above (3) CAD (coronary artery disease): Plan: Chest/Abdominal Pain Generalized pain that occurred immediately after CT A/P, without associated dizziness/lightheadedness of fevers. Resolved quickly without intervention. Suspect adverse effect of contrast. Do not suspect ACS at this time given quick resolution of pain and atypical presentation. - EKG showing sinus rhythm with 1st degree AV block and previous inferior infarct which are chronic findings, but does show mild ST depression in anterior leads - repeat EKG ordered -Troponins negative - PRN EKG for chest pain - continue Aspirin, Atorvastatin, Plavix, Diltiazem, Lisinopril. Patient will have medication weaned once arriving at hospice, continue meds for now per discussion with POA (4) Decreased appetite: Plan: - as above (5) HTN (hypertension): Plan: - As above (6) Diabetes: Plan: - SSI - glucoes checks AC/HS while inpt (7) Hyperlipidemia: (8) Unspecified cirrhosis of liver: Plan: - No acute treatment at this time (9) Malignant neoplasm of bladder: (10) Acid reflux disease: Plan: Continue protonix (11) COPD (chronic obstructive pulmonary disease): Plan: Continue inhalers, singular. No wheezing on exam 11/24 (12) CHF (congestive heart failure): Plan: As above (13) Chronic renal failure, stage 3b: Plan: CKDIII Creatinine remains at baseline - continue to trend - renal dosing of meds Admission and Anticipated Discharge Date Admission Date: November 22, 2021 Subjective Patient is cooperative. Patient had a cough earlier today. Review of Systems Review of Systems: All systems reviewed & are unremarkable except as noted in HPI & below Physical Exam Physical Exam: General: A&Ox3. NAD. Cooperative. HEENT: Atraumatic, normocephalic. Pulm: CTAB A&P. -wheezes, -rales, -rhonchi. Symmetrical chest rise. No increase in work of breathing. No respiratory distress. Cardiac: RRR, -mrg. Radial pulses intact and symmetrical. Abdominal: Nontender, nondistended, soft. BS present. Results & Data Results & Data ([facility]) Vital Signs (Past 12 Hours) Vital Signs Temp Pulse Pulse Resp BP BP Pulse Ox 11/25/21 18:23 37.3 C 61 16 105/64 95 11/25/21 15:35 76 11/25/21 15:20 37.1 C 79 18 93/55 L 94 11/25/21 11:07 36.5 C 107 H 20 92/54 L 90 PG Care Time/CCT Total # of Minutes Spent Total Time Spent with Patient: Total time spent is greater than 50% in coordination of care (as documented) at patient's floor/unit and/or counseling patient: Coding Level of Care Code 24520 Subseq Hosp Care Lvl 2 Diagnoses Ambulatory dysfunction R26.2 Failure to thrive CAD (coronary artery disease) I25.10 Decreased appetite R63.0 HTN (hypertension) I10 Diabetes E11.9 Hyperlipidemia E78.5 Unspecified cirrhosis of liver K74.60 Malignant neoplasm of bladder C67.9 Acid reflux disease K21.9 COPD (chronic obstructive pulmonary disease) J44.9 CHF (congestive heart failure) I50.9 Chronic renal failure, stage 3b N18.32 Time Spent (min) 25
[2021-11-25] MEDS: ACETAMINOPHEN 325 MG TAB PO PRN (22:55)
[2021-11-26] MEDS: LEVOTHYROXINE SODIUM 25 MCG TABLET PO SCH (06:00)
[2021-11-26] MEDS: FORMOTEROL 20 MCG/2 ML VIAL INH SCH (07:32)
[2021-11-26] MEDS: INSULIN ASPART PER UNIT SC SCH (08:03)
[2021-11-26] MEDS: lisinopril 20 MG TAB PO SCH (08:03)
[2021-11-26] MEDS: POTASSIUM CHLORIDE CRTAB 20 MEQ TABCR PO SCH (08:04)
[2021-11-26] MEDS: MULTIVITAMIN TAB PO SCH (08:04)
[2021-11-26] MEDS: CLOPIDOGREL BISULFATE 75 MG TAB PO SCH (08:04)
[2021-11-26] MEDS: ATORVASTATIN 20 MG TAB PO SCH (08:04)
[2021-11-26] MEDS: ASPIRIN 81 MG ECTAB PO SCH (08:05)
[2021-11-26] MEDS: dilTIAZem ER 120 MG CAPCR PO SCH (08:05)
[2021-11-26] MEDS: allopurinoL 100 MG TAB PO SCH (08:05)
[2021-11-26] MEDS: GABAPENTIN 300 MG CAP PO SCH (08:05)
[2021-11-26] MEDS: CALCIUM 600MG + VIT D 400 IU TAB PO SCH (08:05)
[2021-11-26] MEDS: FLUTICASONE FUROATE 200MCG 14 PUFFS/INHALER INH SCH (08:06)
[2021-11-26] MEDS: PSYLLIUM 58.6% POWDER PACKET PO SCH (08:06)
[2021-11-26] MEDS: PANTOprazole 40 MG TAB PO SCH (08:06)
--- NOTE | 2021-11-29 10:11 | Discharge Summary ---
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 ED from [facility] on 11/22 due to 2 falls over the last 2 weeks without LOC or head trauma. Patient reports that he chronically has a small appetite with "not enough" solid or fluid consumption for >several months. Denies weight loss. Reports that he has had several events when he "almost fell" over the last several months, due to his legs feeling weak with ambulation and "giving out" from under him. He denies loss of balance or tripping over anything. He denies LOC before the falls or associated with the falls. Fell onto his knees on both occasions and was able to stand back up with help. Denies urine/stool incontinence. Denies headaches, N/V, diarrhea, shortness of breath, chest pain, abdominal pain, rash. Denies previous/current tobacco use or alcohol/drug use. Usually proficient in ADLs and able to ambulate around the detention with a walker. In the ED the patient had BP 192/104 and HR 100. Afebrile and satting well on room air. Laboratory evaluation showed Mg 1.3 but otherwise largely unremarkable: Hgb 12.7 (chronic baseline), Cr 1.48 (chronic baseline). TSH 5.005 and FT4 0.69. UA without signs of infection and COVID negative. Imaging unremarkable: CXR without acute cardiopulmonary process. CT head without acute abnormality - in particular no sign of ventricular dilation. CT A/P with chronic infrarenal aortic aneurysm 3.7cm largely unchanged in size. Of note the patient reports that he had generalized pain in his chest/abdomen/groin immediately following the CT, which resolved within 20 minutes without intervention. No current pain. Feels to be at chronic baseline. Principal Diagnosis Ambulatory dysfunction Discharge Exam General: A&Ox3. NAD. Cooperative. HEENT: Atraumatic, normocephalic. Pulm: CTAB A&P. -wheezes, -rales, -rhonchi. Symmetrical chest rise. No increase in work of breathing. No respiratory distress. Cardiac: RRR, -mrg. Radial pulses intact and symmetrical. Abdominal: Nontender, nondistended, soft. BS present. 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 ED from [facility] facility on 11/22 due to falls. Hospice goals of care Patient anticipated to return to [facility] on hospice on Friday. He has had progressive generalized weakness, poor appetite, and failure to thrive over several months. This has been discussed with both the patient and his POA is as noted in case management note. Patient affirms the plan to go to hospice at bedside. Does remain full code until discharge on Friday. Would like to continue medications and treatment as below until then, defer inventions thereafter. Ambulatory Dysfunction; Failure to Thrive; Protein Calorie Malnutrition; Weakness Patient has chronic generalized weakness that has been slowly progressive for at least several months, with associated falls, due to poor appetite and failure to thrive with minimal PO intake. No weight loss or focal symptoms of malignancy or infection. - Albumin 4.0 although was 2.3 in 09/2021 - suspect hemoconcentration 2/2 dehydration - Prealbumin ordered - s/p 1L NSS in the ED; tolerating p.o. today, discontinue IVF - encourage PO intake -Continue multivitamin daily -Mg 1.3, suspect due to dehydration and overall malnutrition. Repleted with 5 g, slightly high today at 2.7. Defer additional repletion Patient with first-degree AV block, worsened compared to prior. Diltiazem discontinued and replaced with amlodipine at this time Due to cough, checked chest x ray which did not show any acute changes in the chest. Ordered flutter valve. Discharged on home hospice on 11/26/21 (2) Failure to thrive: - Hospice as above (3) CAD (coronary artery disease): Chest/Abdominal Pain Generalized pain that occurred immediately after CT A/P, without associated dizziness/lightheadedness of fevers. Resolved quickly without intervention. Suspect adverse effect of contrast. Do not suspect ACS at this time given quick resolution of pain and atypical presentation. - EKG showing sinus rhythm with 1st degree AV block and previous inferior infarct which are chronic findings, but does show mild ST depression in anterior leads - repeat EKG ordered -Troponins negative - PRN EKG for chest pain - continue Aspirin, Atorvastatin, Plavix, Diltiazem, Lisinopril. Patient will have medication weaned once arriving at hospice, continue meds for now per discussion with POA (4) Decreased appetite: - as above (5) HTN (hypertension): - As above (6) Diabetes: - SSI - glucoes checks AC/HS while inpt (7) Hyperlipidemia: (8) Unspecified cirrhosis of liver: - No acute treatment at this time (9) Malignant neoplasm of bladder: (10) Acid reflux disease: Continue protonix (11) COPD (chronic obstructive pulmonary disease): Continue inhalers, singular. No wheezing on exam 11/24 (12) CHF (congestive heart failure): As above (13) Chronic renal failure, stage 3b: CKDIII Creatinine remains at baseline - continue to trend - renal dosing of meds Total Time Total Time Spent Total Time Spent (In Minutes): 32 Discharge Plan Discharge Items Patient Disposition: Home - Self-Care Reason For Visit: FALLS Discharge Diagnosis: Falls Activity: Resume your previous activity Non-emergency contact: Primary Care Provider Call non-emergency contact if: you have any medication questions Follow-up/Referrals: Eufemia Yi MD [Primary Care Provider] - Diet: Carb Consistent or DM2 and Heart Healthy Addtl Attending Provider Instructions: You will be discharge don home hospice. Pending Studies at Discharge: No Stand-Alone Forms: My [facility], Smoking Cessation Medications and DC Order Prescriptions: Continued allopurinol 100 mg tablet 100 mg PO DAILY Qty: 90 RF: 1 Brovana 15 mcg/2 mL solution for nebulization 2 ml INHALATION BID Qty: 120 RF: 1 diltiazem HCl 120 mg capsule,extended release 24 hr 120 mg PO DAILY Qty: 90 RF: 1 Ensure Liquid 24 ea PO BID Qty: 5688 RF: 0 gabapentin 300 mg capsule 300 mg PO TID Qty: 270 RF: 1 lisinopril 20 mg tablet 20 mg PO DAILY Qty: 90 RF: 1 metformin 500 mg tablet 500 mg PO BID Qty: 180 RF: 3 montelukast 10 mg tablet 10 mg PO QAM Qty: 90 RF: 2 potassium chloride 20 mEq tablet,ER particles/crystals 20 meq PO DAILY Qty: 90 RF: 1 clopidogrel 75 mg tablet 75 mg PO DAILY Qty: 30 RF: 0 aspirin 81 mg tablet,chewable 81 mg PO DAILY Qty: 30 RF: 0 nitroglycerin 0.4 mg tablet, sublingual 0.4 mg sublingual UD PRN (Reason: Chest Pain) RF: 0 pantoprazole 40 mg tablet,delayed release (DR/EC) 40 mg PO DAILY Qty: 90 RF: 3 Asmanex Twisthaler 220 mcg/ actuation (60) aerosol powdr breath activated 1 inh INHALATION BID RF: 0 No Action [id number]-uoaieler 19.4-103.7-6.5 mcg suspension PO RF: 0 morphine 20 mg/5 mL (4 mg/mL) solution 10 mg PO Q2H PRNRF: 0 lorazepam 2 mg/mL concentrate 0.5 mg PO Q4H PRNRF: 0 quetiapine [Seroquel] 25 mg tablet 25 mg PO ONCE HS Qty: 30 RF: 2 Discharge Orders: Discharge Order (Routine); Ordered 11/26/21 Ordered By: Luis Armando Ortega Admission Data Admit Date/Time: 11/22/21 22:42 Attending Provider: Luis Armando Ortega Admit Provider: Santino Singh Primary Care Provider: Eufemia Yi Other Providers: Avel Andersen Jeffrey G. Other Interventions: Discharge Summary Assessment (RN) Last Done: 11/26/21 10:53 Coding Level of Care Code D/C DAY MANAGEMENT >30 MINS Diagnoses Ambulatory dysfunction R26.2 Failure to thrive CAD (coronary artery disease) I25.10 Decreased appetite R63.0 HTN (hypertension) I10 Diabetes E11.9 Hyperlipidemia E78.5 Unspecified cirrhosis of liver K74.60 Malignant neoplasm of bladder C67.9 Acid reflux disease K21.9 COPD (chronic obstructive pulmonary disease) J44.9 CHF (congestive heart failure) I50.9 Chronic renal failure, stage 3b N18.32
== END 2021-11-26 11:30 | disposition hospice, home (50) | DRG 92 ==
LOC: ED 18:41 → SUATTDRO 22:42 → 2N 22:42
DX: Z79.02 Long term (current) use of antithrombotics/antiplatelets; E46 Unspecified protein-calorie malnutrition; R26.2 Difficulty in walking, not elsewhere classified; Z51.5 Encounter for palliative care; I50.20 Unspecified systolic (congestive) heart failure; E83.42 Hypomagnesemia; Z66 Do not resuscitate; N18.30 Chronic kidney disease, stage 3 unspecified; I25.5 Ischemic cardiomyopathy; D61.818 Other pancytopenia; T50.8X5A Adverse effect of diagnostic agents, initial encounter; R79.89 Other specified abnormal findings of blood chemistry; I44.0 Atrioventricular block, first degree; I25.10 Atherosclerotic heart disease of native coronary artery without angina pectoris; I71.4 Abdominal aortic aneurysm, without rupture; I13.0 Hypertensive heart and chronic kidney disease with heart failure and stage 1 through stage 4 chronic kidney disease, or unspecified chronic kidney disease; I48.91 Unspecified atrial fibrillation; R62.7 Adult failure to thrive; F17.200 Nicotine dependence, unspecified, uncomplicated; E78.5 Hyperlipidemia, unspecified; M10.9 Gout, unspecified; R29.6 Repeated falls; C67.9 Malignant neoplasm of bladder, unspecified; R07.9 Chest pain, unspecified; K74.60 Unspecified cirrhosis of liver; R10.9 Unspecified abdominal pain; K21.9 Gastro-esophageal reflux disease without esophagitis; I25.2 Old myocardial infarction; Z79.84 Long term (current) use of oral hypoglycemic drugs